=== PATIENT | female | born 1995 | race Caucasian/White ===

== ENCOUNTER 2017-07-25 14:19 | Emergency (ER) | payer OTHER, SELFPAY ==
--- NOTE | 2017-07-25 17:33 | ER ---
Nurse's Notes [facility] Name: Brianna Man Age: 22 yrs Sex: Female : 1995 Arrival Date: 07/25/2017 Time: 14:23 Bed Waiting Private MD: Diagnosis: Presentation: 07/25 14:41 Presenting complaint: Patient states: last month i had 3 periods, im on my period right hj now that started , it regular flow but its thick and dark; reports crampy abd pain that radiates to the back;. Transition of care: patient was not received from another setting of care. Onset of symptoms was July 25, 2017. Care prior to arrival: None. 14:41 Method Of Arrival: Ambulatory 14:41 Acuity: VENANCIO 3 17:31 Note pt was called 3x and not available; pt possibly left;. Triage Assessment: 14:44 General: Appears in no apparent distress. uncomfortable, Behavior is calm, cooperative, hj appropriate for age. Pain: Complains of pain in suprapubic area Pain radiates to left low back and right low back. GI: Reports lower abdominal pain. 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 Abd is soft and non tender. Vital Signs: 14:44 BP 120 / 61; Pulse 95; Resp 18; Temp 98.3(TE); Pulse Ox 100% on R/A; Weight 66.22 kg; hj Height 5 ft. 0 in. (152.40 cm); Pain 0/10; 14:44 Body Mass Index 28.51 (66.22 kg, 152.40 cm) ED Course: 14:23 Patient arrived in ED. mr 14:43 Triage completed. hj 14:44 Arm band placed on left wrist. hj 15:01 Urine collected: clean catch specimen, clear. mh5 17:27 Ruchi Lopez FNP-C is PHCP. snw 17:27 Ying Flores MD is Attending Physician. snw Administered Medications: No medications were administered Outcome: 17:32 Patient left the ED. Signatures: Ruchi Lopez, [employer] CONSULTANT-Csnw Cris Jain Henry, RN RN Cris Holley [facility] Corrections: (The following items were deleted from the chart) 14:47 14:44 Pulse 95bpm; Resp 18bpm; Pulse Ox 100% RA; Temp 98.3F Temporal; 66.22 kg; Height hj 5 ft. 0 in.; BMI: 28.5; hj
--- NOTE | 2017-07-25 17:33 | EDPHYS ---
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 0 in. (152.40 cm); Pain 0/10; 14:44 Body Mass Index 28.51 (66.22 kg, 152.40 cm) hj MDM: 17:31 ED course: pt left from lobby prior to being called to a room, prior to being seen per snw this provider. 07/25 15:05 Order name: Urine Dipstick--Ancillary (enter results) ms 07/25 15:05 Order name: Urine --Ancillary (enter results) ms Administered Medications: No medications were administered Disposition: 18:37 Co-signature as Attending Physician, Ying Flores MD. ma2 Disposition: 07/25/17 17:32 Patient left the facility before being seen by provider. - Patient left due to unknown. Signatures: Dispatcher [employer] EDRuchi Cleary FNP-C FNP-Audraw Luis Zavala, RN RN Ying Flores MD MD ma2
[2017-07-25 18:34] LABS: Urine Blood 2+ (NEG); Urine Glucose NEGATIVE (NEG); Urine Protein NEGATIVE (NEG); Urine pH 6.5 (5.0-7.0)
== END 2017-07-25 17:32 | disposition left against medical advice (07) ==
LOC: ER 14:19
DX: Z53.21 Procedure and treatment not carried out due to patient leaving prior to being seen by health care provider (principal)
CPT/HCPCS: 81003; 81025; 99282

== ENCOUNTER 2017-11-04 17:23 | Emergency (ER) | payer SELFPAY ==
[2017-11-04] MEDS ORDERED: NA CHLORIDE 0.9% 0 ML ONE (18:01)
[2017-11-04 18:08] LABS: Absolute Monocytes 0.5 K/uL (0.1-1.3); Absolute Neutrophil 5.7 K/uL (1.8-8.0); Basophils % 0.5 % (0-1.3); Eosinophils % 0.6 % (0-4.4); Hematocrit 39.7 % (36.0-45.0); Lymphocytes % 24.1 % (15.3-44.8); MCH 27.7 pg (27.0-35.0); MCV 85.8 fL (80-100); Monocytes % 5.6 % (3.3-12.3); RBC Red Blood Cell Count 4.63 M/uL (3.86-4.86)
[2017-11-04 18:30] LABS: BUN Blood Urea Nitrogen 10 mg/dL (7-18); Bicarbonate 30 mmol/L (21-32); Glucose Level 91 mg/dL (74-106); Potassium 3.6 mmol/L (3.5-5.1); Sodium Level 141 mmol/L (136-145)
[2017-11-04 18:32] LABS: HCG, Quantitative < 1 mIU/mL (1-3)
--- NOTE | 2017-11-04 18:54 | EDPHYS ---
Physician Documentation [facility] Name: Brianna Man Age: 22 yrs Sex: Female : 1995 Arrival Date: 11/04/2017 Time: 17:26 Bed 15 Private MD: ED Physician Paul Ly HPI: 11/04 18:11 This 22 yrs old Female presents to ER via Ambulatory with complaints of gemma Vaginal Bleeding, + Preg <12wks, Abdominal Cramping. 18:11 The patient presents to the emergency department with vaginal bleeding, that is light. gemma The estimated gestational age is 5 weeks. course: care: none. Previous pregnancies: the patient has never been . The patient has not experienced similar symptoms in the past. 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 - Social history:: Smoking status: Patient/guardian denies using tobacco, Patient/guardian denies using alcohol. - Ebola Screening: : Patient negative for fever greater than or equal to 101.5 degrees Fahrenheit, and additional compatible Ebola Virus Disease symptoms Patient denies exposure to infectious person Patient denies travel to an Ebola-affected area in the 21 days before illness onset. - Family history:: not pertinent. ROS: 18:11 Constitutional: Negative for fever, chills, and weight loss, Eyes: Negative for injury, gemma pain, redness, and discharge, ENT: Negative for injury, pain, and discharge, Neck: Negative for injury, pain, and swelling, Cardiovascular: Negative for chest pain, palpitations, and edema, Respiratory: Negative for shortness of breath, cough, wheezing, and pleuritic chest pain, Abdomen/GI: Negative for abdominal pain, nausea, vomiting, diarrhea, and constipation, Back: Negative for injury and pain, MS/Extremity: Negative for injury and deformity, Skin: Negative for injury, rash, and discoloration, Neuro: Negative for headache, weakness, numbness, tingling, and seizure, Psych: Negative for depression, anxiety, suicide ideation, homicidal ideation, and hallucinations, Allergy/Immunology: Negative for hives, rash, and allergies, Endocrine: Negative for neck swelling, polydipsia, polyuria, polyphagia, and marked weight changes, Hematologic/Lymphatic: Negative for swollen nodes, abnormal bleeding, and unusual bruising. 18:11 : Positive for pelvic pain, vaginal bleeding. Exam: 18:11 Constitutional: This is a well developed, well nourished patient who is awake, alert, gemma and in no acute distress. Head/Face: Normocephalic, atraumatic. Eyes: Pupils equal round and reactive to light, extra-ocular motions intact. Lids and lashes normal. Conjunctiva and sclera are non-icteric and not injected. Cornea within normal limits. Periorbital areas with no swelling, redness, or edema. ENT: Nares patent. No nasal discharge, no septal abnormalities noted. Tympanic membranes are normal and external auditory canals are clear. Oropharynx with no redness, swelling, or masses, exudates, or evidence of obstruction, uvula midline. Mucous membranes moist. Neck: Trachea midline, no thyromegaly or masses palpated, and no cervical lymphadenopathy. Supple, full range of motion without nuchal rigidity, or vertebral point tenderness. No Meningismus. Chest/axilla: Normal chest wall appearance and motion. Nontender with no deformity. No lesions are appreciated. Cardiovascular: Regular rate and rhythm with a normal S1 and S2. No gallops, murmurs, or rubs. Normal PMI, no JVD. No pulse deficits. Respiratory: Lungs have equal breath sounds bilaterally, clear to auscultation and percussion. No rales, rhonchi or wheezes noted. No increased work of breathing, no retractions or nasal flaring. Abdomen/GI: Soft, non-tender, with normal bowel sounds. No distension or tympany. No guarding or rebound. No evidence of tenderness throughout. Back: No spinal tenderness. No costovertebral tenderness. Full range of motion. Female : Normal external genitalia. Skin: Warm, dry with normal turgor. Normal color with no rashes, no lesions, and no evidence of cellulitis. MS/ Extremity: Pulses equal, no cyanosis. Neurovascular intact. Full, normal range of motion. Neuro: Awake and alert, GCS 15, oriented to person, place, time, and situation. Cranial nerves II-XII grossly intact. Motor strength 5/5 in all extremities. Sensory grossly intact. Cerebellar exam normal. Normal gait. Psych: Awake, alert, with orientation to person, place and time. Behavior, mood, and affect are within normal limits. Vital Signs: 17:42 BP 125 / 83; Pulse 82; Resp 18; Temp 98.2(O); Pulse Ox 98% on R/A; Weight 70.31 kg; hj Height 5 ft. 0 in. (152.40 cm); Pain 7/10; 18:43 BP 110 / 66; Pulse 80; Resp 18; Pulse Ox 100% on R/A; hj 19:00 BP 105 / 65; Pulse 65; Resp 18 S; Pulse Ox 99% on R/A; ea 20:57 BP 109 / 76; Pulse 78; Resp 18; Pulse Ox 99% on R/A; Pain 0/10; ea 21:40 BP 110 / 70; Pulse 70; Resp 18; Temp 98(O); Pulse Ox 99% on R/A; Pain 0/10; ea 17:42 Body Mass Index 30.27 (70.31 kg, 152.40 cm) MDM: 17:44 Patient medically screened. [facility] 18:12 Data reviewed: vital signs, nurses notes, lab test result(s), radiologic studies, gemma ultrasound. 11/04 17:45 Order name: Quantitative Hcg; Complete Time: 18:52 [facility] 11/04 17:45 Order name: Abo/rh Typing; Complete Time: 19:29 [facility] 11/04 17:45 Order name: Basic Metabolic Panel; Complete Time: 18:52 [facility] 11/04 17:45 Order name: CBC with Diff; Complete Time: 18:52 [facility] 11/04 17:45 Order name: Urine Culture [facility] 11/04 19:22 Order name: ABO/RH no charge; Complete Time: 19:29 [facility] 11/04 17:45 Order name: Urine Test (obtain specimen); Complete Time: 18:45 [facility] 11/04 17:45 Order name: IV Saline Lock; Complete Time: 17:58 [facility] 11/04 17:45 Order name: Labs collected and sent; Complete Time: 17:58 [facility] 11/04 19:24 Order name: Transvaginal Study Probe [facility] 11/04 19:37 Order name: Urine Dipstick--Ancillary (enter results) [facility] 11/04 19:37 Order name: Urine --Ancillary (enter results) [facility] 11/04 17:45 Order name: NPO; Complete Time: 17:47 [facility] 11/04 17:45 Order name: Urine Dipstick-Ancillary (obtain specimen); Complete Time: 18:45 [facility] Administered Medications: 17:45 Drug: NS 0.9% 1000 ml Route: IV; Rate: 1 bolus; Site: right antecubital; 20:50 Follow up: Response: No adverse reaction; IV Status: Completed infusion; IV Intake: ea 1000ml Point of Care Testing: Urine : 19:00 hCG Reading: Negative; ea Disposition: 11/04/17 18:53 Discharged to Home. Impression: Dysmenorrhea, unspecified - not . - Condition is Stable. - Discharge Instructions: Dysmenorrhea, Dysmenorrhea, [id number]. - Medication Reconciliation Form, Thank You Letter, Antibiotic Education, Prescription Opioid Use form. - Follow up: Private Physician; When: 2 - 3 days; Reason: Recheck today's complaints, Continuance of care, Re-evaluation by your physician. - Problem is new. - Symptoms have improved. Signatures: Dispatcher [employer] [facility] Paul Ly MD MD cha Joaquin, Henry, RN Bela Dominguez RN RN ea Corrections: (The following items were deleted from the chart) 19:24 17:46 Transvaginal Ob+US.RAD.BRZ ordered. [facility] 21:41 18:53 11/04/2017 18:53 Discharged to Home. Impression: Dysmenorrhea, unspecified - not ea . Condition is Stable. Forms are Medication Reconciliation Form, Thank You Letter, Antibiotic Education, Prescription Opioid Use. Follow up: Private Physician; When: 2 - 3 days; Reason: Recheck today's complaints, Continuance of care, Re-evaluation by your physician. Problem is new. Symptoms have improved. gemma
--- NOTE | 2017-11-04 18:54 | ER ---
Nurse's Notes [facility] Name: Brianna Man Age: 22 yrs Sex: Female : 1995 Arrival Date: 11/04/2017 Time: 17:26 Bed 15 Private MD: Diagnosis: Dysmenorrhea, unspecified-not Presentation: 11/04 17:38 Presenting complaint: Patient states: LMP- 09/11/17; was spotting and having abd cramps hj since yesterday, pain of 7/10; still spotting today; reports nausea, denies vomiting; denies fever and chills;. Transition of care: patient was not received from another setting of care. Onset of symptoms was November 03, 2017. Risk Assessment: Do you want to hurt yourself or someone else? Patient reports no desire to harm self or others. Initial Sepsis Screen: Does the patient meet any 2 criteria? No. Patient's initial sepsis screen is negative. Does the patient have a suspected source of infection? No. Patient's initial sepsis screen is negative. Care prior to arrival: None. 17:38 Method Of Arrival: Ambulatory 17:38 Acuity: VENANCIO 3 Triage Assessment: 17:41 General: Appears in no apparent distress. uncomfortable, Behavior is calm, cooperative, hj appropriate for age. Pain: Complains of pain in abdomen. EENT: No signs and/or symptoms were reported regarding the EENT system. Neuro: Level of Consciousness is awake, alert, obeys commands, Oriented to person, place, time, situation, Appropriate for age. Cardiovascular: Capillary refill < 3 seconds Patient's skin is warm and dry. Respiratory: Airway is patent Respiratory effort is even, unlabored, Respiratory pattern is regular, symmetrical. GI: Abdomen is non-distended, Bowel sounds present X 4 quads. Reports lower abdominal pain, upper abdominal pain, cramping. : Reports vaginal bleeding that is with clots, spotty. Derm: No signs and/or symptoms reported regarding the dermatologic system. Musculoskeletal: No signs and/or symptoms reported regarding the musculoskeletal system. 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 - Social history:: Smoking status: Patient/guardian denies using tobacco, Patient/guardian denies using alcohol. - Ebola Screening: : Patient negative for fever greater than or equal to 101.5 degrees Fahrenheit, and additional compatible Ebola Virus Disease symptoms Patient denies exposure to infectious person Patient denies travel to an Ebola-affected area in the 21 days before illness onset. - Family history:: not pertinent. Screenin:41 Abuse screen: Denies threats or abuse. Denies injuries from another. Nutritional hj screening: No deficits noted. Tuberculosis screening: No symptoms or risk factors identified. Fall Risk None identified. Assessment: 17:44 Obstetrical Assessment: General assessment: awake and alert, skin warm and dry, Patient hj reports nausea, abdominal cramping. 18:42 Reassessment: awaiting results and POC;. hj 19:00 General: Appears in no apparent distress. Behavior is calm, cooperative, appropriate ea for age. Pain: Denies pain. Neuro: Level of Consciousness is awake, alert, obeys commands, Oriented to person, place, time, situation. Cardiovascular: Patient's skin is warm and dry. Respiratory: Airway is patent Respiratory effort is even, unlabored, Respiratory pattern is regular, symmetrical. GI: Abdomen is non-distended, Bowel sounds present X 4 quads. : Reports vaginal bleeding that is spotty. EENT: No signs and/or symptoms were reported regarding the EENT system. Derm: Skin is pink, warm \T\ dry. Musculoskeletal: No signs and/or symptoms reported regarding the musculoskeletal system. 19:03 Reassessment: PT taken to ultra sound. ea 20:20 Reassessment: Patient and/or family updated on plan of care and expected duration. Pain ea level reassessed. Patient is alert, oriented x 3, equal unlabored respirations, skin warm/dry/pink. awaiting on ultrasound results. Patient denies pain at this time. 21:09 Reassessment: Patient and/or family updated on plan of care and expected duration. Pain ea level reassessed. Patient is alert, oriented x 3, equal unlabored respirations, skin warm/dry/pink. Awaiting on ultrasound results. 21:19 Reassessment: Contacted radiologist regarding u/s results, states he will read at this aa1 time and submit report as soon as possible. 21:39 Reassessment: Patient and/or family updated on plan of care and expected duration. Pain ea level reassessed. Patient is alert, oriented x 3, equal unlabored respirations, skin warm/dry/pink. Discharge instructions given to patient, verbalized the understanding of instruciton. Vital Signs: 17:42 BP 125 / 83; Pulse 82; Resp 18; Temp 98.2(O); Pulse Ox 98% on R/A; Weight 70.31 kg; hj Height 5 ft. 0 in. (152.40 cm); Pain 7/10; 18:43 BP 110 / 66; Pulse 80; Resp 18; Pulse Ox 100% on R/A; hj 19:00 BP 105 / 65; Pulse 65; Resp 18 S; Pulse Ox 99% on R/A; ea 20:57 BP 109 / 76; Pulse 78; Resp 18; Pulse Ox 99% on R/A; Pain 0/10; ea 21:40 BP 110 / 70; Pulse 70; Resp 18; Temp 98(O); Pulse Ox 99% on R/A; Pain 0/10; ea 17:42 Body Mass Index 30.27 (70.31 kg, 152.40 cm) Vitals: 17:43 Heart Tones unavailable to appreciate given the LMP. ED Course: 17:26 Patient arrived in ED. rg4 17:38 Luis Zavala, REGINA is Primary Nurse. 17:40 Triage completed. 17:42 Arm band placed on right wrist. 17:43 Patient has correct armband on for positive identification. Bed in low position. Call light in reach. Side rails up X 1. 17:44 Paul Ly MD is Attending Physician. [facility] 17:58 Initial lab(s) drawn, by me, sent to lab. T\T\S collected, blood band applied to patient. Inserted saline lock: 22 gauge in right antecubital area, using aseptic technique. Blood collected. 18:46 Warm blanket given. Pulse ox on. NIBP on. mh5 18:46 Urine collected: clean catch specimen, clear. 5 19:25 Transvaginal Study Probe In Process Unspecified. EDMS 19:25 Ultrasound completed. Patient tolerated well. Patient moved back from ultrasound. lc3 21:39 No provider procedures requiring assistance completed. IV discontinued, intact, ea bleeding controlled, No redness/swelling at site. Pressure dressing applied. Administered Medications: 17:45 Drug: NS 0.9% 1000 ml Route: IV; Rate: 1 bolus; Site: right antecubital; 20:50 Follow up: Response: No adverse reaction; IV Status: Completed infusion; IV Intake: ea 1000ml Point of Care Testing: Urine : 19:00 hCG Reading: Negative; ea Intake: 20:50 IV: 1000ml; Total: 1000ml. ea Outcome: 18:53 Discharge ordered by . gemma 21:39 Discharged to home ambulatory. ea 21:39 Condition: good 21:39 Discharge instructions given to patient, Instructed on discharge instructions, follow up and referral plans. Demonstrated understanding of instructions, follow-up care. 21:41 Patient left the ED. ea Signatures: Dispatcher [employer] EDMS Kavya Renee, RN RN aa1 Paul Ly MD MD cha Joaquin, Henry, RN RN Shon Mckeon Rubi rg4 Martinez, Maria [facility] Bela Gonzales RN RN ea
[2017-11-04] MEDS ORDERED: NA CHLORIDE 0.9% 1,000 ML ONE (20:38)
--- NOTE | 2017-11-04 21:25 | RAD REPORT ---
EXAM DESCRIPTION: US - Transvaginal Study Probe - 11/04/2017 7:24 pm CLINICAL HISTORY: Abdominal pain, cramping, vaginal bleeding, Preliminary findings provided at the time of the study. COMPARISON: None. TECHNIQUE: Endovaginal sonography was performed. FINDINGS: No intrauterine gestational sac or sac remnant identifiable. Endometrium is 8 mm in maximu m thickness with no discrete mass, polyp or hemorrhagic collection identifiable. No myometrial mass i dentified. Trace amount of fluid in the cul-de-sac is well within physiologic limits. Uterus is 6.3 x 3.1 x 3.9 cm. Right ovary is 3.0 x 1.9 x 2.2 cm. Left ovary is 2.5 x 2.3 x 1.9 cm. Doppler evaluation shows a rosemarie l blood flow pattern within the ovarian stroma. No adnexal abnormality. IMPRESSION: Pelvic ultrasound shows no significant or suspicious finding. Specifically, no intrauter ine gestation or gestational sac remnant.
[2017-11-04 21:54] LABS: Urine Blood 1+ (NEG); Urine Glucose NEGATIVE (NEG); Urine Protein NEGATIVE (NEG); Urine Specific Gravity 1.015 (1.005-1.030)
== END 2017-11-04 21:41 | disposition home or self-care (01) ==
LOC: ER 17:23
DX: N94.6 Dysmenorrhea, unspecified (principal)
CPT/HCPCS: 36415; 76830; 80048; 81003; 81025; 84702; 85025; 86900; 86901; 87086; 87088; 96360; 96361; 99285; J7030

== ENCOUNTER 2020-03-08 09:43 | Emergency (ER) | payer SELFPAY ==
[2020-03-08 10:21] LABS: Urine Blood TRACE (NEG); Urine Glucose NEGATIVE (NEG); Urine Protein NEGATIVE (NEG); Urine Specific Gravity 1.025 (1.005-1.030)
[2020-03-08 10:31] LABS: Absolute Lymphocytes (CBC) 1.9 K/uL (0.7-4.9); Basophils % 0.7 % (0-1.3); Hematocrit 41.4 % (36.0-45.0); Lymphocytes % 20.9 % (15.3-44.8); MPV 8.4 fL (7.6-11.3); RBC Red Blood Cell Count 4.98 M/uL (3.86-4.86)
[2020-03-08] MEDS ORDERED: DICYCLOMINE HCL 20 MG/2 ML AMP IM ONE (10:31)
[2020-03-08] MEDS ORDERED: NA CHLORIDE 0.9% 1,000 ML ONE (10:31)
[2020-03-08] MEDS ORDERED: ONDANSETRON 4 MG/2 ML VIAL ONE (10:31)
[2020-03-08 10:32] LABS: Protime INR 0.97
[2020-03-08 10:55] LABS: ALT/SGPT 20 U/L (12-78); AST/SGOT 11 U/L (15-37); Albumin 4.3 g/dL (3.4-5.0); Alkaline Phosphatase 83 U/L (45-117); BUN Blood Urea Nitrogen 12 mg/dL (7-18); Bicarbonate 26 mmol/L (21-32); Bilirubin Direct < 0.1 mg/dL (0-0.2); Bilirubin Total 0.3 mg/dL (0.2-1.0); Glucose Level 98 mg/dL (74-106); Lipase 101 U/L (73-393); Potassium 3.8 mmol/L (3.5-5.1); Protein, Total 8.6 g/dL (6.4-8.2); Sodium Level 142 mmol/L (136-145)
--- OUTSIDE RECORDS SUMMARY | 2020-03-08 10:58 | XMS REPORT | Continuity of Care Document ---
:1995 Author Organization [facility] t Address [address] [place] [address] Care Team Providers Name Role Phone Larry Guy Attending Clinician Wayne Hollingsworth Attending Clinician Visit, Nurse Attending Clinician Unavailable Problems This patient has no known problems. Allergies, Adverse Reactions, Alerts This patient has no known allergies or adverse reactions. Medications This patient has no known medications. Procedures This patient has no known procedures. 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 [id number] [facility] [id number] MATERNAL [id number] & CHILD [address] [place] [id number] - [place] 2019-07-13 2019-07-13 Office SONI Oswald [id number] 10:22:20 10:39:48 Visit Linda Black STATION MECHANIC APPRENTICE [id number] [facility] [id number] MATERNAL [id number] & CHILD [address] [facility] 2019-07-13 2019-07-13 Nurse Visit, [facility] [id number] 09:23:47 09:33:41 Visit Tello STATION MECHANIC APPRENTICE [id number] Nurse [facility] [id number] MATERNAL [id number] & CHILD [address] [facility] Results This patient has no known results.
[2020-03-08 11:07] LABS: Urine Bacteria >50 /HPF (<20); Urine Culture Reflex Order REFLEXED; Urine RBC <5 /HPF (NONE SEEN)
--- NOTE | 2020-03-08 11:18 | RAD REPORT ---
EXAM DESCRIPTION: CT - Abdomen Pelvis W Contrast - 03/08/2020 10:45 am CLINICAL HISTORY: Abdominal pain COMPARISON: none. TECHNIQUE: Computed axial tomography of the abdomen pelvis was obtained. 100 cc Isovue-300 was admin istered intravenously. Oral contrast was not requested which limits evaluation of bowel. All CT scans are performed using dose optimization technique as appropriate and may include automated exposure control or mA/KV adjustment according to patient size. FINDINGS: Cholecystectomy. The liver, spleen, pancreas, and adrenals appear unremarkable. A 15 millimeter low to intermediate density mass right kidney. 18 millimeter low to intermediate dens ity mass left kidney There is no evidence of diverticulitis. Normal appendix The wall of portions of the transverse colon appear mildly thickened Trace amount of free fluid. Small umbilical hernia IMPRESSION: The wall of portions of the transverse colon appear mildly thickened which may indicate a mild colitis Bilateral low to intermediate density renal masses. These may represent benign complex cysts. Cystic neoplasm can have this appearance but is considered less likely. It is recommended that the patient have a renal ultrasound in 3 months for re-evaluation.
--- NOTE | 2020-03-08 11:41 | ER ---
Nurse's Notes [facility] Name: Brianna Man Age: 24 yrs Sex: Female : 1995 Arrival Date: 03/08/2020 Time: 09:45 Bed 17 Private MD: Diagnosis: Other and unspecified noninfective gastroenteritis and colitis Presentation: 03/08 09:56 Chief complaint: Patient states: shes having a crohns flare up for past two weeks, pain ll2 and nausea were too much today for her to deal with at home. she has a hx of pcos and crohns. pain in the lower pelvic region, denies vomiting, says the pain sometimes intensifies and radiates to her back. denies frequent urination or pain while voiding. Coronavirus screen: Client denies travel out of the [place] in the last 14 days. At this time, the client does not indicate any symptoms associated with coronavirus-19. Ebola Screen: Patient negative for fever greater than or equal to 101.5 degrees Fahrenheit, and additional compatible Ebola Virus Disease symptoms. Initial Sepsis Screen: Does the patient meet any 2 criteria? No. Patient's initial sepsis screen is negative. Does the patient have a suspected source of infection? No. Patient's initial sepsis screen is negative. Risk Assessment: Do you want to hurt yourself or someone else? Patient reports no desire to harm self or others. Onset of symptoms was February 23, 2020. 09:56 Method Of Arrival: Ambulatory ll2 09:56 Acuity: VENANCIO 3 ll2 YARD ASSOCIATE: 10:04 LMP N/A - control method ll2 Historical: - Allergies: 10:01 Latex, Natural Rubber; ll2 - Home Meds: 10:01 None [Active]; ll2 - PMHx: 10:01 crohns disease; PCOS; ll2 - PSHx: 10:01 None; ll2 - Immunization history:: Adult Immunizations up to date. - Social history:: Smoking status: unknown. Screenin:05 Abuse screen: Denies threats or abuse. Nutritional screening: No deficits noted. ll2 Tuberculosis screening: No symptoms or risk factors identified. Fall Risk None identified. Assessment: 10:01 General: Appears in no apparent distress. Behavior is calm, cooperative, appropriate ll2 for age. Pain: Complains of pain in right lower quadrant and left lower quadrant Pain radiates to low back area. Neuro: Level of Consciousness is awake, alert, obeys commands, Oriented to person, place, time, situation. Cardiovascular: Capillary refill < 3 seconds Patient's skin is warm and dry. Respiratory: Airway is patent Respiratory effort is even, unlabored, Respiratory pattern is regular, symmetrical. GI: Reports nausea, Patient currently denies vomiting. : Denies burning with urination, inability to void, pain urinary frequency, urgency. EENT: No signs and/or symptoms were reported regarding the EENT system. Derm: Skin is intact, is healthy with good turgor, Skin is dry, Skin is pink, warm \T\ dry. Skin temperature is warm. Musculoskeletal: Circulation, motion, and sensation intact. Range of motion: intact in all extremities. 11:07 Reassessment: Patient and/or family updated on plan of care and expected duration. Pain ll2 level reassessed. Patient is alert, oriented x 3, equal unlabored respirations, skin warm/dry/pink. Vital Signs: 09:56 BP 118 / 65; Pulse 95; Resp 16; Temp 98.3; Pulse Ox 99% on R/A; Pain 6/10; ll2 10:04 BP 118 / 65; Pulse 95; Resp 16; Temp 98.2; Pulse Ox 99% on R/A; ll2 11:07 BP 103 / 59; Pulse 72; Resp 16; Pulse Ox 100% on R/A; ll2 ED Course: 09:45 Patient arrived in ED. ds1 09:47 Anup Benavides, RN is Primary Nurse. em 09:48 Paul Hernandez PA is PHCP. cp 09:48 Joss Mcgrath MD is Attending Physician. cp 10:00 Triage completed. ll2 10:05 Patient has correct armband on for positive identification. Placed in gown. Bed in low ll2 position. Call light in reach. Side rails up X 1. Pulse ox on. NIBP on. 10:28 Initial lab(s) drawn, by me, sent to lab. Inserted saline lock: 20 gauge in right ll2 antecubital area, using aseptic technique. Blood collected. 10:45 CT Abd/Pelvis - IV Contrast Only In Process Unspecified. EDMS 11:37 Asif Scanlon MD is Referral Physician. cp 11:44 Arm band placed on right wrist. ll2 11:50 No provider procedures requiring assistance completed. IV discontinued, intact, ll2 bleeding controlled, No redness/swelling at site. Pressure dressing applied. Administered Medications: 10:27 Drug: Zofran (Ondansetron) 4 mg Route: IVP; Site: right antecubital; ll2 11:52 Follow up: Response: No adverse reaction ll2 10:27 Drug: Bentyl 20 mg Route: IM; Site: left deltoid; ll2 11:51 Follow up: Response: No adverse reaction ll2 10:27 Drug: NS 0.9% 500 ml Route: IV; Rate: bolus; Site: right antecubital; ll2 11:40 Drug: SOLU-Medrol 60 mg Route: IVP; Site: right antecubital; em 11:51 Follow up: Response: No adverse reaction ll2 Outcome: 11:40 Discharge ordered by MD. cp 11:50 Discharged to home ambulatory. ll2 11:50 Condition: stable 11:50 Discharge instructions given to patient, Instructed on discharge instructions, follow up and referral plans. medication usage, Demonstrated understanding of instructions, follow-up care, medications, Prescriptions given X 5 11:51 Patient left the ED. ll2 Signatures: Dispatcher [employer] Anup Orta, RN RN Bita Escamilla ds1 Paul Hernandez PA PA cp Linscombe, Lacie, RN RN ll2
--- NOTE | 2020-03-08 11:41 | EDPHYS ---
Physician Documentation [facility] Name: Brianna Man Age: 24 yrs Sex: Female : 1995 Arrival Date: 03/08/2020 Time: 09:45 Bed 17 Private MD: ED Physician Joss Mcgrath HPI: 03/08 10:05 This 24 yrs old Female presents to ER via Ambulatory with complaints of cp Weakness, Nausea. 10:05 The patient presents with abdominal pain mid abdomen. cp 10:05 Onset: The symptoms/episode began/occurred 2 week(s) ago. cp 10:05 Associated signs and symptoms: Pertinent positives: diarrhea, nausea, general weakness. cp Patient reports history of Crohn's disease and complains of flare up for past 2 weeks. Patient denies blood in stool and reports running out of prescribed meds for past 2 days. 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 - Social history:: Smoking status: unknown. ROS: 10:10 Constitutional: Negative for body aches, chills, fever, poor PO intake. cp 10:10 Eyes: Negative for injury, pain, redness, and discharge. cp 10:10 ENT: Negative for drainage from ear(s), ear pain, sore throat, difficulty swallowing, difficulty handling secretions. 10:10 Cardiovascular: Negative for chest pain, palpitations. 10:10 Respiratory: Negative for cough, shortness of breath, wheezing. 10:10 Abdomen/GI: Positive for abdominal pain, nausea, diarrhea, Negative for constipation, anorexia, black/tarry stool, rectal bleeding. 10:10 Back: Negative for radiated pain. 10:10 Skin: Negative for rash. 10:10 Neuro: Positive for general weakness, Negative for altered mental status, dizziness, headache. 10:10 All other systems are negative. Exam: 10:20 Constitutional: The patient appears in no acute distress, alert, awake, non-toxic, well cp developed, well nourished. 10:20 Head/Face: Normocephalic, atraumatic. cp 10:20 Eyes: Periorbital structures: appear normal, Conjunctiva: normal, no exudate, no injection, Sclera: no appreciated abnormality, Lids and lashes: appear normal, bilaterally. 10:20 ENT: External ear(s): are unremarkable, Nose: is normal, Mouth: Lips: moist, Oral mucosa: moist, Posterior pharynx: is normal, airway is patent, no erythema, no exudate. 10:20 Chest/axilla: Inspection: normal, Palpation: is normal, no crepitus, no tenderness. 10:20 Cardiovascular: Rate: normal, Rhythm: regular. 10:20 Respiratory: the patient does not display signs of respiratory distress, Respirations: normal, no use of accessory muscles, labored breathing, is not present, Breath sounds: are clear throughout, no decreased breath sounds, no stridor, no wheezing. 10:20 Abdomen/GI: Inspection: abdomen appears normal, Bowel sounds: active, all quadrants, Palpation: soft, in all quadrants, mild abdominal tenderness, in all quadrants, rebound tenderness, is not appreciated, voluntary guarding, is not appreciated, involuntary guarding, is not appreciated. 10:20 Back: pain, is absent, ROM is normal. 10:20 Skin: no rash present. 10:20 Neuro: Orientation: to person, place \T\ time. Mentation: is normal. Vital Signs: 09:56 BP 118 / 65; Pulse 95; Resp 16; Temp 98.3; Pulse Ox 99% on R/A; Pain 6/10; ll2 10:04 BP 118 / 65; Pulse 95; Resp 16; Temp 98.2; Pulse Ox 99% on R/A; ll2 11:07 BP 103 / 59; Pulse 72; Resp 16; Pulse Ox 100% on R/A; ll2 MDM: 09:53 Patient medically screened. cp 10:00 Differential diagnosis: gastritis, non-specific abd pain, Pelvic Inflammatory Disease, cp Ureterolithiasis, urinary tract infection, colitis. 11:40 Data reviewed: vital signs, nurses notes, lab test result(s), radiologic studies, CT cp scan. 11:40 Counseling: I had a detailed discussion with the patient and/or guardian regarding: the cp historical points, exam findings, and any diagnostic results supporting the discharge/admit diagnosis, lab results, radiology results. Special discussion: Based on the patient's Hx, exam, and Dx evaluation, there is no indication for emergent surgery or inpatient Tx. It is understood by the patient/guardian that if the Sx's persist or worsen they need to return immediately for re-evaluation. 03/08 09:59 Order name: Basic Metabolic Panel; Complete Time: 11:21 cp 03/08 11:21 Interpretation: Normal except: CL 109; GFR 75. cp 03/08 09:59 Order name: CBC with Diff; Complete Time: 11:21 cp 03/08 11:21 Interpretation: Normal except: RBC 4.98. cp 03/08 09:59 Order name: Hepatic Function; Complete Time: 11:21 cp 03/08 11:22 Interpretation: Normal except: AST 11; TP 8.6; GLOB 4.3; A/G 1.0. cp 03/08 09:59 Order name: Lipase; Complete Time: 11:21 cp 03/08 09:59 Order name: PT-INR; Complete Time: 11:21 cp 03/08 09:59 Order name: Urine Microscopic Only; Complete Time: 11:21 cp 03/08 11:21 Interpretation: Normal except: UBACT >50. cp 03/08 10:14 Order name: Urine Dipstick--Ancillary (enter results); Complete Time: 10:34 eb 03/08 10:34 Interpretation: Normal except: UBLD TRACE. cp 03/08 10:14 Order name: Urine --Ancillary (enter results); Complete Time: 10:34 eb 03/08 10:21 Order name: CT Abd/Pelvis - IV Contrast Only; Complete Time: 11:21 cp 03/08 11:23 Interpretation: Report reviewed. 03/08 11:08 Order name: Urine Culture EDMS 03/08 09:59 Order name: Urine Dipstick-Ancillary (obtain specimen); Complete Time: 11:42 cp 03/08 09:59 Order name: Urine Test (obtain specimen); Complete Time: 11:42 cp Administered Medications: 10:27 Drug: Zofran (Ondansetron) 4 mg Route: IVP; Site: right antecubital; ll2 11:52 Follow up: Response: No adverse reaction ll2 10:27 Drug: Bentyl 20 mg Route: IM; Site: left deltoid; ll2 11:51 Follow up: Response: No adverse reaction ll2 10:27 Drug: NS 0.9% 500 ml Route: IV; Rate: bolus; Site: right antecubital; ll2 11:40 Drug: SOLU-Medrol 60 mg Route: IVP; Site: right antecubital; em 11:51 Follow up: Response: No adverse reaction ll2 Disposition: 03/08/20 11:40 Discharged to Home. Impression: Other and unspecified noninfective gastroenteritis and colitis. - Condition is Stable. - Discharge Instructions: Colitis. - Prescriptions for Bentyl 20 mg Oral Tablet - take 2 tablets by ORAL route every 6 hours As needed; 30 tablet. Zofran 4 mg Oral Tablet - take 1 tablet by ORAL route every 12 hours As needed; 20 tablet. Cipro 500 mg Oral Tablet - take 1 tablet by ORAL route every 12 hours for 7 days; 14 tablet. Metronidazole 500 mg Oral Tablet - take 1 tablet by ORAL route every 8 hours for 7 days; 21 tablet. Medrol (Doug) 4 mg Oral Tablets, Dose Pack - take 1 tablet by ORAL route as directed - follow package instructions; 1 packet. - Medication Reconciliation Form, Thank You Letter, Antibiotic Education, Prescription Opioid Use, Work release form form. - Follow up: Asif Scanlon MD; When: 2 - 3 days; Reason: Recheck today's complaints. - Problem is an acute exacerbation. - Symptoms have improved. Addendum: 03/09/2020 15:51 Co-signature as Attending Physician, Joss Mcgrath MD I agree with the assessment and k dr plan of care. Signatures: Dispatcher [employer] Joss Fink MD MD [facility] Anup Benavides RN RN em Paul Hernandez PA PA cp Sana Cardenas, RN RN ll2 Corrections: (The following items were deleted from the chart) 03/08 11:51 11:40 03/08/2020 11:40 Discharged to Home. Impression: Other and unspecified ll2 noninfective gastroenteritis and colitis. Condition is Stable. Forms are Medication Reconciliation Form, Thank You Letter, Antibiotic Education, Prescription Opioid Use. Follow up: Asif Scanlon; When: 2 - 3 days; Reason: Recheck today's complaints. Problem is an acute exacerbation. Symptoms have improved. cp
[2020-03-08] MEDS ORDERED: METHYLPREDNISOLONE 125 MG INJ ONE (11:52)
[2020-03-08 12:27] VITALS: TEMP 98.2
[2020-03-08 12:32] VITALS: BP 103/59; O2SAT 100
== END 2020-03-08 11:51 | disposition home or self-care (01) ==
LOC: ER 09:43
DX: K52.89 Other specified noninfective gastroenteritis and colitis (principal); Z91.040 Latex allergy status; Z91.048 Other nonmedicinal substance allergy status
CPT/HCPCS: 36415; 74177; 80048; 80076; 81003; 81015; 81025; 82565; 83690; 85025; 85610; 87086; 87088; 96372; 96374; 96375; 99284; J0500; J2405; J2930; J7030; Q9967

== ENCOUNTER 2020-06-05 14:23 | Emergency (ER) | payer OTHER, SELFPAY ==
--- OUTSIDE RECORDS SUMMARY | 2020-06-05 14:26 | XMS REPORT | Continuity of Care Document ---
:1995 Author Organization [facility] t Address [address] [place] [address] Care Team Providers Name Role Phone Larry [...] Department ID 2019-11-23 2019-11-23 Refill SONI Fox [id number] 00:00:00 00:00:00 Rachel Juarez SURFACE [employer] [id number] [facility] [id number] MATERNAL [id number] & CHILD [address] [place] [address] - [place] 2019-07-13 2019-07-13 Office SONI Oswald [id number] 10:22:20 10:39:48 Visit Linda Black [employer]FACE [employer]ATH[employer] [id number] REGIONAL [id number] MATERNAL [id number] & CHILD [address] [facility] 2019-07-13 2019-07-13 Nurse Visit, [facility] [id number] 09:23:47 09:33:41 Visit Tello SURFACE [employer]ATH[employer]PAR[employer] [id number] Nurse [facility] [id number] MATERNAL [id number] & CHILD 107 [facility] Results This patient has no known results.
[2020-06-05 16:27] LABS: Absolute Lymphocytes (CBC) 2.2 K/uL (0.7-4.9); Basophils % 0.6 % (0-1.3); Hematocrit 40.2 % (36.0-45.0); Lymphocytes % 22.7 % (15.3-44.8); MPV 8.2 fL (7.6-11.3)
[2020-06-05] MEDS ORDERED: ONDANSETRON 4 MG/2 ML VIAL ONE (16:37)
[2020-06-05 16:51] LABS: ALT/SGPT 17 U/L (12-78); AST/SGOT 13 U/L (15-37); Albumin 4.3 g/dL (3.4-5.0); Alkaline Phosphatase 81 U/L (45-117); BUN Blood Urea Nitrogen 9 mg/dL (7-18); Bicarbonate 27 mmol/L (21-32); Bilirubin Direct < 0.1 mg/dL (0-0.2); Bilirubin Total 0.3 mg/dL (0.2-1.0); Glucose Level 77 mg/dL (74-106); Lipase 62 U/L (73-393); Protein, Total 8.2 g/dL (6.4-8.2); Sodium Level 140 mmol/L (136-145)
--- NOTE | 2020-06-05 17:31 | RAD REPORT ---
EXAM DESCRIPTION: CT - Abdomen Pelvis W Contrast - 06/05/2020 5:08 pm CLINICAL HISTORY: Abdominal pain COMPARISON: 02/2020 TECHNIQUE: Computed axial tomography of the abdomen pelvis was obtained. 100 cc Isovue-300 was admin istered intravenously. Oral contrast was not requested which limits evaluation of bowel. All CT scans are performed using dose optimization technique as appropriate and may include automated exposure control or mA/KV adjustment according to patient size. FINDINGS: The liver, spleen, pancreas, and adrenals appear unremarkable. Small renal cysts There is no evidence of diverticulitis. . Small umbilical hernia. Cholecystectomy IMPRESSION: No acute abnormality is displayed.
[2020-06-05 17:32] LABS: Urine Blood NEGATIVE (NEG); Urine Glucose NEGATIVE (NEG); Urine Protein NEGATIVE (NEG); Urine Specific Gravity >1.030 (1.005-1.030); Urine pH 5.5 (5.0-7.0)
[2020-06-05] MEDS ORDERED: DICYCLOMINE HCL 10 MG CAP ONE (18:38)
[2020-06-05] MEDS ORDERED: NA CHLORIDE 0.9% 1,000 ML ONE (18:38)
--- NOTE | 2020-06-05 18:49 | EDPHYS ---
Physician Documentation [facility] Name: Brianna Man Age: 25 yrs Sex: Female : 1995 Arrival Date: 06/05/2020 Time: 14:33 Bed 14 Private MD: [facility] ED Physician Paul Ly HPI: 06/05 16:10 This 25 yrs old Female presents to ER via Ambulatory with complaints of cp Abdominal Pain, Nausea/Vomiting. 16:10 The patient presents with abdominal pain in the periumbilical area. cp 16:10 Onset: The symptoms/episode began/occurred this morning. The symptoms do not radiate. cp Associated signs and symptoms: Pertinent positives: nausea and vomiting, diarrhea, Pertinent negatives: blood in stools, chest pain, constipation, vomiting blood. The symptoms are described as waxing/waning. Severity of pain: in the emergency department the pain has improved mildly. Historical: - Allergies: 15:33 Latex, Natural Rubber; ss - PMHx: 15:33 crohns disease; PCOS; ss - PSHx: 15:33 Cholecystectomy; ss - Immunization history:: Adult Immunizations up to date. - Social history:: Smoking status: Patient reports the use of cigarette tobacco products, smokes one-half pack cigarettes per day. ROS: 16:20 Constitutional: Negative for body aches, chills, fever. cp 16:20 Eyes: Negative for injury, pain, redness, and discharge. cp 16:20 ENT: Negative for ear pain, sore throat, difficulty swallowing, difficulty handling secretions. 16:20 Cardiovascular: Negative for chest pain, palpitations. 16:20 Respiratory: Negative for cough, shortness of breath, wheezing. 16:20 Abdomen/GI: Positive for abdominal pain, nausea, vomiting, diarrhea, Negative for constipation, hematemesis, black/tarry stool. 16:20 Back: Negative for radiated pain. 16:20 : Negative for urinary symptoms, vaginal bleeding, vaginal discharge. 16:20 Neuro: Negative for altered mental status, headache, weakness. 16:20 All other systems are negative. Exam: 16:25 Constitutional: The patient appears in no acute distress, alert, awake, non-toxic, well cp developed, well nourished. 16:25 Head/Face: Normocephalic, atraumatic. cp 16:25 Eyes: Periorbital structures: appear normal, Conjunctiva: normal, no exudate, no injection. 16:25 ENT: External ear(s): are unremarkable, Nose: is normal, Mouth: Lips: moist, Oral mucosa: moist, Posterior pharynx: Airway: no evidence of obstruction, patent. 16:25 Chest/axilla: Inspection: normal, Palpation: is normal, no crepitus, no tenderness. 16:25 Cardiovascular: Rate: normal, Rhythm: regular. 16:25 Respiratory: the patient does not display signs of respiratory distress, Respirations: normal, no use of accessory muscles, no retractions, labored breathing, is not present, Breath sounds: are clear throughout, no decreased breath sounds, no stridor, no wheezing. 16:25 Abdomen/GI: Inspection: abdomen appears normal, Bowel sounds: active, all quadrants, Palpation: soft, in all quadrants, moderate abdominal tenderness, in the umbilical area, rebound tenderness, is not appreciated, voluntary guarding, is not appreciated, involuntary guarding, is not appreciated. 16:25 Back: CVA tenderness, is absent. Vital Signs: 15:32 BP 103 / 67; Pulse 69; Resp 15; Temp 97.9(TE); Pulse Ox 99% on R/A; Weight 71.67 kg; ss Height 5 ft. 0 in. (152.40 cm); Pain 5/10; 16:55 BP 93 / 59; Pulse 83; Resp 18; Pulse Ox 99% on R/A; ph 18:29 BP 118 / 86; Pulse 64; Resp 18; Pulse Ox 100% on R/A; ph 15:32 Body Mass Index 30.86 (71.67 kg, 152.40 cm) ss MDM: 15:54 Patient medically screened. cp 17:00 Differential diagnosis: appendicitis, bowel obstruction, non-specific abd pain, cp pancreatitis, Ureterolithiasis, urinary tract infection, colitis. 18:47 Data reviewed: vital signs, nurses notes, lab test result(s), radiologic studies, CT cp scan. 18:47 Counseling: I had a detailed discussion with the patient and/or guardian regarding: the cp historical points, exam findings, and any diagnostic results supporting the discharge/admit diagnosis, lab results, radiology results, to return to the emergency department if symptoms worsen or persist or if there are any questions or concerns that arise at home. Response to treatment: the patient's symptoms have markedly improved after treatment, and as a result, I will. Special discussion: Based on the patient's Hx, exam, and Dx evaluation, there is no indication for emergent surgery or inpatient Tx. It is understood by the patient/guardian that if the Sx's persist or worsen they need to return immediately for re-evaluation. 06/05 16:03 Order name: Basic Metabolic Panel; Complete Time: 17:48 cp 06/05 17:48 Interpretation: Normal except: CL 109; GFR 85. cp 06/05 16:03 Order name: CBC with Diff; Complete Time: 17:48 cp 06/05 16:03 Order name: Hepatic Function; Complete Time: 17:48 cp 06/05 16:03 Order name: Lipase; Complete Time: 17:48 cp 06/05 16:03 Order name: COVID-19 : Document "Date of Symptom Onset" if Symptomatic. cp 06/05 16:28 Order name: Urine Dipstick--Ancillary (enter results); Complete Time: 17:48 bd 06/05 16:03 Order name: IV Saline Lock; Complete Time: 16:21 cp 06/05 16:03 Order name: Labs collected and sent; Complete Time: 16:21 cp 06/05 16:03 Order name: Urine Dipstick-Ancillary (obtain specimen); Complete Time: 16:22 cp 06/05 16:23 Order name: CT Abd/Pelvis - IV Contrast Only; Complete Time: 17:48 cp 06/05 16:28 Order name: Urine --Ancillary (enter results); Complete Time: 17:48 bd 06/05 16:03 Order name: Urine Test (obtain specimen); Complete Time: 16:22 cp 06/05 18:05 Order name: PO challenge; Complete Time: 18:14 cp Administered Medications: 16:30 Drug: Zofran (Ondansetron) 4 mg Route: IVP; Site: right antecubital; ph 18:28 Follow up: Response: No adverse reaction ph 18:27 Drug: Bentyl 20 mg Route: PO; ph 18:29 Follow up: Response: No adverse reaction ph 18:28 Drug: NS 0.9% 1000 ml Route: IV; Rate: 1 bolus; Site: right antecubital; ph 19:23 Follow up: Response: No adverse reaction; IV Status: Completed infusion; IV Intake: ph 1000ml Disposition: 06/05/20 18:48 Discharged to Home. Impression: Nausea and vomiting, Unspecified abdominal pain. - Condition is Stable. - Discharge Instructions: Abdominal Pain, Adult, Nausea and Vomiting, Adult. - Prescriptions for Bentyl 20 mg Oral Tablet - take 2 tablet by ORAL route every 6 hours As needed; 40 tablet. Zofran 4 mg Oral Tablet - take 1 tablet by ORAL route every 12 hours As needed; 20 tablet. - Work release form, Medication Reconciliation Form, Thank You Letter, Antibiotic Education, Prescription Opioid Use form. - Follow up: Private Physician; When: 1 - 2 days; Reason: Recheck today's complaints. - Problem is new. - Symptoms have improved. Addendum: 06/07/2020 05:40 Co-signature as Attending Physician, Paul Ly MD I agree with the assessment and c glaser plan of care. Signatures: Dispatcher [employer] EDOR Paul Ly MD MD cha Smirch, Shelby RN RN Floridalma Kent RN RN Paul Hernandez, PHYLICIA PA cp Corrections: (The following items were deleted from the chart) 06/05 19:24 18:48 06/05/2020 18:48 Discharged to Home. Impression: Nausea and vomiting; Unspecified ph abdominal pain. Condition is Stable. Forms are Medication Reconciliation Form, Thank You Letter, Antibiotic Education, Prescription Opioid Use. Follow up: Private Physician; When: 1 - 2 days; Reason: Recheck today's complaints. Problem is new. Symptoms have improved. cp
--- NOTE | 2020-06-05 18:49 | ER ---
Nurse's Notes [facility] Name: Brianna Man Age: 25 yrs Sex: Female : 1995 Arrival Date: 06/05/2020 Time: 14:33 Bed 14 Private MD: Dieudonne Iniguez Diagnosis: Nausea and vomiting;Unspecified abdominal pain Presentation: 06/05 15:32 Chief complaint: Patient states: abd pain and vomiting that began today. Coronavirus ss screen: Client denies travel out of the [place] in the last 14 days. Ebola Screen: Patient denies exposure to infectious person. Patient denies travel to an Ebola-affected area in the 21 days before illness onset. Initial Sepsis Screen: Does the patient meet any 2 criteria? No. Patient's initial sepsis screen is negative. Does the patient have a suspected source of infection? No. Patient's initial sepsis screen is negative. Risk Assessment: Do you want to hurt yourself or someone else? Patient reports no desire to harm self or others. Onset of symptoms was June 05, 2020. 15:32 Method Of Arrival: Ambulatory ss 15:32 Acuity: VENANCIO 3 ss Historical: - Allergies: 15:33 Latex, Natural Rubber; ss - PMHx: 15:33 crohns disease; PCOS; ss - PSHx: 15:33 Cholecystectomy; ss - Immunization history:: Adult Immunizations up to date. - Social history:: Smoking status: Patient reports the use of cigarette tobacco products, smokes one-half pack cigarettes per day. Screenin:53 Abuse screen: Denies threats or abuse. Denies injuries from another. Nutritional ph screening: No deficits noted. Tuberculosis screening: No symptoms or risk factors identified. Fall Risk None identified. Assessment: 16:53 General: Appears in no apparent distress. comfortable, well groomed, Behavior is calm, ph cooperative, appropriate for age, Denies fever, feeling ill. Pain: Complains of pain in umbilical area. Neuro: Level of Consciousness is awake, alert, obeys commands, Oriented to person, place, time, situation. Cardiovascular: Capillary refill < 3 seconds in bilateral fingers Patient's skin is warm and dry. Respiratory: Airway is patent Respiratory effort is even, unlabored. GI: Abdomen is non-distended, Reports lower abdominal pain, upper abdominal pain, diarrhea, nausea, vomiting. Derm: Skin is intact, is healthy with good turgor, Skin is pink, warm \T\ dry. 17:45 Reassessment: Patient appears in no apparent distress at this time. Patient and/or ph family updated on plan of care and expected duration. Pain level reassessed. Patient is alert, oriented x 3, equal unlabored respirations, skin warm/dry/pink. 18:49 Reassessment: Patient appears in no apparent distress at this time. Patient and/or ph family updated on plan of care and expected duration. Pain level reassessed. Patient is alert, oriented x 3, equal unlabored respirations, skin warm/dry/pink. D/C pending completion of IV fluids. Vital Signs: 15:32 BP 103 / 67; Pulse 69; Resp 15; Temp 97.9(TE); Pulse Ox 99% on R/A; Weight 71.67 kg; ss Height 5 ft. 0 in. (152.40 cm); Pain 5/10; 16:55 BP 93 / 59; Pulse 83; Resp 18; Pulse Ox 99% on R/A; ph 18:29 BP 118 / 86; Pulse 64; Resp 18; Pulse Ox 100% on R/A; ph 15:32 Body Mass Index 30.86 (71.67 kg, 152.40 cm) ED Course: 14:33 Patient arrived in ED. ag5 14:33 Dieudonne Iniguez DO is Private Physician. ag5 15:33 Triage completed. ss 15:33 Arm band placed on right wrist. ss 15:48 [facility]. cp 15:48 Paul Ly MD is Attending Physician. cp 16:00 Urine collected: clean catch specimen, cloudy. dh3 16:07 Floridalma Kent, REGINA is Primary Nurse. ph 16:15 Initial lab(s) drawn, by me, sent to lab. Inserted saline lock: 20 gauge in right dh3 antecubital area, using aseptic technique. Blood collected. 16:53 Patient has correct armband on for positive identification. Bed in low position. Call ph light in reach. Side rails up X 1. Pulse ox on. NIBP on. Door closed. Noise minimized. Warm blanket given. 17:08 CT Abd/Pelvis - IV Contrast Only In Process Unspecified. EDMS 18:32 No provider procedures requiring assistance completed. ph Administered Medications: 16:30 Drug: Zofran (Ondansetron) 4 mg Route: IVP; Site: right antecubital; ph 18:28 Follow up: Response: No adverse reaction ph 18:27 Drug: Bentyl 20 mg Route: PO; ph 18:29 Follow up: Response: No adverse reaction ph 18:28 Drug: NS 0.9% 1000 ml Route: IV; Rate: 1 bolus; Site: right antecubital; ph 19:23 Follow up: Response: No adverse reaction; IV Status: Completed infusion; IV Intake: ph 1000ml Intake: 19:23 IV: 1000ml; Total: 1000ml. ph Outcome: 18:48 Discharge ordered by MD. cp 19:24 Discharged to home ambulatory. ph 19:24 Condition: good 19:24 Discharge instructions given to patient, Instructed on discharge instructions, follow up and referral plans. medication usage, Demonstrated understanding of instructions, follow-up care, medications, Prescriptions given X 2. 19:24 Patient left the ED. ph Signatures: Dispatcher [facility] Rena Leblanc RN RN Floridalma Kent RN RN ph Paul Hernandez, Alisha To cp 3 Rupali Kuhn [facility]
[2020-06-05 19:35] VITALS: TEMP 97.9
[2020-06-05 19:37] VITALS: BP 118/86; O2SAT 100
== END 2020-06-05 19:24 | disposition home or self-care (01) ==
LOC: ER 14:23
DX: R11.2 Nausea with vomiting, unspecified (principal); Z53.8 Procedure and treatment not carried out for other reasons; F17.210 Nicotine dependence, cigarettes, uncomplicated; Z91.040 Latex allergy status; Z91.048 Other nonmedicinal substance allergy status
CPT/HCPCS: 36415; 74177; 80048; 80076; 81003; 81025; 83690; 85025; 96361; 96374; 99284; J2405; J7030; Q9967

== ENCOUNTER 2020-07-05 11:08 | Emergency (ER) | payer OTHER, SELFPAY ==
--- OUTSIDE RECORDS SUMMARY | 2020-07-05 11:11 | XMS REPORT | Continuity of Care Document ---
:1995 Author Organization [facility] t Address [address] [place] [address] Care Team Providers Name Role Phone Larry [...] Department ID 2019-11-23 2019-11-23 Refill SONI Fox [id number] 00:00:00 00:00:00 Rachel Juarez VP SOFTWARE ENGINEERING [id number] [facility] [id number] MATERNAL [phone] & CHILD [address] [place] [id number] - [place] 2019-07-13 2019-07-13 Office SONI Oswald [id number] 10:22:20 10:39:48 Visit Linda Black VP SOFTWARE ENGINEERING [id number] REGIONAL [id number] MATERNAL [id number] & CHILD [address] [facility] 2019-07-13 2019-07-13 Nurse Visit, [facility] [id number] 09:23:47 09:33:41 Visit Tello VP SOFTWARE ENGINEERING [id number] Nurse [facility] [id number] MATERNAL [phone] & CHILD [address] [facility] Results This patient has no known results.
[2020-07-05 12:17] LABS: Absolute Lymphocytes (CBC) 2.5 K/uL (0.7-4.9); Basophils % 0.7 % (0-1.3); Hematocrit 36.8 % (36.0-45.0); Lymphocytes % 27.3 % (15.3-44.8); RBC Red Blood Cell Count 4.33 M/uL (3.86-4.86)
[2020-07-05] MEDS ORDERED: PROMETHAZINE INJ 25 MG/ML AMP ONE (12:23)
[2020-07-05] MEDS ORDERED: METHYLPREDNISOLONE 125 MG INJ ONE (12:23)
[2020-07-05 12:24] LABS: BUN Blood Urea Nitrogen 6 mg/dL (7-18); Bicarbonate 25 mmol/L (21-32); Glucose Level 90 mg/dL (74-106); Potassium 3.9 mmol/L (3.5-5.1); Sodium Level 141 mmol/L (136-145)
[2020-07-05] MEDS ORDERED: KETOROLAC 30 MG/ML INJ ONE (12:24)
[2020-07-05] MEDS ORDERED: NA CHLORIDE 0.9% 1,000 ML ONE (12:24)
--- NOTE | 2020-07-05 13:19 | EDPHYS ---
Physician Documentation [facility] Name: Brianna Man Age: 25 yrs Sex: Female : 1995 Arrival Date: 07/05/2020 Time: 11:11 Bed 25 Private MD: Hira [facility] ED Physician Joss Mcgrath HPI: 07/05 20:25 This 25 yrs old Female presents to ER via Ambulatory with complaints of gi kb flare up, Abdominal Pain. 20:25 The patient presents with abdominal pain in the lower abdomen. Onset: The kb symptoms/episode began/occurred 3 day(s) ago. The symptoms do not radiate. Associated signs and symptoms: Pertinent positives: nausea, vomiting, and diarrhea, Pertinent negatives: fever. The symptoms are described as constant. Modifying factors: The symptoms are alleviated by nothing, the symptoms are aggravated by nothing. Severity of pain: At its worst the pain was mild in the emergency department the pain is unchanged. The patient has experienced similar episodes in the past. The patient has not recently seen a physician. Pt reports n/v/d and lower abd pain for 3 days. States it feels like a normal crohn's flare up. Called her GI, but didn't have the money to go see him. 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 - Social history:: Smoking status: . ROS: 20:24 Constitutional: Negative for fever, chills, and weight loss, Cardiovascular: Negative kb for chest pain, palpitations, and edema, Respiratory: Negative for shortness of breath, cough, wheezing, and pleuritic chest pain, Back: Negative for injury and pain, MS/Extremity: Negative for injury and deformity, Skin: Negative for injury, rash, and discoloration, Neuro: Negative for headache, weakness, numbness, tingling, and seizure. 20:24 Abdomen/GI: Positive for abdominal pain, nausea, vomiting, and diarrhea. Exam: 20:24 Constitutional: This is a well developed, well nourished patient who is awake, alert, kb and in no acute distress. Head/Face: Normocephalic, atraumatic. Chest/axilla: Normal chest wall appearance and motion. Nontender with no deformity. No lesions are appreciated. Cardiovascular: Regular rate and rhythm with a normal S1 and S2. No gallops, murmurs, or rubs. Normal PMI, no JVD. No pulse deficits. Respiratory: Lungs have equal breath sounds bilaterally, clear to auscultation and percussion. No rales, rhonchi or wheezes noted. No increased work of breathing, no retractions or nasal flaring. Skin: Warm, dry with normal turgor. Normal color with no rashes, no lesions, and no evidence of cellulitis. MS/ Extremity: Pulses equal, no cyanosis. Neurovascular intact. Full, normal range of motion. 20:24 Abdomen/GI: Inspection: abdomen appears normal, Bowel sounds: normal, in all quadrants, Palpation: soft, in all quadrants, mild abdominal tenderness, in the right lower quadrant and left lower quadrant. 20:24 Neuro: Orientation: is normal, Mentation: is normal, Motor: is normal, Sensation: is normal, Gait: is steady. Vital Signs: 11:27 BP 97 / 63; Pulse 73; Resp 17; Temp 97.8(TE); Pulse Ox 100% on R/A; Weight 71.67 kg tw2 (R); Height 5 ft. 0 in. (152.40 cm) (R); Pain 7/10; 12:27 BP 97 / 73; Pulse 65; Resp 16 S; Pulse Ox 100% on R/A; ca1 13:30 BP 103 / 73; Pulse 71; Resp 16 S; Pulse Ox 100% on R/A; ca1 11:27 Body Mass Index 30.86 (71.67 kg, 152.40 cm) tw2 MDM: 11:33 Patient medically screened. kb 15:46 Data reviewed: vital signs, nurses notes. Data interpreted: Pulse oximetry: on room air kb is 100 %. Interpretation: normal. 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 07/05 11:37 Order name: Basic Metabolic Panel; Complete Time: 12:31 kb 07/05 11:37 Order name: CBC with Diff; Complete Time: 12:22 kb 07/05 11:37 Order name: IV Saline Lock; Complete Time: 12:03 kb 07/05 11:37 Order name: Labs collected and sent; Complete Time: 12:03 kb Administered Medications: 12:05 Drug: NS 0.9% 1000 ml Route: IV; Rate: 1000 ml; Site: left antecubital; ca1 12:07 Drug: SOLU-Medrol 125 mg Route: IVP; Site: left antecubital; ca1 12:10 Drug: TORadol - Ketorolac 15 mg Route: IVP; Site: left antecubital; ca1 12:13 Drug: Phenergan 12.5 mg Route: IVP; Site: left antecubital; ca1 Disposition: 07/05/20 13:18 Discharged to Home. Impression: Lower abdominal pain, unspecified, Nausea and vomiting, Diarrhea, unspecified. - Condition is Stable. - Discharge Instructions: Nausea and Vomiting, Adult, Siod-mk-Ssgv, Abdominal Pain, Adult, Emed-eu-Fazh, Diarrhea, Adult, Otze-qc-Eebk. - Prescriptions for Bentyl 20 mg Oral Tablet - take 1 tablet by ORAL route every 6 hours As needed; 20 tablet. Prednisone 20 mg Oral Tablet - take 1 tablet by ORAL route once daily for 5 days; 5 tablet. promethazine 25 mg Oral Tablet - take 1 tablet by ORAL route every 8 hours As needed; 20 tablet. - Medication Reconciliation Form, Thank You Letter, Antibiotic Education, Prescription Opioid Use, Work release form form. - Follow up: Emergency Department; When: As needed; Reason: Worsening of condition. Follow up: Private Physician; When: 2 - 3 days; Reason: Recheck today's complaints, Continuance of care, Re-evaluation by your physician. Addendum: 07/09/2020 05:04 Co-signature as Attending Physician, Joss Mcgrath MD I agree with the assessment and k dr plan of care. Signatures: Dispatcher [employer] EDMS LuisOlamide, CUP SETTER LOCKSTITCH-C CUP SETTER LOCKSTITCH-Ckb Joss Mcgrath MD MD [facility] Tamara Salcedo RN RN aa5 Patricia Ziegler, RN RN tw2 Lisbeth Allen RN RN ca1 Corrections: (The following items were deleted from the chart) 07/05 13:49 13:18 07/05/2020 13:18 Discharged to Home. Impression: Lower abdominal pain, aa5 unspecified; Nausea and vomiting; Diarrhea, unspecified. Condition is Stable. Forms are Medication Reconciliation Form, Thank You Letter, Antibiotic Education, Prescription Opioid Use. Follow up: Emergency Department; When: As needed; Reason: Worsening of condition. Follow up: Private Physician; When: 2 - 3 days; Reason: Recheck today's complaints, Continuance of care, Re-evaluation by your physician. kb
--- NOTE | 2020-07-05 13:19 | ER ---
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 palacio office told me to come here, i didn't have the money for his office today so they sent me here. Coronavirus screen: At this time, the client does not indicate any symptoms associated with coronavirus-19. Ebola Screen: Patient denies travel to an Ebola-affected area in the 21 days before illness onset. Initial Sepsis Screen: Does the patient meet any 2 criteria? No. Patient's initial sepsis screen is negative. Does the patient have a suspected source of infection? No. Patient's initial sepsis screen is negative. Risk Assessment: Do you want to hurt yourself or someone else? Patient reports no desire to harm self or others. Onset of symptoms was July 05, 2020. 11:27 Method Of Arrival: Ambulatory tw2 11:27 Acuity: VENANCIO 3 tw2 Triage Assessment: 11:30 General: Appears in no apparent distress. uncomfortable, Behavior is calm, cooperative, tw2 appropriate for age. Pain: Complains of pain in left lower quadrant. GI: Reports cramping, diarrhea, nausea. 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 - Social history:: Smoking status: . Screenin:35 Abuse screen: Denies threats or abuse. Denies injuries from another. Nutritional ca1 screening: No deficits noted. Tuberculosis screening: No symptoms or risk factors identified. Fall Risk IV access (20 points). Total Jurado Fall Scale indicates No Risk (0-24 pts). Assessment: 11:35 General: Appears in no apparent distress. comfortable, Behavior is calm, cooperative, ca1 appropriate for age. Pain: Complains of pain in abdomen Pain radiates to back Pain currently is 9 out of 10 on a pain scale. Pain began 2-3 days ago. Neuro: Level of Consciousness is awake, alert, obeys commands, Oriented to person, place, time, situation. Cardiovascular: Heart tones S1 S2 present Capillary refill < 3 seconds Patient's skin is warm and dry. Respiratory: Airway is patent Respiratory effort is even, unlabored, Respiratory pattern is regular, symmetrical, Breath sounds are clear bilaterally. GI: Abdomen is round non-distended, Bowel sounds present X 4 quads. Abd is soft X 4 quads Abdomen is tender to palpation in left lower quadrant. GI: Reports diarrhea, nausea, vomiting. : EENT: No signs and/or symptoms were reported regarding the EENT system. Derm: Skin is intact, is healthy with good turgor, Skin is pink, warm \T\ dry. Musculoskeletal: Circulation, motion, and sensation intact. Capillary refill < 3 seconds. 12:29 Reassessment: Patient appears in no apparent distress at this time. Patient and/or ca1 family updated on plan of care and expected duration. Pain level reassessed. Patient is alert, oriented x 3, equal unlabored respirations, skin warm/dry/pink. 13:30 Reassessment: Patient appears in no apparent distress at this time. Patient is alert, ca1 oriented x 3, equal unlabored respirations, skin warm/dry/pink. Vital Signs: 11:27 BP 97 / 63; Pulse 73; Resp 17; Temp 97.8(TE); Pulse Ox 100% on R/A; Weight 71.67 kg tw2 (R); Height 5 ft. 0 in. (152.40 cm) (R); Pain 7/10; 12:27 BP 97 / 73; Pulse 65; Resp 16 S; Pulse Ox 100% on R/A; ca1 13:30 BP 103 / 73; Pulse 71; Resp 16 S; Pulse Ox 100% on R/A; ca1 11:27 Body Mass Index 30.86 (71.67 kg, 152.40 cm) tw2 ED Course: 11:11 Patient arrived in ED. am2 11:12 Dieudonne Iniguez DO is Private Physician. am2 11:22 Olamide Smith FNP-C is [facility]. kb 11:22 Joss Mcgrath MD is Attending Physician. kb 11:29 Triage completed. tw2 11:31 Arm band placed on. tw2 11:35 Lisbeth Allen RN is Primary Nurse. ca1 11:35 Patient has correct armband on for positive identification. Bed in low position. Call ca1 light in reach. Side rails up X 1. Pulse ox on. NIBP on. Warm blanket given. 12:03 Initial lab(s) drawn, by al, sent to lab. Inserted saline lock: 20 gauge in left ca1 antecubital area, using aseptic technique. Blood collected. 13:47 No provider procedures requiring assistance completed. IV discontinued, intact, aa5 bleeding controlled, No redness/swelling at site. Pressure dressing applied. Administered Medications: 12:05 Drug: NS 0.9% 1000 ml Route: IV; Rate: 1000 ml; Site: left antecubital; ca1 12:07 Drug: SOLU-Medrol 125 mg Route: IVP; Site: left antecubital; ca1 12:10 Drug: TORadol - Ketorolac 15 mg Route: IVP; Site: left antecubital; ca1 12:13 Drug: Phenergan 12.5 mg Route: IVP; Site: left antecubital; ca1 Outcome: 13:18 Discharge ordered by . kb 13:48 Discharged to home ambulatory. aa5 13:48 Condition: stable 13:48 Discharge instructions given to patient, Instructed on discharge instructions, follow up and referral plans. medication usage, Demonstrated understanding of instructions, follow-up care, medications, Prescriptions given X 3. 13:49 Patient left the ED. aa5 Signatures: Olamide Smith FNP-C FNP-Ckb Calderon, Audri, RN RN aa5 Patricia Ziegler RN RN tw2 Lillian Mcclelland am2 Acob, Lisbeth, RN RN ca1
[2020-07-05 14:13] VITALS: TEMP 97.8; O2SAT 100
[2020-07-05 14:16] VITALS: BP 103/73
== END 2020-07-05 13:49 | disposition home or self-care (01) ==
LOC: ER 11:08
DX: R11.2 Nausea with vomiting, unspecified (principal); R19.7 Diarrhea, unspecified; Z91.040 Latex allergy status; Z91.048 Other nonmedicinal substance allergy status
CPT/HCPCS: 36415; 80048; 85025; 96374; 96375; 99284; J2550; J2930; J7030

== ENCOUNTER 2022-03-26 08:56 | Emergency (ER) | payer OTHER ==
[2022-03-26 10:12] LABS: Urine Blood 1+ (Negative); Urine Glucose Negative (Negative); Urine Protein Negative (Negative)
[2022-03-26 10:17] LABS: Urine Bacteria <20 /HPF (<20); Urine Mucus Slight /HPF (None Seen); Urine RBC <5 /HPF (None Seen)
[2022-03-26 10:18] LABS: Absolute Lymphocytes (CBC) 1.5 K/uL (0.7-4.9); Hematocrit 39.5 % (36.0-45.0); MCV 83.9 fL (80-100); MPV 7.3 fL (7.6-11.3); RBC Red Blood Cell Count 4.71 M/uL (3.86-4.86)
[2022-03-26 10:25] LABS: Albumin 3.8 g/dL (3.4-5.0); Bilirubin Total 0.3 mg/dL (0.2-1.0); Potassium 4.4 mmol/L (3.5-5.1); Protein, Total 8.1 g/dL (6.4-8.2)
[2022-03-26] MEDS ORDERED: ONDANSETRON 4 MG/2 ML VIAL ONE (10:33)
[2022-03-26] MEDS ORDERED: MORPHINE 2 MG/ML SYR ONE (10:33)
--- NOTE | 2022-03-26 10:55 | RAD REPORT ---
EXAM DESCRIPTION: CT - Abdomen Pelvis W Contrast - 03/26/2022 10:33 am CLINICAL HISTORY: Abdominal pain COMPARISON: 2020 TECHNIQUE: Computed axial tomography of the abdomen pelvis was obtained. 100 cc Isovue-300 was admin istered intravenously. Oral contrast was not requested which limits evaluation of bowel and appendix All CT scans are performed using dose optimization technique as appropriate and may include automated exposure control or mA/KV adjustment according to patient size. FINDINGS: Cholecystectomy. Liver, spleen, pancreas and adrenals unremarkable. Small renal cysts. Kidneys demonstrate mildly inhomogeneous density. There is no evidence of diverticulitis. A normal appendix No adnexal mass. Small umbilical hernia IMPRESSION: Mildly inhomogeneous density involves the kidneys. This is nonspecific. It may indicate inflammation and should be correlated clinically and with appropriate lab values
--- NOTE | 2022-03-26 11:00 | RAD REPORT ---
EXAM DESCRIPTION: Steffanie Single View03/26/2022 10:47 am CLINICAL HISTORY: Abdominal pain COMPARISON: none FINDINGS: The lungs appear clear of acute infiltrate. The heart is normal size IMPRESSION: No acute abnormalities displayed
[2022-03-26] MEDS ORDERED: KETOROLAC 30 MG/ML INJ ONE (12:53)
--- NOTE | 2022-03-26 13:05 | ER ---
Nurse's Notes [facility] Name: Brianna Weems Age: 26 yrs Sex: Female : 1995 Arrival Date: 03/26/2022 Time: 09:02 Bed 25 Private MD: Asif Scanlon H; Patel, Mitesh Diagnosis: Upper abdominal pain, unspecified;Dorsalgia, unspecified Presentation: 03/26 09:40 Chief complaint: Patient states: Upper abdominal pain, feels like squeezing, since last jl7 night. Coronavirus screen: Vaccine status: Patient reports receiving the 2nd dose of the covid vaccine. At this time, the client does not indicate any symptoms associated with coronavirus-19. Ebola Screen: No symptoms or risks identified at this time. Initial Sepsis Screen: Does the patient meet any 2 criteria? No. Patient's initial sepsis screen is negative. Does the patient have a suspected source of infection? No. Patient's initial sepsis screen is negative. Risk Assessment: Do you want to hurt yourself or someone else? Patient reports no desire to harm self or others. Onset of symptoms was March 25, 2022. 09:40 Method Of Arrival: Ambulatory 7 09:40 Acuity: VENANCIO 3 jl7 Triage Assessment: 09:41 General: Appears in no apparent distress. uncomfortable, Behavior is calm, cooperative, jl7 appropriate for age. Pain: Complains of pain in diaphragm Pain currently is 5 out of 10 on a pain scale. at worst was 9 out of 10 on a pain scale. GI: Reports upper abdominal pain. 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 - Social history:: Smoking status: Patient/guardian denies using tobacco. Screenin:59 Abuse screen: Denies threats or abuse. Nutritional screening: No deficits noted. On. ap3 Tuberculosis screening: No symptoms or risk factors identified. Fall Risk None identified. Assessment: 10:58 Reassessment: Patient and/or family updated on plan of care and expected duration. Pain ap3 level reassessed. Patient is alert, oriented x 3, equal unlabored respirations, skin warm/dry/pink. General: Appears in no apparent distress. Behavior is calm, cooperative. Pain: Complains of pain in diaphragm. Neuro: Level of Consciousness is awake, alert, obeys commands, Oriented to person, place, time, situation. Cardiovascular: Patient's skin is warm and dry. Respiratory: Airway is patent Respiratory effort is even, unlabored. 10:59 GI: Bowel sounds present X 4 quads. Abd is soft. ap3 Vital Signs: 09:40 BP 135 / 66; Pulse 72; Resp 17; Temp 98.4; Pulse Ox 99% on R/A; Weight 77.11 kg; Height jl7 5 ft. 0 in. (152.40 cm); Pain 5/10; 11:20 BP 102 / 64; Pulse 62; Pulse Ox 99% on R/A; ap3 12:28 BP 109 / 82; Pulse 65; Pulse Ox 99% on R/A; ap3 13:02 BP 106 / 65; Pulse 82; Resp 20; Pulse Ox 100% ; kb3 09:40 Body Mass Index 33.20 (77.11 kg, 152.40 cm) jl7 ED Course: 09:02 Patient arrived in ED. as 09:02 Dieudonne Iniguez DO is Private Physician. as 09:02 Asif Scanlon MD is Private Physician. as 09:04 Paul Hernandez PA is [facility]. cp 09:04 Paul Ly MD is Attending Physician. cp 09:41 Triage completed. jl7 09:41 Arm band placed on right wrist. jl7 10:12 Initial lab(s) drawn, by tx, sent to lab. Urine collected: clean catch specimen, clear. jw7 Inserted saline lock: 20 gauge in right antecubital area, using aseptic technique. Blood collected. 10:33 Lillian Abrams, REGINA is Primary Nurse. ap3 10:35 CT Abd/Pelvis - IV Contrast Only In Process Unspecified. EDMS 10:49 XRAY Chest (1 view) In Process Unspecified. EDMS 10:59 Patient has correct armband on for positive identification. Call light in reach. Side ap3 rails up X 1. Adult w/ patient. Pulse ox on. NIBP on. Door closed. Noise minimized. 13:32 No provider procedures requiring assistance completed. IV discontinued, intact, ap3 bleeding controlled, No redness/swelling at site. Pressure dressing applied. Administered Medications: 10:46 Drug: Zofran (Ondansetron) 4 mg Route: IVP; Site: right antecubital; ap3 12:00 Follow up: Response: No adverse reaction; Pain is decreased kb3 13:33 Follow up: Response: No adverse reaction ap3 10:46 Drug: morphine 2 mg Route: IVP; Infused Over: 4 mins; Site: right antecubital; ap3 12:00 Follow up: Response: No adverse reaction; Pain is decreased kb3 13:33 Follow up: Response: Pain is decreased ap3 12:56 Drug: Ketorolac 15 mg Route: IVP; Site: right antecubital; kb3 13:33 Follow up: Response: Pain is decreased ap3 Medication: 10:59 VIS not applicable for this client. ap3 Outcome: 13:04 Discharge ordered by . veronica 13:33 Discharged to home ambulatory, with family. ap3 13:33 Condition: good 13:33 Discharge instructions given to patient, Instructed on discharge instructions, follow up and referral plans. medication usage, Demonstrated understanding of instructions, follow-up care, medications, Prescriptions given X 2. 13:38 Patient left the ED. ap3 Signatures: Dispatcher [employer] EDMS Celine Holley Corey, PA PA cp Leal, Jahala, RN RN jl7 Lillian Abrams RN RN ap3 Merle Fletcher7 Tereza Xavier, RN RN kb3 Corrections: (The following items were deleted from the chart) 09:44 09:41 Home Meds: promethazine 12.5 mg Oral tab 1 tab 3 times per day; jlCatherine jl7
--- NOTE | 2022-03-26 13:05 | EDPHYS ---
Physician Documentation [facility] Name: Brianna Weems Age: 26 yrs Sex: Female : 1995 Arrival Date: 03/26/2022 Time: 09:02 Bed 25 Private MD: Asif Scanlon H; Patel, Mitesh ED Physician Paul Ly HPI: 03/26 09:20 This 26 yrs old Female presents to ER via Unassigned with complaints of Abdominal Pain, cp Back Pain. 09:20 The patient presents with abdominal pain in the upper abdomen. Onset: The cp symptoms/episode began/occurred last night, about 2200. The symptoms radiate to both flanks. Associated signs and symptoms: Pertinent positives: nausea and vomiting. The symptoms are described as squeezing. 09:20 Severity of pain: in the emergency department the pain is unchanged despite home cp interventions. 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 - Social history:: Smoking status: Patient/guardian denies using tobacco. ROS: 09:25 Constitutional: Negative for body aches, chills, fever, poor PO intake. cp 09:25 Eyes: Negative for injury, pain, redness, and discharge. cp 09:25 ENT: Negative for drainage from ear(s), ear pain, sore throat, difficulty swallowing, difficulty handling secretions. 09:25 Cardiovascular: Negative for chest pain, edema, palpitations. 09:25 Respiratory: Negative for cough, shortness of breath, wheezing. 09:25 Abdomen/GI: Positive for abdominal pain, nausea, vomiting, of the upper abdomen, Negative for diarrhea, constipation. 09:25 Back: Positive for radiating to bilateral flank and to mid back, Negative for injury or acute deformity. 09:25 : Negative for urinary symptoms. 09:25 Neuro: Negative for altered mental status, dizziness, headache, numbness, weakness. 09:25 All other systems are negative. Exam: 09:30 Constitutional: The patient appears in no acute distress, alert, awake, non-toxic, well cp developed, well nourished, overweight 09:30 Head/Face: Normocephalic, atraumatic. cp 09:30 Eyes: Periorbital structures: appear normal, Conjunctiva: normal, no exudate, no injection, Sclera: no appreciated abnormality, Lids and lashes: appear normal, bilaterally. 09:30 ENT: External ear(s): are unremarkable, Nose: is normal, Mouth: is normal, Posterior pharynx: is normal, airway is patent, no erythema, no exudate. 09:30 Chest/axilla: Inspection: normal, Palpation: is normal, no crepitus, no tenderness. 09:30 Cardiovascular: Rate: normal, Rhythm: regular. 09:30 Respiratory: the patient does not display signs of respiratory distress, Respirations: normal, no use of accessory muscles, no retractions, labored breathing, is not present, Breath sounds: are clear throughout, no decreased breath sounds, no stridor, no wheezing. 09:30 Abdomen/GI: Inspection: abdomen appears normal, Bowel sounds: active, all quadrants, Palpation: soft, in all quadrants, mild abdominal tenderness, in the epigastric area, right upper quadrant and left upper quadrant, rebound tenderness, is not appreciated, involuntary guarding, is not appreciated. 09:30 Back: pain, that is mild, of the mid back area, ROM is normal. Vital Signs: 09:40 BP 135 / 66; Pulse 72; Resp 17; Temp 98.4; Pulse Ox 99% on R/A; Weight 77.11 kg; Height jl7 5 ft. 0 in. (152.40 cm); Pain 5/10; 11:20 BP 102 / 64; Pulse 62; Pulse Ox 99% on R/A; ap3 12:28 BP 109 / 82; Pulse 65; Pulse Ox 99% on R/A; ap3 13:02 BP 106 / 65; Pulse 82; Resp 20; Pulse Ox 100% ; kb3 09:40 Body Mass Index 33.20 (77.11 kg, 152.40 cm) jl7 MDM: 09:49 Patient medically screened. gemma 10:00 Differential diagnosis: appendicitis, bowel obstruction, gastroesophageal reflux cp disease, GI Bleed, non-specific abd pain, pancreatitis, Peptic Ulcer Disease, Perf. Duodenal Ulcer, Perf. Gastric Ulcer, Pyelonephritis. 13:04 Data reviewed: vital signs, nurses notes, lab test result(s), radiologic studies, I cp have discussed the patient's presentation/case with the attending Emergency Department Physician; and as a result, I will discharge patient. 13:04 Counseling: I had a detailed discussion with the patient and/or guardian regarding: the cp historical points, exam findings, and any diagnostic results supporting the discharge/admit diagnosis, lab results, radiology results, to return to the emergency department if symptoms worsen or persist or if there are any questions or concerns that arise at home. Response to treatment: the patient's symptoms have markedly improved after treatment, and as a result, I will discharge patient. 03/26 09:20 Order name: CBC with Diff; Complete Time: 12:40 03/26 09:20 Order name: CMP; Complete Time: 12:40 03/26 09:20 Order name: Lipase; Complete Time: 12:40 03/26 09:20 Order name: Urine Microscopic Only; Complete Time: 12:40 03/26 10:12 Order name: Urine Dipstick-Ancillary; Complete Time: 12:40 EDMS 03/26 12:41 Interpretation: Reviewed. 03/26 10:13 Order name: Urine --Ancillary (enter results) 03/26 09:20 Order name: IV Saline Lock; Complete Time: 10:30 03/26 09:20 Order name: Labs collected and sent; Complete Time: 10:30 03/26 09:20 Order name: Urine Dipstick-Ancillary (obtain specimen); Complete Time: 10:30 03/26 10:03 Order name: XRAY Chest (1 view); Complete Time: 12:40 03/26 12:40 Interpretation: Report review. 03/26 10:05 Order name: CT Abd/Pelvis - IV Contrast Only; Complete Time: 12:40 03/26 09:20 Order name: Urine Test (obtain specimen); Complete Time: 10:30 03/26 12:42 Order name: PO challenge; Complete Time: 13:01 cp Administered Medications: 10:46 Drug: Zofran (Ondansetron) 4 mg Route: IVP; Site: right antecubital; ap3 12:00 Follow up: Response: No adverse reaction; Pain is decreased kb3 13:33 Follow up: Response: No adverse reaction ap3 10:46 Drug: morphine 2 mg Route: IVP; Infused Over: 4 mins; Site: right antecubital; ap3 12:00 Follow up: Response: No adverse reaction; Pain is decreased kb3 13:33 Follow up: Response: Pain is decreased ap3 12:56 Drug: Ketorolac 15 mg Route: IVP; Site: right antecubital; kb3 13:33 Follow up: Response: Pain is decreased ap3 Disposition: 03/27 09:32 Co-signature as Attending Physician, Paul Ly MD I agree with the assessment and gemma plan of care. Disposition Summary: 03/26/22 13:04 Discharge Ordered Location: Home cp Problem: new cp Symptoms: have improved cp Condition: Stable cp Diagnosis - Upper abdominal pain, unspecified cp - Dorsalgia, unspecified cp Followup: cp - With: Private Physician - When: 2 - 3 days - Reason: Recheck today's complaints Discharge Instructions: - Discharge Summary Sheet cp - Abdominal Pain, Adult cp - Acute Back Pain, Adult cp Forms: - Medication Reconciliation Form cp - Thank You Letter cp - Antibiotic Education cp - Prescription Opioid Use cp - Family Work Release ap3 Prescriptions: - Protonix 40 mg Oral Tablet - take 1 tablet by ORAL route once daily; 30 tablet; Refills: 0, Product cp Selection Permitted - Zofran 4 mg Oral Tablet - take 1 tablet by ORAL route every 12 hours As needed; 20 tablet; Refills: 0, cp Product Selection Permitted Signatures: Dispatcher [employer] Paul Antoine MD MD cha Page, Corey, PA PA cp Leal, Jahala RN RN jl7 Lillian Abrams RN RN ap3 Tereza Xavier, RN RN kb3 Corrections: (The following items were deleted from the chart) 03/26 09:44 09:41 Home Meds: promethazine 12.5 mg Oral tab 1 tab 3 times per day; jl7 jl7
[2022-03-26 13:53] VITALS: TEMP 98.4
[2022-03-26 14:05] VITALS: BP 106/65; O2SAT 100
== END 2022-03-26 13:38 | disposition home or self-care (01) ==
LOC: ER 08:56
DX: R10.10 Upper abdominal pain, unspecified (principal); M54.9 Dorsalgia, unspecified; E03.9 Hypothyroidism, unspecified; Z91.040 Latex allergy status; Z91.048 Other nonmedicinal substance allergy status
CPT/HCPCS: 85025; 36415; 81025; 83690; 80053; 74177; 71045; 96375; 96374; 99284; Q9967; J2270; J2405; 81003; 81015

== ENCOUNTER 2022-05-17 16:28 | Emergency (ER) | payer OTHER ==
--- OUTSIDE RECORDS SUMMARY | 2022-05-17 16:32 | XMS REPORT | Continuity of Care Document ---
:1995 Author Organization [facility] t Address [address] [place] [address] Care Team Providers Name Role Phone KASIA SURAJ Coffman Primary Care Physician Unavailable MARGOT HAMILTON Attending Clinician Unavailable LILLIAN MONTANA Attending Clinician Unavailable Lillian Montana MD Attending Clinician Unknown, Attending Attending Clinician Unavailable Gina Schafer RN Attending Clinician Unavailable Linda Brian Attending Clinician Britt Gonsalez Attending Clinician BRITT CARUSO Attending Clinician Unavailable Doctor Unassigned, [place] Attending Clinician Unavailable Chanel Parham RN Attending Clinician Unavailable THELMA BUENO Attending Clinician Unavailable Thelma Phillips Attending Clinician Yennifer Aleman Attending Clinician PHILOMENA FOX Attending Clinician Unavailable CECE ACEVEDO Attending Clinician Unavailable Suraj COMMUNITY HEALTH EDUCATOR, Cece Rodriguez Attending Clinician Akinsipe WHCNP, Philomena Juarez Attending Clinician [phone] 94 Rosa TAPIA, Keri Attending Clinician Unavailable Dalila Almeida PA-C Attending Clinician VISHAL LINDSAY Attending Clinician Unavailable Vishal Lindsay MD Attending Clinician RANDY LONG Attending Clinician Unavailable Randy Long DO Attending Clinician Flor Jaffe Attending Clinician Vin Correa DO Attending Clinician Darek RICOPLinda Attending Clinician [facility] Attending Clinician Unavailable CECE ACEVEDO Admitting Clinician Unavailable RANDY LONG Admitting Clinician Unavailable Payers Payer Name Policy Type Policy Number Effective Date Expiration Date [facility] [id number] 2019 CHOICE MEDICAID 00:00:00 [facility] [id number] 2021 00:00:00 [facility] [id number] 2020 PREFERRED GENERIC 00:00:00 Problems Condition Condition Condition Status Onset Resolution Last Treating Co mments Source Name Details Category Date Date Treatment Clinician Date Irregular Irregular Disease Active Uni vers menstrual menstrual 9-15 ity of cycle cycle 00:00: [place] 00 Medical Branch 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 ity of intraepith [place]ep[place] 00 Medical lesion on lesion on Bran ch cytologic cytologic smear of smear of cervix cervix (LGSIL) (LGSIL) Class 2 Class 2 Disease Active Univers obesity obesity 9-15 ity of due to due to 00:00: [place] excess excess 00 Medical calories calories Branch with body with body mass index mass index (BMI) of (BMI) of 37.0 to 37.0 to 37.9 in 37.9 in adult, adult, unspecifie unspecifie d whether d whether serious serious comorbidit comorbidit y present y present Acne Acne Disease Active Univers 3-19 ity of 00:00: [place] 00 Medical Branch Dysmenorrh Dysmenorrh Disease Active U latricia ea ea 330 ity of 00:00: [place] 00 Medical Branch Screen for Screen for Disease Active U shiriners STD STD 30 ity of (sexually (sexually 00:[place] transmit[place] transmitte 00 Me dical d disease) d disease) Br anch Contracept Contracept Disease Active Overview : Univers cha cha 05-29 Formattin ity of management management 00:00: g of this note Medical might be Branch different from the original. ICD10 Diagnosis Term Tafe Lecturer Utility BMI BMI Disease Active Overview: Univer s 37.0-37.9, 37.0-37.9, 05-29 Formattin ity of adult adult 00:00: g of this note Medical might be Branch different from the original. ICD10 Diagnosis Term Tafe Lecturer Utility Screening Screening Disease Active 2013-05 Uni vers examinatio examinatio 05-24 it y of n for STD n for STD 00[place] ([place] ([place]ually 00 Medi michelle transmitte transmitte Br anch d disease) d disease) Allergies, Adverse Reactions, Alerts Allergy Allergy Status Severity Reaction(s) Onset Inactive Treating Comm ents Source Name Type Date Date Clinician Codeine Propensi Active Shortness of 2019-0 U nivers ty to Breath 1-30 ity of adverse 00:00: [place] reaction 00 Medical s Branch CODEINE DRUG Active SOB Univers INGREDI 30 ity of 00:00: [place] 00 Medical Branch Bee Propensi Active Anaphylaxis 2013-05 Uni vers Sting / ty to 13 ity of Venom adverse 00:00: [place] reaction 00 Medical s Branch Latex Propensi Active Swelling 2013-05 Univer s ty to -13 ity of adverse 00:00: [place] reaction 00 Medical s Branch BEE DRUG Active Anaphylaxis 2013-05 Unive rs STING / INGREDI 05-23 ity of VENOM 00:00: [place] 00 Medical Branch LATEX DRUG Active Swelling 2013-05 Univers INGREDI 05-23 ity of 00:00: [place] 00 Medical Branch Social History Social Habit Start Date Stop Date Quantity Comments Source History [facility] o f Alcohol Frequency [facility] edical Branch History [facility] o f Alcohol Std Drinks [place] Medical [facility] History [facility] hospital o f Alcohol Binge [facility] al Branch Exposure to 2022-04-13 2022-04-23 Not sure University of SARS-CoV-2 (event) 00:00:00 10:59:00 [facility] Tobacco use and 2022-04-23 2022-04-23 Smokeless Universit y of exposure 00:00:00 00:00:00 tobacco non-user [facility] dical Branch Cigarettes smoked 2022-04-23 2022-04-23 Univers ity of current (pack per 00:00:00 00:00:00 [place] [facility] ) - Reported Branch Alcohol intake 2022-04-23 2022-04-23 0 /d University of 00:00:00 00:00:00 [facility] History of tobacco 2017-05-26 Cigarette Smoker University of use 00:00:00 [facility] Alcohol Comment 2015-08-08 2015-08-08 socially Universit y of 00:00:00 00:00:00 [facility] Sex [birth year] At [birth year] Universit y of 00:00:00 00:00:00 [facility] Smoking Status Start Date Stop Date Source Ex-smoker 2022-04-23 00:00:00 2022-04-23 [facility] Medications Ordered Filled Start Stop Current Ordering Indication Dosage Frequency Signature Comments Components Source Medication Medication Date Date Medication? Clinician (SIG) Name Name proMETHazin 2021-05 Yes [id number] 25mg Take 1 Univers e 25 mg 2-14 tablet by ity of tablet 00:00: mouth [place] 00 every 4 Medical (four) Branch hours as needed for Nausea and Vomiting (N/V). proMETHazin 2021-05 Yes [id number] 25mg Take 1 Univers e 25 mg 2-14 tablet by ity of tablet 00:00: mouth [place] 00 every 4 Medical (four) Branch hours as needed for Nausea and Vomiting (N/V). proMETHazin 2021-05 Yes [id number] 25mg Take 1 Univers e 25 mg 2-14 tablet by ity of tablet 00:00: mouth [place] 00 every 4 Medical (four) Branch hours as needed for Nausea and Vomiting (N/V). metFORMIN 2022-0 Yes [id number] 500mg Take 1 U nivers 500 mg 9-29 tablet by ity of tablet 00:00: mouth in [address] morning Bally and 1 tablet in the evening. Take with meals. metFORMIN 2-0 Yes [id number] 500mg Take 1 U nivers 500 mg 9-29 tablet by ity of tablet 00:00: mouth in [place] [address] [facility] morning Bally and 1 tablet in the evening. Take with meals. metFORMIN 2-0 Yes [id number] 500mg Take 1 U nivers 500 mg 9-29 tablet by ity of tablet 00:00: mouth in [address] morning Bally and 1 tablet in the evening. Take with meals. metFORMIN 2-0 Yes [id number] 500mg Take 1 U nivers 500 mg 9-29 tablet by ity of tablet 00:00: mouth in [address] morning Bally and 1 tablet in the evening. Take with meals. metFORMIN 2021-0 Yes [id number] 500mg Take 1 U nivers 500 mg 9-29 tablet by ity of tablet 00:00: mouth in [address] and 1 tablet in the evening. Take with meals. metFORMIN 2021-0 Yes [id number] 500mg Take 1 U nivers 500 mg 9-29 tablet by ity of tablet 00:00: mouth in [address] morning Bally and 1 tablet in the evening. Take with meals. proMETHazin 2021-0 Yes Univer s e 25 mg 6-14 ity of tablet 00:00: [place] [address] [facility] proMETHazin 2-0 Yes Univer s e 25 mg 6-14 ity of tablet 00:00: [place] [address] [facility] proMETHazin 2-0 Yes Univer s e 25 mg 6-14 ity of tablet 00:00: [place] [address] [facility] proMETHazin 2-0 Yes Univer s e 25 mg 6-14 ity of tablet 00:00: [place] [address] [facility] proMETHazin 2-0 Yes Univer s e 25 mg 6-14 ity of tablet 00:00: [place] [address] [facility] proMETHazin 2021-0 2022- No Unive rs e 25 mg 6-14 12-14 ity of tablet 00:00: 00:00 [place] 00 :[address] [facility] eflornithin 2021-0 Yes Apply thin Univers e 13.9 % 6-06 layer to ity of cream 00:00: affected [place] 00 areas of Medical face and Branch areas under the chin twice daily, at least 8 hours apart. eflornithin Yes Apply thin Univers e 13.9 % 6-06 layer to ity of cream 00:00: affected [place] 00 areas of Medical face and Branch areas under the chin twice daily, at least 8 hours apart. eflornithin Yes Apply thin Univers e 13.9 % 6-06 layer to ity of cream 00:00: affected [place] 00 areas of Medical face and Branch areas under the chin twice daily, at least 8 hours apart. eflornithin Yes Apply thin Univers e 13.9 % 6-06 layer to ity of cream 00:00: affected [place] 00 areas of Medical face and Branch areas under the chin twice daily, at least 8 hours apart. eflornithin Yes Apply thin Univers e 13.9 % 6-06 layer to ity of cream 00:00: affected [place] 00 areas of Medical face and Branch areas under the chin twice daily, at least 8 hours apart. eflornithin Yes Apply thin Univers e 13.9 % 6-06 layer to ity of cream 00:00: affected [place] 00 areas of Medical face and Branch areas under the chin twice daily, at least 8 hours apart. eflornithin 2021- No Apply thin Univers e 13.9 % 6-06 12-14 layer to ity of cream 00:00: 00:00 affected [place] 00 :00 areas of Medical face and Branch areas under the chin twice daily, at least 8 hours apart. SPRINTEC 2021- No Univers 0.25-35 10-14 09-15 ity of mg-mcg per 00:00: 00:00 [place] tablet 00 :00 Medical Branch SPRINTEC 2021- No Univers 0.25-35 10-14 09-15 ity of mg-mcg per 00:00: 00:00 [place] tablet 00 :00 Medical Branch famotidine Yes Univers 20 mg 5-31 ity of tablet 00:00: Medical Branch famotidine Yes Univers 20 mg 5-31 ity of tablet 00:00: Medical Branch famotidine 2021-0 Yes Univers 20 mg 5-31 ity of tablet 00:00: [place] [address] Medical Branch famotidine 2021-0 Yes Univers 20 mg 5-31 ity of tablet 00:00: [place] [address] Medical Branch famotidine 2021-0 Yes Univers 20 mg 5-31 ity of tablet 00:00: [place] [address] Medical Branch famotidine 2021-0 Yes Univers 20 mg 5-31 ity of tablet 00:00: [place] [address] Medical Branch famotidine 2021-0 Yes Univers 20 mg 5-31 ity of tablet 00:00: [place] [address] Medical Branch famotidine 2021-0 Yes Univers 20 mg 5-31 ity of tablet 00:00: [place] [address] Medical Branch Hyoscyamine 2021-0 Yes Univer s Sulfate 5-25 ity of 0.125 mg 00:00: [facility] Medical Branch Hyoscyamine 2021-0 Yes Univer s Sulfate 5-25 ity of 0.125 mg 00:00: [facility] Medical Branch Hyoscyamine 2021-0 Yes Univer s Sulfate 5-25 ity of 0.125 mg 00:00: [facility] Medical Branch Hyoscyamine 2021-0 Yes Univer s Sulfate 5-25 ity of 0.125 mg 00:00: [facility] Medical Branch Hyoscyamine 2021-0 Yes Univer s Sulfate 5-25 ity of 0.125 mg 00:00: [facility] Medical Branch Hyoscyamine 2-0 Yes Univer s Sulfate 5-25 ity of 0.125 mg 00:00: [facility] Medical Branch Hyoscyamine 2021-0 Yes Univer s Sulfate 5-25 ity of 0.125 mg 00:00: [facility] Medical Branch Hyoscyamine 2-0 Yes Univer s Sulfate 5-25 ity of 0.125 mg 00:00: [facility] Medical Branch methscopola 2-0 2- No Unive rs mine 5 mg 5-25 09-15 ity of tablet 00:00: 00:00 [place] 00 :00 Medical Branch methscopola 2-0 2- No Unive rs mine 5 mg 5-25 09-15 ity of tablet 00:00: 00:00 [place] 00 :00 Medical Branch Immunizations Ordered Immunization Filled Date Status Comments Sour ce Name Immunization Name HPV9 2018-09-27 Completed University of 00:00: [facility] Branch HPV9 2018-09-27 Completed University of 00:00: [place] [facility] HPV9 2018-09-27 Completed University of 00:00: [facility] Branch HPV9 2018-09-27 Completed University of 00:00: [place] Medical [facility] HPV9 2018-09-27 Completed University of 00:00: [facility] Branch HPV9 2018-09-27 Completed University of 00:00:00 [facility] Branch HPV9 2018-09-27 Completed University of 00:00:00 [facility] Branch HPV9 2018-09-27 Completed University of 00:00:00 [facility] Branch Influenza Virus 2018-04-13 Completed Universit y of Vaccine Quad .5 mL IM 00:00:00 [place] Medical 6+ MO Branch Influenza Virus 2018-04-13 Completed Universit y of Vaccine Quad .5 mL IM 00:00:00 [place] 6+ MO Branch Influenza Virus 2018-04-13 Completed Universit y of Vaccine Quad .5 mL IM 00:00:00 [place] Medical 6+ MO Branch Influenza Virus 2018-04-13 Completed Universit y of Vaccine Quad .5 mL IM 00:00:00 [place] Medical 6+ MO Branch Influenza Virus 2018-04-13 Completed Universit y of Vaccine Quad .5 mL IM 00:00:00 [place] Medical 6+ MO Branch Influenza Virus 2018-04-13 Completed Universit y of Vaccine Quad .5 mL IM 00:00:00 [place] 6+ MO Branch Influenza Virus 2018-04-13 Completed Universit y of Vaccine Quad .5 mL IM 00:00:00 [place] 6+ MO Branch Influenza Virus 2018-04-13 Completed Universit y of Vaccine Quad .5 mL IM 00:00:00 [place] Medical 6+ MO Branch TDAP (ADACEL) VACCINE 2016-09-08 Completed Uni versity of 00:00:00 [facility] Branch TDAP (ADACEL) VACCINE 2016-09-08 Completed Uni versity of 00:00:00 [facility] Branch TDAP (ADACEL) VACCINE 2016-09-08 Completed Uni versity of 00:00:00 [facility] Branch TDAP (ADACEL) VACCINE 2016-09-08 Completed Uni versity of 00:00:00 [place] [facility] TDAP (ADACEL) VACCINE 2016-09-08 Completed Uni versity of 00:00:00 [place] [facility] TDAP (ADACEL) VACCINE 2016-09-08 Completed Uni versity of 00:00:00 [place] [facility] TDAP (ADACEL) VACCINE 2016-09-08 Completed Uni versity of 00:00:00 [place] [facility] TDAP (ADACEL) VACCINE 2016-09-08 Completed Uni versity of 00:00:00 [facility] Branch HPV9 2015-11-05 Completed University of 00:00:00 [place] [facility] HPV9 2015-11-05 Completed University of 00:00:00 [place] [facility] HPV9 2015-11-05 Completed University of 00:00:00 [place] [facility] HPV9 2015-11-05 Completed University of 00:00:00 [place] [facility] HPV9 2015-11-05 Completed University of 00:00:00 [place] [facility] HPV9 2015-11-05 Completed University of 00:00:00 [place] [facility] HPV9 2015-11-05 Completed University of 00:00:00 [place] [facility] HPV9 2015-11-05 Completed University of 00:00:00 [place] [facility] HPV9 2015-08-08 Completed University of 00:00:00 [place] [facility] HPV9 2015-08-08 Completed University of 00:00:00 [place] [facility] HPV9 2015-08-08 Completed University of 00:00:00 [place] [facility] HPV9 2015-08-08 Completed University of 00:00:00 [place] [facility] HPV9 2015-08-08 Completed University of 00:00:00 [facility] Branch HPV9 2015-08-08 Completed University of 00:00:00 [place] [facility] HPV9 2015-08-08 Completed University of 00:00:00 [place] [facility] HPV9 2015-08-08 Completed University of 00:00:00 [facility] Meningococcal 2014-11-06 Completed University of Oligosaccharide 00:00:00 [place] Med ical (groups A, C, Y and Branc h W-135) conjugate vaccine (MCV4O) Meningococcal 2014-11-06 Completed University of Oligosaccharide 00:00:00 [place] Med ical (groups A, C, Y and Branc h W-135) conjugate vaccine (MCV4O) Meningococcal 2014-11-06 Completed University of Oligosaccharide 00:00:00 [place] Med ical (groups A, C, Y and Branc h W-135) conjugate vaccine (MCV4O) Meningococcal 2014-11-06 Completed University of Oligosaccharide 00:00:00 [place] Med ical (groups A, C, Y and Branc h W-135) conjugate vaccine (MCV4O) Meningococcal 2014-11-06 Completed University of Oligosaccharide 00:00:00 [place] Med ical (groups A, C, Y and Branc h W-135) conjugate vaccine (MCV4O) Meningococcal 2014-11-06 Completed University of Oligosaccharide 00:00:00 [place] Med ical (groups A, C, Y and Branc h W-135) conjugate vaccine (MCV4O) Meningococcal 2014-11-06 Completed University of Oligosaccharide 00:00:00 [place] Med ical (groups A, C, Y and Branc h W-135) conjugate vaccine (MCV4O) Meningococcal 2014-11-06 Completed University of Oligosaccharide 00:00:00 [place] Med ical (groups A, C, Y and Branc h W-135) conjugate vaccine (MCV4O) TDAP (ADACEL) VACCINE 2010-12-09 Completed Uni versity of 00:00:00 [facility] TDAP (ADACEL) VACCINE 2010-12-09 Completed Uni versity of 00:00:00 [facility] Branch TDAP (ADACEL) VACCINE 2010-12-09 Completed Uni versity of 00:00:00 [facility] Branch TDAP (ADACEL) VACCINE 2010-12-09 Completed Uni versity of 00:00:00 [facility] Branch TDAP (ADACEL) VACCINE 2010-12-09 Completed Uni versity of 00:00:00 [facility] Branch TDAP (ADACEL) VACCINE 2010-12-09 Completed Uni versity of 00:00:00 [facility] Branch TDAP (ADACEL) VACCINE 2010-12-09 Completed Uni versity of 00:00:00 [facility] Branch TDAP (ADACEL) VACCINE 2010-12-09 Completed Uni versity of 00:00:00 [facility] Vital Signs Vital Name Observation Time Observation Value Comments Source Systolic blood 2022-04-23 17:05:00 106 mm[Hg] Univer sity of pressure [facility] Diastolic blood 2022-04-23 17:05:00 73 mm[Hg] Unive rsity of pressure [facility] Heart rate 2022-04-23 17:05:00 84 /min Universi ty of [facility] Body temperature 2022-04-23 17:05:00 36.94 Marga Univ ersity of [facility] Respiratory rate 2022-04-23 17:05:00 18 /min Univ ersity of [facility] Body height 2022-04-23 17:05:00 152.4 cm Universi ty of [facility] Body weight 2022-04-23 17:05:00 89.903 kg Universi ty of [facility] BMI 2022-04-23 17:05:00 38.71 kg/m2 Universi ty of [facility] Oxygen saturation in 2022-04-23 17:05:00 98 /min [place] of Arterial blood by [facility] Pulse oximetry Branch Systolic blood 2022-01-23 19:49:00 107 mm[Hg] Univer sit of pressure [facility] Diastolic blood 2022-01-23 19:49:00 64 mm[Hg] Unive [facility] Heart rate 2022-01-23 19:49:00 85 /min Universi ty of [facility] Body temperature 2022-01-23 19:49:00 36.94 [facility]a [facility] Respiratory rate 2022-01-23 19:49:00 20 /min [facility] Body height 2022-01-23 19:49:00 152.4 cm Universi ty of [facility] Body weight 2022-01-23 19:49:00 88.089 kg Universi ty of [facility] BMI 2022-01-23 19:49:00 37.93 kg/m2 Universi ty [facility] Procedures Procedure Date / Time Performing Clinician Source Performed POCT TEST 2022-04-23 00:00:00 [facility] THYROID STIMULATING 2022-01-23 20:41:00 [facility] TESTOSTERONE 2022-01-23 20:41:00 Britt Caruso [facility] FOLLICLE STIMULATING 2022-01-23 20:41:00 Britt Caruso [facility] LUTEINIZING HORMONE 2022-01-23 20:41:00 [facility] GLYCOSYLATED HEMOGLOBIN 2022-01-23 20:41:00 [facility] HIV 1/2 AG-AB WITH 2022-01-23 20:41:00 Britt Caruso sity [facility] PAP SMEAR-LIQUID 2022-01-23 20:41:00 [facility] POCT [facility] 2022-01-23 20:04:00 [facility] Encounters Start End Encounter Admission Attending Care Care Encounter Source Date/Time Date/Time Type Type Clinicians Facility Department ID 2021-03-[address] [facility] [id number] [facility] 2022-04-23 Outpatient R RUBÉN [facility] [id number] Univers 11:00:00 11:38:43 [facility] 2022-04-23 2022-04-23 Urgent Lillian Montana [facility] [id number] Univers 11:00:00 11:20:00 Care Unknown, Attending HEALTH [id number] ity of [place] [id number] [place] as MARK?BLEA [id number] [address] MEDICAL OFFICE [facility] 2022-04-23 2022-04-23 Letter Rubén [facility] [id number] Univers 00:00:00 00:00:00 (Out) [facility] [id number] it y of [place] [id number] [place] as MARK?BLEA [id number] [address] MEDICAL OFFICE [facility] 2022-04-23 2022-04-23 Telephone DALILA Schafer [id number] Univers 00:00:00 00:00:00 Gina CAMPO [id number] ity of [facility] [id number] [place] as [phone] [address] 2022-02-14 2022-02-14 Telephone Kenji OKJO [id number] Univers 00:00:00 00:00:00 Linda Francisco SECURITY SUPERVISOR [id number] i ty of [facility] [id number] [place] as MATERNAL [phone] [facility] ical & CHILD [address] [place] [address] 2022-02-06 2022-02-06 Telephone Zuly [facility] [id number] Univers 00:00:00 00:00:00 Aundreakatarina Hart SECURITY SUPERVISOR [id number] ity of [facility] [id number] [place] as MATERNAL [phone] [facility] & [address] 2022-01-23 2022-01-23 Office Zuly [facility] [id number] Univers 14:45:00 15:42:19 [facility] SECURITY SUPERVISOR [id number] ity of [place] [id number] [place] as MATERNAL [phone] [facility] & CHILD [address] [place] [address] 2022-01-23 2022-01-23 Outpatient R ZULY [facility] [id number] Univers 14:45:00 15:42:19 BRITT watson o [facility] 2022-01-23 2022-01-23 Outpatient R ZULY [facility] [id number] Univers 14:45:00 14:45:00 [facility] 2022-01-23 2022-01-23 Orders Doctor CONNER [id number] Univers 00:00:00 00:00:00 Only Unassigned, ALBER [id number] ity of [place] [facility] [id number] Kal[place] as [phone] [address] 2021-11-03 2021-11-03 Letter DALILA Parham [id number] Univers 00:00:00 00:00:00 (Out) Chanel CAMOP [id number] it y of [facility] [id number] Kal[place] as [phone] [facility] 019 Branch 2021-11-02 2021-11-02 Outpatient R ANGEL, [facility] [id number] Univers 15:40:00 15:55:31 THELMA shirley marks sharon [facility] 2021-11-02 2021-11-02 Urgent Thelma Bueno [facility] [id number] [id number] Univers 15:40:00 15:55:31 [facility] [id number] ity of [place] [id number] [place] as MARK?BLEA [id number] [address] MEDICAL OFFICE BUILDING 2021-11-02 2021-11-02 Orders Doctor DALILA 1.2.840.114 [id number] Univers 00:00:00 00:00:00 Only Unassigned, MARSHALL 350.1.13.10 [facility] 4.2.7.2.686 Kalia as [phone] [facility] [address] 2021-09-24 2021-09-24 Outpatient R AKINSIPE, [facility] [id number] Univers 11:00:00 11:00:00 PHILOMENA herrera [facility] 2021-09-22 2021-09-22 Emergency X [facility] ERT [id number] Univers 20:22:00 22:58:00 CECE watson of [facility] 2021-09-22 2021-09-22 Emergency [facility] [id number] Univers 20:22:00 22:58:00 Cece MOTA 350.1.13.10 ity [facility] 4.2.7.2.686 [facility] [phone] [facility] 084 [address] 2021-06-10 2021-06-10 Outpatient R AKINSIPE, [facility] [id number] Univers 09:00:00 10:01:34 PHILOMENA herrera [facility] 2021-06-10 2021-06-10 Office Akinana paula, [facility] [id number] Univers 09:00:00 10:01:34 Visit Philomena Juarez SECURITY SUPERVISOR 350.1.13.10 ity of [facility] 4.2.7.2.686 Kalia as MATERNAL [phone] [facility] & [address] 2021-06-07 2021-06-07 Telephone Zuly [facility] [id number] Univers 00:00:00 00:00:00 Britt Hart SECURITY SUPERVISOR 350.1.13.10 ity of [facility] 4.2.7.2.686 Kalia as MATERNAL [phone] [facility] & CHILD [address] [place] [address] 2021-05-14 2021-05-14 Telephone DALILA Lee [id number] Univers 00:00:00 00:00:00 Keri CAMPO 350.1.13.10 it y of [facility] 4.2.7.2.686 Kalia as [phone] [address] 2021-05-13 2021-05-13 Outpatient Hailey [place] [facility] [id number] Univers 13:20:00 14:20:26 LILLIAN patelalyx [facility] 2021-05-13 2021-05-13 Urgent Dalila Almeida [facility] 1.2.840.114 [id number] Univers 13:20:00 13:40:00 Jr [place] Lillian [facility] 350.1.13.10 ity [facility] 4.2.7.2.686 Kalia as MARK?BLEA [phone] [address] MEDICAL OFFICE BUILDING 2021-04-17 2021-04-17 Outpatient R ANGÉLICA [facility] [id number] Univers 13:00:00 13:00:00 VISHAL watson [facility] 2021-04-17 2021-04-17 Outpatient Hailey LINDSAY [facility] [id number] Univers 13:00:00 13:00:00 VISHAL shirley [facility] 2021-03-27 2021-03-27 Telephone Angélica [facility] 1.2.840.114 [id number] Univers 00:00:00 00:00:00 Vishal [facility] 350.1.13.10 it y of [place] 4.2.7.2.686 Kalia as MARK?BLEA [phone] Me lawrence MCKEON [address] MEDICAL OFFICE [facility] 2021-03-18 2021-03-18 Outpatient R ANGÉLICA [facility] [id number] Univers 14:30:00 14:42:54 VISHAL alyx [facility] 2021-03-18 2021-03-18 Office [facility] [id number] Univers 14:12:12 14:42:54 Visit Vsihal Richard HEALTH 350.1.13.10 it y of [facility] 4.2.7.2.686 Kalia as MARK?BLEA [phone] [place] lawrence MCKEON [address] [facility] OFFICE [facility] 2021-03-17 2021-03-17 Emergency X SINGER [facility] ERT [id number] Univers 19:20:00 21:01:00 RANDY watson [facility] 2021-03-17 2021-03-17 Emergency [facility] 1.2.661.781 [id number] Univers 19:20:00 21:01:00 Randy MOTA 350.1.13.10 i ty of [place].7.2.686 [place] [phone] [facility] [address] 2021-03-17 2021-03-17 Emergency X [facility] ERT [id number] Univers 19:20:00 21:01:00 RANDY watson [facility] 2021-02-05 2021-02-05 Outpatient R [facility] [id number] Univers 09:00:00 09:00:00 shirley [facility] 2021-02-03 2021-02-03 Urgent [facility] 1.2.840.114 [id number] Univers 10:40:15 11:00:15 Care L[facility] 350.1.13.10 it y of [place] 4.2.7.2.686 Kalia as Mark?Blea [phone] [place] lawrence mckeon [address] [facility] Office [facility] 2021-02-03 2021-02-03 Outpatient R RUBÉN [facility] [id number] Univers 11:00:00 11:00:00 LILLIANTOÑO watson [facility] 2021-01-302021-01-30 Outpatient R ZULY, [facility] [id number] Univers 14:15:00 14:15:00 NADJAA italyx o f [facility] 2021-01-23 2021-01-23 Outpatient R [facility] [id number] Univers 15:30:00 15:30:00 ity of [facility] 2020-12-31 2020-12-31 [facility] [id number] Univers 15:15:00 15:15:00 PHILOMENA ity o f [facility] 2020-12-14 2020-12-14 Outpatient R RUDDY, [facility] [id number] Univers 13:15:00 13:15:00 PHILOMENA ity o f [facility] 2020-11-08 2020-11-08 Telephone [facility] 1.2.840.114 [id number] Univers 00:00:00 00:00:00 Philomena C SECURITY SUPERVISOR 350.1.13.10 ity of [facility] 4.2.7.2.686 Kalia as MATERNAL [phone] [facility] & CHILD [address] [place] [address] 2020-11-03 2020-11-03 [facility] [id number] Univers 00:00:00 00:00:00 Philomena C SECURITY SUPERVISOR 350.1.13.10 ity of [facility] 4.2.7.2.686 Kalia as MATERNAL [phone] [facility] & CHILD [address] [place] [address] 2020-10-30 2020-10-30 Telephone [facility] 1.2.840.114 [id number] Univers 00:00:00 00:00:00 Philomena C SECURITY SUPERVISOR 350.1.13.10 ity of [facility] 4.2.7.2.686 Kalia as MATERNAL [phone] [facility] & CHILD [address] [place] [address] 2020-10-26 2020-10-26 Office [facility] [id number] Univers 14:51:23 16:05:36 Visit Philomena C SECURITY SUPERVISOR 350.1.13.10 ity of [facility] 4.2.7.2.686 Kalia as MATERNAL [phone] Med ical & CHILD [address] [facility] 2020-10-26 2020-10-26 Outpatient R RUDDY [facility] [id number] Univers 14:15:00 14:15:00 PHILOMENA watson o f [facility] 2020-10-26 2020-10-26 Orders Doctor DALILA 1.2.840.114 [id number] Univers 00:00:00 00:00:00 Only Unassigned, ALBER 350.1.13.10 ity of [facility] 4.2.7.2.686 Kalia as [phone] [facility] [address] 2020-09-10 2020-09-10 Emergency [facility] [id number] Univers 15:57:00 17:04:00 Flor Mota 350.1.13.10 i ty of [place].7.2.[place] [id number] [facility] [address] 2020-09-10 2020-09-10 Orders Doctor DALILA 1.2.840.114 [id number] Univers 00:00:00 00:00:00 Only Unassigned, ALBER 350.1.13.10 ity of [facility] 4.2.7.2.686 Kalia as [phone] [facility] [address] 2020-07-31 2020-07-31 Patient Sunny [facility] 1.2.840.114 [id number] Univers 00:00:00 00:00:00 Outreach Vin DESHPANDE 350.1.13.10 i ty of [facility] 4.2.7.2.686 [place] [phone] La dical [address] 2019-11-23 2019-11-23 Refill Ruddy [facility] [id number] 00:00:00 00:00:00 Philomena Juarez SECURITY SUPERVISOR 350.1.13.10 REGIONAL 4.2.7.2.686 MATERNAL [phone] & CHILD 107 [facility] 2019-11-23 2019-11-23 Refill Ruddy [facility] 1.2.409.330 [id number] Univers 00:00:00 00:00:00 Philomena Juarez SECURITY SUPERVISOR 350.1.13.10 ity of [facility] 4.2.7.2.686 Kalia as MATERNAL [phone] [facility] & CHILD [address] [place] [address] 2019-07-21 2019-07-21 Outpatient R [facility] [id number] Univers 10:30:00 10:30:00 ity of [facility] 2019-07-13 2019-07-13 Office [facility] [id number] 10:22:20 10:39:48 Visit Linda Black SECURITY SUPERVISOR 350.1.13.10 REGIONAL 4.2.7.2.686 MATERNAL [phone] & CHILD [address] [place] [address] 2019-07-13 2019-07-13 Office [facility] 1.2.720.592 [id number] [facility] 10:22:20 10:39:48 Visit Linda Black SECURITY SUPERVISOR 350.1.13.10 it y of [facility] 4.2.7.2.686 Aklia as MATERNAL [phone] [facility] ical & CHILD [address] [place] [address] 2019-07-13 2019-07-13 Nurse Visit, [facility] 1.2.840.114 [id number] 09:23:47 09:33:41 Visit Tello SECURITY SUPERVISOR 350.1.13.10 Nurse [facility] 4.2.7.2.686 MATERNAL [id number] & CHILD [address] [place] [address] 2019-07-13 2019-07-13 Nurse Visit, Ang-ch Nurse [facility] 1.2 .840.114 [id number] [facility] 09:23:47 09:33:41 Visit Britt Caruso SECURITY SUPERVISOR 350.1.13.10 ity of [facility] 4.2.7.2.686 Kalia as MATERNAL [phone] [facility] ical & CHILD [address] [place] [address] 2019-07-13 2019-07-13 Outpatient R [facility] [id number] Univers 09:00:00 09:00:00 ity [facility] 2019-07-13 2019-07-13 Orders Doctor CONNER 1.2.840.114 [id number] Univers 00:00:00 00:00:00 Only Unassigned, ALBER 350.1.13.10 ity of [facility] 4.2.7.2.686 Kalia as [phone] [address] 2018-12-20 2019-01-18 Nurse Visit, Tello Nurse [facility] 1.2 .840.114 [id number] [facility] 13:40:21 16:45:28 Visit Philomena Fox SECURITY SUPERVISOR 350.1.13. 10 ity of [facility] 4.2.7.2.686 Kalia as MATERNAL [phone] Med ical & CHILD [address] [place] [address] 2018-12-20 2018-12-20 Orders Doctor DALILA 1.2.840.114 [id number] Univers 00:00:00 00:00:00 Only Unassigned, ALBER 350.1.13.10 ity of [place] [facility] 4.2.7.2.686 Kalia as [phone] [address] Results Test Description Test Time Test Comments Results Result Comments Source POCT TEST 2022-04-23 17:37:00 Test Item Value Reference Range Interpretation Comme nts POCT PREG (test code = 1605) Negative On board controls acceptable with C Line (test code = 3574) Yes POCT PREG LOT # (test code = 3575) POCT PREG TEST DATE (test code = 3576) [facility] 1/2 AG-AB WITH [id number] 07:16:56 Test Item Value Reference Range Interpretation Comments HIV Negative Negative Semi-quantitative (test code = 12810-1) YOSELIN (test code = Non-reactive for HIV-1 YOSELIN) antigen and HIV-1/HIV-2 antibodies. ?No laboratory evidence of HIV infection. ?Repeat in 2-4 weeks if acute HIV infection is suspected. [facility] 1/2 AG-AB WITH [id number] 07:16:56 Test Item Value Reference Range Interpretation Comments HIV Negative Negative Semi-quantitative (test code = 11096-0) YOSELIN (test code = Non-reactive for HIV-1 YOSELIN) antigen and HIV-1/HIV-2 antibodies. ?No laboratory evidence of HIV infection. ?Repeat in 2-4 weeks if acute HIV infection is suspected. [facility] [id number] 06:30:36 Test Item Value Reference Range Interpretation Comments LH (test code = mIU/mL [id number]) YOSELIN (test code = LH Reference Ranges: YOSELIN) Menstrating Female ? ? Follicular phase ? ? 2.1-10.9 mIU/mL ? ? Mid-cycle peak ? ? ? 19.1-103.0 mIU/mL ? ? Luteal phase ? 1.2-12.8 mIU/mL Post-menopausal female ? ?10.8-58.6 mIU/mL Adule Male ?1.2-8.6 mIU/mL [facility] STIMULATING [id number] 06:30:36 Test Item Value Reference Range Interpretation Comments FSH (test code = mIU/mL [id number]) YOSELIN (test code = FSH Reference Ranges YOSELIN) Follicular Phase: ? ? ? 3.8-8.8 mIU/mLMid-cycle Peak: ? 4.5-22.85 mIU/mLLuteal Phase: ? 1.7-5.1 mIU/mLPost-menopause female: ?16.7-113.6 mIU/mLAdult male: ? 1.2-19 mIU/mL [facility] HORM[facility] [id number] 06:30:36 Test Item Value Reference Range Interpretation Comments LH (test code = mIU/mL [id number]) YOSELIN (test code = LH Reference Ranges: YOSELIN) Menstrating Female ? ? Follicular phase ? ? 2.1-10.9 mIU/mL ? ? Mid-cycle peak ? ? ? 19.1-103.0 mIU/mL ? ? Luteal phase ? 1.2-12.8 mIU/mL Post-menopausal female ? ?10.8-58.6 mIU/mL Adule Male ?1.2-8.6 mIU/mL [facility]FO[facility] STIMULATING [id number] 06:30:36 Test Item Value Reference Range Interpretation Comments FSH (test code = mIU/mL [id number]) YOSELIN (test code = FSH Reference Ranges YOSELIN) Follicular Phase: ? ? ? 3.8-8.8 mIU/mLMid-cycle Peak: ? 4.5-22.85 mIU/mLLuteal Phase: ? 1.7-5.1 mIU/mLPost-menopause female: ?16.7-113.6 mIU/mLAdult male: ? 1.2-19 mIU/mL [facility]TEST[facility]ONE2022-09-16 05:00:02 Test Item Value Reference Range Interpretation Comments TESTOST (test code = 31.8 ng/dL - [id number]) YOSELIN (test code = YOSELIN) Normal Ranges Adult Female: ?6-77 ng/dLAdult Male <50 years: ? ?132-813 ng/dLAdult Male >50 years: ? ?72-623 ng/dL Females on Control Pills may have higher results. Obese patients may have lower results. Biotin has been reported to cause a negative bias, interpret results relative to patient's use of biotin. Lab Interpretation (test Normal code = 10409-5) [facility]TEST[facility]2022-09-16 05:00:02 Test Item Value Reference Range Interpretation Comments TESTOST (test code = 31.8 ng/dL [id number]) YOSELIN (test code = YOSELIN) Normal Ranges Adult Female: ?6-77 ng/dLAdult Male <50 years: ? ?132-813 ng/dLAdult Male >50 years: ? ?72-623 ng/dL Females on Control Pills may have higher results. Obese patients may have lower results. Biotin has been reported to cause a negative bias, interpret results relative to patient's use of biotin. Lab Interpretation (test Normal code = 15899-7) [facility] ResourcesTHYROID STIMULATING [id number] 04:58:41 Test Item Value Reference Range Interpretation Comments TSH (test code = See_Comment Biotin has been [id number]) reported to cau se a negative bias, interpret resul ts relative to pat ient's use of biotin. [Automated mess age] The system ustyme generated this result transmitted ref erence range: 0.45 - 4 .70 mIU/L. The refe rence range was not u sed to interpret this result as normal/abnor mal. Lab Interpretation (test Normal code = 61639-5) [facility]IM[facility] [id number] 04:58:41 Test Item Value Reference Range Interpretation Comments TSH (test code = See_Comment Biotin has been [id number]) reported to cau se a negative bias, interpret resul ts relative to pat ient's use of biotin. [Automated mess age] The system ustyme generated this result transmitted ref erence range: 0.45 - 4 .70 mIU/L. The refe rence range was not u sed to interpret this result as normal/abnor mal. Lab Interpretation (test Normal code = 70958-7) [facility] ResourcesGLYCOSYLATED HEMOGLOBIN (A1C)2022-01-24 04:38:59 Test Item Value Reference Range Interpretation Comments HGB A1C (test code = 5.5 % 4-5.7 4548-4) YOSELIN (test code = YOSELIN) Reference RangesNormal: <5.7%Prediabetes: 5.7 - 6.4%Diabetes: > 6.5% Lab Interpretation (test Normal code = 85081-1) [facility] ResourcesGLYCOSYLATED HEMOGLOBIN (A1C)2022-01-24 04:38:59 Test Item Value Reference Range Interpretation Comments HGB A1C (test code = 5.5 % 4-5.7 4548-4) YOSELIN (test code = YOSELIN) Reference RangesNormal: <5.7%Prediabetes: 5.7 - 6.4%Diabetes: > 6.5% Lab Interpretation (test Normal code = 80683-5) [facility] [id number] 20:04:00 Test Item Value Reference Range Interpretation Comments POCT PREG (test code = 1605) Negative On board controls acceptable with C Yes Line (test code = 3574) POCT PREG LOT # (test code = 3575) POCT PREG TEST DATE (test code = 3576) [facility] [id number] 20:04:00 Test Item Value Reference Range Interpretation Comments POCT PREG (test code = 1605) Negative On board controls acceptable with C Yes Line (test code = 3574) POCT PREG LOT # (test code = 3575) POCT PREG TEST DATE (test code = 3576) [facility]
[2022-05-17 17:19] LABS: Urine Blood Negative (Negative); Urine Glucose Negative (Negative); Urine Protein Negative (Negative); Urine Specific Gravity >=1.030 (1.005-1.030)
[2022-05-17 18:15] LABS: Absolute Lymphocytes (CBC) 2.2 K/uL (0.7-4.9); Hematocrit 38.1 % (36.0-45.0); Lymphocytes % 24.9 % (15.3-44.8); MCV 83.5 fL (80-100); MPV 7.2 fL (7.6-11.3); RBC Red Blood Cell Count 4.56 M/uL (3.86-4.86)
[2022-05-17] MEDS ORDERED: METHYLPREDNISOLONE 125 MG INJ ONE (18:49)
[2022-05-17] MEDS ORDERED: KETOROLAC 30 MG/ML INJ ONE (18:50)
[2022-05-17 19:29] LABS: Albumin 3.8 g/dL (3.4-5.0); Bilirubin Total 0.3 mg/dL (0.2-1.0); Potassium 3.6 mmol/L (3.5-5.1); Protein, Total 7.7 g/dL (6.4-8.2)
--- NOTE | 2022-05-17 19:57 | EDPHYS ---
Physician Documentation [facility] Name: Brianna Weems Age: 27 yrs Sex: Female : 1995 Arrival Date: 05/17/2022 Time: 16:30 Bed 19 Private MD: ED Physician Cristian White HPI: 05/18 00:01 This 27 yrs old Female presents to ER via Ambulatory with complaints of crohns flare. kb 00:01 The patient presents with abdominal pain in the left lower quadrant. Onset: The kb symptoms/episode began/occurred 3 day(s) ago. The symptoms do not radiate. Associated signs and symptoms: Pertinent positives: diarrhea, Pertinent negatives: nausea and vomiting. The symptoms are described as constant. Modifying factors: The symptoms are alleviated by nothing, the symptoms are aggravated by nothing. Severity of pain: At its worst the pain was mild moderate in the emergency department the pain is unchanged. The patient has experienced similar episodes in the past. The patient has not recently seen a physician. Patient reports diarrhea and lower abdominal pain that started 3 days ago. Feels like similar Crohn's flareups.. 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 - Social history:: Smoking status: Patient denies any tobacco usage or history of. ROS: 05/18 00:00 Constitutional: Negative for fever, chills, and weight loss. kb Abdomen/GI: Positive for abdominal pain, diarrhea. All other systems are negative. Exam: 00:00 Constitutional: This is a well developed, well nourished patient who is awake, alert, kb and in no acute distress. Head/Face: Normocephalic, atraumatic. ENT: Moist Mucous membranes Cardiovascular: Regular rate and rhythm with a normal S1 and S2. No gallops, murmurs, or rubs. No pulse deficits. Respiratory: Respirations even and unlabored. No increased work of breathing. Talking in full sentences Skin: Warm, dry with normal turgor. Normal color. MS/ Extremity: Pulses equal, no cyanosis. Neurovascular intact. Full, normal range of motion. Neuro: Awake and alert, GCS 15, oriented to person, place, time, and situation. Moves all extremities. Normal gait. Psych: Awake, alert, with orientation to person, place and time. Behavior, mood, and affect are within normal limits. 00:00 Abdomen/GI: Inspection: abdomen appears normal, Bowel sounds: normal, Palpation: soft, in all quadrants, mild abdominal tenderness, in the left lower quadrant. Vital Signs: 05/17 17:06 BP 114 / 74; Pulse 69; Resp 16; Temp 98.2(TE); Pulse Ox 99% on R/A; Weight 77.11 kg; vg1 Height 5 ft. 0 in. (152.40 cm); Pain 4/10; 19:07 BP 105 / 72; Pulse 64; Resp 15; Pulse Ox 99% ; mb9 20:04 BP 111 / 68; Pulse 68; Resp 14; Pulse Ox 100% on R/A; mb9 17:06 Body Mass Index 33.20 (77.11 kg, 152.40 cm) vg1 MDM: 17:16 Patient medically screened. kb 23:58 Data reviewed: vital signs, nurses notes. Data interpreted: Pulse oximetry: on room air kb is 100 %. Interpretation: normal. 23:59 Differential diagnosis: diverticulitis, gastritis, Crohn's. Counseling: I had a kb detailed discussion with the patient and/or guardian regarding: the historical points, exam findings, and any diagnostic results supporting the discharge/admit diagnosis, lab results, the need for outpatient follow up, a family practitioner, a station detective, to return to the emergency department if symptoms worsen or persist or if there are any questions or concerns that arise at home. ED course: I considered the following discharge prescriptions or medication management in the emergency department: Cipro, Flagyl, prednisone prescribed; Diagnostic test considered but not performed: CT scan considered, but patient reports this is similar to previous Crohn's flareups in the past, white blood cell count normal. Patient has had multiple CTs in the past for similar symptoms; History obtained from: Patient. 05/17 17:16 Order name: CBC with Diff; Complete Time: 18:32 kb 05/17 17:16 Order name: CMP; Complete Time: 19:33 kb 05/17 17:16 Order name: Lipase; Complete Time: 19:33 kb 05/17 17:19 Order name: Urine Dipstick-Ancillary; Complete Time: 17:20 EDMS 05/17 17:24 Order name: Urine --Ancillary (enter results) eb 05/17 17:16 Order name: IV Saline Lock; Complete Time: 18:11 kb 05/17 17:16 Order name: Labs collected and sent kb 05/17 17:16 Order name: Urine Dipstick-Ancillary (obtain specimen); Complete Time: 17:18 kb 05/17 17:16 Order name: Urine Test (obtain specimen); Complete Time: 17:18 kb 05/17 18:22 Order name: Labs - recollect needed: recollect blood hemolyzed; Complete Time: 19:07 eb Administered Medications: 19:06 Drug: Ketorolac 15 mg Route: IVP; Site: right hand; mb9 19:54 Follow up: Response: No adverse reaction mb9 19:07 Drug: SOLU-Medrol (methylPrednisoLONE) 125 mg Route: IVP; Site: right hand; mb9 19:54 Follow up: Response: No adverse reaction mb9 Disposition: 05/18 15:07 Co-signature as Attending Physician, Cristian White MD. rn Disposition Summary: 05/17/22 19:57 Discharge Ordered Location: Home kb Condition: Stable kb Diagnosis - Crohn's disease, unspecified, without complications kb Followup: kb - With: Emergency Department - When: As needed - Reason: Worsening of condition Followup: kb - With: Private Physician - When: 2 - 3 days - Reason: Recheck today's complaints, Continuance of care, Re-evaluation by your physician Discharge Instructions: - Discharge Summary Sheet kb - Crohn's Disease kb Forms: - Medication Reconciliation Form kb - Thank You Letter kb - Antibiotic Education kb - Prescription Opioid Use kb - Work release form wm Prescriptions: - Cipro 500 mg Oral Tablet - take 1 tablet by ORAL route every 12 hours for 10 days; 20 tablet; Refills: 0, kb Product Selection Permitted - Flagyl 500 mg Oral Tablet - take 1 tablet by ORAL route every 8 hours for 10 days; 30 tablet; Refills: 0, kb Product Selection Permitted - Prednisone 20 mg Oral Tablet - take 1 tablet by ORAL route once daily for 5 days; 5 tablet; Refills: 0, kb Product Selection Permitted - dicyclomine 20 mg Oral Tablet - take 1 tablet by ORAL route 4 times per day As needed; 20 tablet; Refills: 0, kb Product Selection Permitted Signatures: Dispatcher [employer] Olamide Garcia, PAR[employer] ADJUSTER LEADER-Cristian Howell MD MD rn Yisel [place] RN RN vg1 Yessica Meneses RN RN mb9
--- NOTE | 2022-05-17 19:57 | ER ---
Nurse's Notes [facility] Name: Brianna Weems Age: 27 yrs Sex: Female : 1995 Arrival Date: 05/17/2022 Time: 16:30 Bed 19 Private MD: Diagnosis: Crohn's disease, unspecified, without complications Presentation: 05/17 17:06 Chief complaint: Patient states: "I think my crohns is acting up I've had diarrhea vg1 today about 10 times" states nausea, denies vomiting. Coronavirus screen: Vaccine status: Patient reports receiving the 1st dose of the Covid vaccine. Client denies travel out of the [place] in the last 14 days. Ebola Screen: Patient negative for fever greater than or equal to 101.5 degrees Fahrenheit, and additional compatible Ebola Virus Disease symptoms. Initial Sepsis Screen: Does the patient meet any 2 criteria? No. Patient's initial sepsis screen is negative. Does the patient have a suspected source of infection? No. Patient's initial sepsis screen is negative. Risk Assessment: Do you want to hurt yourself or someone else? Patient reports no desire to harm self or others. Onset of symptoms was May 17, 2022. 17:06 Method Of Arrival: Ambulatory vg1 17:06 Acuity: VENANCIO 3 vg1 Triage Assessment: 17:09 General: Appears in no apparent distress. uncomfortable, Behavior is calm, cooperative. vg1 Pain: Complains of pain in right lower quadrant and left lower quadrant Pain currently is 4 out of 10 on a pain scale. Quality of pain is described as crampy, pinching, Pain began this morning. GI: Abdomen is round non-distended, Reports diarrhea, nausea, Patient currently denies vomiting. 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 - Social history:: Smoking status: Patient denies any tobacco usage or history of. Screenin:45 [facility] ED Fall Risk Assessment (Adult) History of falling in the last 3 months, mb9 including since admission No falls in past 3 months (0 pts) Confusion or Disorientation No (0 pts) Intoxicated or Sedated No (0 pts) Impaired Gait No (0 pts) Mobility Assist Device Used No (0 pt) Altered Elimination No (0 pt) Score/Fall Risk Level 0 - 2 = Low Risk Oriented to surroundings, Maintained a safe environment. Abuse screen: Denies threats or abuse. Nutritional screening: No deficits noted. Tuberculosis screening: No symptoms or risk factors identified. Assessment: 18:09 General: Appears in no apparent distress. comfortable, Behavior is calm, cooperative, mb9 appropriate for age. Pain: Complains of pain in left lower quadrant and right lower quadrant Pain does not radiate. Pain currently is 8 out of 10 on a pain scale. Quality of pain is described as aching, Pain began suddenly, Is intermittent. Neuro: Segal Agitation-Sedation Scale (RASS): 0 - Alert and Calm Level of Consciousness is awake, alert, obeys commands, Oriented to person, place, time, situation, Appropriate for age. Cardiovascular: Heart tones S1 S2 present Rhythm is regular. Respiratory: Airway is patent Respiratory effort is even, unlabored, Respiratory pattern is regular, symmetrical, Breath sounds are clear bilaterally. GI: Abdomen is round non-distended, Bowel sounds present X 4 quads. Abd is soft Abdomen is tender to palpation in right lower quadrant and left lower quadrant Reports lower abdominal pain, diarrhea, nausea. : No signs and/or symptoms were reported regarding the genitourinary system. EENT: No signs and/or symptoms were reported regarding the EENT system. Derm: Skin is pink, warm \\T\\ dry. Musculoskeletal: Capillary refill < 3 seconds, in bilateral fingers. toes. Range of motion: intact in all extremities. 19:07 Reassessment: No changes from previously documented assessment. Neuro: Level of mb9 Consciousness is awake, alert, obeys commands. Cardiovascular: Rhythm is regular. Respiratory: Airway is patent Respiratory effort is even, unlabored, Respiratory pattern is regular, symmetrical. Derm: Skin is pink, warm \\T\\ dry. 20:04 Reassessment: Patient states feeling better. Patient states symptoms have improved. mb9 Neuro: Level of Consciousness is awake, alert, obeys commands, Oriented to person, place, time, situation, Appropriate for age. Respiratory: Airway is patent Respiratory effort is even, unlabored, Respiratory pattern is regular, symmetrical. Derm: Skin is pink, warm \\T\\ dry. Vital Signs: 17:06 BP 114 / 74; Pulse 69; Resp 16; Temp 98.2(TE); Pulse Ox 99% on R/A; Weight 77.11 kg; vg1 Height 5 ft. 0 in. (152.40 cm); Pain 4/10; 19:07 BP 105 / 72; Pulse 64; Resp 15; Pulse Ox 99% ; mb9 20:04 BP 111 / 68; Pulse 68; Resp 14; Pulse Ox 100% on R/A; mb9 17:06 Body Mass Index 33.20 (77.11 kg, 152.40 cm) 1 ED Course: 16:30 Patient arrived in ED. as 16:31 Olamide [facility]C [facility] kb 16:32 Cristian White MD is Attending Physician. kb 17:09 Triage completed. vg1 17:09 Arm band placed on. vg1 17:53 Yessica Meneses, REGINA is Primary Nurse. mb9 18:00 Inserted saline lock: 20 gauge in right hand, using aseptic technique. Blood collected. mb9 18:11 CBC with Diff Sent. mb9 18:11 Lipase Sent. mb9 18:11 CMP Sent. mb9 20:06 No provider procedures requiring assistance completed. IV discontinued, intact, mb9 bleeding controlled, No redness/swelling at site. Pressure dressing applied. Administered Medications: 19:06 Drug: Ketorolac 15 mg Route: IVP; Site: right hand; mb9 19:54 Follow up: Response: No adverse reaction mb9 19:07 Drug: SOLU-Medrol (methylPrednisoLONE) 125 mg Route: IVP; Site: right hand; mb9 19:54 Follow up: Response: No adverse reaction mb9 Medication: 20:05 VIS not applicable for this client. mb9 Outcome: 19:57 Discharge ordered by . kb 20:05 Discharged to home ambulatory. mb9 20:05 Condition: stable 20:05 Discharge instructions given to patient, Instructed on discharge instructions, Demonstrated understanding of instructions, follow-up care, medications, Prescriptions given X 4. 20:06 Patient left the ED. mb9 Signatures: Olamide Smith FNP-C FNP-Celine Raza Victoria, RN RN vg1 Yessica Meneses, RN RN mb9
[2022-05-17 20:16] VITALS: TEMP 98.2
[2022-05-17 20:31] VITALS: BP 111/68; O2SAT 100
== END 2022-05-17 20:06 | disposition home or self-care (01) ==
LOC: ER 16:28
DX: K50.90 Crohn's disease, unspecified, without complications (principal); Z91.040 Latex allergy status
CPT/HCPCS: 85025; 36415; 81025; 81003; 83690; 80053; 96375; 96374; 99284; J2930

== ENCOUNTER 2023-04-16 08:11 | Emergency (ER) | payer OTHER ==
--- OUTSIDE RECORDS SUMMARY | 2023-04-16 08:20 | XMS REPORT | Continuity of Care Document ---
Author Name Unknown Address [address] [facility] [address] [place] [address] [facility] thconnect Address [address] [facility] [place] [address] Care Team Providers Care Embedded Systems Designer Name Role Phone KENYA FORTUNE MARCUS Primary Care Physician UnaGERALDINE Bal Attending Clinician Unavailable SHARLENE RODGERS Attending Clinician Unavailab Simmons Attending Clinician Unavailable DAVID CISNEROS Attending Clinician UnavailSAVANNA Judd Attending Clinician UnavailDALILA Wilcox Attending Clinician Unavailable Dalila Almeida PA-C Attending Clinician [phone] Unknown, Attending Attending Clinician UnavailLILLIAN Hernandez Attending Clinician Unavailable Lillian Montana MD Attending Clinician [phone] Thea Sherwood MD Attending Clinician [phone] DIANA GARCIA Attending Clinician Unavailable Diana Garcia PA-C Attending Clinician [phone] Doctor Unassigned, [place] Attending Clinician U dotailable KSENIA ANDREA Attending Clinician Unavailable Ksenia Andrea MD Attending Clinician [phone] Pgy3 Attending Clinician Unavailable Provider, [facility] Attending Clinician Unavailable Ruddy WHCNPhilomena Ramirez Attending Clinician + Savanna Rob CNM Attending Clinician [phone] Lab, Ang-Rmchp Attending Clinician Unavailable PHILOMENA FOX Attending Clinician Unavail able Parviz TAPIA, Geraldine Richard Attending Clinician Unav shyla Shay MD, Joss Fields Attending Clinician [phone] Lab, Ang - Db Attending Clinician Unavailable JOSS SHAY Attending Clinician Unavailankita palm Provider, Ang-Rmch[facility] Temp Attending Clinician Yumi vailable JAMES SANTIZO Attending Clinician Unavailable James Georges Attending Clinician [phone] EbKhadra Anguiano Attending Clinician [phone] KHADRA COX Attending Clinician Unavailable Gilmar TAPIA, Gina Azul Attending Clinician Unavaila David Lai Attending Clinician Britt Gonsalez Attending Clinician + [phone] BRITT CARUSO Attending Clinician Unavailab duncan Parham RN, Chanel Azul Attending Clinician Unavailab THELMA Ray Attending Clinician Unavailab Thelma Hurst Attending Clinician [phone] Yennifer Aleman Attending Clinician [phone] CECE ACEVEDO Attending Clinician Unavailable Cece Acevedo NP Attending Clinician [phone] Keri Lee RN Attending Clinician Unavailable VISHAL LINDSAY Attending Clinician UnavailVishal Cabrera MD Attending Clinician [phone] Gerber Armijo Attending Clinician [phone] RANDY LOWERY Attending Clinician Unavailable Randy Lowery DO Attending Clinician [phone] Flor Jaffe Attending Clinician [phone] Vin Correa DO Attending Clinician [phone] David Hollingsworth Attending Clinician [phone] Visit, [facility] Nurse Attending Clinician Unava ilje West_Hilary Admitting Clinician Unavailable KSENIA ANDREA Admitting Clinician Unavailable SAVANNA ROB Admitting Clinician UnavailCECE Saravia Admitting Clinician Unavailable RANDY LOWERY Admitting Clinician Unavailable Payers Payer Name Policy Type Policy Number Effective Date Expirati on Date Source [employer] MEDICAID [id number] 2019 00:00:00 [facility] [id number] 2023 00:00:00 [place] [id number] 2023 00:00:00 [facility] (O) [id number] [facility] [id number] 2021 00:00:00 [employer] PREFERRED GENERIC [id number] 2020 00:00:00 Problems Condition Name Condition Details Condition Category Status Onset Date Resolution Date Last Treatment Date Treating Clinician Comments Source PCOS (polycysti c ovarian syndrome) PCOS (polycysti c ovarian syndrome) Disease Active 09-03 00:00: 00 Overview: Formattin g of this note might be different from the original. 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) Disease Active 01-23 00:00: 00 [facility] Class 2 obesity due to excess calories with body mass index (BMI) of 37.0 to 37.9 in adult, unspecifie d whether serious comorbidit y present Class 2 obesity due to excess calories with body mass index (BMI) of 37.0 to 37.9 in adult, unspecifie d whether serious comorbidit y present Disease Active 01-23 00:00: 00 [facility] Acne Acne Disease Active 07-27 00:00: 00 [facility] Dysmenorrh ea Dysmenorrh ea Disease Active 08-07 00:00: 00 [facility] Screen for STD (sexually transmitte d disease) Screen for STD (sexually transmitte d disease) Disease Active 08-07 00:00: 00 [facility] Contracept cha management Contracept cha management Disease Active 05-29 00:00: 00 Overview: Formattin g of this note might be different from the original. ICD10 Diagnosis Term Hand Cell Tuber Utility [facility] BMI 37.0-37.9, adult BMI 37.0-37.9, adult Disease Active 05-29 00:00: 00 Overview: Formattin g of this note might be different from the original. ICD10 Diagnosis Term Hand Cell Tuber Utility [facility] Screening examinatio n for STD (sexually transmitte d disease) Screening examinatio n for STD (sexually transmitte d disease) Disease Active 2013-05 00:00: 00 [facility] Allergies, Adverse Reactions, Alerts Allergy Name Allergy Type Status Severity Reaction(s) Onset Date Inactive Date Treating Clinician Comments Source Codeine Propensi ty to adverse reaction s Active Shortness of Breath 06-09 00:00: 00 [facility] CODEINE DRUG INGREDI Active SOB 06-09 00:00: 00 [facility] Bee Sting / Venom Propensi ty to adverse reaction s Active Anaphylaxis 2013-05 00:00: 00 [facility] Latex Propensi ty to adverse reaction s Active Swelling 2013-05 00:00: 00 [facility] BEE STING / VENOM DRUG INGREDI Active Anaphylaxis 2013-05 00:00: 00 [facility] LATEX DRUG INGREDI Active Swelling 2013-05 00:00: 00 [facility] Social History Social Habit Start Date Stop Date Quantity Comments Source Gender identity [facility] Sexual orientation U [facility] History SDOH Alcohol Frequency [facility] History SDOH Alcohol Std Drinks [facility] History SDOH Alcohol Binge [facility] Alcohol intake 2023-03-19 00:00:00 2023-03-19 00:00:00 0 /d [facility] Exposure to SARS-CoV-2 (event) 2022-10-27 00:00:00 2022-11-06 16:48:00 Not sure [facility] Tobacco use and exposure 2022-04-23 00:00:00 2022-04-23 00:00:00 Smokeless tobacco non-user [facility] Cigarettes smoked current (pack per day) - Reported 2022-04-23 00:00:00 2022-04-23 00:00:00 [facility] History of Social function 2022-01-23 00:00:00 2022-01-23 00:00:00 [facility] History of tobacco use 2017-05-26 00:00:00 Cigarette Smoker [facility] Alcohol Comment 2015-08-08 00:00:00 2015-08-08 00:00:00 socially [facility] Sex Assigned At 1995 00:00:00 1995 00:00:00 [facility] Smoking Status Start Date Stop Date Source Ex-smoker 2022-04-23 00:00:00 2022-04-23 00:00:[address] [facility] Medications Ordered Medication Name Filled Medication Name Start Date Stop Date Current Medication? Ordering Clinician Indication Dosage Frequency Signature (SIG) Comments Components Source NaCl 0.9% (NS) bolus infusion 1,000 mL 2022-05 00:00: 00 03-31 02:13 :00 No 1000mL at 999 mL/hr, 1,000 mL, IV Infusion, ONCE, 1 dose, On Thu03/30/23 at 1800, [facility] metoclopram hunter HCl (REGLAN) injection 10 mg 2022-05 23:15: 00 03-31 00:22 :00 No 10mg 10 mg, Slow IV Push, ONCE, 1 dose, On Thu03/30/23 at 1715, [facility] metoclopram hunter HCl 10 mg tablet 2022-05 00:00: 00 Yes [id number] 10mg Take 1 tablet by mouth every 8 (eight) hours. [facility] lidocaine 2% viscous (LIDOCAINE VISCOUS) 2 % solution 2022-05 00:00: 00 Yes [id number] 1mL Take 1 mL by mouth every 4 (four) hours as needed for Oral mucosal pain (apply 1ml to affected areas PRN). [facility] lidocaine 2% viscous (LIDOCAINE VISCOUS) 2 % solution 2022-05 00:00: 00 Yes [id number] 1mL Take 1 mL by mouth every 4 (four) hours as needed for Oral mucosal pain (apply 1ml to affected areas PRN). [facility] lidocaine 2% viscous (LIDOCAINE VISCOUS) 2 % solution 2022-05 00:00: 00 Yes [id number] 1mL Take 1 mL by mouth every 4 (four) hours as needed for Oral mucosal pain (apply 1ml to affected areas PRN). [facility] letrozole 2.5 mg tablet 02-06 00:00: 00 Yes [id number] 2.5mg Take 1 tablet by mouth daily Following progestin- induced withdrawal bleed, take 2.5mg daily during days 3 through 7 of cycle [facility] letrozole 2.5 mg tablet 02-06 00:00: 00 Yes [id number] 2.5mg Take 1 tablet by mouth daily Following progestin- induced withdrawal bleed, take 2.5mg daily during days 3 through 7 of cycle [facility] letrozole 2.5 mg tablet 02-06 00:00: 00 Yes [id number] 2.5mg Take 1 tablet by mouth daily Following progestin- induced withdrawal bleed, take 2.5mg daily during days 3 through 7 of cycle [facility] letrozole 2.5 mg tablet 02-06 00:00: 00 Yes [id number] 2.5mg Take 1 tablet by mouth daily Following progestin- induced withdrawal bleed, take 2.5mg daily during days 3 through 7 of cycle [facility] letrozole 2.5 mg tablet 02-06 00:00: 00 Yes [id number] 2.5mg Take 1 tablet by mouth daily Following progestin- induced withdrawal bleed, take 2.5mg daily during days 3 through 7 of cycle [facility] bromphenira mine-pseudo ephedrine-D M (BROMFED DM) 2-30-10 mg/5 mL syrup 8 00:00: 00 Yes [id number] 5mL Take 5 mL by mouth 3 (three) times daily as needed for Cough or Cold symptoms. [facility] cetirizine 10 mg tablet 01-07 00:00: 00 Yes [id number] 10mg Take 1 tablet by mouth in the morning. [facility] letrozole 2.5 mg tablet 01-07 00:00: 00 Yes [id number] 2.5mg Take 1 tablet by mouth daily Following progestin- induced withdrawal bleed, take 2.5mg daily during days 3 through 7 of cycle [facility] bromphenira mine-pseudo ephedrine-D M (BROMFED DM) 2-30-10 mg/5 mL syrup 01-07 00:00: 00 Yes [id number] 5mL Take 5 mL by mouth 3 (three) times daily as needed for Cough or Cold symptoms. [facility] cetirizine 10 mg tablet 01-07 00:00: 00 Yes [id number] 10mg Take 1 tablet by mouth in the morning. [facility] bromphenira mine-pseudo ephedrine-D M (BROMFED DM) 2-30-10 mg/5 mL syrup 01-07 00:00: 00 Yes [id number] 5mL Take 5 mL by mouth 3 (three) times daily as needed for Cough or Cold symptoms. [facility] cetirizine 10 mg tablet 01-07 00:00: 00 Yes [id number] 10mg Take 1 tablet by mouth in the morning. [facility] bromphenira mine-pseudo ephedrine-D M (BROMFED DM) 2-30-10 mg/5 mL syrup 01-07 00:00: 00 Yes [id number] 5mL Take 5 mL by mouth 3 (three) times daily as needed for Cough or Cold symptoms. [facility] cetirizine 10 mg tablet 01-07 00:00: 00 Yes [id number] 10mg Take 1 tablet by mouth in the morning. [facility] bromphenira mine-pseudo ephedrine-D M (BROMFED DM) 2-30-10 mg/5 mL syrup 01-07 00:00: 00 Yes [id number] 5mL Take 5 mL by mouth 3 (three) times daily as needed for Cough or Cold symptoms. [facility] cetirizine 10 mg tablet 01-07 00:00: 00 Yes [id number] 10mg Take 1 tablet by mouth in the morning. [facility] bromphenira mine-pseudo ephedrine-D M (BROMFED DM) 2-30-10 mg/5 mL syrup 01-07 00:00: 00 Yes [id number] 5mL Take 5 mL by mouth 3 (three) times daily as needed for Cough or Cold symptoms. [facility] cetirizine 10 mg tablet 01-07 00:00: 00 Yes [id number] 10mg Take 1 tablet by mouth in the morning. [facility] letrozole 2.5 mg tablet 01-07 00:00: 00 02-04 00:00 :00 No [id number] 2.5mg Take 1 tablet by mouth daily Following progestin- induced withdrawal bleed, take 2.5mg daily during days 3 through 7 of cycle [facility] medroxyPROG ESTERone (PROVERA) 10 mg tablet 8-04 00:00: 00 12-23 04:59 :00 No [id number] 10mg Take 1 tablet by mouth in the morning for 10 days. [facility] medroxyPROG ESTERone (PROVERA) 10 mg tablet 8-04 00:00: 00 12-23 04:59 :00 No [id number] 10mg Take 1 tablet by mouth in the morning for 10 days. [facility] medroxyPROG ESTERone (PROVERA) 10 mg tablet 8-04 00:00: 00 12-23 04:59 :00 No [id number] 10mg Take 1 tablet by mouth in the morning for 10 days. [facility] medroxyPROG ESTERone (PROVERA) 10 mg tablet 8-04 00:00: 00 12-23 04:59 :00 No [id number] 10mg Take 1 tablet by mouth in the morning for 10 days. [facility] letrozole 2.5 mg tablet 0 8-04 00:00: 00 12-18 04:59 :00 No [id number] 2.5mg Take 1 tablet by mouth daily Following progestin- induced withdrawal bleed, take 2.5mg daily during days 3 through 7 of cycle [facility] letrozole 2.5 mg tablet 0 8-04 00:00: 00 12-18 04:59 :00 No [id number] 2.5mg Take 1 tablet by mouth daily Following progestin- induced withdrawal bleed, take 2.5mg daily during days 3 through 7 of cycle [facility] letrozole 2.5 mg tablet 8-04 00:00: 00 12-18 04:59 :00 No [id number] 2.5mg Take 1 tablet by mouth daily Following progestin- induced withdrawal bleed, take 2.5mg daily during days 3 through 7 of cycle [facility] letrozole 2.5 mg tablet 2022- 8-04 00:00: 00 12-18 04:59 :00 No [id number] 2.5mg Take 1 tablet by mouth daily Following progestin- induced withdrawal bleed, take 2.5mg daily during days 3 through 7 of cycle [facility] ketorolac (TORADOL) injection 30 mg 12-02 19:00: 00 12-02 18:09 :00 No [id number] 30mg [facility] ondansetron (ZOFRAN-ODT ) disintegrat ing tablet 8 mg 12-02 19:00: 00 12-02 18:08 :00 No [id number] 8mg [facility] ondansetron (ZOFRAN-ODT ) disintegrat ing tablet 8 mg 12-02 19:00: 00 12-02 18:08 :00 No [id number] 8mg 8 mg, Oral, ONCE, 1 dose, On Thu12/02/22 at 1400, Routine [facility] ketorolac (TORADOL) injection 30 mg 12-02 19:00: 00 12-02 18:09 :00 No [id number] 30mg 30 mg, Intramuscu lar, ONCE, 1 dose, On Thu12/02/22 at 1400, Routine [facility] ondansetron 4 mg disintegrat ing tablet 12-02 00:00: 00 Yes [id number] 4mg Take 1 tablet by mouth every 8 (eight) hours as needed for Nausea and Vomiting (N/V). [facility] ondansetron 4 mg disintegrat ing tablet 12-02 00:00: 00 Yes [id number] 4mg Take 1 tablet by mouth every 8 (eight) hours as needed for Nausea and Vomiting (N/V). [facility] ondansetron 4 mg disintegrat ing tablet 12-02 00:00: 00 12-16 00:00 :00 No [id number] 4mg Take 1 tablet by mouth every 8 (eight) hours as needed for Nausea and Vomiting (N/V). [facility] ondansetron 4 mg disintegrat ing tablet 12-02 00:00: 12-16 00:00 :00 No [id number] 4mg Take 1 tablet by mouth every 8 (eight) hours as needed for Nausea and Vomiting (N/V). [facility] ondansetron 4 mg disintegrat ing tablet 12-02 00:00: 00 12-16 00:00 :00 No [id number] 4mg Take 1 tablet by mouth every 8 (eight) hours as needed for Nausea and Vomiting (N/V). [facility] ondansetron 4 mg disintegrat ing tablet 12-02 00:00: 00 12-16 00:00 :00 No [id number] 4mg Take 1 tablet by mouth every 8 (eight) hours as needed for Nausea and Vomiting (N/V). [facility] metformin ER 500 mg 24 hr tablet 11-10 00:00: 00 Yes [id number] 500mg Take 1 tablet by mouth daily with breakfast. [facility] metformin ER 500 mg 24 hr tablet 11-10 00:00: 00 Yes [id number] 500mg Take 1 tablet by mouth daily with breakfast. [facility] metformin ER 500 mg 24 hr tablet 11-10 00:00: 00 Yes [id number] 500mg Take 1 tablet by mouth daily with breakfast. [facility] metformin ER 500 mg 24 hr tablet 11-10 00:00: 00 Yes [id number] 500mg Take 1 tablet by mouth daily with breakfast. [facility] metformin ER 500 mg 24 hr tablet 11-10 00:00: 00 Yes [id number] 500mg Take 1 tablet by mouth daily with breakfast. [facility] metformin ER 500 mg 24 hr tablet 11-10 00:00: 00 Yes [id number] 500mg Take 1 tablet by mouth daily with breakfast. [facility] metformin ER 500 mg 24 hr tablet 11-10 00:00: 00 Yes [id number] 500mg Take 1 tablet by mouth daily with breakfast. [facility] metformin ER 500 mg 24 hr tablet 11-10 00:00: 00 Yes [id number] 500mg Take 1 tablet by mouth daily with breakfast. [facility] metformin ER 500 mg 24 hr tablet 11-10 00:00: 00 Yes [id number] 500mg Take 1 tablet by mouth daily with breakfast. [facility] metformin ER 500 mg 24 hr tablet 0 11-10 00:00: 00 Yes [id number] 500mg Take 1 tablet by mouth daily with breakfast. [facility] metformin ER 500 mg 24 hr tablet 0 11-10 00:00: 00 Yes [id number] 500mg Take 1 tablet by mouth daily with breakfast. [facility] metformin ER 500 mg 24 hr tablet 0 11-10 00:00: 00 Yes [id number] 500mg Take 1 tablet by mouth daily with breakfast. [facility] metformin ER 500 mg 24 hr tablet 0 11-10 00:00: 00 Yes [id number] 500mg Take 1 tablet by mouth daily with breakfast. [facility] metformin ER 500 mg 24 hr tablet 11-10 00:00: 00 Yes [id number] 500mg Take 1 tablet by mouth daily with breakfast. [facility] metformin ER 500 mg 24 hr tablet 11-10 00:00: 00 Yes [id number] 500mg Take 1 tablet by mouth daily with breakfast. [facility] metformin ER 500 mg 24 hr tablet 11-10 00:00: 00 Yes [id number] 500mg Take 1 tablet by mouth daily with breakfast. [facility] metformin ER 500 mg 24 hr tablet 11-10 00:00: 00 Yes [id number] 500mg Take 1 tablet by mouth daily with breakfast. [facility] medroxyPROG ESTERone (PROVERA) 10 mg tablet 11-05 00:00: 00 11-16 04:59 :00 No [id number] 10mg Take 1 tablet by mouth in the morning for 10 days. [facility] medroxyPROG ESTERone (PROVERA) 10 mg tablet 11-05 00:00: 00 11-16 04:59 :00 No [id number] 10mg Take 1 tablet by mouth in the morning for 10 days. [facility] medroxyPROG ESTERone (PROVERA) 10 mg tablet 11-05 00:00: 00 11-16 04:59 :00 No [id number] 10mg Take 1 tablet by mouth in the morning for 10 days. [facility] medroxyPROG ESTERone (PROVERA) 10 mg tablet 11-05 00:00: 00 11-16 04:59 :00 No [id number] 10mg Take 1 tablet by mouth in the morning for 10 days. [facility] ibuprofen 600 mg tablet 09-15 00:00: 00 Yes [id number] 600mg Take 1 tablet by mouth every 6 (six) hours as needed for Pain (scale 1-3) or Pain (scale 4-6). [facility] cyclobenzap rine 5 mg tablet 09-15 00:00: 00 Yes [id number] 5mg Take 1 tablet by mouth at bedtime. [facility] lidocaine-k inesiology tape (LIDOPURE PATCH) 5 % Cmpk 2022-0 09-15 00:00: 00 Yes [id number] 1{patch } Apply 1 Patch to area(s) in the morning. [facility] methylPREDN ISolone (MEDROL, AKANKSHA,) 4 mg tablets 09-15 00:00: 00 Yes [id number] Take by mouth SEE-INSTRU CTIONS. follow package directions [facility] ibuprofen 600 mg tablet 09-15 00:00: 00 Yes [id number] 600mg Take 1 tablet by mouth every 6 (six) hours as needed for Pain (scale 1-3) or Pain (scale 4-6). [facility] cyclobenzap rine 5 mg tablet 09-15 00:00: 00 Yes [id number] 5mg Take 1 tablet by mouth at bedtime. [facility] lidocaine-k inesiology tape (LIDOPURE PATCH) 5 % Cmpk 2022-0 08 00:00: 00 Yes [id number] 1{patch } Apply 1 Patch to area(s) in the morning. [facility] methylPREDN ISolone (MEDROL, AKANKSHA,) 4 mg tablets 3-0 -08 00:00: 00 Yes [id number] Take by mouth SEE-INSTRU CTIONS. follow package directions [facility] ibuprofen 600 mg tablet 3-0 5-08 00:00: 00 Yes [id number] 600mg Take 1 tablet by mouth every 6 (six) hours as needed for Pain (scale 1-3) or Pain (scale 4-6). [facility] cyclobenzap rine 5 mg tablet 2022-0 5-08 00:00: 00 Yes [id number] 5mg Take 1 tablet by mouth at bedtime. [facility] lidocaine-k inesiology tape (LIDOPURE PATCH) 5 % Cmpk 3-0 -08 00:00: 00 Yes [id number] 1{patch } Apply 1 Patch to area(s) in the morning. [facility] methylPREDN ISolone (MEDROL, AKANKSHA,) 4 mg tablets 2022-0 -08 00:00: 00 Yes [id number] Take by mouth SEE-INSTRU CTIONS. follow package directions [facility] ibuprofen 600 mg tablet 2022-0 08 00:00: 00 Yes [id number] 600mg Take 1 tablet by mouth every 6 (six) hours as needed for Pain (scale 1-3) or Pain (scale 4-6). [facility] cyclobenzap rine 5 mg tablet 2022-0 -08 00:00: 00 Yes [id number] 5mg Take 1 tablet by mouth at bedtime. [facility] lidocaine-k inesiology tape (LIDOPURE PATCH) 5 % Cmpk 3-0 -08 00:00: 00 Yes [id number] 1{patch } Apply 1 Patch to area(s) in the morning. [facility] methylPREDN ISolone (MEDROL, AKANKSHA,) 4 mg tablets 3-0 5-08 00:00: 00 Yes [id number] Take by mouth SEE-INSTRU CTIONS. follow package directions [facility] ibuprofen 600 mg tablet 3-0 5-08 00:00: 00 Yes [id number] 600mg Take 1 tablet by mouth every 6 (six) hours as needed for Pain (scale 1-3) or Pain (scale 4-6). [facility] cyclobenzap rine 5 mg tablet 2022-0 -08 00:00: 00 Yes [id number] 5mg Take 1 tablet by mouth at bedtime. [facility] lidocaine-k inesiology tape (LIDOPURE PATCH) 5 % Cmpk 3-0 08 00:00: 00 Yes [id number] 1{patch } Apply 1 Patch to area(s) in the morning. [facility] methylPREDN ISolone (MEDROL, AKANKSHA,) 4 mg tablets 2022-0 08 00:00: 00 Yes [id number] Take by mouth SEE-INSTRU CTIONS. follow package directions [facility] ibuprofen 600 mg tablet 2022-0 -08 00:00: 00 Yes [id number] 600mg Take 1 tablet by mouth every 6 (six) hours as needed for Pain (scale 1-3) or Pain (scale 4-6). [facility] cyclobenzap rine 5 mg tablet 2022-0 08 00:00: 00 Yes [id number] 5mg Take 1 tablet by mouth at bedtime. [facility] lidocaine-k inesiology tape (LIDOPURE PATCH) 5 % Cmpk 3-0 08 00:00: 00 Yes [id number] 1{patch } Apply 1 Patch to area(s) in the morning. [facility] methylPREDN ISolone (MEDROL, AKANKSHA,) 4 mg tablets 3-0 08 00:00: 00 Yes [id number] Take by mouth SEE-INSTRU CTIONS. follow package directions [facility] ibuprofen 600 mg tablet 3-0 -08 00:00: 00 Yes [id number] 600mg Take 1 tablet by mouth every 6 (six) hours as needed for Pain (scale 1-3) or Pain (scale 4-6). [facility] cyclobenzap rine 5 mg tablet 3-0 -08 00:00: 00 Yes [id number] 5mg Take 1 tablet by mouth at bedtime. [facility] lidocaine-k inesiology tape (LIDOPURE PATCH) 5 % Cmpk 3-0 -08 00:00: 00 Yes [id number] 1{patch } Apply 1 Patch to area(s) in the morning. [facility] methylPREDN ISolone (MEDROL, AKANKSHA,) 4 mg tablets 2022-0 08 00:00: 00 Yes [id number] Take by mouth SEE-INSTRU CTIONS. follow package directions [facility] ibuprofen 600 mg tablet 2022-0 -08 00:00: 00 Yes [id number] 600mg Take 1 tablet by mouth every 6 (six) hours as needed for Pain (scale 1-3) or Pain (scale 4-6). [facility] cyclobenzap rine 5 mg tablet 2022-0 -08 00:00: 00 Yes [id number] 5mg Take 1 tablet by mouth at bedtime. [facility] lidocaine-k inesiology tape (LIDOPURE PATCH) 5 % Cmpk 2022-0 08 00:00: 00 Yes [id number] 1{patch } Apply 1 Patch to area(s) in the morning. [facility] methylPREDN ISolone (MEDROL, AKANKSHA,) 4 mg tablets 2022-0 08 00:00: 00 Yes [id number] Take by mouth SEE-INSTRU CTIONS. follow package directions [facility] ibuprofen 600 mg tablet 2022-0 08 00:00: 00 Yes [id number] 600mg Take 1 tablet by mouth every 6 (six) hours as needed for Pain (scale 1-3) or Pain (scale 4-6). [facility] cyclobenzap rine 5 mg tablet 2022-0 5-08 00:00: 00 Yes [id number] 5mg Take 1 tablet by mouth at bedtime. [facility] lidocaine-k inesiology tape (LIDOPURE PATCH) 5 % Cmpk 3-0 5-08 00:00: 00 Yes [id number] 1{patch } Apply 1 Patch to area(s) in the morning. [facility] methylPREDN ISolone (MEDROL, AKANKSHA,) 4 mg tablets 2022-0 08 00:00: 00 Yes [id number] Take by mouth SEE-INSTRU CTIONS. follow package directions [facility] cyclobenzap rine 5 mg tablet 2022-0 08 00:00: 00 Yes [id number] 5mg Take 1 tablet by mouth at bedtime. [facility] lidocaine-k inesiology tape (LIDOPURE PATCH) 5 % Cmpk 2022-0 08 00:00: 00 Yes [id number] 1{patch } Apply 1 Patch to area(s) in the morning. [facility] methylPREDN ISolone (MEDROL, AKANKSHA,) 4 mg tablets 2022-0 09-15 00:00: 00 Yes [id number] Take by mouth SEE-INSTRU CTIONS. follow package directions [facility] cyclobenzap rine 5 mg tablet 2022-0 08 00:00: 00 Yes [id number] 5mg Take 1 tablet by mouth at bedtime. [facility] lidocaine-k inesiology tape (LIDOPURE PATCH) 5 % Cmpk 2022-0 08 00:00: 00 Yes [id number] 1{patch } Apply 1 Patch to area(s) in the morning. [facility] methylPREDN ISolone (MEDROL, AKANKSHA,) 4 mg tablets 2022-0 08 00:00: 00 Yes [id number] Take by mouth SEE-INSTRU CTIONS. follow package directions [facility] cyclobenzap rine 5 mg tablet 2022-0 08 00:00: 00 12-16 00:00 :00 No [id number] 5mg Take 1 tablet by mouth at bedtime. [facility] lidocaine-k inesiology tape (LIDOPURE PATCH) 5 % Cmpk 2022-0 08 00:00: 00 12-16 00:00 :00 No [id number] 1{patch } Apply 1 Patch to area(s) in the morning. [facility] methylPREDN ISolone (MEDROL, AKANKSHA,) 4 mg tablets 2022-0 5-08 00:00: 00 12-16 00:00 :00 No [id number] Take by mouth SEE-INSTRU CTIONS. follow package directions [facility] cyclobenzap rine 5 mg tablet 09-15 00:00: 00 12-16 00:00 :00 No [id number] 5mg Take 1 tablet by mouth at bedtime. [facility] lidocaine-k inesiology tape (LIDOPURE PATCH) 5 % Cmpk 09-15 00:00: 00 12-16 00:00 :00 No [id number] 1{patch } Apply 1 Patch to area(s) in the morning. [facility] methylPREDN ISolone (MEDROL, AKANKSHA,) 4 mg tablets 09-15 00:00: 00 12-16 00:00 :00 No [id number] Take by mouth SEE-INSTRU CTIONS. follow package directions [facility] cyclobenzap rine 5 mg tablet 09-15 00:00: 00 12-16 00:00 :00 No [id number] 5mg Take 1 tablet by mouth at bedtime. [facility] lidocaine-k inesiology tape (LIDOPURE PATCH) 5 % Cmpk 09-15 00:00: 00 12-16 00:00 :00 No [id number] 1{patch } Apply 1 Patch to area(s) in the morning. [facility] methylPREDN ISolone (MEDROL, AKANKSHA,) 4 mg tablets 09-15 00:00: 00 12-16 00:00 :00 No [id number] Take by mouth SEE-INSTRU CTIONS. follow package directions [facility] cyclobenzap rine 5 mg tablet 09-15 00:00: 00 12-16 00:00 :00 No [id number] 5mg Take 1 tablet by mouth at bedtime. [facility] lidocaine-k inesiology tape (LIDOPURE PATCH) 5 % Cmpk 09-15 00:00: 00 12-16 00:00 :00 No [id number] 1{patch } Apply 1 Patch to area(s) in the morning. [facility] methylPREDN ISolone (MEDROL, AKANKSHA,) 4 mg tablets 09-15 00:00: 00 12-16 00:00 :00 No [id number] Take by mouth SEE-INSTRU CTIONS. follow package directions [facility] ibuprofen 600 mg tablet 09-15 00:00: 00 12-02 00:00 :00 No [id number] 600mg Take 1 tablet by mouth every 6 (six) hours as needed for Pain (scale 1-3) or Pain (scale 4-6). [facility] metformin ER 500 mg 24 hr tablet 09-03 00:00: 00 Yes [id number] 500mg Take 1 tablet by mouth daily with breakfast. [facility] metformin ER 500 mg 24 hr tablet 09-03 00:00: 00 Yes [id number] 500mg Take 1 tablet by mouth daily with breakfast. [facility] metformin ER 500 mg 24 hr tablet 09-03 00:00: 00 Yes [id number] 500mg Take 1 tablet by mouth daily with breakfast. [facility] metformin ER 500 mg 24 hr tablet 09-03 00:00: 00 Yes [id number] 500mg Take 1 tablet by mouth daily with breakfast. [facility] metformin ER 500 mg 24 hr tablet 09-03 00:00: 00 Yes [id number] 500mg Take 1 tablet by mouth daily with breakfast. [facility] metformin ER 500 mg 24 hr tablet 09-03 00:00: 00 Yes [id number] 500mg Take 1 tablet by mouth daily with breakfast. [facility] metformin ER 500 mg 24 hr tablet 09-03 00:00: 00 Yes [id number] 500mg Take 1 tablet by mouth daily with breakfast. [facility] metformin ER 500 mg 24 hr tablet 09-03 00:00: 00 Yes [id number] 500mg Take 1 tablet by mouth daily with breakfast. [facility] metformin ER 500 mg 24 hr tablet 09-03 00:00: 00 Yes [id number] 500mg Take 1 tablet by mouth daily with breakfast. [facility] metformin ER 500 mg 24 hr tablet 09-03 00:00: 00 11-10 00:00 :00 No [id number] 500mg Take 1 tablet by mouth daily with breakfast. [facility] metformin ER 500 mg 24 hr tablet 09-03 00:00: 00 11-10 00:00 :00 No [id number] 500mg Take 1 tablet by mouth daily with breakfast. [facility] levothyroxi ne 75 mcg tablet 08-27 00:00: 00 Yes [id number] 75ug Take 1 tablet by mouth every morning. [facility] levothyroxi ne 75 mcg tablet 08-27 00:00: 00 Yes [id number] 75ug Take 1 tablet by mouth every morning. [facility] levothyroxi ne 75 mcg tablet 08-27 00:00: 00 Yes [id number] 75ug Take 1 tablet by mouth every morning. [facility] levothyroxi ne 75 mcg tablet 08-27 00:00: 00 Yes [id number] 75ug Take 1 tablet by mouth every morning. [facility] levothyroxi ne 75 mcg tablet 08-27 00:00: 00 Yes [id number] 75ug Take 1 tablet by mouth every morning. [facility] levothyroxi ne 75 mcg tablet 08-27 00:00: 00 Yes [id number] 75ug Take 1 tablet by mouth every morning. [facility] levothyroxi ne 75 mcg tablet 0 08-27 00:00: 00 Yes [id number] 75ug Take 1 tablet by mouth every morning. [facility] levothyroxi ne 75 mcg tablet 08-27 00:00: 00 Yes [id number] 75ug Take 1 tablet by mouth every morning. [facility] levothyroxi ne 75 mcg tablet 08-27 00:00: 00 Yes [id number] 75ug Take 1 tablet by mouth every morning. [facility] levothyroxi ne 75 mcg tablet 2022-0 08-27 00:00: 00 Yes [id number] 75ug Take 1 tablet by mouth every morning. [facility] levothyroxi ne 75 mcg tablet 2022-0 08-27 00:00: 00 Yes [id number] 75ug Take 1 tablet by mouth every morning. [facility] levothyroxi ne 75 mcg tablet 2022-0 08-27 00:00: 00 Yes [id number] 75ug Take 1 tablet by mouth every morning. [facility] levothyroxi ne 75 mcg tablet 2022-0 08-27 00:00: 00 Yes [id number] 75ug Take 1 tablet by mouth every morning. [facility] levothyroxi ne 75 mcg tablet 2022-0 08-27 00:00: 00 Yes [id number] 75ug Take 1 tablet by mouth every morning. [facility] levothyroxi ne 75 mcg tablet 0 08-27 00:00: 00 Yes [id number] 75ug Take 1 tablet by mouth every morning. [facility] levothyroxi ne 75 mcg tablet 2022-0 08-27 00:00: 00 Yes [id number] 75ug Take 1 tablet by mouth every morning. [facility] levothyroxi ne 75 mcg tablet 0 08-27 00:00: 00 Yes [id number] 75ug Take 1 tablet by mouth every morning. [facility] levothyroxi ne 75 mcg tablet 0 08-27 00:00: 00 Yes [id number] 75ug Take 1 tablet by mouth every morning. [facility] levothyroxi ne 75 mcg tablet 2022-0 19 00:00: 00 Yes [id number] 75ug Take 1 tablet by mouth every morning. [facility] levothyroxi ne 75 mcg tablet 2022-0 08-27 00:00: 00 Yes [id number] 75ug Take 1 tablet by mouth every morning. [facility] levothyroxi ne 75 mcg tablet 2022-0 19 00:00: 00 Yes [id number] 75ug Take 1 tablet by mouth every morning. [facility] levothyroxi ne 75 mcg tablet 0 08-27 00:00: 00 Yes [id number] 75ug Take 1 tablet by mouth every morning. [facility] levothyroxi ne 75 mcg tablet 0 08-27 00:00: 00 Yes [id number] 75ug Take 1 tablet by mouth every morning. [facility] levothyroxi ne 75 mcg tablet 2022-0 08-27 00:00: 00 Yes [id number] 75ug Take 1 tablet by mouth every morning. [facility] levothyroxi ne 75 mcg tablet 0 08-27 00:00: 00 Yes [id number] 75ug Take 1 tablet by mouth every morning. [facility] levothyroxi ne 75 mcg tablet 0 08-27 00:00: 00 Yes [id number] 75ug Take 1 tablet by mouth every morning. [facility] levothyroxi ne 75 mcg tablet 0 08-27 00:00: 00 Yes [id number] 75ug Take 1 tablet by mouth every morning. [facility] levothyroxi ne 75 mcg tablet 0 08-27 00:00: 00 Yes [id number] 75ug Take 1 tablet by mouth every morning. [facility] levothyroxi ne 75 mcg tablet 0 08-27 00:00: 00 Yes [id number] 75ug Take 1 tablet by mouth every morning. [facility] levothyroxi ne 75 mcg tablet 0 08-27 00:00: 00 Yes [id number] 75ug Take 1 tablet by mouth every morning. [facility] levothyroxi ne 75 mcg tablet 0 08-27 00:00: 00 Yes [id number] 75ug Take 1 tablet by mouth every morning. [facility] levothyroxi ne 75 mcg tablet 2022-0 08-27 00:00: 00 Yes [id number] 75ug Take 1 tablet by mouth every morning. [facility] levothyroxi ne 75 mcg tablet 2022-0 08-27 00:00: 00 Yes [id number] 75ug Take 1 tablet by mouth every morning. [facility] levothyroxi ne 75 mcg tablet 3-0 4-19 00:00: 00 Yes [id number] 75ug Take 1 tablet by mouth every morning. [facility] % gel 2023-0 3-16 00:00: 00 Yes [id number] Apply to area(s) daily. [facility] % gel 2023-0 3-16 00:00: 00 Yes [id number] Apply to area(s) daily. [facility] clindamycin 1 % gel 2023-0 3-16 00:00: 00 Yes [id number] Apply to area(s) daily. [facility] % gel 2023-0 3-16 00:00: 00 Yes [id number] Apply to area(s) daily. [facility] clindamycin 1 % gel 2023-0 3-16 00:00: 00 Yes [id number] Apply to area(s) daily. [facility] clindamycin 1 % gel 2023-0 3-16 00:00: 00 Yes [id number] Apply to area(s) daily. [facility] % gel 2023-0 3-16 00:00: 00 Yes [id number] Apply to area(s) daily. [facility] clindamycin 1 % gel 2023-0 3-16 00:00: 00 Yes [id number] Apply to area(s) daily. [facility] clindamycin 1 % gel 2023-0 3-16 00:00: 00 Yes [id number] Apply to area(s) daily. [facility] clindamycin 1 % gel 2023-0 3-16 00:00: 00 Yes [id number] Apply to area(s) daily. [facility] clindamycin 1 % gel 2023-0 3-16 00:00: 00 Yes [id number] Apply to area(s) daily. [facility] clindamycin 1 % gel 2023-0 3-16 00:00: 00 Yes [id number] Apply to area(s) daily. [facility] clindamycin 1 % gel 2023-0 3-16 00:00: 00 Yes [id number] Apply to area(s) daily. [facility] clindamycin 1 % gel 2023-0 3-16 00:00: 00 Yes [id number] Apply to area(s) daily. [facility] clindamycin 1 % gel 2023-0 3-16 00:00: 00 Yes [id number] Apply to area(s) daily. [facility] clindamycin 1 % gel 2023-0 3-16 00:00: 00 Yes [id number] Apply to area(s) daily. [facility] clindamycin 1 % gel 2023-0 3-16 00:00: 00 Yes [id number] Apply to area(s) daily. [facility] clindamycin 1 % gel 2023-0 3-16 00:00: 00 Yes [id number] Apply to area(s) daily. [facility] clindamycin 1 % gel 2023-0 3-16 00:00: 00 Yes [id number] Apply to area(s) daily. [facility] clindamycin 1 % gel 2023-0 3-16 00:00: 00 Yes [id number] Apply to area(s) daily. [facility] clindamycin 1 % gel 2023-0 3-16 00:00: 00 Yes [id number] Apply to area(s) daily. [facility] clindamycin 1 % gel 2023-0 3-16 00:00: 00 Yes [id number] Apply to area(s) daily. [facility] clindamycin 1 % gel 2023-0 3-16 00:00: 00 Yes [id number] Apply to area(s) daily. [facility] clindamycin 1 % gel 2023-0 3-16 00:00: 00 Yes [id number] Apply to area(s) daily. [facility] clindamycin 1 % gel 2023-0 3-16 00:00: 00 Yes [id number] Apply to area(s) daily. [facility] clindamycin 1 % gel 2023-0 3-16 00:00: 00 Yes [id number] Apply to area(s) daily. [facility] clindamycin 1 % gel 2023-0 3-16 00:00: 00 Yes [id number] Apply to area(s) daily. [facility] clindamycin 1 % gel 2023-0 3-16 00:00: 00 Yes [id number] Apply to area(s) daily. [facility] clindamycin 1 % gel 2023-0 3-16 00:00: 00 Yes [id number] Apply to area(s) daily. [facility] clindamycin 1 % gel 2023-0 3-16 00:00: 00 Yes [id number] Apply to area(s) daily. [facility] clindamycin 1 % gel 2023-0 3-16 00:00: 00 Yes [id number] Apply to area(s) daily. [facility] clindamycin 1 % gel 2023-0 3-16 00:00: 00 Yes [id number] Apply to area(s) daily. [facility] clindamycin 1 % gel 2023-0 3-16 00:00: 00 Yes [id number] Apply to area(s) daily. [facility] clindamycin 1 % gel 2023-0 3-16 00:00: 00 Yes [id number] Apply to area(s) daily. [facility] clindamycin 1 % gel 2023-0 3-16 00:00: 00 Yes [id number] Apply to area(s) daily. [facility] clindamycin 1 % gel 2023-0 3-16 00:00: 00 Yes [id number] Apply to area(s) daily. [facility] clindamycin 1 % gel 2023-0 3-16 00:00: 00 Yes [id number] Apply to area(s) daily. [facility] clindamycin 1 % gel 2023-0 3-16 00:00: 00 Yes [id number] Apply to area(s) daily. [facility] clindamycin 1 % gel 2023-0 3-16 00:00: 00 Yes [id number] Apply to area(s) daily. [facility] clindamycin 1 % gel 2023-0 3-16 00:00: 00 Yes [id number] Apply to area(s) daily. [facility] predniSONE 20 mg tablet 2022-0 131 00:00: 00 06-16 05:59 :00 No [id number] 40mg Take 2 tablets by mouth in the morning for 5 days. [facility] predniSONE 20 mg tablet 2022-0 06-10 00:00: 00 06-16 05:59 :00 No [id number] 40mg Take 2 tablets by mouth in the morning for 5 days. [facility] levothyroxi ne 50 mcg tablet 2022-0 26 00:00: 00 Yes TAKE ONE (1) TABLET(S) BY MOUTH ONCE A DAY IN THE MORNING. [facility] levothyroxi ne 50 mcg tablet 2022-0 06-05 00:00: 00 Yes TAKE ONE (1) TABLET(S) BY MOUTH ONCE A DAY IN THE MORNING. [facility] levothyroxi ne 50 mcg tablet 2022-0 06-05 00:00: 00 Yes TAKE ONE (1) TABLET(S) BY MOUTH ONCE A DAY IN THE MORNING. [facility] levothyroxi ne 50 mcg tablet 3-0 06-05 00:00: 00 Yes TAKE ONE (1) TABLET(S) BY MOUTH ONCE A DAY IN THE MORNING. [facility] levothyroxi ne 50 mcg tablet 3-0 26 00:00: 00 Yes TAKE ONE (1) TABLET(S) BY MOUTH ONCE A DAY IN THE MORNING. [facility] levothyroxi ne 50 mcg tablet 3-0 26 00:00: 00 Yes TAKE ONE (1) TABLET(S) BY MOUTH ONCE A DAY IN THE MORNING. [facility] levothyroxi ne 50 mcg tablet 3-0 26 00:00: 00 Yes TAKE ONE (1) TABLET(S) BY MOUTH ONCE A DAY IN THE MORNING. [facility] levothyroxi ne 50 mcg tablet 3-0 -26 00:00: 00 Yes TAKE ONE (1) TABLET(S) BY MOUTH ONCE A DAY IN THE MORNING. [facility] levothyroxi ne 50 mcg tablet 2022-0 06-05 00:00: 00 Yes TAKE ONE (1) TABLET(S) BY MOUTH ONCE A DAY IN THE MORNING. [facility] levothyroxi ne 50 mcg tablet 2022-0 06-05 00:00: 00 Yes TAKE ONE (1) TABLET(S) BY MOUTH ONCE A DAY IN THE MORNING. [facility] levothyroxi ne 50 mcg tablet 2022-0 06-05 00:00: 00 08-27 00:00 :00 No TAKE ONE (1) TABLET(S) BY MOUTH ONCE A DAY IN THE MORNING. [facility] levothyroxi ne 50 mcg tablet 2022-0 06-05 00:00: 00 08-27 00:00 :00 No TAKE ONE (1) TABLET(S) BY MOUTH ONCE A DAY IN THE MORNING. [facility] levothyroxi ne 50 mcg tablet 2022-0 06-05 00:00: 00 08-27 00:00 :00 No TAKE ONE (1) TABLET(S) BY MOUTH ONCE A DAY IN THE MORNING. [facility] levothyroxi ne 50 mcg tablet 0 06-05 00:00: 00 08-27 00:00 :00 No TAKE ONE (1) TABLET(S) BY MOUTH ONCE A DAY IN THE MORNING. [facility] levothyroxi ne 50 mcg tablet 2022-0 06-05 00:00: 00 08-27 00:00 :00 No TAKE ONE (1) TABLET(S) BY MOUTH ONCE A DAY IN THE MORNING. [facility] levothyroxi ne 50 mcg tablet 2022-0 06-05 00:00: 00 08-27 00:00 :00 No TAKE ONE (1) TABLET(S) BY MOUTH ONCE A DAY IN THE MORNING. [facility] ciprofloxac in HCl 500 mg tablet 05-18 00:00: 00 Yes TAKE ONE (1) TABLET(S) BY MOUTH EVERY TWELVE HOURS FOR 10 DAYS. [facility] dicyclomine 20 mg tablet 05-18 00:00: 00 Yes TAKE ONE (1) TABLET(S) BY MOUTH FOUR TIMES A DAY NEEDED. [facility] metroNIDAZO LE 500 mg tablet 2022-0 05-18 00:00: 00 Yes TAKE ONE (1) TABLET(S) BY MOUTH EVERY EIGHT HOURS FOR 10 DAYS. [facility] predniSONE 20 mg tablet 2022-0 05-18 00:00: 00 Yes 20mg Take 20 mg by mouth in the morning. [facility] ciprofloxac in HCl 500 mg tablet 2022-0 05-18 00:00: 00 Yes TAKE ONE (1) TABLET(S) BY MOUTH EVERY TWELVE HOURS FOR 10 DAYS. [facility] dicyclomine 20 mg tablet 2022-0 05-18 00:00: 00 Yes TAKE ONE (1) TABLET(S) BY MOUTH FOUR TIMES A DAY NEEDED. [facility] metroNIDAZO LE 500 mg tablet 2022-0 05-18 00:00: 00 Yes TAKE ONE (1) TABLET(S) BY MOUTH EVERY EIGHT HOURS FOR 10 DAYS. [facility] predniSONE 20 mg tablet 2022-0 05-18 00:00: 00 Yes 20mg Take 20 mg by mouth in the morning. [facility] metroNIDAZO LE 500 mg tablet 2022-0 05-18 00:00: 00 Yes TAKE ONE (1) TABLET(S) BY MOUTH EVERY EIGHT HOURS FOR 10 DAYS. [facility] predniSONE 20 mg tablet 3-0 05-18 00:00: 00 Yes 20mg Take 20 mg by mouth in the morning. [facility] metroNIDAZO LE 500 mg tablet 2022-0 05-18 00:00: 00 Yes TAKE ONE (1) TABLET(S) BY MOUTH EVERY EIGHT HOURS FOR 10 DAYS. [facility] predniSONE 20 mg tablet 3-0 05-18 00:00: 00 Yes 20mg Take 20 mg by mouth in the morning. [facility] metroNIDAZO LE 500 mg tablet 3-0 05-18 00:00: 00 Yes TAKE ONE (1) TABLET(S) BY MOUTH EVERY EIGHT HOURS FOR 10 DAYS. [facility] predniSONE 20 mg tablet 3-0 05-18 00:00: 00 Yes 20mg Take 20 mg by mouth in the morning. [facility] metroNIDAZO LE 500 mg tablet 3-0 1-08 00:00: 00 Yes TAKE ONE (1) TABLET(S) BY MOUTH EVERY EIGHT HOURS FOR 10 DAYS. [facility] predniSONE 20 mg tablet 3-0 1-08 00:00: 00 Yes 20mg Take 20 mg by mouth in the morning. [facility] metroNIDAZO LE 500 mg tablet 2022-0 1-08 00:00: 00 07-24 00:00 :00 No TAKE ONE (1) TABLET(S) BY MOUTH EVERY EIGHT HOURS FOR 10 DAYS. [facility] predniSONE 20 mg tablet 2022-0 1-08 00:00: 00 07-24 00:00 :00 No 20mg Take 20 mg by mouth in the morning. [facility] metroNIDAZO LE 500 mg tablet 2022-0 1-08 00:00: 00 07-24 00:00 :00 No TAKE ONE (1) TABLET(S) BY MOUTH EVERY EIGHT HOURS FOR 10 DAYS. [facility] predniSONE 20 mg tablet 2022-0 1-08 00:00: 00 07-24 00:00 :00 No 20mg Take 20 mg by mouth in the morning. [facility] ciprofloxac in HCl 500 mg tablet 3-0 1-08 00:00: 00 06-27 00:00 :00 No TAKE ONE (1) TABLET(S) BY MOUTH EVERY TWELVE HOURS FOR 10 DAYS. [facility] dicyclomine 20 mg tablet 3-0 1-08 00:00: 00 06-27 00:00 :00 No TAKE ONE (1) TABLET(S) BY MOUTH FOUR TIMES A DAY NEEDED. [facility] ciprofloxac in HCl 500 mg tablet 3-0 1-08 00:00: 00 06-27 00:00 :00 No TAKE ONE (1) TABLET(S) BY MOUTH EVERY TWELVE HOURS FOR 10 DAYS. [facility] dicyclomine 20 mg tablet 3-0 1-08 00:00: 00 06-27 00:00 :00 No TAKE ONE (1) TABLET(S) BY MOUTH FOUR TIMES A DAY NEEDED. [facility] proMETHazin e 25 mg tablet 2021-05 00:00: 00 Yes [id number] 25mg Take 1 tablet by mouth every 4 (four) hours as needed for Nausea and Vomiting (N/V). [facility] proMETHazin e 25 mg tablet 2021-05 00:00: 00 Yes [id number] 25mg Take 1 tablet by mouth every 4 (four) hours as needed for Nausea and Vomiting (N/V). [facility] proMETHazin e 25 mg tablet 2021-05 00:00: 00 Yes [id number] 25mg Take 1 tablet by mouth every 4 (four) hours as needed for Nausea and Vomiting (N/V). [facility] proMETHazin e 25 mg tablet 2021-05 00:00: 00 Yes [id number] 25mg Take 1 tablet by mouth every 4 (four) hours as needed for Nausea and Vomiting (N/V). [facility] proMETHazin e 25 mg tablet 2021-05 00:00: 00 Yes [id number] 25mg Take 1 tablet by mouth every 4 (four) hours as needed for Nausea and Vomiting (N/V). [facility] proMETHazin e 25 mg tablet 2021-05 00:00: 00 06-27 00:00 :00 No [id number] 25mg Take 1 tablet by mouth every 4 (four) hours as needed for Nausea and Vomiting (N/V). [facility] proMETHazin e 25 mg tablet 2021-05 00:00: 00 06-27 00:00 :00 No [id number] 25mg Take 1 tablet by mouth every 4 (four) hours as needed for Nausea and Vomiting (N/V). [facility] methscopola mine 5 mg tablet 2021-05 00:00: 00 Yes [facility] methscopola mine 5 mg tablet 2021-05 00:00: 00 Yes [facility] methscopola mine 5 mg tablet 2021-05 00:00: 00 Yes [facility] methscopola mine 5 mg tablet 2021-05 00:00: 00 Yes [facility] methscopola mine 5 mg tablet 2021-05 00:00: 00 Yes [facility] methscopola mine 5 mg tablet 2021-05 00:00: 00 Yes [facility] methscopola mine 5 mg tablet 2021-05 00:00: 00 07-24 00:00 :00 No [facility] methscopola mine 5 mg tablet 2021-05 00:00: 00 07-24 00:00 :00 No [facility] medroxyPROG ESTERone 10 mg tablet 2021-05 00:00: 00 Yes [facility] medroxyPROG ESTERone 10 mg tablet 2021-05 00:00: 00 Yes [facility] medroxyPROG ESTERone 10 mg tablet 2021-05 00:00: 00 Yes [facility] medroxyPROG ESTERone 10 mg tablet 2021-05 00:00: 00 Yes [facility] medroxyPROG ESTERone 10 mg tablet 2021-05 00:00: 00 Yes [facility] medroxyPROG ESTERone 10 mg tablet 2021-05 00:00: 00 Yes [facility] medroxyPROG ESTERone 10 mg tablet 2021-05 00:00: 00 07-24 00:00 :00 No [facility] medroxyPROG ESTERone 10 mg tablet 2021-05 00:00: 00 07-24 00:00 :00 No [facility] metFORMIN 500 mg tablet 02-06 00:00: 00 Yes [id number] 500mg Take 1 tablet by mouth in the morning and 1 tablet in the evening. Take with meals. [facility] metFORMIN 500 mg tablet 29 00:00: 00 Yes [id number] 500mg Take 1 tablet by mouth in the morning and 1 tablet in the evening. Take with meals. [facility] metFORMIN 500 mg tablet 2-0 02-06 00:00: 00 Yes [id number] 500mg Take 1 tablet by mouth in the morning and 1 tablet in the evening. Take with meals. [facility] metFORMIN 500 mg tablet 2-0 02-06 00:00: 00 Yes [id number] 500mg Take 1 tablet by mouth in the morning and 1 tablet in the evening. Take with meals. [facility] metFORMIN 500 mg tablet 2-0 02-06 00:00: 00 Yes [id number] 500mg Take 1 tablet by mouth in the morning and 1 tablet in the evening. Take with meals. [facility] metFORMIN 500 mg tablet 2-0 02-06 00:00: 00 Yes [id number] 500mg Take 1 tablet by mouth in the morning and 1 tablet in the evening. Take with meals. [facility] metFORMIN 500 mg tablet 2021-0 02-06 00:00: 00 Yes [id number] 500mg Take 1 tablet by mouth in the morning and 1 tablet in the evening. Take with meals. [facility] metFORMIN 500 mg tablet 2-0 02-06 00:00: 00 Yes [id number] 500mg Take 1 tablet by mouth in the morning and 1 tablet in the evening. Take with meals. [facility] metFORMIN 500 mg tablet 2-0 02-06 00:00: 00 Yes [id number] 500mg Take 1 tablet by mouth in the morning and 1 tablet in the evening. Take with meals. [facility] metFORMIN 500 mg tablet 2-0 02-06 00:00: 00 Yes [id number] 500mg Take 1 tablet by mouth in the morning and 1 tablet in the evening. Take with meals. [facility] metFORMIN 500 mg tablet 2-0 02-06 00:00: 00 Yes [id number] 500mg Take 1 tablet by mouth in the morning and 1 tablet in the evening. Take with meals. [facility] metFORMIN 500 mg tablet 2-0 02-06 00:00: 00 Yes [id number] 500mg Take 1 tablet by mouth in the morning and 1 tablet in the evening. Take with meals. [facility] metFORMIN 500 mg tablet 2-0 29 00:00: 00 Yes [id number] 500mg Take 1 tablet by mouth in the morning and 1 tablet in the evening. Take with meals. [facility] metFORMIN 500 mg tablet 2-0 02-06 00:00: 00 Yes [id number] 500mg Take 1 tablet by mouth in the morning and 1 tablet in the evening. Take with meals. [facility] metFORMIN 500 mg tablet 2-0 02-06 00:00: 00 Yes [id number] 500mg Take 1 tablet by mouth in the morning and 1 tablet in the evening. Take with meals. [facility] metFORMIN 500 mg tablet 2-0 02-06 00:00: 00 Yes [id number] 500mg Take 1 tablet by mouth in the morning and 1 tablet in the evening. Take with meals. [facility] metFORMIN 500 mg tablet 2-0 02-06 00:00: 00 Yes [id number] 500mg Take 1 tablet by mouth in the morning and 1 tablet in the evening. Take with meals. [facility] metFORMIN 500 mg tablet 2-0 29 00:00: 00 Yes [id number] 500mg Take 1 tablet by mouth in the morning and 1 tablet in the evening. Take with meals. [facility] metFORMIN 500 mg tablet 2-0 02-06 00:00: 00 Yes [id number] 500mg Take 1 tablet by mouth in the morning and 1 tablet in the evening. Take with meals. [facility] metFORMIN 500 mg tablet 2-0 29 00:00: 00 Yes [id number] 500mg Take 1 tablet by mouth in the morning and 1 tablet in the evening. Take with meals. [facility] metFORMIN 500 mg tablet 2-0 29 00:00: 00 Yes [id number] 500mg Take 1 tablet by mouth in the morning and 1 tablet in the evening. Take with meals. [facility] metFORMIN 500 mg tablet 2-0 02-06 00:00: 00 20209-03 00:00 :00 No [id number] 500mg Take 1 tablet by mouth in the morning and 1 tablet in the evening. Take with meals. [facility] 2021-0 9-29 00:00: 00 09-03 00:00 :00 No [id number] 500mg Take 1 tablet by mouth in the morning and 1 tablet in the evening. Take with meals. [facility] metFORMIN 500 mg tablet 2-0 9-29 00:00: 00 09-03 00:00 :00 No [id number] 500mg Take 1 tablet by mouth in the morning and 1 tablet in the evening. Take with meals. [facility] proMETHazin e 25 mg tablet 2-0 6-14 00:00: 00 Yes [facility] proMETHazin e 25 mg tablet 2-0 6-14 00:00: 00 Yes [facility] proMETHazin e 25 mg tablet 2-0 6-14 00:00: 00 Yes [facility] proMETHazin e 25 mg tablet 2-0 6-14 00:00: 00 Yes [facility] proMETHazin e 25 mg tablet 2-0 6-14 00:00: 00 Yes [facility] proMETHazin e 25 mg tablet 2-0 6-14 00:00: 00 12-14 00:00 :00 No [facility] proMETHazin e 25 mg tablet 2-0 6-14 00:00: 00 12-14 00:00 :00 No [facility] eflornithin e 13.9 % cream 2021-0 06 00:00: 00 Yes Apply thin layer to affected areas of face and areas under the chin twice daily, at least 8 hours apart. [facility] eflornithin e 13.9 % cream 2021-0 06 00:00: 00 Yes Apply thin layer to affected areas of face and areas under the chin twice daily, at least 8 hours apart. [facility] eflornithin e 13.9 % cream 2021-0 06 00:00: 00 Yes Apply thin layer to affected areas of face and areas under the chin twice daily, at least 8 hours apart. [facility] eflornithin e 13.9 % cream 10-14 00:00: 00 Yes Apply thin layer to affected areas of face and areas under the chin twice daily, at least 8 hours apart. [facility] norgestimat e-ethinyl estradioL 0.25-35 mg-mcg per tablet 10-14 00:00: 00 Yes 1{tbl} Take 1 tablet by mouth. [facility] norgestimat e-ethinyl estradioL 0.25-35 mg-mcg per tablet 10-14 00:00: 00 Yes 1{tbl} Take 1 tablet by mouth. [facility] norgestimat e-ethinyl estradioL 0.25-35 mg-mcg per tablet 10-14 00:00: 00 Yes 1{tbl} Take 1 tablet by mouth. [facility] norgestimat e-ethinyl estradioL 0.25-35 mg-mcg per tablet 10-14 00:00: 00 Yes 1{tbl} Take 1 tablet by mouth. [facility] norgestimat e-ethinyl estradioL 0.25-35 mg-mcg per tablet 10-14 00:00: 00 Yes 1{tbl} Take 1 tablet by mouth. [facility] norgestimat e-ethinyl estradioL 0.25-35 mg-mcg per tablet 10-14 00:00: 00 Yes 1{tbl} Take 1 tablet by mouth. [facility] eflornithin e 13.9 % cream 10-14 00:00: 00 Yes Apply thin layer to affected areas of face and areas under the chin twice daily, at least 8 hours apart. [facility] eflornithin e 13.9 % cream 10-14 00:00: 00 Yes Apply thin layer to affected areas of face and areas under the chin twice daily, at least 8 hours apart. [facility] norgestimat e-ethinyl estradioL 0.25-35 mg-mcg per tablet 10-14 00:00: 00 07-24 00:00 :00 No 1{tbl} Take 1 tablet by mouth. [facility] norgestimat e-ethinyl estradioL 0.25-35 mg-mcg per tablet 10-14 00:00: 00 07-24 00:00 :00 No 1{tbl} Take 1 tablet by mouth. [facility] eflornithin e 13.9 % cream 10-14 00:00: 00 04-23 00:00 :00 No Apply thin layer to affected areas of face and areas under the chin twice daily, at least 8 hours apart. [facility] eflornithin e 13.9 % cream 10-14 00:00: 00 04-23 00:00 :00 No Apply thin layer to affected areas of face and areas under the chin twice daily, at least 8 hours apart. [facility] SPRINTEC 0.25-35 mg-mcg per tablet 10-14 00:00: 00 01-23 00:00 :00 No [facility] SPRINTEC 0.25-35 mg-mcg per tablet 10-14 00:00: 00 01-23 00:00 :00 No [facility] famotidine 20 mg tablet 0 10-08 00:00: 00 Yes [facility] famotidine 20 mg tablet 0 10-08 00:00: 00 Yes [facility] famotidine 20 mg tablet 0 10-08 00:00: 00 Yes [facility] famotidine 20 mg tablet 0 10-08 00:00: 00 Yes [facility] famotidine 20 mg tablet 0 10-08 00:00: 00 Yes [facility] famotidine 20 mg tablet 0 10-08 00:00: 00 Yes [facility] famotidine 20 mg tablet 0 10-08 00:00: 00 Yes [facility] famotidine 20 mg tablet 0 10-08 00:00: 00 Yes [facility] famotidine 20 mg tablet 0 10-08 00:00: 00 Yes [facility] famotidine 20 mg tablet 2021-0 10-08 00:00: 00 Yes [facility] famotidine 20 mg tablet 0 10-08 00:00: 00 Yes [facility] famotidine 20 mg tablet 2021-0 10-08 00:00: 00 Yes [facility] famotidine 20 mg tablet 2021-0 10-08 00:00: 00 Yes [facility] famotidine 20 mg tablet 2021-0 10-08 00:00: 00 Yes [facility] famotidine 20 mg tablet 0 10-08 00:00: 00 07-24 00:00 :00 No [facility] famotidine 20 mg tablet 2021-0 10-08 00:00: 00 07-24 00:00 :00 No [facility] famotidine 20 mg tablet 2021-0 10-08 00:00: 00 07-24 00:00 :00 No [facility] Hyoscyamine Sulfate 0.125 mg TbDL 2-0 10-02 00:00: 00 Yes [facility] Hyoscyamine Sulfate 0.125 mg TbDL 2-0 25 00:00: 00 Yes [facility] Hyoscyamine Sulfate 0.125 mg TbDL 2-0 -25 00:00: 00 Yes [facility] Hyoscyamine Sulfate 0.125 mg TbDL 2-0 5-25 00:00: 00 Yes [facility] Hyoscyamine Sulfate 0.125 mg TbDL 2-0 5-25 00:00: 00 Yes [facility] Hyoscyamine Sulfate 0.125 mg TbDL 2-0 5-25 00:00: 00 Yes [facility] Hyoscyamine Sulfate 0.125 mg TbDL 2-0 5-25 00:00: 00 Yes [facility] Hyoscyamine Sulfate 0.125 mg TbDL 2022-0 5-25 00:00: 00 Yes [facility] Hyoscyamine Sulfate 0.125 mg TbDL 2-0 5-25 00:00: 00 Yes [facility] Hyoscyamine Sulfate 0.125 mg TbDL 2-0 5-25 00:00: 00 Yes [facility] Hyoscyamine Sulfate 0.125 mg TbDL 2-0 5-25 00:00: 00 Yes [facility] Hyoscyamine Sulfate 0.125 mg TbDL 2-0 5-25 00:00: 00 Yes [facility] Hyoscyamine Sulfate 0.125 mg TbDL 2-0 5-25 00:00: 00 Yes [facility] Hyoscyamine Sulfate 0.125 mg TbDL 2-0 5-25 00:00: 00 Yes [facility] Hyoscyamine Sulfate 0.125 mg TbDL 2-0 5-25 00:00: 00 07-24 00:00 :00 No [facility] Hyoscyamine Sulfate 0.125 mg TbDL 2-0 5-25 00:00: 00 07-24 00:00 :00 No [facility] Hyoscyamine Sulfate 0.125 mg TbDL 2-0 5-25 00:00: 00 07-24 00:00 :00 No [facility] methscopola mine 5 mg tablet 2021-0 5-25 00:00: 00 01-23 00:00 :00 No [facility] methscopola mine 5 mg tablet 2021-0 5-25 00:00: 00 01-23 00:00 :00 No [facility] hydrOXYzine 25 mg tablet 0 06-10 00:00: 00 Yes 25mg Take 25 mg by mouth. [facility] hydrOXYzine 25 mg tablet 2021-0 06-10 00:00: 00 Yes 25mg Take 25 mg by mouth. [facility] hydrOXYzine 25 mg tablet 20206-10 00:00: 00 06-27 00:00 :00 No 25mg Take 25 mg by mouth. [facility] hydrOXYzine 25 mg tablet 06-10 00:00: 00 06-27 00:00 :00 No 25mg Take 25 mg by mouth. [facility] naproxen sodium (ANAPROX DS) 550 mg tablet 2020-05 00:00: 11-02 00:00 :00 No [id number] 550mg Take 1 tablet by mouth 2 (two) times daily with meals. [facility] naproxen sodium (ANAPROX DS) 550 mg tablet 2020-05 00:00: 11-02 00:00 :00 No [id number] 550mg Take 1 tablet by mouth 2 (two) times daily with meals. [facility] naproxen sodium (ANAPROX DS) 550 mg tablet 2020-05 00:00: 00 11-02 00:00 :00 No [id number] 550mg Take 1 tablet by mouth 2 (two) times daily with meals. [facility] azelastine 137 mcg (0.1 %) nasal spray 02-03 00:00: 00 06-10 00:00 :00 No [id number] 1{spray } Use 1 [place] in each nostril 2 (two) times daily. Use in each nostril as directed [facility] fluticasone propionate 50 mcg/actuati on nasal spray 02-03 00:00: 00 06-10 00:00 :00 No [id number] 1{spray } Use 1 [place] in each nostril daily. [facility] naproxen 500 mg tablet 09-10 00:00: 00 02-03 00:00 :00 No [id number] 100 500mg Take 1 tablet by mouth 2 (two) times daily with meals. [facility] VIORELE, 28, 0.15-0.02 mgx21 /0.01 mg x 5 per tablet 2018-05 00:00: 00 06-10 00:00 :00 No TK 1 T PO QD [facility] CONNIE, 28, 0.15-0.02 mgx21 /0.01 mg x 5 per tablet 2018-05 00:00: 00 06-10 00:00 :00 No TK 1 T PO QD [facility] traMADol (ULTRAM) 50 mg tablet 2018-05 00:00: 00 06-10 00:00 :00 No [id number] 50mg Take 1 tablet by mouth every 6 (six) hours as needed for Pain (scale 7-10). [facility] traMADol (ULTRAM) 50 mg tablet 2018-05 00:00: 00 06-10 00:00 :00 No [id number] 50mg Take 1 tablet by mouth every 6 (six) hours as needed for Pain (scale 7-10). [facility] clindamycin 1 % gel 0 09-27 00:00: 00 06-10 00:00 :00 No [id number] Apply to area(s) daily. [facility] clindamycin 1 % gel 09-27 00:00: 00 06-10 00:00 :00 No [id number] Apply to area(s) daily. [facility] Immunizations Ordered Immunization Name Filled Immunization Name Date Status Comments Source HPV9 2018-09-27 00:00:00 Completed [facility] HPV9 2018-09-27 00:00:00 Completed [facility] HPV9 2018-09-27 00:00:00 Completed [facility] HPV9 2018-09-27 00:00:00 Completed [facility] HPV9 2018-09-27 00:00:00 Completed [facility] HPV9 2018-09-27 00:00:00 Completed [facility] HPV9 2018-09-27 00:00:00 Completed [facility] HPV9 2018-09-27 00:00:00 Completed [facility] HPV9 2018-09-27 00:00:00 Completed [facility] HPV9 2018-09-27 00:00:00 Completed [facility] HPV9 2018-09-27 00:00:00 Completed [facility] HPV9 2018-09-27 00:00:00 Completed [facility] HPV9 2018-09-27 00:00:00 Completed [facility] HPV9 2018-09-27 00:00:00 Completed [facility] HPV9 2018-09-27 00:00:00 Completed [facility] HPV9 2018-09-27 00:00:00 Completed [facility] HPV9 2018-09-27 00:00:00 Completed [facility] HPV9 2018-09-27 00:00:00 Completed [facility] HPV9 2018-09-27 00:00:00 Completed [facility] HPV9 2018-09-27 00:00:00 Completed [facility] HPV9 2018-09-27 00:00:00 Completed [facility] HPV9 2018-09-27 00:00:00 Completed [facility] HPV9 2018-09-27 00:00:00 Completed [facility] HPV9 2018-09-27 00:00:00 Completed [facility] HPV9 2018-09-27 00:00:00 Completed [facility] HPV9 2018-09-27 00:00:00 Completed [facility] HPV9 2018-09-27 00:00:00 Completed [facility] HPV9 2018-09-27 00:00:00 Completed [facility] HPV9 2018-09-27 00:00:00 Completed [facility] HPV9 2018-09-27 00:00:00 Completed [facility] HPV9 2018-09-27 00:00:00 Completed [facility] HPV9 2018-09-27 00:00:00 Completed [facility] HPV9 2018-09-27 00:00:00 Completed [facility] HPV9 2018-09-27 00:00:00 Completed [facility] HPV9 2018-09-27 00:00:00 Completed [facility] HPV9 2018-09-27 00:00:00 Completed [facility] HPV9 2018-09-27 00:00:00 Completed [facility] HPV9 2018-09-27 00:00:00 Completed [facility] HPV9 2018-09-27 00:00:00 Completed [facility] HPV9 2018-09-27 00:00:00 Completed [facility] HPV9 2018-09-27 00:00:00 Completed [facility] HPV9 2018-09-27 00:00:00 Completed [facility] HPV9 2018-09-27 00:00:00 Completed [facility] HPV9 2018-09-27 00:00:00 Completed [facility] Influenza Virus Vaccine Quad .5 mL IM 6+ MO 2018-04-13 00:00:00 Completed [facility] Influenza Virus Vaccine Quad .5 mL IM 6+ MO 2018-04-13 00:00:00 Completed [facility] Influenza Virus Vaccine Quad .5 mL IM 6+ MO 2018-04-13 00:00:00 Completed [facility] Influenza Virus Vaccine Quad .5 mL IM 6+ MO 2018-04-13 00:00:00 Completed [facility] Influenza Virus Vaccine Quad .5 mL IM 6+ MO 2018-04-13 00:00:00 Completed [facility] Influenza Virus Vaccine Quad .5 mL IM 6+ MO 2018-04-13 00:00:00 Completed [facility] Influenza Virus Vaccine Quad .5 mL IM 6+ MO 2018-04-13 00:00:00 Completed [facility] Influenza Virus Vaccine Quad .5 mL IM 6+ MO 2018-04-13 00:00:00 Completed [facility] Influenza Virus Vaccine Quad .5 mL IM 6+ MO 2018-04-13 00:00:00 Completed [facility] Influenza Virus Vaccine Quad .5 mL IM 6+ MO 2018-04-13 00:00:00 Completed [facility] Influenza Virus Vaccine Quad .5 mL IM 6+ MO 2018-04-13 00:00:00 Completed [facility] Influenza Virus Vaccine Quad .5 mL IM 6+ MO 2018-04-13 00:00:00 Completed [facility] Influenza Virus Vaccine Quad .5 mL IM 6+ MO 2018-04-13 00:00:00 Completed [facility] Influenza Virus Vaccine Quad .5 mL IM 6+ MO 2018-04-13 00:00:00 Completed [facility] Influenza Virus Vaccine Quad .5 mL IM 6+ MO 2018-04-13 00:00:00 Completed [facility] Influenza Virus Vaccine Quad .5 mL IM 6+ MO 2018-04-13 00:00:00 Completed [facility] Influenza Virus Vaccine Quad .5 mL IM 6+ MO 2018-04-13 00:00:00 Completed [facility] Influenza Virus Vaccine Quad .5 mL IM 6+ MO 2018-04-13 00:00:00 Completed [facility] Influenza Virus Vaccine Quad .5 mL IM 6+ MO 2018-04-13 00:00:00 Completed [facility] Influenza Virus Vaccine Quad .5 mL IM 6+ MO 2018-04-13 00:00:00 Completed [facility] Influenza Virus Vaccine Quad .5 mL IM 6+ MO 2018-04-13 00:00:00 Completed [facility] Influenza Virus Vaccine Quad .5 mL IM 6+ MO 2018-04-13 00:00:00 Completed [facility] Influenza Virus Vaccine Quad .5 mL IM 6+ MO 2018-04-13 00:00:00 Completed [facility] Influenza Virus Vaccine Quad .5 mL IM 6+ MO 2018-04-13 00:00:00 Completed [facility] Influenza Virus Vaccine Quad .5 mL IM 6+ MO 2018-04-13 00:00:00 Completed [facility] Influenza Virus Vaccine Quad .5 mL IM 6+ MO 2018-04-13 00:00:00 Completed [facility] Influenza Virus Vaccine Quad .5 mL IM 6+ MO 2018-04-13 00:00:00 Completed [facility] Influenza Virus Vaccine Quad .5 mL IM 6+ MO 2018-04-13 00:00:00 Completed [facility] Influenza Virus Vaccine Quad .5 mL IM 6+ MO 2018-04-13 00:00:00 Completed [facility] Influenza Virus Vaccine Quad .5 mL IM 6+ MO 2018-04-13 00:00:00 Completed [facility] Influenza Virus Vaccine Quad .5 mL IM 6+ MO 2018-04-13 00:00:00 Completed [facility] Influenza Virus Vaccine Quad .5 mL IM 6+ MO 2018-04-13 00:00:00 Completed [facility] Influenza Virus Vaccine Quad .5 mL IM 6+ MO 2018-04-13 00:00:00 Completed [facility] Influenza Virus Vaccine Quad .5 mL IM 6+ MO 2018-04-13 00:00:00 Completed [facility] Influenza Virus Vaccine Quad .5 mL IM 6+ MO 2018-04-13 00:00:00 Completed [facility] Influenza Virus Vaccine Quad .5 mL IM 6+ MO 2018-04-13 00:00:00 Completed [facility] Influenza Virus Vaccine Quad .5 mL IM 6+ MO 2018-04-13 00:00:00 Completed [facility] Influenza Virus Vaccine Quad .5 mL IM 6+ MO 2018-04-13 00:00:00 Completed [facility] Influenza Virus Vaccine Quad .5 mL IM 6+ MO 2018-04-13 00:00:00 Completed [facility] Influenza Virus Vaccine Quad .5 mL IM 6+ MO 2018-04-13 00:00:00 Completed [facility] Influenza Virus Vaccine Quad .5 mL IM 6+ MO 2018-04-13 00:00:00 Completed [facility] Influenza Virus Vaccine Quad .5 mL IM 6+ MO 2018-04-13 00:00:00 Completed [facility] Influenza Virus Vaccine Quad .5 mL IM 6+ MO 2018-04-13 00:00:00 Completed [facility] Influenza Virus Vaccine Quad .5 mL IM 6+ MO 2018-04-13 00:00:00 Completed [facility] TDAP (ADACEL) VACCINE 2016-09-08 00:00:00 Completed [facility] TDAP (ADACEL) VACCINE 2016-09-08 00:00:00 Completed [facility] TDAP (ADACEL) VACCINE 2016-09-08 00:00:00 Completed [facility] TDAP (ADACEL) VACCINE 2016-09-08 00:00:00 Completed [facility] TDAP (ADACEL) VACCINE 2016-09-08 00:00:00 Completed [facility] TDAP (ADACEL) VACCINE 2016-09-08 00:00:00 Completed [facility] TDAP (ADACEL) VACCINE 2016-09-08 00:00:00 Completed [facility] TDAP (ADACEL) VACCINE 2016-09-08 00:00:00 Completed [facility] TDAP (ADACEL) VACCINE 2016-09-08 00:00:00 Completed [facility] TDAP (ADACEL) VACCINE 2016-09-08 00:00:00 Completed [facility] TDAP (ADACEL) VACCINE 2016-09-08 00:00:00 Completed [facility] TDAP (ADACEL) VACCINE 2016-09-08 00:00:00 Completed [facility] TDAP (ADACEL) VACCINE 2016-09-08 00:00:00 Completed [facility] TDAP (ADACEL) VACCINE 2016-09-08 00:00:00 Completed [facility] TDAP (ADACEL) VACCINE 2016-09-08 00:00:00 Completed [facility] TDAP (ADACEL) VACCINE 2016-09-08 00:00:00 Completed [facility] TDAP (ADACEL) VACCINE 2016-09-08 00:00:00 Completed [facility] TDAP (ADACEL) VACCINE 2016-09-08 00:00:00 Completed [facility] TDAP (ADACEL) VACCINE 2016-09-08 00:00:00 Completed [facility] TDAP (ADACEL) VACCINE 2016-09-08 00:00:00 Completed [facility] TDAP (ADACEL) VACCINE 2016-09-08 00:00:00 Completed [facility] TDAP (ADACEL) VACCINE 2016-09-08 00:00:00 Completed [facility] TDAP (ADACEL) VACCINE 2016-09-08 00:00:00 Completed [facility] TDAP (ADACEL) VACCINE 2016-09-08 00:00:00 Completed [facility] TDAP (ADACEL) VACCINE 2016-09-08 00:00:00 Completed [facility] TDAP (ADACEL) VACCINE 2016-09-08 00:00:00 Completed [facility] TDAP (ADACEL) VACCINE 2016-09-08 00:00:00 Completed [facility] TDAP (ADACEL) VACCINE 2016-09-08 00:00:00 Completed [facility] TDAP (ADACEL) VACCINE 2016-09-08 00:00:00 Completed [facility] TDAP (ADACEL) VACCINE 2016-09-08 00:00:00 Completed [facility] TDAP (ADACEL) VACCINE 2016-09-08 00:00:00 Completed [facility] TDAP (ADACEL) VACCINE 2016-09-08 00:00:00 Completed [facility] TDAP (ADACEL) VACCINE 2016-09-08 00:00:00 Completed [facility] TDAP (ADACEL) VACCINE 2016-09-08 00:00:00 Completed [facility] TDAP (ADACEL) VACCINE 2016-09-08 00:00:00 Completed [facility] TDAP (ADACEL) VACCINE 2016-09-08 00:00:00 Completed [facility] TDAP (ADACEL) VACCINE 2016-09-08 00:00:00 Completed [facility] TDAP (ADACEL) VACCINE 2016-09-08 00:00:00 Completed [facility] TDAP (ADACEL) VACCINE 2016-09-08 00:00:00 Completed [facility] TDAP (ADACEL) VACCINE 2016-09-08 00:00:00 Completed [facility] TDAP (ADACEL) VACCINE 2016-09-08 00:00:00 Completed [facility] TDAP (ADACEL) VACCINE 2016-09-08 00:00:00 Completed [facility] TDAP (ADACEL) VACCINE 2016-09-08 00:00:00 Completed [facility] TDAP (ADACEL) VACCINE 2016-09-08 00:00:00 Completed [facility] HPV9 2015-11-05 00:00:00 Completed [facility] HPV9 2015-11-05 00:00:00 Completed [facility] HPV9 2015-11-05 00:00:00 Completed [facility] HPV9 2015-11-05 00:00:00 Completed [facility] HPV9 2015-11-05 00:00:00 Completed [facility] HPV9 2015-11-05 00:00:00 Completed [facility] HPV9 2015-11-05 00:00:00 Completed [facility] HPV9 2015-11-05 00:00:00 Completed [facility] HPV9 2015-11-05 00:00:00 Completed [facility] HPV9 2015-11-05 00:00:00 Completed [facility] HPV9 2015-11-05 00:00:00 Completed [facility] HPV9 2015-11-05 00:00:00 Completed [facility] HPV9 2015-11-05 00:00:00 Completed [facility] HPV9 2015-11-05 00:00:00 Completed [facility] HPV9 2015-11-05 00:00:00 Completed [facility] HPV9 2015-11-05 00:00:00 Completed [facility] HPV9 2015-11-05 00:00:00 Completed [facility] HPV9 2015-11-05 00:00:00 Completed [facility] HPV9 2015-11-05 00:00:00 Completed [facility] HPV9 2015-11-05 00:00:00 Completed [facility] HPV9 2015-11-05 00:00:00 Completed [facility] HPV9 2015-11-05 00:00:00 Completed [facility] HPV9 2015-11-05 00:00:00 Completed [facility] HPV9 2015-11-05 00:00:00 Completed [facility] HPV9 2015-11-05 00:00:00 Completed [facility] HPV9 2015-11-05 00:00:00 Completed [facility] HPV9 2015-11-05 00:00:00 Completed [facility] HPV9 2015-11-05 00:00:00 Completed [facility] HPV9 2015-11-05 00:00:00 Completed [facility] HPV9 2015-11-05 00:00:00 Completed [facility] HPV9 2015-11-05 00:00:00 Completed [facility] HPV9 2015-11-05 00:00:00 Completed [facility] HPV9 2015-11-05 00:00:00 Completed [facility] HPV9 2015-11-05 00:00:00 Completed [facility] HPV9 2015-11-05 00:00:00 Completed [facility] HPV9 2015-11-05 00:00:00 Completed [facility] HPV9 2015-11-05 00:00:00 Completed [facility] HPV9 2015-11-05 00:00:00 Completed [facility] HPV9 2015-11-05 00:00:00 Completed [facility] HPV9 2015-11-05 00:00:00 Completed [facility] HPV9 2015-11-05 00:00:00 Completed [facility] HPV9 2015-11-05 00:00:00 Completed [facility] HPV9 2015-11-05 00:00:00 Completed [facility] HPV9 2015-11-05 00:00:00 Completed [facility] HPV9 2015-08-08 00:00:00 Completed [facility] HPV9 2015-08-08 00:00:00 Completed [facility] HPV9 2015-08-08 00:00:00 Completed [facility] HPV9 2015-08-08 00:00:00 Completed [facility] HPV9 2015-08-08 00:00:00 Completed [facility] HPV9 2015-08-08 00:00:00 Completed [facility] HPV9 2015-08-08 00:00:00 Completed [facility] HPV9 2015-08-08 00:00:00 Completed [facility] HPV9 2015-08-08 00:00:00 Completed [facility] HPV9 2015-08-08 00:00:00 Completed [facility] HPV9 2015-08-08 00:00:00 Completed [facility] HPV9 2015-08-08 00:00:00 Completed [facility] HPV9 2015-08-08 00:00:00 Completed [facility] HPV9 2015-08-08 00:00:00 Completed [facility] HPV9 2015-08-08 00:00:00 Completed [facility] HPV9 2015-08-08 00:00:00 Completed [facility] HPV9 2015-08-08 00:00:00 Completed [facility] HPV9 2015-08-08 00:00:00 Completed [facility] HPV9 2015-08-08 00:00:00 Completed [facility] HPV9 2015-08-08 00:00:00 Completed [facility] HPV9 2015-08-08 00:00:00 Completed [facility] HPV9 2015-08-08 00:00:00 Completed [facility] HPV9 2015-08-08 00:00:00 Completed [facility] HPV9 2015-08-08 00:00:00 Completed [facility] HPV9 2015-08-08 00:00:00 Completed [facility] HPV9 2015-08-08 00:00:00 Completed [facility] HPV9 2015-08-08 00:00:00 Completed [facility] HPV9 2015-08-08 00:00:00 Completed [facility] HPV9 2015-08-08 00:00:00 Completed [facility] HPV9 2015-08-08 00:00:00 Completed [facility] HPV9 2015-08-08 00:00:00 Completed [facility] HPV9 2015-08-08 00:00:00 Completed [facility] HPV9 2015-08-08 00:00:00 Completed [facility] HPV9 2015-08-08 00:00:00 Completed [facility] HPV9 2015-08-08 00:00:00 Completed [facility] HPV9 2015-08-08 00:00:00 Completed [facility] HPV9 2015-08-08 00:00:00 Completed [facility] HPV9 2015-08-08 00:00:00 Completed [facility] HPV9 2015-08-08 00:00:00 Completed [facility] HPV9 2015-08-08 00:00:00 Completed [facility] HPV9 2015-08-08 00:00:00 Completed [facility] HPV9 2015-08-08 00:00:00 Completed [facility] HPV9 2015-08-08 00:00:00 Completed [facility] HPV9 2015-08-08 00:00:00 Completed [facility] Meningococcal Oligosaccharide (groups A, C, Y and W-135) conjugate vaccine (MCV4O) 2014-11-06 00:00:00 Completed [facility] Meningococcal Oligosaccharide (groups A, C, Y and W-135) conjugate vaccine (MCV4O) 2014-11-06 00:00:00 Completed [facility] Meningococcal Oligosaccharide (groups A, C, Y and W-135) conjugate vaccine (MCV4O) 2014-11-06 00:00:00 Completed [facility] Meningococcal Oligosaccharide (groups A, C, Y and W-135) conjugate vaccine (MCV4O) 2014-11-06 00:00:00 Completed [facility] Meningococcal Oligosaccharide (groups A, C, Y and W-135) conjugate vaccine (MCV4O) 2014-11-06 00:00:00 Completed [facility] Meningococcal Oligosaccharide (groups A, C, Y and W-135) conjugate vaccine (MCV4O) 2014-11-06 00:00:00 Completed [facility] Meningococcal Oligosaccharide (groups A, C, Y and W-135) conjugate vaccine (MCV4O) 2014-11-06 00:00:00 Completed [facility] Meningococcal Oligosaccharide (groups A, C, Y and W-135) conjugate vaccine (MCV4O) 2014-11-06 00:00:00 Completed [facility] Meningococcal Oligosaccharide (groups A, C, Y and W-135) conjugate vaccine (MCV4O) 2014-11-06 00:00:00 Completed [facility] Meningococcal Oligosaccharide (groups A, C, Y and W-135) conjugate vaccine (MCV4O) 2014-11-06 00:00:00 Completed [facility] Meningococcal Oligosaccharide (groups A, C, Y and W-135) conjugate vaccine (MCV4O) 2014-11-06 00:00:00 Completed [facility] Meningococcal Oligosaccharide (groups A, C, Y and W-135) conjugate vaccine (MCV4O) 2014-11-06 00:00:00 Completed [facility] Meningococcal Oligosaccharide (groups A, C, Y and W-135) conjugate vaccine (MCV4O) 2014-11-06 00:00:00 Completed [facility] Meningococcal Oligosaccharide (groups A, C, Y and W-135) conjugate vaccine (MCV4O) 2014-11-06 00:00:00 Completed [facility] Meningococcal Oligosaccharide (groups A, C, Y and W-135) conjugate vaccine (MCV4O) 2014-11-06 00:00:00 Completed [facility] Meningococcal Oligosaccharide (groups A, C, Y and W-135) conjugate vaccine (MCV4O) 2014-11-06 00:00:00 Completed [facility] Meningococcal Oligosaccharide (groups A, C, Y and W-135) conjugate vaccine (MCV4O) 2014-11-06 00:00:00 Completed [facility] Meningococcal Oligosaccharide (groups A, C, Y and W-135) conjugate vaccine (MCV4O) 2014-11-06 00:00:00 Completed [facility] Meningococcal Oligosaccharide (groups A, C, Y and W-135) conjugate vaccine (MCV4O) 2014-11-06 00:00:00 Completed [facility] Meningococcal Oligosaccharide (groups A, C, Y and W-135) conjugate vaccine (MCV4O) 2014-11-06 00:00:00 Completed [facility] Meningococcal Oligosaccharide (groups A, C, Y and W-135) conjugate vaccine (MCV4O) 2014-11-06 00:00:00 Completed [facility] Meningococcal Oligosaccharide (groups A, C, Y and W-135) conjugate vaccine (MCV4O) 2014-11-06 00:00:00 Completed [facility] Meningococcal Oligosaccharide (groups A, C, Y and W-135) conjugate vaccine (MCV4O) 2014-11-06 00:00:00 Completed [facility] Meningococcal Oligosaccharide (groups A, C, Y and W-135) conjugate vaccine (MCV4O) 2014-11-06 00:00:00 Completed [facility] Meningococcal Oligosaccharide (groups A, C, Y and W-135) conjugate vaccine (MCV4O) 2014-11-06 00:00:00 Completed [facility] Meningococcal Oligosaccharide (groups A, C, Y and W-135) conjugate vaccine (MCV4O) 2014-11-06 00:00:00 Completed [facility] Meningococcal Oligosaccharide (groups A, C, Y and W-135) conjugate vaccine (MCV4O) 2014-11-06 00:00:00 Completed [facility] Meningococcal Oligosaccharide (groups A, C, Y and W-135) conjugate vaccine (MCV4O) 2014-11-06 00:00:00 Completed [facility] Meningococcal Oligosaccharide (groups A, C, Y and W-135) conjugate vaccine (MCV4O) 2014-11-06 00:00:00 Completed [facility] Meningococcal Oligosaccharide (groups A, C, Y and W-135) conjugate vaccine (MCV4O) 2014-11-06 00:00:00 Completed [facility] Meningococcal Oligosaccharide (groups A, C, Y and W-135) conjugate vaccine (MCV4O) 2014-11-06 00:00:00 Completed [facility] Meningococcal Oligosaccharide (groups A, C, Y and W-135) conjugate vaccine (MCV4O) 2014-11-06 00:00:00 Completed [facility] Meningococcal Oligosaccharide (groups A, C, Y and W-135) conjugate vaccine (MCV4O) 2014-11-06 00:00:00 Completed [facility] Meningococcal Oligosaccharide (groups A, C, Y and W-135) conjugate vaccine (MCV4O) 2014-11-06 00:00:00 Completed [facility] Meningococcal Oligosaccharide (groups A, C, Y and W-135) conjugate vaccine (MCV4O) 2014-11-06 00:00:00 Completed [facility] Meningococcal Oligosaccharide (groups A, C, Y and W-135) conjugate vaccine (MCV4O) 2014-11-06 00:00:00 Completed [facility] Meningococcal Oligosaccharide (groups A, C, Y and W-135) conjugate vaccine (MCV4O) 2014-11-06 00:00:00 Completed [facility] Meningococcal Oligosaccharide (groups A, C, Y and W-135) conjugate vaccine (MCV4O) 2014-11-06 00:00:00 Completed [facility] Meningococcal Oligosaccharide (groups A, C, Y and W-135) conjugate vaccine (MCV4O) 2014-11-06 00:00:00 Completed [facility] Meningococcal Oligosaccharide (groups A, C, Y and W-135) conjugate vaccine (MCV4O) 2014-11-06 00:00:00 Completed [facility] Meningococcal Oligosaccharide (groups A, C, Y and W-135) conjugate vaccine (MCV4O) 2014-11-06 00:00:00 Completed [facility] Meningococcal Oligosaccharide (groups A, C, Y and W-135) conjugate vaccine (MCV4O) 2014-11-06 00:00:00 Completed [facility] Meningococcal Oligosaccharide (groups A, C, Y and W-135) conjugate vaccine (MCV4O) 2014-11-06 00:00:00 Completed [facility] Meningococcal Oligosaccharide (groups A, C, Y and W-135) conjugate vaccine (MCV4O) 2014-11-06 00:00:00 Completed [facility] TDAP (ADACEL) VACCINE 2010-12-09 00:00:00 Completed [facility] TDAP (ADACEL) VACCINE 2010-12-09 00:00:00 Completed [facility] TDAP (ADACEL) VACCINE 2010-12-09 00:00:00 Completed [facility] TDAP (ADACEL) VACCINE 2010-12-09 00:00:00 Completed [facility] TDAP (ADACEL) VACCINE 2010-12-09 00:00:00 Completed [facility] TDAP (ADACEL) VACCINE 2010-12-09 00:00:00 Completed [facility] TDAP (ADACEL) VACCINE 2010-12-09 00:00:00 Completed [facility] TDAP (ADACEL) VACCINE 2010-12-09 00:00:00 Completed [facility] TDAP (ADACEL) VACCINE 2010-12-09 00:00:00 Completed [facility] TDAP (ADACEL) VACCINE 2010-12-09 00:00:00 Completed [facility] TDAP (ADACEL) VACCINE 2010-12-09 00:00:00 Completed [facility] TDAP (ADACEL) VACCINE 2010-12-09 00:00:00 Completed [facility] TDAP (ADACEL) VACCINE 2010-12-09 00:00:00 Completed [facility] TDAP (ADACEL) VACCINE 2010-12-09 00:00:00 Completed [facility] TDAP (ADACEL) VACCINE 2010-12-09 00:00:00 Completed [facility] TDAP (ADACEL) VACCINE 2010-12-09 00:00:00 Completed [facility] TDAP (ADACEL) VACCINE 2010-12-09 00:00:00 Completed [facility] TDAP (ADACEL) VACCINE 2010-12-09 00:00:00 Completed [facility] TDAP (ADACEL) VACCINE 2010-12-09 00:00:00 Completed [facility] TDAP (ADACEL) VACCINE 2010-12-09 00:00:00 Completed [facility] TDAP (ADACEL) VACCINE 2010-12-09 00:00:00 Completed [facility] TDAP (ADACEL) VACCINE 2010-12-09 00:00:00 Completed [facility] TDAP (ADACEL) VACCINE 2010-12-09 00:00:00 Completed [facility] TDAP (ADACEL) VACCINE 2010-12-09 00:00:00 Completed [facility] TDAP (ADACEL) VACCINE 2010-12-09 00:00:00 Completed [facility] TDAP (ADACEL) VACCINE 2010-12-09 00:00:00 Completed [facility] TDAP (ADACEL) VACCINE 2010-12-09 00:00:00 Completed [facility] TDAP (ADACEL) VACCINE 2010-12-09 00:00:00 Completed [facility] TDAP (ADACEL) VACCINE 2010-12-09 00:00:00 Completed [facility] TDAP (ADACEL) VACCINE 2010-12-09 00:00:00 Completed [facility] TDAP (ADACEL) VACCINE 2010-12-09 00:00:00 Completed [facility] TDAP (ADACEL) VACCINE 2010-12-09 00:00:00 Completed [facility] TDAP (ADACEL) VACCINE 2010-12-09 00:00:00 Completed [facility] TDAP (ADACEL) VACCINE 2010-12-09 00:00:00 Completed [facility] TDAP (ADACEL) VACCINE 2010-12-09 00:00:00 Completed [facility] TDAP (ADACEL) VACCINE 2010-12-09 00:00:00 Completed [facility] TDAP (ADACEL) VACCINE 2010-12-09 00:00:00 Completed [facility] TDAP (ADACEL) VACCINE 2010-12-09 00:00:00 Completed [facility] TDAP (ADACEL) VACCINE 2010-12-09 00:00:00 Completed [facility] TDAP (ADACEL) VACCINE 2010-12-09 00:00:00 Completed [facility] TDAP (ADACEL) VACCINE 2010-12-09 00:00:00 Completed [facility] TDAP (ADACEL) VACCINE 2010-12-09 00:00:00 Completed [facility] TDAP (ADACEL) VACCINE 2010-12-09 00:00:00 Completed [facility] TDAP (ADACEL) VACCINE 2010-12-09 00:00:00 Completed [facility] TDAP (ADACEL) VACCINE Unknown Completed [facility] Meningococcal Oligosaccharide (groups A, C, Y and W-135) conjugate vaccine (MCV4O) Unknown Completed [facility] HPV9 Unknown Completed [facility] HPV9 Unknown Completed [facility] TDAP (ADACEL) VACCINE Unknown Completed [facility] HPV9 Unknown Completed [facility] Influenza Virus Vaccine Quad .5 mL IM 6+ MO (FLUZONE/FLULAVAL/FLU ARIX) Unknown Completed [facility] TDAP (ADACEL) VACCINE Unknown Completed [facility] Meningococcal Oligosaccharide (groups A, C, Y and W-135) conjugate vaccine (MCV4O) Unknown Completed [facility] HPV9 Unknown Completed [facility] HPV9 Unknown Completed [facility] TDAP (ADACEL) VACCINE Unknown Completed [facility] HPV9 Unknown Completed [facility] Influenza Virus Vaccine Quad .5 mL IM 6+ MO (FLUZONE/FLULAVAL/FLU ARIX) Unknown Completed [facility] TDAP (ADACEL) VACCINE Unknown Completed [facility] Meningococcal Oligosaccharide (groups A, C, Y and W-135) conjugate vaccine (MCV4O) Unknown Completed [facility] HPV9 Unknown Completed [facility] HPV9 Unknown Completed [facility] TDAP (ADACEL) VACCINE Unknown Completed [facility] HPV9 Unknown Completed [facility] Influenza Virus Vaccine Quad .5 mL IM 6+ MO (FLUZONE/FLULAVAL/FLU ARIX) Unknown Completed [facility] TDAP (ADACEL) VACCINE Unknown Completed [facility] Meningococcal Oligosaccharide (groups A, C, Y and W-135) conjugate vaccine (MCV4O) Unknown Completed [facility] HPV9 Unknown Completed [facility] HPV9 Unknown Completed [facility] TDAP (ADACEL) VACCINE Unknown Completed [facility] HPV9 Unknown Completed [facility] Influenza Virus Vaccine Quad .5 mL IM 6+ MO (FLUZONE/FLULAVAL/FLU ARIX) Unknown Completed [facility] TDAP (ADACEL) VACCINE Unknown Completed [facility] Meningococcal Oligosaccharide (groups A, C, Y and W-135) conjugate vaccine (MCV4O) Unknown Completed [facility] HPV9 Unknown Completed [facility] HPV9 Unknown Completed [facility] TDAP (ADACEL) VACCINE Unknown Completed [facility] HPV9 Unknown Completed [facility] Influenza Virus Vaccine Quad .5 mL IM 6+ MO (FLUZONE/FLULAVAL/FLU ARIX) Unknown Completed [facility] TDAP (ADACEL) VACCINE Unknown Completed [facility] Meningococcal Oligosaccharide (groups A, C, Y and W-135) conjugate vaccine (MCV4O) Unknown Completed [facility] HPV9 Unknown Completed [facility] HPV9 Unknown Completed [facility] TDAP (ADACEL) VACCINE Unknown Completed [facility] HPV9 Unknown Completed [facility] Influenza Virus Vaccine Quad .5 mL IM 6+ MO (FLUZONE/FLULAVAL/FLU ARIX) Unknown Completed [facility] TDAP (ADACEL) VACCINE Unknown Completed [facility] Meningococcal Oligosaccharide (groups A, C, Y and W-135) conjugate vaccine (MCV4O) Unknown Completed [facility] HPV9 Unknown Completed [facility] HPV9 Unknown Completed [facility] TDAP (ADACEL) VACCINE Unknown Completed [facility] HPV9 Unknown Completed [facility] Influenza Virus Vaccine Quad .5 mL IM 6+ MO (FLUZONE/FLULAVAL/FLU ARIX) Unknown Completed [facility] TDAP (ADACEL) VACCINE Unknown Completed [facility] Meningococcal Oligosaccharide (groups A, C, Y and W-135) conjugate vaccine (MCV4O) Unknown Completed [facility] HPV9 Unknown Completed [facility] HPV9 Unknown Completed [facility] TDAP (ADACEL) VACCINE Unknown Completed [facility] HPV9 Unknown Completed [facility] Influenza Virus Vaccine Quad .5 mL IM 6+ MO (FLUZONE/FLULAVAL/FLU ARIX) Unknown Completed [facility] TDAP (ADACEL) VACCINE Unknown Completed [facility] Meningococcal Oligosaccharide (groups A, C, Y and W-135) conjugate vaccine (MCV4O) Unknown Completed [facility] HPV9 Unknown Completed [facility] HPV9 Unknown Completed [facility] TDAP (ADACEL) VACCINE Unknown Completed [facility] HPV9 Unknown Completed [facility] Influenza Virus Vaccine Quad .5 mL IM 6+ MO (FLUZONE/FLULAVAL/FLU ARIX) Unknown Completed [facility] TDAP (ADACEL) VACCINE Unknown Completed [facility] Meningococcal Oligosaccharide (groups A, C, Y and W-135) conjugate vaccine (MCV4O) Unknown Completed [facility] HPV9 Unknown Completed [facility] HPV9 Unknown Completed [facility] TDAP (ADACEL) VACCINE Unknown Completed [facility] HPV9 Unknown Completed [facility] Influenza Virus Vaccine Quad .5 mL IM 6+ MO (FLUZONE/FLULAVAL/FLU ARIX) Unknown Completed [facility] TDAP (ADACEL) VACCINE Unknown Completed [facility] Meningococcal Oligosaccharide (groups A, C, Y and W-135) conjugate vaccine (MCV4O) Unknown Completed [facility] HPV9 Unknown Completed [facility] HPV9 Unknown Completed [facility] TDAP (ADACEL) VACCINE Unknown Completed [facility] HPV9 Unknown Completed [facility] Influenza Virus Vaccine Quad .5 mL IM 6+ MO (FLUZONE/FLULAVAL/FLU ARIX) Unknown Completed [facility] TDAP (ADACEL) VACCINE Unknown Completed [facility] Meningococcal Oligosaccharide (groups A, C, Y and W-135) conjugate vaccine (MCV4O) Unknown Completed [facility] HPV9 Unknown Completed [facility] HPV9 Unknown Completed [facility] TDAP (ADACEL) VACCINE Unknown Completed [facility] HPV9 Unknown Completed [facility] Influenza Virus Vaccine Quad .5 mL IM 6+ MO (FLUZONE/FLULAVAL/FLU ARIX) Unknown Completed [facility] TDAP (ADACEL) VACCINE Unknown Completed [facility] Meningococcal Oligosaccharide (groups A, C, Y and W-135) conjugate vaccine (MCV4O) Unknown Completed [facility] HPV9 Unknown Completed [facility] HPV9 Unknown Completed [facility] TDAP (ADACEL) VACCINE Unknown Completed [facility] HPV9 Unknown Completed [facility] Influenza Virus Vaccine Quad .5 mL IM 6+ MO (FLUZONE/FLULAVAL/FLU ARIX) Unknown Completed [facility] TDAP (ADACEL) VACCINE Unknown Completed [facility] Meningococcal Oligosaccharide (groups A, C, Y and W-135) conjugate vaccine (MCV4O) Unknown Completed [facility] HPV9 Unknown Completed [facility] HPV9 Unknown Completed [facility] TDAP (ADACEL) VACCINE Unknown [facility] [facility] HPV9 Unknown Completed [facility] Influenza Virus Vaccine Quad .5 mL IM 6+ MO (FLUZONE/FLULAVAL/FLU ARIX) Unknown Completed [facility] TDAP (ADACEL) VACCINE Unknown Completed [facility] Meningococcal Oligosaccharide (groups A, C, Y and W-135) conjugate vaccine (MCV4O) Unknown Completed [facility] HPV9 Unknown Completed [facility] HPV9 Unknown Completed [facility] TDAP (ADACEL) VACCINE Unknown Completed [facility] HPV9 Unknown Completed [facility] Influenza Virus Vaccine Quad .5 mL IM 6+ MO (FLUZONE/FLULAVAL/FLU ARIX) Unknown Completed [facility] TDAP (ADACEL) VACCINE Unknown Completed [facility] Meningococcal Oligosaccharide (groups A, C, Y and W-135) conjugate vaccine (MCV4O) Unknown Completed [facility] HPV9 Unknown Completed [facility] HPV9 Unknown Completed [facility] TDAP (ADACEL) VACCINE Unknown Completed [facility] HPV9 Unknown Completed [facility] Influenza Virus Vaccine Quad .5 mL IM 6+ MO (FLUZONE/FLULAVAL/FLU ARIX) Unknown Completed [facility] TDAP (ADACEL) VACCINE Unknown Completed [facility] Meningococcal Oligosaccharide (groups A, C, Y and W-135) conjugate vaccine (MCV4O) Unknown Completed [facility] HPV9 Unknown Completed [facility] HPV9 Unknown Completed [facility] TDAP (ADACEL) VACCINE Unknown Completed [facility] HPV9 Unknown Completed [facility] Influenza Virus Vaccine Quad .5 mL IM 6+ MO (FLUZONE/FLULAVAL/FLU ARIX) Unknown Completed [facility] TDAP (ADACEL) VACCINE Unknown Completed [facility] Meningococcal Oligosaccharide (groups A, C, Y and W-135) conjugate vaccine (MCV4O) Unknown Completed [facility] HPV9 Unknown Completed [facility] HPV9 Unknown Completed [facility] TDAP (ADACEL) VACCINE Unknown Completed [facility] HPV9 Unknown Completed [facility] Influenza Virus Vaccine Quad .5 mL IM 6+ MO (FLUZONE/FLULAVAL/FLU ARIX) Unknown Completed [facility] Vital Signs Vital Name Observation Time Observation Value Comments S ource Systolic blood pressure 2023-03-31 02:17:00 122 mm[Hg] [facility] Diastolic blood pressure 2023-03-31 02:17:00 78 mm[Hg] [facility] Heart rate 2023-03-31 02:17:00 87 /min [facility] Body temperature 2023-03-31 02:17:00 37.11 Marga [facility] Respiratory rate 2023-03-31 02:17:00 18 /min [facility] Oxygen saturation in Arterial blood by Pulse oximetry 2023-03-31 02:17:00 99 /min [facility] Body height 2023-03-30 23:12:00 152.4 cm [facility] Body weight 2023-03-30 23:12:00 90.719 kg [facility] BMI 2023-03-30 23:12:00 39.06 kg/m2 [facility] Systolic blood pressure 2023-03-19 21:09:00 105 mm[Hg] [facility] Diastolic blood pressure 2023-03-19 21:09:00 75 mm[Hg] [facility] Heart rate 2023-03-19 21:09:00 90 /min [facility] Body temperature 2023-03-19 21:09:00 36.67 Marga [facility] Respiratory rate 2023-03-19 21:09:00 16 /min [facility] Body height 2023-03-19 21:09:00 152.4 cm [facility] Body weight 2023-03-19 21:09:00 92.897 kg [facility] BMI 2023-03-19 21:09:00 40.00 kg/m2 [facility] Oxygen saturation in Arterial blood by Pulse oximetry 2023-03-19 21:09:00 98 /min [facility] Systolic blood pressure 2023-03-09 21:06:00 119 mm[Hg] [facility] Diastolic blood pressure 2023-03-09 21:06:00 79 mm[Hg] [facility] Heart rate 2023-03-09 21:06:00 79 /min [facility] Body temperature 2023-03-09 21:06:00 37.06 Marga [facility] Respiratory rate 2023-03-09 21:06:00 18 /min [facility] Body height 2023-03-09 21:06:00 152.4 cm [facility] Body weight 2023-03-09 21:06:00 93.078 kg [facility] BMI 2023-03-09 21:06:00 40.08 kg/m2 [facility] Oxygen saturation in Arterial blood by Pulse oximetry 2023-03-09 21:06:00 97 /min [facility] Systolic blood pressure 2023-01-07 16:25:00 111 mm[Hg] [facility] Diastolic blood pressure 2023-01-07 16:25:00 78 mm[Hg] [facility] Heart rate 2023-01-07 16:25:00 90 /min [facility] Body temperature 2023-01-07 16:25:00 37.11 Marga [facility] Respiratory rate 2023-01-07 16:25:00 16 /min [facility] Body weight 2023-01-07 16:25:00 92.806 kg [facility] BMI 2023-01-07 16:25:00 39.96 kg/m2 [facility] Oxygen saturation in Arterial blood by Pulse oximetry 2023-01-07 16:25:00 99 /min [facility] Systolic blood pressure 2022-12-11 14:50:00 126 mm[Hg] [facility] Diastolic blood pressure 2022-12-11 14:50:00 81 mm[Hg] [facility] Heart rate 2022-12-11 14:50:00 84 /min [facility] Body temperature 2022-12-11 14:50:00 36.94 Marga [facility] Respiratory rate 2022-12-11 14:50:00 18 /min [facility] Body height 2022-12-11 14:50:00 152.4 cm [facility] Body weight 2022-12-11 14:50:00 90.538 kg [facility] BMI 2022-12-11 14:50:00 38.98 kg/m2 [facility] Oxygen saturation in Arterial blood by Pulse oximetry 2022-12-11 14:50:00 98 /min [facility] Systolic blood pressure 2022-12-02 17:49:00 122 mm[Hg] [facility] Diastolic blood pressure 2022-12-02 17:49:00 86 mm[Hg] [facility] Heart rate 2022-12-02 17:49:00 76 /min [facility] Body temperature 2022-12-02 17:49:00 36.5 Marga [facility] Respiratory rate 2022-12-02 17:49:00 18 /min [facility] Body height 2022-12-02 17:49:00 152.4 cm [facility] Body weight 2022-12-02 17:49:00 91.627 kg [facility] BMI 2022-12-02 17:49:00 39.45 kg/m2 [facility] Oxygen saturation in Arterial blood by Pulse oximetry 2022-12-02 17:49:00 97 /min [facility] Systolic blood pressure 2022-09-15 19:46:00 114 mm[Hg] [facility] Diastolic blood pressure 2022-09-15 19:46:00 77 mm[Hg] [facility] Heart rate 2022-09-15 19:46:00 82 /min [facility] Body temperature 2022-09-15 19:46:00 36.61 Marga [facility] Respiratory rate 2022-09-15 19:46:00 18 /min [facility] Body weight 2022-09-15 19:46:00 88.814 kg [facility] BMI 2022-09-15 19:46:00 38.24 kg/m2 [facility] Oxygen saturation in Arterial blood by Pulse oximetry 2022-09-15 19:46:00 98 /min [facility] Systolic blood pressure 2022-08-22 19:05:00 122 mm[Hg] [facility] Diastolic blood pressure 2022-08-22 19:05:00 83 mm[Hg] [facility] Heart rate 2022-08-22 19:05:00 76 /min [facility] Body weight 2022-08-22 19:05:00 90.583 kg [facility] BMI 2022-08-22 19:05:00 39.00 kg/m2 [facility] Oxygen saturation in Arterial blood by Pulse oximetry 2022-08-22 19:05:00 97 /min [facility] Systolic blood pressure 2022-07-24 19:59:00 106 mm[Hg] [facility] Diastolic blood pressure 2022-07-24 19:59:00 68 mm[Hg] [facility] Heart rate 2022-07-24 19:59:00 75 /min [facility] Body temperature 2022-07-24 19:59:00 36.72 Marga [facility] Respiratory rate 2022-07-24 19:59:00 18 /min [facility] Body height 2022-07-24 19:59:00 152.4 cm [facility] Body weight 2022-07-24 19:59:00 91.082 kg [facility] BMI 2022-07-24 19:59:00 39.22 kg/m2 [facility] Systolic blood pressure 2022-06-27 20:39:00 112 mm[Hg] [facility] Diastolic blood pressure 2022-06-27 20:39:00 81 mm[Hg] [facility] Heart rate 2022-06-27 20:39:00 77 /min [facility] Body temperature 2022-06-27 20:39:00 36.72 Marga [facility] Respiratory rate 2022-06-27 20:39:00 18 /min [facility] Body height 2022-06-27 20:39:00 152.4 cm [facility] Body weight 2022-06-27 20:39:00 91.627 kg [facility] BMI 2022-06-27 20:39:00 39.45 kg/m2 [facility] Oxygen saturation in Arterial blood by Pulse oximetry 2022-06-27 20:39:00 100 /min [facility] Systolic blood pressure 2022-06-10 19:22:00 118 mm[Hg] [facility] Diastolic blood pressure 2022-06-10 19:22:00 83 mm[Hg] [facility] Heart rate 2022-06-10 19:22:00 79 /min [facility] Body temperature 2022-06-10 19:22:00 37.22 Marga [facility] Respiratory rate 2022-06-10 19:22:00 16 /min [facility] Body height 2022-06-10 19:22:00 152.4 cm [facility] Body weight 2022-06-10 19:22:00 91.037 kg [facility] BMI 2022-06-10 19:22:00 39.20 kg/m2 [facility] Oxygen saturation in Arterial blood by Pulse oximetry 2022-06-10 19:22:00 97 /min [facility] Systolic blood pressure 2022-04-23 17:05:00 106 mm[Hg] [facility] Diastolic blood pressure 2022-04-23 17:05:00 73 mm[Hg] [facility] Heart rate 2022-04-23 17:05:00 84 /min [facility] Body temperature 2022-04-23 17:05:00 36.94 Marga [facility] Respiratory rate 2022-04-23 17:05:00 18 /min [facility] Body height 2022-04-23 17:05:00 152.4 cm [facility] Body weight 2022-04-23 17:05:00 89.903 kg [facility] BMI 2022-04-23 17:05:00 38.71 kg/m2 [facility] Oxygen saturation in Arterial blood by Pulse oximetry 2022-04-23 17:05:00 98 /min [facility] Systolic blood pressure 2022-01-23 19:49:00 107 mm[Hg] [facility] Diastolic blood pressure 2022-01-23 19:49:00 64 mm[Hg] [facility] Heart rate 2022-01-23 19:49:00 85 /min [facility] Body temperature 2022-01-23 19:49:00 36.94 Marga [facility] Respiratory rate 2022-01-23 19:49:00 20 /min [facility] Body height 2022-01-23 19:49:00 152.4 cm [facility] Body weight 2022-01-23 19:49:00 88.089 kg [facility] BMI 2022-01-23 19:49:00 37.93 kg/m2 [facility] Procedures Procedure Date / Time Performed Performing Clinician Source THYROID STIMULATING HORMONE 2023-03-31 00:22:00 Sharlene Rodgers [facility] COMP. METABOLIC PANEL (49409) 2023-03-31 00:22:00 Sharlene Rodgers [facility] TOTAL BETA HCG ASSAY 2023-03-31 00:22:00 Sharlene Rodgers [facility] CBC WITH DIFF 2023-03-31 00:22:00 Sharlene Rodgers [facility] URINALYSIS 2023-03-31 00:22:00 Sharlene Rodgers [facility] CONSENT/REFUSAL FOR DIAGNOSI S AND TREATMENT 2023-03-30 22:45:33 Doctor Unassigned, Oktaha [facility] POCT MOLECULAR FLU 2023-03-19 21:19:00 Unknown, Attending [facility] POCT MOLECULAR STREP 2023-01-07 16:23:00 Unknown, Attending [facility] POCT SARS-COV-2 ANTIGEN (BIN AX NOW) 2022-12-02 18:26:00 Lillian Montana [facility] CORTISOL AM 2022-08-26 14:04:00 Joss Shay [facility] FREE T4 2022-08-26 14:04:00 Joss Shay [facility] THYROID STIMULATING HORMONE 2022-08-26 14:04:00 Joss Shay [facility] FOLLICLE STIMULATING HORMONE 2022-08-26 14:04:00 Joss Shay [facility] LUTEINIZING HORMONE SERUM 2022-08-26 14:04:00 Joss Shay [facility] DEHYDROEPIANDROSTERONE SULFATE 2022-08-09 8 14:04:00 Joss Shay [facility] GLYCOSYLATED HEMOGLOBIN (A1C) 2022-08-26 14:04:00 Joss Shay [facility] FREE T3 2022-08-26 14:04:00 Joss Shay [facility] PATIENT FINANCIAL POLICY 2022-07-24 19:43:32 Doctor Unassigned, Oktaha [facility] POCT MOLECULAR STREP 2022-06-27 20:44:00 Unknown, Attending [facility] POCT TEST 2022-04-23 00:00:00 Lillian Montana [facility] THYROID STIMULATING HORMONE 2022-01-23 20:41:00 Britt Caruso [facility] TESTOSTERONE 2022-01-23 20:41:00 Britt Caruso [facility] FOLLICLE STIMULATING HORMONE 2022-01-23 20:41:00 Britt Caruso [facility] LUTEINIZING HORMONE SERUM 2022-01-23 20:41:00 Britt Caruso [facility] GLYCOSYLATED HEMOGLOBIN (A1C) 2022-01-23 20:41:00 Britt Caruso [facility] HIV 1/2 AG-AB WITH REFLEX 2022-01-23 20:41:00 Britt Caruso [facility] PAP SMEAR-LIQUID BASED-CP 2022-01-23 20:41:00 Britt Caruso [facility] POCT TEST 2022-01-23 20:04:00 Britt Caruso [facility] Encounters Start Date/Time End Date/Time Encounter Type Admission Type Attending Clinicians Care Facility Care Department Encounter ID Source 2021-03-10 16:49:15 Emergency [facility] [id number] [facility] 2023-03-30 17:17:00 2023-03-30 20:47:00 Emergency X SHARLENE RODGERS [facility] ERT [id number] [facility] 2023-03-30 17:17:00 2023-03-30 20:47:00 Emergency Sharlene Rodgers [facility] 1.2.840.114 350.1.13.10 4.2.7.2.686 [id number] [facility] 2023-03-28 00:00:00 2023-03-28 00:00:00 Outpatient Rutledge_L MMG [id number] [facility] 2023-03-24 09:00:00 2023-03-24 09:00:00 Outpatient R SAVANNA ROB [facility] [id number] [facility] 2023-03-24 00:00:00 2023-03-24 00:00:00 Outpatient Rutledge_L MMG [id number] [facility] 2023-03-19 14:40:00 2023-03-19 15:44:43 Outpatient R DALILA ALMEIDA [facility] [id number] [facility] 2023-03-19 14:40:00 2023-03-19 15:00:00 Urgent Care Dalila Almeida Unknown, Attending [facility] 1.2.840.114 350.1.13.10 4.2.7.2.686 [id number] [facility] 2023-03-13 10:00:00 2023-03-13 10:00:00 Outpatient R [facility] [id number] [facility] 2023-03-09 16:00:00 2023-03-09 16:20:46 Outpatient R LILLIAN MONTANA [facility] [id number] [facility] 2023-03-09 16:00:00 2023-03-09 16:20:00 Urgent Care RubénLillian Unknown, Attending [facility] 1.2.840.114 350.1.13.10 4.2.7.2.686 [id number] [facility] 2023-02-06 00:00:00 2023-02-06 00:00:00 [facility] 1..840.114 350.1.13.10 4.2.7.2.686 [id number] [facility] 2023-02-04 00:00:00 2023-02-04 00:00:00 [facility] 1..840.114 350.1.13.10 4.2.7.2.686 [id number] [facility] 2023-01-07 11:00:00 2023-01-07 11:35:29 Outpatient R DIANA GARCIA [facility] [id number] [facility] 2023-01-07 11:00:00 2023-01-07 11:35:29 Urgent Care Diana Garcia Unknown, Attending [facility] 1.84.114 350.1.13.10 4.2.7.2.686 [id number] [facility] 2023-01-06 00:00:00 2023-01-06 00:00:00 Thea Her [facility] 1..114 350.1.13.10 4.2.7.2.686 [id number] [facility] 2022-12-23 00:00:00 2022-12-23 00:00:00 Patient Secure Msg Doctor Unassigned, Oktaha [facility] 1.114 350.1.13.10 4.2.7.2.686 [id number] [facility] 2022-12-22 12:18:34 2022-12-22 23:59:00 Outpatient R KSENIA ANDREA [facility] [id number] [facility] 2022-12-22 12:18:34 2022-12-22 23:59:00 Hospital Encounter Ksenia Andrea [facility] 1..114 350.1.13.10 4.2.7.2.686 [id number] [facility] 2022-12-11 10:00:00 2022-12-11 11:08:09 Outpatient R KSENIA ANDREA [facility] [id number] [facility] 2022-12-11 10:00:00 2022-12-11 11:08:09 Office Visit Pgy3 Ksenia Andrea [facility] 1..114 350.1.13.10 4.2.7.2.686 [id number] [facility] 2022-12-02 12:40:00 2022-12-02 13:31:05 Outpatient LILLIAN GARCIA [facility] [id number] [facility] 2022-12-02 12:40:00 2022-12-02 13:31:05 Urgent Care Lillian [place] Unknown, Attending [facility] 1.2840.114 350.1.13.10 4.2.7.2.686 [id number] [facility] 2022-12-02 00:00:00 2022-12-02 00:00:00 Letter (Out) Provider, Augie Dennis [facility] 1.2840.114 350.1.13.10 4.2.7.2.686 [id number] [facility] 2022-11-26 00:00:00 2022-11-26 00:00:00 Patient Secure MsPhilomena Babb [facility] PUBLIC EMPLOYMENT MEDIATOR [facility] & CHILD [facility] 1.840.114 350.1.13.10 4.2.7.2.686 [id number] [facility] 2022-11-10 00:00:00 2022-11-10 00:00:00 Case Management Savanna Rob [facility] PUBLIC EMPL[facility]MENT [facility] 1.2.840.114 350.1.13.10 4.2.7.2.686 [id number] [facility] 2022-11-07 08:15:00 2022-11-07 08:30:00 Integration Project Manager Visit Lab, Augie-RmchPhilomena Gutierrez [facility] PUBLIC EMPLOYMENT [facility] 1.840.114 350.1.13.10 4.2.7.2.686 [id number] [facility] 2022-11-07 08:15:00 2022-11-07 08:15:00 Outpatient R PHILOMENA FOX [facility] [id number] [facility] 2022-11-06 00:00:00 2022-11-06 00:00:00 Telephone Parviz Geraldine L MICHELLWayne [facility] 1.0.114 350.1.13.10 4.2.7.2.686 [id number] [facility] 2022-11-05 00:00:00 2022-11-05 00:00:00 Case Management Savanna Rob [facility] PUBLIC EMPLOYMENT MEDIATOR [facility] MATERNAL & CHILD [facility] 1.840.114 350.1.13.10 4.2.7.2.686 [id number] [facility] 2022-11-04 00:00:00 2022-11-04 00:00:00 Patient Secure Msg Joss Shay [facility] 1..114 350.1.13.10 4.2.7.2.686 [id number] [facility] 2022-10-30 00:00:00 2022-10-30 00:00:00 Patient Secure Msg Philomena Fox [facility] PUBLIC EMPLOYMENT MEDIATOR [facility] CHILD [facility] 1.0.114 350.1.13.10 4.2.7.2.686 [id number] [facility] 2022-10-14 00:00:00 2022-10-14 00:00:00 Telephone Pgy3 [facility] 1.0.114 350.1.13.10 4.2.7.2.686 [id number] [facility] 2022-10-07 00:00:00 2022-10-07 00:00:00 Case Management Savanna Rob [facility] PUBLIC EMPLOYMENT MEDIATOR [facility] & CHILD [facility] 1.840.114 350.1.13.10 4.2.7.2.686 [id number] [facility] 2022-10-05 00:00:00 2022-10-05 00:00:00 Patient Secure Msg Philomena Fox [facility] PUBLIC EMPLOYMENT MEDIATOR [facility] 1.0.114 350.1.13.10 4.2.7.2.686 [id number] [facility] 2022-09-15 14:40:00 2022-09-15 15:03:03 Outpatient R LILLIAN MONTANA [facility] [id number] [facility] 2022-09-15 14:40:00 2022-09-15 15:00:00 Urgent Care Lillian [place] Unknown, Attending [facility] 1.114 350.1.13.10 4.2.7.2.686 [id number] [facility] 2022-09-15 00:00:00 2022-09-15 00:00:00 Letter (Out) Lillian Montana [facility] 1.114 350.1.13.10 4.2.7.2.686 [id number] [facility] 2022-09-09 07:45:00 2022-09-09 07:45:00 Outpatient R PHILOMENA FOX [facility] [id number] [facility] 2022-09-03 00:00:00 2022-09-03 00:00:00 Case Management Savanna Rob [facility] PUBLIC EMPLOYMENT MEDIATOR [facility] CHILD [facility] 1..114 350.1.13.10 4.2.7.2.686 [id number] [facility] 2022-09-03 00:00:00 2022-09-03 00:00:00 Patient Secure Msg Philomena Fox [facility] PUBLIC EMPLOYMENT MEDIATOR [facility] CHILD [facility] 1..114 350.1.13.10 4.2.7.2.686 [id number] [facility] 2022-08-27 14:33:09 2022-08-27 23:59:00 Outpatient R SAVANNA ROB [facility] [id number] [facility] 2022-08-27 14:33:09 2022-08-27 23:59:00 Hospital Encounter Savanna Rob A [facility] 1.840.114 350.1.13.10 4.2.7.2.686 [id number] [facility] 2022-08-27 00:00:00 2022-08-27 00:00:00 Patient Secure jane Shay Joss [facility] 1.840.114 350.1.13.10 4.2.7.2.686 [id number] [facility] 2022-08-26 08:45:00 2022-08-26 08:48:12 Integration Project Manager Visit Lab, Augie Shay [facility] 1.840.114 350.1.13.10 4.2.7.2.686 [id number] [facility] 2022-08-26 08:45:00 2022-08-26 08:45:00 Outpatient R JOSS SHAY [facility] [id number] [facility] 2022-08-22 14:00:00 2022-08-22 14:40:11 Outpatient R JOSS SHAY [facility] [id number] [facility] 2022-08-22 14:00:00 2022-08-22 14:40:11 Office Visit Joss Shay [facility] 1.840.114 350.1.13.10 4.2.7.2.686 [id number] [facility] 2022-07-24 15:00:00 2022-07-24 15:29:56 Outpatient R SAVANNA ROB [facility] [id number] [facility] 2022-07-24 15:00:00 2022-07-24 15:29:56 Office Visit Provider, Savanna Rocha [facility] PUBLIC EMPLOYMENT MEDIATOR [facility] MATER[facility] & [facility] 1.114 350.1.13.10 4.2.7.2.686 [id number] [facility] 2022-07-24 00:00:00 2022-07-24 00:00:00 Orders Only Doctor Unassigned, Ok[place]ha [facility] 1..114 350.1.13.10 4.2.7.2.686 [id number] [id number] [facility] 2022-06-27 14:40:00 2022-06-27 15:00:51 Outpatient R JAMES SANTIZO [facility] [id number] [facility] 2022-06-27 14:40:00 2022-06-27 15:00:51 Urgent Care James Santizo Unknown, Attending [facility] 1.840.114 350.1.13.10 4.2.7.2.686 [id number] 370 [id number] [facility] 2022-06-27 00:00:00 2022-06-27 00:00:00 Letter (Out) Provider, Augie Db [facility] 1.84.114 350.1.13.10 4.2.7.2.686 [id number] 370 [id number] [facility] 2022-06-10 14:00:00 2022-06-10 14:20:00 Urgent Care Khadra Cox Unknown, Attending [facility] 1.840.114 350.1.13.10 4.2.7.2.686 [id number] 370 [id number] [facility] 2022-06-10 14:00:00 2022-06-10 14:00:00 Outpatient R KHADRA COX [facility] [id number] [facility] 2022-06-10 00:00:00 2022-06-10 00:00:00 Letter (Out) Brooke [facility] 1.840.114 350.1.13.10 4.2.7.2.686 [id number] 370 [id number] [facility] 2022-06-10 00:00:00 2022-06-10 00:00:00 Patient Secure Msg Philomena Fox [facility] PUBLIC EMPLOYMENT MEDIATOR [facility] 1.84.114 350.1.13.10 4.2.7.2.686 [id number] [facility] 2022-04-23 11:00:00 2022-04-23 11:38:43 Outpatient R LILLIAN MONTANA [facility] [id number] [facility] 2022-04-23 11:00:00 2022-04-23 11:20:00 Urgent Care Lillian Montana Unknown, Attending [facility] MED[facility] OFFICE BUILDING 1.840.114 350.1.13.10 4.2.7.2.686 [id number] 370 [id number] [facility] 2022-04-23 00:00:00 2022-04-23 00:00:00 Letter (Out) Lillian Montana [facility] MEDICAL OFFICE BUILDING 1.840.114 350.1.13.10 4.2.7.2.686 [id number] 370 [id number] [facility] 2022-04-23 00:00:00 2022-04-23 00:00:00 Telephone Gina Schafer [facility] 1.2.840.114 350.1.13.10 4.2.7.2.686 [id number] [facility] 2022-02-14 00:00:00 2022-02-14 00:00:00 Telephone David Phillip [facility] PUBLIC EMPLOYMENT MEDIATOR [facility] & CHILD [facility] 1.2.840.114 350.1.13.10 4.2.7.2.686 [id number] 107 [id number] [facility] 2022-02-06 00:00:00 2022-02-06 00:00:00 Telephone Britt Caruso [facility] PUBLIC EMPLOYMENT MEDIATOR [facility] & CHILD [facility] 1.2.840.114 350.1.13.10 4.2.7.2.686 [id number] 107 [id number] [facility] 2022-01-29 00:00:00 2022-01-29 00:00:00 Patient Secure Msg Britt Caruso [facility] PUBLIC EMPLOYMENT MEDIATOR [facility] & CHILD [facility] 1.2.840.114 350.1.13.10 4.2.7.2.686 [id number] 107 [id number] [facility] 2022-01-23 14:45:00 2022-01-23 15:42:19 Office Visit Britt Caruso [facility] PUBLIC EMPLOYMENT MEDIATOR [facility] & CHILD [facility] 1.2.840.114 350.1.13.10 4.2.7.2.686 [id number] 107 [id number] [facility] 2022-01-23 14:45:00 2022-01-23 15:42:19 Outpatient BRITT SIDDIQUI [facility] [id number] [facility] 2022-01-23 14:45:00 2022-01-23 14:45:00 Outpatient BRITT SIDDIQUI [facility] [id number] [facility] 2022-01-23 00:00:00 2022-01-23 00:00:00 Orders Only Doctor Unassigned, Oktaha [facility] 1.2.840.114 350.1.13.10 4.2.7.2.686 [id number] [id number] [facility] 2021-11-03 00:00:00 2021-11-03 00:00:00 Letter (Out) PrasadChanel [facility] 1.2.840.114 350.1.13.10 4.2.7.2.686 [id number] [facility] 2021-11-02 15:40:00 2021-11-02 15:55:31 Outpatient R THELMA ORTIZ [facility] [id number] [facility] 2021-11-02 15:40:00 2021-11-02 15:55:31 [facility] 1.2.840.114 350.1.13.10 4.2.7.2.686 [id number] 370 [id number] [facility] 2021-11-02 00:00:00 2021-11-02 00:00:00 Orders Only Doctor Unassigned, Oktaha [facility] 1.2840.114 350.1.13.10 4.2.7.2.686 [id number] [id number] [facility] 2021-09-24 11:00:00 2021-09-24 11:00:00 Outpatient R PHILOMENA FOX [facility] [id number] [facility] 2021-09-22 20:22:00 2021-09-22 22:58:00 Emergency X CECE ACEVEDO [facility] ERT [id number] [facility] 2021-09-22 20:22:00 2021-09-22 22:58:00 Emergency Cece Acevedo [facility] 1.2.840.114 350.1.13.10 4.2.7.2.686 [id number] [facility] 2021-06-10 09:00:00 2021-06-10 10:01:34 Outpatient R PHILOMENA FOX [facility] [id number] [facility] 2021-06-10 09:00:00 2021-06-10 10:01:34 Office Visit Philomena Fox [facility] PUBLIC EMPLOYMENT MEDIATOR [facility] MATERNAL & CHILD [facility] 1.2.840.114 350.1.13.10 4.2.7.2.686 [id number] 107 [id number] [facility] 2021-06-07 00:00:00 2021-06-07 00:00:00 Patient Secure Msg Philomena Fox [facility] PUBLIC EMPLOYMENT MEDIATOR [facility] & CHILD [facility] 1.2.840.114 350.1.13.10 4.2.7.2.686 [id number] 107 [id number] [facility] 2021-06-07 00:00:00 2021-06-07 00:00:00 Telephone Britt Caruso [facility] PUBLIC EMPLOYMENT MEDIATOR [facility] & CHILD [facility] 1.2.840.114 350.1.13.10 4.2.7.2.686 [id number] 107 [id number] [facility] 2021-05-14 00:00:00 2021-05-14 00:00:00 Telephone Keri Lee [facility] 1.2.840.114 350.1.13.10 4.2.7.2.686 [id number] [facility] 2021-05-13 13:20:00 2021-05-13 14:20:26 Outpatient R LILLIAN MONTANA [facility] [id number] [facility] 2021-05-13 13:20:00 2021-05-13 13:40:00 Urgent Care Dalila Almeida Amanda [facility] 1.2.840.114 350.1.13.10 4.2.7.2.686 [id number] 370 [id number] [facility] 2021-04-17 13:00:00 2021-04-17 13:00:00 Outpatient R ANGÉLICA VISHAL [facility] [id number] [facility] 2021-04-17 13:00:00 2021-04-17 13:00:00 Outpatient R LINDSAY VISHAL [facility] [id number] [facility] 2021-04-08 00:00:00 2021-04-08 00:00:00 Patient Secure Msg Philomena Fox [facility] PUBLIC EMPLOYMENT MEDIATOR [facility] MATERNAL & CHILD [facility] 1..840.114 350.1.13.10 4.2.7.2.686 [id number] 107 [id number] [facility] 2021-03-27 00:00:00 2021-03-27 00:00:00 Telephone LindsayVishal [facility] MED[facility] OFFICE BUILDING 1..840.114 350.1.13.10 4.2.7.2.686 [id number] [facility] 2021-03-22 00:00:00 2021-03-22 00:00:00 Patient Secure Msg Gerber Roldan [facility] MEDICAL OFFICE BUILDING 1..840.114 350.1.13.10 4.2.7.2.686 [id number] 198 [id number] [facility] 2021-03-18 14:30:00 2021-03-18 14:42:54 Outpatient R VISHAL LINDSAY [facility] [id number] [facility] 2021-03-18 14:12:12 2021-03-18 14:42:54 Office Visit Vishal Lindsay [facility] MEDICAL OFFICE BUILDING 1.2.840.114 350.1.13.10 4.2.7.2.686 [id number] [facility] 2021-03-17 19:20:00 2021-03-17 21:01:00 Emergency X RANDY LOWERY [facility] ERT [id number] [facility] 2021-03-17 19:20:00 2021-03-17 21:01:00 Emergency Randy Lowery [facility] 1.2.840.114 350.1.13.10 4.2.7.2.686 [id number] [facility] 2021-03-17 19:20:00 2021-03-17 21:01:00 Emergency X RANDY LOWERY [facility] ERT [id number] [facility] 2021-02-05 09:00:00 2021-02-05 09:00:00 Outpatient R [facility] [id number] [facility] 2021-02-03 10:40:15 2021-02-03 11:00:15 Urgent Care Lillian Montana [facility] 1.2.840.114 350.1.13.10 4.2.7.2.686 [id number] [facility] 2021-02-03 11:00:00 2021-02-03 11:00:00 Outpatient R LILLIAN MONTANA [facility] [id number] [facility] 2021-01-30 14:15:00 2021-01-30 14:15:00 Outpatient R BRITT CARUSO [facility] [id number] [facility] 2021-01-23 15:30:00 2021-01-23 15:30:00 Outpatient R [facility] [id number] [facility] 2020-12-31 15:15:00 2020-12-31 15:15:00 Outpatient R PHILOMENA FOX [facility] [id number] [facility] 2020-12-14 13:15:00 2020-12-14 13:15:00 Outpatient R PHILOMENA FOX [facility] [id number] [facility] 2020-12-11 00:00:00 2020-12-11 00:00:00 Patient Secure Msg Philomena Fox [facility] PUBLIC EMPLOYMENT MEDIATOR [facility] & CHILD [facility] 1.2.840.114 350.1.13.10 4.2.7.2.686 [id number] 107 [id number] [facility] 2020-11-08 00:00:00 2020-11-08 00:00:00 Telephone Philomena Fox [facility] PUBLIC EMPLOYMENT MEDIATOR [facility] CHILD [facility] 1.2.840.114 350.1.13.10 4.2.7.2.686 [id number] 107 [id number] [facility] 2020-11-05 00:00:00 2020-11-05 00:00:00 Patient Secure Msg Philomena Fox [facility] PUBLIC EMPLOYMENT MEDIATOR [facility] CHILD [facility] 1.2.840.114 350.1.13.10 4.2.7.2.686 [id number] 107 [id number] [facility] 2020-11-03 00:00:00 2020-11-03 00:00:00 Refill Philomena Fox [facility] PUBLIC EMPLOYMENT MEDIATOR [facility] & CHILD [facility] 1.2.840.114 350.1.13.10 4.2.7.2.686 [id number] 107 [id number] [facility] 2020-10-30 00:00:00 2020-10-30 00:00:00 Patient Secure Msg Philomena Fox [facility] PUBLIC EMPLOYMENT MEDIATOR [facility] CHILD [facility] 1.2.840.114 350.1.13.10 4.2.7.2.686 [id number] 107 [id number] [facility] 2020-10-30 00:00:00 2020-10-30 00:00:00 Telephone SajimonikaPhilomena yang [facility] PUBLIC EMPLOYMENT MEDIATOR [facility] MATERNAL & CHILD [facility] 1.2.840.114 350.1.13.10 4.2.7.2.686 [id number] 107 [id number] [facility] 2020-10-26 14:51:23 2020-10-26 16:05:36 Office Visit Sajimonikacelia Philomena Juarez [facility] PUBLIC EMPLOYMENT MEDIATOR [facility] & CHILD [facility] 1.2.840.114 350.1.13.10 4.2.7.2.686 [id number] 107 [id number] [facility] 2020-10-26 14:15:00 2020-10-26 14:15:00 Outpatient R PHILOMENA FOX [facility] [id number] [facility] 2020-10-26 00:00:00 2020-10-26 00:00:00 Orders Only Doctor Unassigned, Oktaha [facility] 1.2.840.114 350.1.13.10 4.2.7.2.686 [id number] [facility] 2020-09-10 15:57:00 2020-09-10 17:04:00 Emergency Flor Monroy [facility] 1.2.840.114 350.1.13.10 4.2.7.2.686 [id number] [facility] 2020-09-10 00:00:00 2020-09-10 00:00:00 Orders Only Doctor Unassigned, Oktaha [facility] 1.2.840.114 350.1.13.10 4.2.7.2.686 [id number] [facility] 2020-07-31 00:00:00 2020-07-31 00:00:00 Patient Outreach Vin Correa [facility] 1.2.840.114 350.1.13.10 4.2.7.2.686 [id number] [facility] 2019-11-23 00:00:00 2019-11-23 00:00:00 Refill Philomena Fox [facility] PUBLIC EMPLOYMENT MEDIATOR [facility] & CHILD [facility] 1.2.840.114 350.1.13.10 4.2.7.2.686 [id number] 107 [id number] [facility] 2019-11-23 00:00:00 2019-11-23 00:00:00 Refill Philomena Fox [facility] PUBLIC EMPLOYMENT MEDIATOR [facility] CHILD [facility] 1.2.840.114 350.1.13.10 4.2.7.2.686 [id number] 107 [id number] 2019-07-21 10:30:00 2019-07-21 10:30:00 Outpatient R [facility] [id number] [facility] 2019-07-13 10:22:20 2019-07-13 10:39:48 Office Visit David Cisneros [facility] PUBLIC EMPLOYMENT MEDIATOR [facility] & CHILD [facility] 1.2.840.114 350.1.13.10 4.2.7.2.686 [id number] 107 [id number] [facility] 2019-07-13 10:22:20 2019-07-13 10:39:48 Office Visit David Cisneros [facility] PUBLIC EMPLOYMENT MEDIATOR [facility] & CHILD [facility] 1.2.840.114 350.1.13.10 4.2.7.2.686 [id number] 107 [id number] 2019-07-13 09:23:47 2019-07-13 09:33:41 Nurse Visit Visit, Tello Nurse Britt Caruso [facility] PUBLIC EMPLOYMENT MEDIATOR [facility] & CHILD [facility] 1.2.840.114 350.1.13.10 4.2.7.2.686 [id number] 107 [id number] [facility] 2019-07-13 09:23:47 2019-07-13 09:33:41 Nurse Visit Visit, Tello Nurse [facility] PUBLIC EMPLOYMENT MEDIATOR [facility] CHILD [facility] 1.2.840.114 350.1.13.10 4.2.7.2.686 [id number] 107 [id number] 2019-07-13 09:00:00 2019-07-13 09:00:00 Outpatient R [facility] [id number] [facility] 2019-07-13 00:00:00 2019-07-13 00:00:00 Orders Only Doctor Unassigned, Oktaha [facility] 1.2840.114 350.1.13.10 4.2.7.2.686 [id number] [facility] 2018-12-20 13:40:21 2019-01-18 16:45:28 Nurse Visit Visit, [facility] Nurse Philomena Fox [facility] 1.2.840.114 350.1.13.10 4.2.7.2.686 [id number] 107 [id number] [facility] 2018-12-20 00:00:00 2018-12-20 00:00:00 Orders Only Doctor Unassigned, Oktaha [facility] 1.2840.114 350.1.13.10 4.2.7.2.686 [id number] [facility] Results Test Description Test Time Test Comments Results Result Co mments Source [facility] [id number] 01:58:44 * Test Item Value Reference Range Interpretation Comme nts TSH (test code = 2252043366) 2.42 See_Comment [Automated messa ge] The system which generated this result transmitted reference range: 0.45 - 4.70 mIU/L. The reference range was not used to interpret this result as normal/abnormal. Lab Interpretation (test code = 90424-9) Normal [facility]. METABOLIC PANEL (88955)2023-03-31 01:28:00* Test Item Value Reference Range Interpretation Comme nts NA (test code = 2219716558) 139 mmol/L 135-145 K (test code = 7575409552) 3.7 mmol/L 3.5-5.0 CL (test code = 9719033987) 108 mmol/L 98-108 CO2 TOTAL (test code = 5200015860) 19 mmol/L 23-31 L AGAP (test code = 7119713616) 12 2-16 BUN (test code = 9125204801) 8 mg/dL 7-23 GLUCOSE (test code = 3757039850) 79 mg/dL 70-110 CREATININE (test code = 4984270871) 0.70 mg/dL 0.50-1.04 TOTAL BILI (test code = 1237937352) 0.4 mg/dL 0.1-1.1 CALCIUM (test code = 0033519902) 9.3 mg/dL 8.6-10.6 T PROTEIN (test code = 5523396500) 7.8 g/dL 6.3-8.2 ALBUMIN (test code = 5645872494) 4.4 g/dL 3.5-5.0 ALK PHOS (test code = 9535785027) 71 U/L 34-122 ALTv (test code = 1742-6) 23 U/L 5-35 AST(SGOT) (test code = 8906137792) 25 U/L 13-40 eGFR (test code = 81460-9) 121.7 mL/min/1.73m2 CKD-EPI eGFR (2020). Assuming creatinine has been stable day-to-day for at least three months, the eGFR indicates Category G1 (>= 90 mL/min/1.73 m2) Lab Interpretation (test code = 86425-8) Abnormal [facility] WITH [id number] 00:51:13* Test Item Value Reference Range Interpretation Comme nts WBC (test code = 6690-2) 14.45 See_Comment H [Automated Envia Láa ge] The system which generated this result transmitted reference range: 4.30 - 11.10 10*3/?L. The reference range was not used to interpret this result as normal/abnormal. RBC (test code = 789-8) 4.56 See_Comment [Automated messa ge] The system which generated this result transmitted reference range: 3.93 - 5.25 10*6/?L. The reference range was not used to interpret this result as normal/abnormal. HGB (test code = 718-7) 12.7 g/dL 11.6-15.0 HCT (test code = 4544-3) 38.8 % 35.7-45.2 MCV (test code = 787-2) 85.1 fL 80.6-95.5 MCH (test code = 785-6) 27.9 pg 25.9-32.8 MCHC (test code = 786-4) 32.7 g/dL 31.6-35.1 RDW-SD (test code = 48512-5) 42.5 fL 39.0-49.9 RDW-CV (test code = 788-0) 13.6 % 12.0-15.5 PLT (test code = 777-3) 449 See_Comment H [Automated messa ge] The system which generated this result transmitted reference range: 166 - 358 10*3/?L. The reference range was not used to interpret this result as normal/abnormal. MPV (test code = 47843-9) 9.4 fL 9.5-12.9 L NRBC/100 WBC (test code = 9277452627) 0.0 See_Comment [Automated [employer] ssage] The system which generated this result transmitted reference range: 0.0 - 10.0 /100 WBCs. The reference range was not used to interpret this result as normal/abnormal. NRBC x10^3 (test code = 8669290908) See_Comment [Automated messa ge] The system which generated this result transmitted reference range: 10*3/?L. The reference range was not used to interpret this result as normal/abnormal. GRAN MAT (NEUT) % (test code = 770-8) 67.8 % IMM GRAN % (test code = 1855001484) 0.60 % LYMPH % (test code = 736-9) 25.7 % MONO % (test code = 5905-5) 4.8 % EOS % (test code = 713-8) 0.6 % BASO % (test code = 706-2) 0.5 % GRAN MAT x10^3(ANC) (test code = 9253453982) 9.79 10*3/uL 1.88-7.09 H IMM GRAN x10^3 (test code = 7408500414) 0.08 10*3/uL 0.00-0.06 H LYMPH x10^3 (test code = 731-0) 3.72 10*3/uL 1.32-3.29 H MONO x10^3 (test code = 742-7) 0.70 10*3/uL 0.33-0.92 EOS x10^3 (test code = 711-2) 0.09 10*3/uL 0.03-0.39 BASO x10^3 (test code = 704-7) 0.07 10*3/uL 0.01-0.07 Lab Interpretation (test code = 67854-5) Abnormal [facility] MOLECULAR [id number] 21:31:10* Test Item Value Reference Range Interpretation Comme nts POCT Molecular FluA (test co de = 67005-5) Negative Negative POCT Molecular FluB (test co de = 29589-0) Negative Negative Lab Interpretation (test cod e = 65839-6) Normal [facility] MOLECULAR [id number] 16:30:52* Test Item Value Reference Range Interpretation Comme nts POCT Molecular Strep (test c ode = 73798-4) Negative Negative Lab Interpretation (test cod e = 67703-3) Normal [facility] SARS-COV-2 ANTIGEN (BINAX NOW)2022-12-02 18:26:00* Test Item Value Reference Range Interpretation Comme [facility] POCT SARS-COV-2 ANTIGEN (charmaine t code = 33663-0) Not Detected Not Detected On board controls acceptable with C Line (test code = 3574) Yes [facility] HospitalGLYCOSYLATED HEMOGLOBIN (A1C)2022-08-26 23:54:50* Test Item Value Reference Range Interpretation Comme [facility] HGB A1C (test code = 4548-4) 5.2 % 4.0-5.7 YOSELIN (test code = YOSELIN) Reference RangesNormal: <5.7%Prediabetes: 5.7 - 6.4%Diabetes: > 6.5% Lab Interpretation (test code = 92863-2) Normal [facility] HospitalCORTISOL [id number] 21:51:34* Test Item Value Reference Range Interpretation Comme nts RANDY AM (test code = 2876635679) 9.7 ug/dL 4.5-23.0 YOSELIN (test code = YOSELIN) Biotin has been reported to cause a positive bias, interpret results relative to patient's use of biotin. Lab Interpretation (test code = 44217-1) Normal [facility] HospitalDEHYDROEPIANDROSTERONE [id number] 21:34:46* Test Item Value Reference Range Interpretation Comme nts DHEA-S (test code = 9805726951) 956.3 ng/mL YOSELIN (test code = YOSELIN) Normal Ranges for DHEA SO4 Prepubertal: ? ? 50-995 ng/mLAdult: ? 650-3400 ng/mL Adult levels may decrease with age after age 50. ? Decreased level may be seen in term pregnancies. ? Pubertal is based on physical examination. ? [facility] HospitalFOLLICLE STIMULATING [id number] 21:34:45* Test Item Value Reference Range Interpretation Comme [facility] FSH (test code = 9418638827) 6.03 mIU/mL YOSELIN (test code = YOSELIN) FSH Reference Ranges Follicular Phase: ? ? ? 3.8-8.8 mIU/mLMid-cycle Peak: ? 4.5-22.85 mIU/mLLuteal Phase: ? 1.7-5.1 mIU/mLPost-menopause female: ?16.7-113.6 mIU/mLAdult male: ? 1.2-19 mIU/mL [facility] HospitalLUTEINIZING HORMONE [id number] 21:34:45* Test Item Value Reference Range Interpretation Comme [facility] LH (test code = 1966897340) 9.18 mIU/mL YOSELIN (test code = YOSELIN) LH Reference Ranges: Menstrating Female ? ? Follicular phase ? ? 2.1-10.9 mIU/mL ? ? Mid-cycle peak ? ? ? 19.1-103.0 mIU/mL ? ? Luteal phase ? 1.2-12.8 mIU/mL Post-menopausal female ? ?10.8-58.6 mIU/mL Adule Male ?1.2-8.6 mIU/mL [facility] HospitalTHYROID STIMULATING [id number] 20:16:56 * Test Item Value Reference Range Interpretation Comme nts TSH (test code = 3695971051) 6.45 See_Comment H [Automated messa ge] The system which generated this result transmitted reference range: 0.45 - 4.70 mIU/L. The reference range was not used to interpret this result as normal/abnormal. Lab Interpretation (test code = 66795-6) Abnormal [facility]4 [id number] 20:03:11* Test Item Value Reference Range Interpretation Comme nts FREE T4 (test code = 6617548397) 1.21 See_Comment [Automated messa ge] The system which generated this result transmitted reference range: 0.78 - 2.20 ng/dL:. The reference range was not used to interpret this result as normal/abnormal. Lab Interpretation (test code = 52405-2) Normal [facility] [id number] 20:02:55* Test Item Value Reference Range Interpretation Comme nts FREE T3 (test code = 4525408230) 3.95 pg/mL 2.77-5.27 Lab Interpretation (test cod e = 58592-4) Normal [facility] MOLECULAR [id number] 20:52:21* Test Item Value Reference Range Interpretation Comme nts POCT Molecular Strep (test c ode = 73919-4) Negative Negative Lab Interpretation (test cod e = 95062-2) Normal [facility] MOLECULAR [id number] 20:52:21* Test Item Value Reference Range Interpretation Comme nts POCT Molecular Strep (test c ode = 81879-6) Negative Negative Lab Interpretation (test cod e = 46854-9) Normal [facility] [id number] 17:37:00* Test Item Value Reference Range Interpretation Comme nts POCT PREG (test code = 1605) Negative On board controls acceptable with C Line (test code = 3574) Yes POCT PREG LOT # (test code = 3575) POCT PREG TEST DATE ( test code = 3576) [facility] [id number] 07:16:56* Test Item Value Reference Range Interpretation Comme nts HIV Semi-quantitative (test code = 30811-1) Negative Negative YOSELIN (test code = YOSELIN) Non-reactive for HIV-1 antigen and HIV-1/HIV-2 antibodies. ?No laboratory evidence of HIV infection. ?Repeat in 2-4 weeks if acute HIV infection is suspected. [facility] WITH [id number] 07:16:56* Test Item Value Reference Range Interpretation Comme nts HIV Semi-quantitative (test code = 37115-8) Negative Negative YOSELIN (test code = YOSELIN) Non-reactive for HIV-1 antigen and HIV-1/HIV-2 antibodies. ?No laboratory evidence of HIV infection. ?Repeat in 2-4 weeks if acute HIV infection is suspected. [facility] HospitalLUTEINIZING HORMONE [id number] 06:30:36* Test Item Value Reference Range Interpretation Comme [facility] LH (test code = 5969969316) mIU/mL YOSELIN (test code = YOSELIN) LH Reference Ranges: Menstrating Female ? ? Follicular phase ? ? 2.1-10.9 mIU/mL ? ? Mid-cycle peak ? ? ? 19.1-103.0 mIU/mL ? ? Luteal phase ? 1.2-12.8 mIU/mL Post-menopausal female ? ?10.8-58.6 mIU/mL Adule Male ?1.2-8.6 mIU/mL [facility] [id number] 06:30:36* Test Item Value Reference Range Interpretation Comme [facility] FSH (test code = 9144927223) mIU/mL YOSELIN (test code = YOSELIN) FSH Reference Ranges Follicular Phase: ? ? ? 3.8-8.8 mIU/mLMid-cycle Peak: ? 4.5-22.85 mIU/mLLuteal Phase: ? 1.7-5.1 mIU/mLPost-menopause female: ?16.7-113.6 mIU/mLAdult male: ? 1.2-19 mIU/mL [facility] [id number] 06:30:36* Test Item Value Reference Range Interpretation Comme [facility] LH (test code = 7659608971) mIU/mL YOSELIN (test code = YOSELIN) LH Reference Ranges: Menstrating Female ? ? Follicular phase ? ? 2.1-10.9 mIU/mL ? ? Mid-cycle peak ? ? ? 19.1-103.0 mIU/mL ? ? Luteal phase ? 1.2-12.8 mIU/mL Post-menopausal female ? ?10.8-58.6 mIU/mL Adule Male ?1.2-8.6 mIU/mL [facility] [id number] 06:30:36* Test Item Value Reference Range Interpretation Comme nts FSH (test code = 1928106460) mIU/mL YOSELIN (test code = YOSELIN) FSH Reference Ranges Follicular Phase: ? ? ? 3.8-8.8 mIU/mLMid-cycle Peak: ? 4.5-22.85 mIU/mLLuteal Phase: ? 1.7-5.1 mIU/mLPost-menopause female: ?16.7-113.6 mIU/mLAdult male: ? 1.2-19 mIU/mL [facility]TESTOST[facility]ONE2022-09-16 05:00:02* Test Item Value Reference Range Interpretation Comme nts TESTOST (test code = 6985449830) 31.8 ng/dL 6- YOSELIN (test code = YOSELIN) Normal Ranges Adul t Female: ?6-77 ng/dLAdult Male <50 years: ? ?132-813 ng/dLAdult Male >50 years: ? ?72-623 ng/dL Females on Control Pills may have higher results. Obese patients may have lower results. Biotin has been reported to cause a negative bias, interpret results relative to patient's use of biotin. Lab Interpretation (test code = 13285-5) Normal [facility]2022-09-16 05:00:02* Test Item Value Reference Range Interpretation Comme nts TESTOST (test code = 3826956191) 31.8 ng/dL 6- YOSELIN (test code = YOSELIN) Normal Ranges Adul t Female: ?6-77 ng/dLAdult Male <50 years: ? ?132-813 ng/dLAdult Male >50 years: ? ?72-623 ng/dL Females on Control Pills may have higher results. Obese patients may have lower results. Biotin has been reported to cause a negative bias, interpret results relative to patient's use of biotin. Lab Interpretation (test code = 89207-7) Normal [facility] HospitalTHYROID STIMULATING [id number] 04:58:41 * Test Item Value Reference Range Interpretation Comme nts TSH (test code = 8794770023) See_Comment Biotin has been reported to cause a negative bias, interpret results relative to patient's use of biotin. [Automated message] The system which generated this result transmitted reference range: 0.45 - 4.70 mIU/L. The reference range was not used to interpret this result as normal/abnormal. Lab Interpretation (test code = 22989-6) Normal [facility] HospitalTHYROID STIMULATING [id number] 04:58:41 * Test Item Value Reference Range Interpretation Comme nts TSH (test code = 2422050279) See_Comment Biotin has been reported to cause a negative bias, interpret results relative to patient's use of biotin. [Automated message] The system which generated this result transmitted reference range: 0.45 - 4.70 mIU/L. The reference range was not used to interpret this result as normal/abnormal. Lab Interpretation (test code = 73549-2) Normal [facility] HospitalGLYCOSYLATED HEMOGLOBIN (A1C)2022-01-24 04:38:59* Test Item Value Reference Range Interpretation Comme nts HGB A1C (test code = 4548-4) 5.5 % 4-5.7 YOSELIN (test code = YOSELIN) Reference RangesNormal: <5.7%Prediabetes: 5.7 - 6.4%Diabetes: > 6.5% Lab Interpretation (test code = 17735-7) Normal [facility] HospitalGLYCOSYLATED HEMOGLOBIN (A1C)2022-01-24 04:38:59* Test Item Value Reference Range Interpretation Comme nts HGB A1C (test code = 4548-4) 5.5 % 4-5.7 YOSELIN (test code = YOSELIN) Reference RangesNormal: <5.7%Prediabetes: 5.7 - 6.4%Diabetes: > 6.5% Lab Interpretation (test code = 97439-9) Normal [facility] HospitalPOCT [id number] 20:04:00* Test Item Value Reference Range Interpretation Comme nts POCT PREG (test code = 1605) Negative On board controls acceptable with C Line (test code = 3574) Yes POCT PREG LOT # (test code = 3575) POCT PREG TEST DATE ( test code = 3576) [facility] HospitalPO[facility] [id number] 20:04:00* Test Item Value Reference Range Interpretation Comme nts POCT PREG (test code = 1605) Negative On board controls acceptable with C Line (test code = 3574) Yes POCT PREG LOT # (test code = 3575) POCT PREG TEST DATE ( test code = 3576) [facility]
[2023-04-16 09:18] LABS: Specific Gravity 1.017 (1.005-1.030); Urine Bacteria None Seen /HPF (<20); Urine Bilirubin NEGATIVE (Negative); Urine Blood Negative (Negative); Urine Clarity Extremely Turbid (Clear); Urine Color Yellow (Yellow); Urine Glucose NEGATIVE (Negative); Urine Protein NEGATIVE (Negative); Urine RBC <5 /HPF (None Seen); Urine Urobilinogen Normal (Normal)
[2023-04-16 09:18] LABS: Absolute Lymphocytes (CBC) 2.5 K/uL (0.7-4.9); Hematocrit 38.1 % (36.0-45.0); Lymphocytes % 21.7 % (15.3-44.8); MCV 84.2 fL (80-100); MPV 7.6 fL (7.6-11.3); Platelets 429 thou/uL (152-406); RBC Red Blood Cell Count 4.52 M/uL (3.86-4.86)
[2023-04-16 09:19] LABS: Albumin 3.7 g/dL (3.4-5.0); Bilirubin Total 0.5 mg/dL (0.2-1.0); Potassium 3.9 mEq/L (3.5-5.1); Protein, Total 7.7 g/dL (6.4-8.2)
--- NOTE | 2023-04-16 10:15 | ER ---
Nurse's Notes [facility] Name: Brianna Weems Age: 27 yrs Sex: Female : 1995 Arrival Date: 04/16/2023 Time: 08:11 Bed 15 Private MD: Diagnosis: Mild hyperemesis gravidarum Presentation: 04/16 08:33 Chief complaint: Patient states: is 7 weeks and has had over 24 hours of not iw being able to hold anything down, she was advised by her OB to be seen in ER for fluids. Coronavirus screen: At this time, the client does not indicate any symptoms associated with coronavirus-19. Ebola Screen: Patient negative for fever greater than or equal to 101.5 degrees Fahrenheit, and additional compatible Ebola Virus Disease symptoms Patient denies exposure to infectious person. Patient denies travel to an Ebola-affected area in the 21 days before illness onset. No symptoms or risks identified at this time. Initial Sepsis Screen: Does the patient meet any 2 criteria? No. Patient's initial sepsis screen is negative. Does the patient have a suspected source of infection? No. Patient's initial sepsis screen is negative. Risk Assessment: Do you want to hurt yourself or someone else? Patient reports no desire to harm self or others. Onset of symptoms was May 05, 2023. 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 - Social history:: Smoking status: Patient denies any tobacco usage or history of. Screenin:40 [facility] ED Fall Risk Assessment (Adult) Score/Fall Risk Level 0 - 2 = Low Risk. Abuse eh3 screen: Denies threats or abuse. Denies injuries from another. Nutritional screening: No deficits noted. Tuberculosis screening: No symptoms or risk factors identified. Assessment: 08:40 General: Appears in no apparent distress. comfortable, Behavior is calm, cooperative, eh3 appropriate for age. Pain: Denies pain. Neuro: Level of Consciousness is awake, alert, obeys commands, Oriented to person, place, time, situation. Cardiovascular: Capillary refill < 3 seconds Patient's skin is warm and dry. Respiratory: Airway is patent Respiratory effort is even, unlabored, Respiratory pattern is regular, symmetrical. GI: Abdomen is round non-distended, Reports intolerance of fluids, intolerance of food, nausea, vomiting. : Urine is cloudy. Derm: Skin is pink, warm \T\ dry. Musculoskeletal: Circulation, motion, and sensation intact. 09:30 Reassessment: Patient appears in no apparent distress at this time. Patient and/or eh3 family updated on plan of care and expected duration. Pain level reassessed. Patient is alert, oriented x 3, equal unlabored respirations, skin warm/dry/pink. 10:30 Reassessment: Patient appears in no apparent distress at this time. Patient and/or eh3 family updated on plan of care and expected duration. Pain level reassessed. Patient is alert, oriented x 3, equal unlabored respirations, skin warm/dry/pink. Vital Signs: 08:33 BP 121 / 78; Pulse 94; Resp 16; Temp 98.8; Pulse Ox 100% on R/A; Weight 90.72 kg; iw Height 5 ft. 0 in. ; 09:30 BP 90 / 49; Pulse 71; Resp 18; Pulse Ox 100% on R/A; eh3 10:30 BP 103 / 76; Pulse 81; Resp 18; Pulse Ox 100% on R/A; eh3 08:33 Body Mass Index 39.06 (90.72 kg, 152.4 cm) iw ED Course: 08:13 Patient arrived in ED. mr 08:34 Triage completed. iw 08:34 Arm band placed on. iw 08:39 Nuno Iniguez MD is Attending Physician. sp3 08:40 Patient has correct armband on for positive identification. Bed in low position. Call eh3 light in reach. Side rails up X2. Provided Education on: use of call arias. Pulse ox on. NIBP on. 08:41 Diane Kent, REGINA is Primary Nurse. eh3 08:54 Inserted saline lock: 22 gauge in right forearm, using aseptic technique. Blood ds4 collected. 10:43 No provider procedures requiring assistance completed. IV discontinued, intact, eh3 bleeding controlled, No redness/swelling at site. Pressure dressing applied. Administered Medications: 09:00 Drug: NS 0.9% IV 1000 ml IV at 1 bolus Per protocol; 1000 mL bolus Route: IV; Rate: 1 eh3 bolus; Site: right antecubital; 10:00 Follow up: IV Status: Completed infusion; IV Intake: 1000ml eh3 09:00 Drug: Ondansetron IVP 4 mg IVP once; over 2 minutes Route: IVP; Site: right antecubital;3 09:30 Follow up: Response: No adverse reaction; Nausea is decreased eh3 Medication: 10:43 VIS not applicable for this client. eh3 Intake: 10:00 IV: 1000ml; Total: 1000ml. 3 Outcome: 10:15 Discharge ordered by . sp3 10:49 Discharged to home ambulatory, 3 10:49 Condition: stable 10:49 Discharge instructions given to Instructed on discharge instructions, follow up and referral plans. medication usage, Demonstrated understanding of instructions, follow-up care, medications, Prescriptions given X 1, 11:00 Patient left the ED. 3 Signatures: Yessica Jain, Reg Reg mr Nina Oswald, RN RN Ramon Carroll ds4 Nuno Iniguez MD MD sp3 Diane Kent RN RN 3
--- NOTE | 2023-04-16 10:15 | EDPHYS ---
Physician Documentation [facility] Name: Brianna Weems Age: 27 yrs Sex: Female : 1995 Arrival Date: 04/16/2023 Time: 08:11 Bed 15 Private MD: ED Physician Nuno Iniguez HPI: 04/16 08:47 This 27 yrs old Female presents to ER via Ambulatory with complaints of 7wks , sp3 Vomiting. 08:47 27-year-old female with history of Crohn's, hypothyroidism, PCOS now presents to the ED sp3 at 7 weeks based on LMP G1, referred by her content publisher in [place] for IV fluids and antiemetics secondary to emesis that has been occurring for the past 24 hours without blood or mucus. Patient denies any abdominal pain, vaginal bleeding or discharge or any other concerning symptoms. Patient also reports mild diarrhea which she states she has had in the past secondary to her inflammatory bowel. Patient is not on any current antiemetics.. 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 - Social history:: Smoking status: Patient denies any tobacco usage or history of. ROS: 08:48 Constitutional: Negative for fever, chills, and weight loss, Eyes: Negative for injury, sp3 pain, redness, and discharge, ENT: Negative for injury, pain, and discharge, Neck: Negative for injury, pain, and swelling, Cardiovascular: Negative for chest pain, palpitations, and edema, Respiratory: Negative for shortness of breath, cough, wheezing, and pleuritic chest pain, Back: Negative for injury and pain, MS/Extremity: Negative for injury and deformity, Skin: Negative for injury, rash, and discoloration, Neuro: Negative for headache, weakness, numbness, tingling, and seizure, Psych: Negative for depression, anxiety, suicide ideation, homicidal ideation, and hallucinations, Allergy/Immunology: Negative for hives, rash, and allergies, Endocrine: Negative for neck swelling, polydipsia, polyuria, polyphagia, and marked weight changes, Hematologic/Lymphatic: Negative for swollen nodes, abnormal bleeding, and unusual bruising, 08:48 All other systems are negative, Exam: 08:49 Constitutional: This is a well developed, well nourished patient who is awake, alert, sp3 and in no acute distress. Head/Face: Normocephalic, atraumatic. Eyes: Pupils equal round and reactive to light, extra-ocular motions intact. Lids and lashes normal. Conjunctiva and sclera are non-icteric and not injected. Cornea within normal limits. Periorbital areas with no swelling, redness, or edema. ENT: Nares patent. No nasal discharge, no septal abnormalities noted. External auditory canals are clear. Oropharynx with no redness, swelling, or masses, exudates, or evidence of obstruction, uvula midline. Mucous membranes moist. Neck: Trachea midline, no thyromegaly or masses palpated, and no cervical lymphadenopathy. Supple, full range of motion without nuchal rigidity, or vertebral point tenderness. No Meningismus. Chest/axilla: Normal chest wall appearance and motion. Nontender with no deformity. No lesions are appreciated. Cardiovascular: Regular rate and rhythm with a normal S1 and S2. No gallops, murmurs, or rubs. Normal PMI, no JVD. No pulse deficits. Respiratory: Lungs have equal breath sounds bilaterally, clear to auscultation and percussion. No rales, rhonchi or wheezes noted. No increased work of breathing, no retractions or nasal flaring. Abdomen/GI: Soft, non-tender, with normal bowel sounds. No distension or tympany. No guarding or rebound. No evidence of tenderness throughout. Back: No spinal tenderness. No costovertebral tenderness. Full range of motion. Skin: Warm, dry with normal turgor. Normal color with no rashes, no lesions, and no evidence of cellulitis. MS/ Extremity: Pulses equal, no cyanosis. Neurovascular intact. Full, normal range of motion. Neuro: Awake and alert, GCS 15, oriented to person, place, time, and situation. Cranial nerves II-XII grossly intact. Motor strength 5/5 in all extremities. Sensory grossly intact. Cerebellar exam normal. Normal gait. Psych: Awake, alert, with orientation to person, place and time. Behavior, mood, and affect are within normal limits. Vital Signs: 08:33 BP 121 / 78; Pulse 94; Resp 16; Temp 98.8; Pulse Ox 100% on R/A; Weight 90.72 kg; iw Height 5 ft. 0 in. ; 09:30 BP 90 / 49; Pulse 71; Resp 18; Pulse Ox 100% on R/A; eh3 10:30 BP 103 / 76; Pulse 81; Resp 18; Pulse Ox 100% on R/A; eh3 08:33 Body Mass Index 39.06 (90.72 kg, 152.4 cm) iw MDM: 08:41 Patient medically screened. sp3 08:49 Data reviewed: vital signs, nurses notes, lab test result(s). ED course: 27-year-old s, at 7 weeks for hyperemesis gravidarum. I am not highly suspicious for viral syndrome, surgical pathology, infectious pathology, surgical abdomen or any other critical or concerning pathology at this time. We will obtain laboratory values and administer ondansetron IV and normal saline. Patient feels better I will discharge her home on Zofran ODT and she can follow back up with her content publisher.. 10:14 ED course: Laboratory values within normal limits and patient is much improved. We will sp3 safely discharged home on ondansetron and follow-up with her OB.. 04/16 08:40 Order name: CBC with Diff; Complete Time: 10:09 sp3 04/16 08:40 Order name: CMP; Complete Time: 10: sp3 04/16 08:40 Order name: Lipase; Complete Time: 10: 3 04/16 09:00 Order name: Urinalysis w/ reflexes; Complete Time: 10: 3 04/16 08:40 Order name: IV Saline Lock; Complete Time: 08:54 3 04/16 08:40 Order name: Labs collected and sent; Complete Time: 08:54 3 Administered Medications: 09:00 Drug: NS 0.9% IV 1000 ml IV at 1 bolus Per protocol; 1000 mL bolus Route: IV; Rate: 1 eh3 bolus; Site: right antecubital; 10:00 Follow up: IV Status: Completed infusion; IV Intake: 1000ml 3 09:00 Drug: Ondansetron IVP 4 mg IVP once; over 2 minutes Route: IVP; Site: right antecubital;eh3 09:30 Follow up: Response: No adverse reaction; Nausea is decreased eh3 Disposition Summary: 04/16/23 10:15 Discharge Ordered Notes: Location: Home sp3 Condition: Stable sp3 Diagnosis - Mild hyperemesis gravidarum sp3 Followup: sp3 - With: Private Physician - When: Upon discharge from the Emergency Department - Reason: Continuance of care Discharge Instructions: - Discharge Summary Sheet sp3 - Hyperemesis Gravidarum sp3 Forms: - Medication Reconciliation Form sp3 - Thank You Letter sp3 - Antibiotic Education sp3 - Prescription Opioid Use sp3 - Patient Portal Instructions sp3 - Leadership Thank You Letter sp3 - Work release form eh3 Prescriptions: - Zofran 4 mg Oral tablet - take 1 tablet ORAL route every 12 hours As needed; 20 tablet; Refills: 0, sp3 Product Selection Permitted Signatures: Dispatcher [employer] Nina Nichole RN RN iw Nuno Iniguez MD MD 3 Diane Kent RN RN 3
[2023-04-16 11:19] VITALS: TEMP 98.8; O2SAT 100
[2023-04-16 11:25] VITALS: BP 103/76
== END 2023-04-16 11:00 | disposition home or self-care (01) ==
LOC: ER 08:11
DX: O21.0 Mild hyperemesis gravidarum (principal); Z3A.01 Less than 8 weeks gestation of pregnancy; Z91.040 Latex allergy status
CPT/HCPCS: 36415; 80053; 81001; 83690; 85025; 96361; 96374; 99284

== ENCOUNTER 2023-10-29 18:03 | Emergency (ER) | payer OTHER ==
--- OUTSIDE RECORDS SUMMARY | 2023-10-29 18:15 | XMS REPORT | Continuity of Care Document ---
Author Name Unknown Address [address] [place] [address] [facility] thconnect Address 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 Role Phone Dieudonne Iniguez Primary Care Physician [phone] GERALDINE MOTT Attending Clinician Unavailable SHARLENE RODGERS Attending Clinician Unavailab duncan Isaac Attending Clinician Unavailable DAVID CISNEROS Attending Clinician UnavailSAVANNA Judd Attending Clinician UnavailDALILA Wilcox Attending Clinician Unavailable Dalila Almeida PA-C Attending Clinician [phone] Unknown, Attending Attending Clinician Unavailab LILLIAN Vargas Attending Clinician Unavailable Lillian Montana MD Attending Clinician [phone] Thea Sherwood MD Attending Clinician [phone] DIANA GARCIA Attending Clinician Unavailable Diana Garcia PA-C Attending Clinician [phone] Doctor Unassigned, [place] Attending Clinician U dotailable KSENIA ANDREA Attending Clinician Unavailable Ksenia Andrea MD Attending Clinician [phone] Attending Clinician Unavailable Provider, [facility] Attending Clinician Unavailable Ruddy WHCNPhilomena Ramirez Attending Clinician + Savanna Rob CNM Attending Clinician [phone] Lab, Ang-Rmchp Attending Clinician Unavailable PHILOMENA FOX Attending Clinician Unavail able Parviz TAPIA, Geraldine Richard Attending Clinician Unav shyla Shay MD, Joss Fields Attending Clinician [phone] Lab, Ang - Db Attending Clinician Unavailable JOSS SHAY Attending Clinician Unavailankita palm Provider, Ang-Rmch[facility] Temp Attending Clinician Yumi vailable JAMES SANTIZO Attending Clinician Unavailable James Georges Attending Clinician [phone] EbKhadra Anguiaon Attending Clinician [phone] KHADRA COX Attending Clinician Unavailable Gilmar TAPIA, Gina Azul Attending Clinician Unavaila David Lai Attending Clinician [phone] Britt Gonsalez Attending Clinician [phone] BRITT CARUSO Attending Clinician Unavailab duncan Parham RN, Chanel Azul Attending Clinician Unavailab THELMA Ray Attending Clinician Unavailab Thelma Hurst Attending Clinician [phone] Yennifer Aleman Attending Clinician [phone] CECE ACEVEDO Attending Clinician Unavailable Cece Acevedo NP Attending Clinician [phone] Keri Lee RN Attending Clinician Unavailable VISHAL LINDSAY Attending Clinician UnavailVishal Cabrera MD Attending Clinician [phone] Gerber Armijo Attending Clinician [phone] RANDY LOWERY Attending Clinician Unavailable Randy Lowery DO Attending Clinician [phone] Flor Jaffe Attending Clinician [phone] Vin Correa DO Attending Clinician David Hollingsworth Attending Clinician [phone] Visit, [facility] Nurse Attending Clinician Unava ilje West_Hilary Admitting Clinician Unavailable KSENIA ANDREA Admitting Clinician Unavailable SAVANNA ROB Admitting Clinician UnavailCECE Saravia Admitting Clinician Unavailable RANDY LOWERY Admitting Clinician Unavailable Payers Payer Name Policy Type Policy Number Effective Date Expirati on Date Source [employer] MEDICAID [id number] 2019 00:00:00 [facility] [id number] 2023 00:00:00 [place] [id number] 2023 00:00:00 [facility] (O) [id number] [facility] [id number] 2021 00:00:00 HEALTHSMART PREFERRED GENERIC [id number] 2020 00:00:00 Problems Condition Name Condition Details Condition Category Status Onset Date Resolution Date Last Treatment Date Treating Clinician Comments Source PCOS (polycysti c ovarian syndrome) PCOS (polycysti c ovarian syndrome) Disease Active 09-03 00:00: 00 Overview: Formattin g of this note might be different from the original. 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) Disease Active 01-23 00:00: 00 [facility] Class 2 obesity due to excess calories with body mass index (BMI) of 37.0 to 37.9 in adult, unspecifie d whether serious comorbidit y present Class 2 obesity due to excess calories with body mass index (BMI) of 37.0 to 37.9 in adult, unspecifie d whether serious comorbidit y present Disease Active 01-23 00:00: 00 [facility] Acne Acne Disease Active 07-27 00:00: 00 [facility] Dysmenorrh ea Dysmenorrh ea Disease Active 08-07 00:00: 00 [facility] Screen for STD (sexually transmitte d disease) Screen for STD (sexually transmitte d disease) Disease Active 08-07 00:00: 00 [facility] Contracept cha management Contracept cha management Disease Active 05-29 00:00: 00 Overview: Formattin g of this note might be different from the original. 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 [facility] Screening examinatio n for STD (sexually transmitte d disease) Screening examinatio n for STD (sexually transmitte d disease) Disease Active 2013-05 00:00: 00 [facility] Allergies, Adverse Reactions, Alerts Allergy Name Allergy Type Status Severity Reaction(s) Onset Date Inactive Date Treating Clinician Comments Source Codeine Propensi ty to adverse reaction s Active Shortness of Breath 06-09 00:00: 00 [facility] CODEINE DRUG INGREDI Active SOB 06-09 00:00: 00 [facility] Bee Sting / Venom Propensi ty to adverse reaction s Active Anaphylaxis 2013-05 00:00: 00 [facility] Latex Propensi ty to adverse reaction s Active Swelling 2013-05 00:00: 00 [facility] BEE STING / VENOM DRUG INGREDI Active Anaphylaxis 2013-05 00:00: 00 [facility] LATEX DRUG INGREDI Active Swelling 2013-05 00:00: 00 [facility] Social History Social Habit Start Date Stop Date Quantity Comments Source Gender identity [facility] Sexual orientation U [facility] History SDOH Alcohol Frequency [facility] History SDOH Alcohol Std Drinks [facility] History SDOH Alcohol Binge [facility] Alcohol intake 2022-12-11 00:00:00 2022-12-11 00:00:00 0 /d [facility] Exposure to SARS-CoV-2 (event) 2022-10-27 00:00:00 2022-11-06 16:48:00 Not sure [facility] Tobacco use and exposure 2022-04-23 00:00:00 2022-04-23 00:00:00 Smokeless tobacco non-user [facility] Cigarettes smoked current (pack per day) - Reported 2022-04-23 00:00:00 2022-04-23 00:00:00 [facility] History of Social function 2022-01-23 00:00:00 2022-01-23 00:00:00 [facility] History of tobacco use 2017-05-26 00:00:00 Cigarette Smoker [facility] Alcohol Comment 2015-08-08 00:00:00 2015-08-08 00:00:00 socially [facility] Sex Assigned At 1995 00:00:00 1995 00:00:00 [facility] Smoking Status Start Date Stop Date Source Ex-smoker 2022-04-23 00:00:00 2022-04-23 00:00:00 U [facility] Medications Ordered Medication Name Filled Medication Name Start Date Stop Date Current Medication? Ordering Clinician Indication Dosage Frequency Signature (SIG) Comments Components Source NaCl 0.9% (NS) bolus infusion 1,000 mL 2022-05 00:00: 00 03-31 02:13 :00 No 1000mL at 999 mL/hr, 1,000 mL, IV Infusion, ONCE, 1 dose, On Thu03/30/23 at 1800, [facility] metoclopram hunter HCl (REGLAN) injection 10 mg 2022-05 23:15: 00 03-31 00:22 :00 No 10mg 10 mg, Slow IV Push, ONCE, 1 dose, On Thu03/30/23 at 1715, [facility] metoclopram hunter HCl 10 mg tablet 2022-05 00:00: 00 Yes [id number] 10mg Take 1 tablet by mouth every 8 (eight) hours. [facility] lidocaine 2% viscous (LIDOCAINE VISCOUS) 2 % solution 2022-05 00:00: 00 Yes [id number] 1mL Take 1 mL by mouth every 4 (four) hours as needed for Oral mucosal pain (apply 1ml to affected areas PRN). [facility] letrozole 2.5 mg tablet 02-06 00:00: 00 Yes [id number] 2.5mg Take 1 tablet by mouth daily Following progestin- induced withdrawal bleed, take 2.5mg daily during days 3 through 7 of cycle [facility] bromphenira mine-pseudo ephedrine-D M (BROMFED DM) 2-30-10 mg/5 mL syrup 01-07 00:00: 00 Yes [id number] 5mL Take 5 mL by mouth 3 (three) times daily as needed for Cough or Cold symptoms. [facility] cetirizine 10 mg tablet 01-07 00:00: 00 Yes [id number] 10mg Take 1 tablet by mouth in the morning. [facility] letrozole 2.5 mg tablet 01-07 00:00: 00 Yes [id number] 2.5mg Take 1 tablet by mouth daily Following progestin- induced withdrawal bleed, take 2.5mg daily during days 3 through 7 of cycle [facility] medroxyPROG ESTERone (PROVERA) 10 mg tablet 8 00:00: 12-23 04:59 :00 No [id number] 10mg Take 1 tablet by mouth in the morning for 10 days. [facility] letrozole 2.5 mg tablet 8-04 00:00: 00 12-18 04:59 :00 No [id number] 2.5mg Take 1 tablet by mouth daily Following progestin- induced withdrawal bleed, take 2.5mg daily during days 3 through 7 of cycle [facility] ketorolac (TORADOL) injection 30 mg 12-02 19:00: 00 12-02 18:09 :00 No [id number] 30mg [facility] ondansetron (ZOFRAN-ODT ) disintegrat ing tablet 8 mg 12-02 19:00: 00 12-02 18:08 :00 No [id number] 8mg [facility] ondansetron 4 mg disintegrat ing tablet 12-02 00:00: 00 12-16 00:00 :00 No [id number] 4mg Take 1 tablet by mouth every 8 (eight) hours as needed for Nausea and Vomiting (N/V). [facility] metformin ER 500 mg 24 hr tablet 11-10 00:00: 00 Yes [id number] 500mg Take 1 tablet by mouth daily with breakfast. [facility] medroxyPROG ESTERone (PROVERA) 10 mg tablet 28 00:00: 00 11-16 04:59 :00 No [id number] 10mg Take 1 tablet by mouth in the morning for 10 days. [facility] cyclobenzap rine 5 mg tablet 09-15 00:00: 00 12-16 00:00 :00 No [id number] 5mg Take 1 tablet by mouth at bedtime. [facility] lidocaine-k inesiology tape (LIDOPURE PATCH) 5 % Cmpk 09-15 00:00: 00 12-16 00:00 :00 No [id number] 1{patch } Apply 1 Patch to area(s) in the morning. [facility] methylPREDN ISolone (MEDROL, AKANKSHA,) 4 mg tablets 09-15 00:00: 00 12-16 00:00 :00 No [id number] Take by mouth SEE-INSTRU CTIONS. follow package directions [facility] ibuprofen 600 mg tablet 09-15 00:00: 00 12-02 00:00 :00 No [id number] 600mg Take 1 tablet by mouth every 6 (six) hours as needed for Pain (scale 1-3) or Pain (scale 4-6). [facility] metformin ER 500 mg 24 hr tablet 09-03 00:00: 00 11-10 00:00 :00 No [id number] 500mg Take 1 tablet by mouth daily with breakfast. [facility] levothyroxi ne 75 mcg tablet 08-27 00:00: 00 Yes [id number] 75ug Take 1 tablet by mouth every morning. [facility] clindamycin 1 % gel 07-24 00:00: 00 Yes [id number] Apply to area(s) daily. [facility] predniSONE 20 mg tablet 06-10 00:00: 00 06-16 05:59 :00 No [id number] 40mg Take 2 tablets by mouth in the morning for 5 days. [facility] levothyroxi ne 50 mcg tablet 06-05 00:00: 00 08-27 00:00 :00 No TAKE ONE (1) TABLET(S) BY MOUTH ONCE A DAY IN THE MORNING. [facility] metroNIDAZO LE 500 mg tablet 05-18 00:00: 00 07-24 00:00 :00 No TAKE ONE (1) TABLET(S) BY MOUTH EVERY EIGHT HOURS FOR 10 DAYS. [facility] predniSONE 20 mg tablet 05-18 00:00: 00 07-24 00:00 :00 No 20mg Take 20 mg by mouth in the morning. [facility] ciprofloxac in HCl 500 mg tablet 2023-0 1-08 00:00: 00 06-27 00:00 :00 No TAKE ONE (1) TABLET(S) BY MOUTH EVERY TWELVE HOURS FOR 10 DAYS. [facility] dicyclomine 20 mg tablet 1-08 00:00: 00 06-27 00:00 :00 No TAKE ONE (1) TABLET(S) BY MOUTH FOUR TIMES A DAY NEEDED. [facility] proMETHazin e 25 mg tablet 2021-05 2-14 00:00: 00 06-27 00:00 :00 No [id number] 25mg Take 1 tablet by mouth every 4 (four) hours as needed for Nausea and Vomiting (N/V). [facility] methscopola mine 5 mg tablet 2021-05 1-11 00:00: 00 07-24 00:00 :00 No [facility] medroxyPROG ESTERone 10 mg tablet 2021-05-04 00:00: 00 07-24 00:00 :00 No [facility] metFORMIN 500 mg tablet 9-29 00:00: 00 09-03 00:00 :00 No [id number] 500mg Take 1 tablet by mouth in the morning and 1 tablet in the evening. Take with meals. [facility] proMETHazin e 25 mg tablet 10-22 00:00: 00 04-23 00:00 :00 No [facility] norgestimat e-ethinyl estradioL 0.25-35 mg-mcg per tablet 10-14 00:00: 00 07-24 00:00 :00 No 1{tbl} Take 1 tablet by mouth. [facility] eflornithin e 13.9 % cream 10-14 00:00: 00 04-23 00:00 :00 No Apply thin layer to affected areas of face and areas under the chin twice daily, at least 8 hours apart. [facility] SPRINTEC 0.25-35 mg-mcg per tablet 10-14 00:00: 00 01-23 00:00 :00 No [facility] famotidine 20 mg tablet 10-08 00:00: 00 07-24 00:00 :00 No [facility] Hyoscyamine Sulfate 0.125 mg TbDL 10-02 00:00: 00 07-24 00:00 :00 No [facility] methscopola mine 5 mg tablet 10-02 00:00: 00 01-23 00:00 :00 No [facility] hydrOXYzine 25 mg tablet 06-10 00:00: 00 06-27 00:00 :00 No 25mg Take 25 mg by mouth. [facility] naproxen sodium (ANAPROX DS) 550 mg tablet 2020-05 00:00: 00 11-02 00:00 :00 No [id number] 550mg Take 1 tablet by mouth 2 (two) times daily with meals. [facility] azelastine 137 mcg (0.1 %) nasal spray 02-03 00:00: 00 06-10 00:00 :00 No [id number] 1{spray } Use 1 [place] in each nostril 2 (two) times daily. Use in each nostril as directed [facility] fluticasone propionate 50 mcg/actuati on nasal spray 02-03 00:00: 00 06-10 00:00 :00 No [id number] 1{spray } Use 1 [place] in each nostril daily. [facility] naproxen 500 mg tablet 09-10 00:00: 00 02-03 00:00 :00 No [id number] 100 500mg Take 1 tablet by mouth 2 (two) times daily with meals. [facility] VIORELE, 28, 0.15-0.02 mgx21 /0.01 mg x 5 per tablet 2018-05 00:00: 00 06-10 00:00 :00 No TK 1 T PO QD [facility] traMADol (ULTRAM) 50 mg tablet 2018-05 00:00: 00 06-10 00:00 :00 No [id number] 50mg Take 1 tablet by mouth every 6 (six) hours as needed for Pain (scale 7-10). [facility] clindamycin 1 % gel 09-27 00:00: 00 06-10 00:00 :00 No [id number] Apply to area(s) daily. [facility] Immunizations Ordered Immunization Name Filled Immunization Name Date Status Comments Source HPV9 2018-09-27 00:00:00 Completed [facility] HPV9 2018-09-27 00:00:00 Completed [facility] HPV9 2018-09-27 00:00:00 Completed [facility] HPV9 2018-09-27 00:00:00 Completed [facility] HPV9 2018-09-27 00:00:00 Completed [facility] HPV9 2018-09-27 00:00:00 Completed [facility] HPV9 2018-09-27 00:00:00 Completed [facility] HPV9 2018-09-27 00:00:00 Completed [facility] HPV9 2018-09-27 00:00:00 Completed [facility] HPV9 2018-09-27 00:00:00 Completed [facility] HPV9 2018-09-27 00:00:00 Completed [facility] HPV9 2018-09-27 00:00:00 Completed [facility] HPV9 2018-09-27 00:00:00 Completed [facility] HPV9 2018-09-27 00:00:00 Completed [facility] HPV9 2018-09-27 00:00:00 Completed [facility] HPV9 2018-09-27 00:00:00 Completed [facility] HPV9 2018-09-27 00:00:00 Completed [facility] HPV9 2018-09-27 00:00:00 Completed [facility] HPV9 2018-09-27 00:00:00 Completed [facility] HPV9 2018-09-27 00:00:00 Completed [facility] HPV9 2018-09-27 00:00:00 Completed [facility] HPV9 2018-09-27 00:00:00 Completed [facility] HPV9 2018-09-27 00:00:00 Completed [facility] HPV9 2018-09-27 00:00:00 Completed [facility] HPV9 2018-09-27 00:00:00 Completed [facility] HPV9 2018-09-27 00:00:00 Completed [facility] HPV9 2018-09-27 00:00:00 Completed [facility] HPV9 2018-09-27 00:00:00 Completed [facility] HPV9 2018-09-27 00:00:00 Completed [facility] HPV9 2018-09-27 00:00:00 Completed [facility] HPV9 2018-09-27 00:00:00 Completed [facility] HPV9 2018-09-27 00:00:00 Completed [facility] HPV9 2018-09-27 00:00:00 Completed [facility] HPV9 2018-09-27 00:00:00 Completed [facility] HPV9 2018-09-27 00:00:00 Completed [facility] HPV9 2018-09-27 00:00:00 Completed [facility] HPV9 2018-09-27 00:00:00 Completed [facility] HPV9 2018-09-27 00:00:00 Completed [facility] HPV9 2018-09-27 00:00:00 Completed [facility] HPV9 2018-09-27 00:00:00 Completed [facility] HPV9 2018-09-27 00:00:00 Completed [facility] HPV9 2018-09-27 00:00:00 Completed [facility] HPV9 2018-09-27 00:00:00 Completed [facility] HPV9 2018-09-27 00:00:00 Completed [facility] Influenza Virus Vaccine Quad .5 mL IM 6+ MO 2018-04-13 00:00:00 Completed [facility] Influenza Virus Vaccine Quad .5 mL IM 6+ MO 2018-04-13 00:00:00 Completed [facility] Influenza Virus Vaccine Quad .5 mL IM 6+ MO 2018-04-13 00:00:00 Completed [facility] Influenza Virus Vaccine Quad .5 mL IM 6+ MO 2018-04-13 00:00:00 Completed [facility] Influenza Virus Vaccine Quad .5 mL IM 6+ MO 2018-04-13 00:00:00 Completed [facility] Influenza Virus Vaccine Quad .5 mL IM 6+ MO 2018-04-13 00:00:00 Completed [facility] Influenza Virus Vaccine Quad .5 mL IM 6+ MO 2018-04-13 00:00:00 Completed [facility] Influenza Virus Vaccine Quad .5 mL IM 6+ MO 2018-04-13 00:00:00 Completed [facility] Influenza Virus Vaccine Quad .5 mL IM 6+ MO 2018-04-13 00:00:00 Completed [facility] Influenza Virus Vaccine Quad .5 mL IM 6+ MO 2018-04-13 00:00:00 Completed [facility] Influenza Virus Vaccine Quad .5 mL IM 6+ MO 2018-04-13 00:00:00 Completed [facility] Influenza Virus Vaccine Quad .5 mL IM 6+ MO 2018-04-13 00:00:00 Completed [facility] Influenza Virus Vaccine Quad .5 mL IM 6+ MO 2018-04-13 00:00:00 Completed [facility] Influenza Virus Vaccine Quad .5 mL IM 6+ MO 2018-04-13 00:00:00 Completed [facility] Influenza Virus Vaccine Quad .5 mL IM 6+ MO 2018-04-13 00:00:00 Completed [facility] Influenza Virus Vaccine Quad .5 mL IM 6+ MO 2018-04-13 00:00:00 Completed [facility] Influenza Virus Vaccine Quad .5 mL IM 6+ MO 2018-04-13 00:00:00 Completed [facility] Influenza Virus Vaccine Quad .5 mL IM 6+ MO 2018-04-13 00:00:00 Completed [facility] Influenza Virus Vaccine Quad .5 mL IM 6+ MO 2018-04-13 00:00:00 Completed [facility] Influenza Virus Vaccine Quad .5 mL IM 6+ MO 2018-04-13 00:00:00 Completed [facility] Influenza Virus Vaccine Quad .5 mL IM 6+ MO 2018-04-13 00:00:00 Completed [facility] Influenza Virus Vaccine Quad .5 mL IM 6+ MO 2018-04-13 00:00:00 Completed [facility] Influenza Virus Vaccine Quad .5 mL IM 6+ MO 2018-04-13 00:00:00 Completed [facility] Influenza Virus Vaccine Quad .5 mL IM 6+ MO 2018-04-13 00:00:00 Completed [facility] Influenza Virus Vaccine Quad .5 mL IM 6+ MO 2018-04-13 00:00:00 Completed [facility] Influenza Virus Vaccine Quad .5 mL IM 6+ MO 2018-04-13 00:00:00 Completed [facility] Influenza Virus Vaccine Quad .5 mL IM 6+ MO 2018-04-13 00:00:00 Completed [facility] Influenza Virus Vaccine Quad .5 mL IM 6+ MO 2018-04-13 00:00:00 Completed [facility] Influenza Virus Vaccine Quad .5 mL IM 6+ MO 2018-04-13 00:00:00 Completed [facility] Influenza Virus Vaccine Quad .5 mL IM 6+ MO 2018-04-13 00:00:00 Completed [facility] Influenza Virus Vaccine Quad .5 mL IM 6+ MO 2018-04-13 00:00:00 Completed [facility] Influenza Virus Vaccine Quad .5 mL IM 6+ MO 2018-04-13 00:00:00 Completed [facility] Influenza Virus Vaccine Quad .5 mL IM 6+ MO 2018-04-13 00:00:00 Completed [facility] Influenza Virus Vaccine Quad .5 mL IM 6+ MO 2018-04-13 00:00:00 Completed [facility] Influenza Virus Vaccine Quad .5 mL IM 6+ MO 2018-04-13 00:00:00 Completed [facility] Influenza Virus Vaccine Quad .5 mL IM 6+ MO 2018-04-13 00:00:00 Completed [facility] Influenza Virus Vaccine Quad .5 mL IM 6+ MO 2018-04-13 00:00:00 Completed [facility] Influenza Virus Vaccine Quad .5 mL IM 6+ MO 2018-04-13 00:00:00 Completed [facility] Influenza Virus Vaccine Quad .5 mL IM 6+ MO 2018-04-13 00:00:00 Completed [facility] Influenza Virus Vaccine Quad .5 mL IM 6+ MO 2018-04-13 00:00:00 Completed [facility] Influenza Virus Vaccine Quad .5 mL IM 6+ MO 2018-04-13 00:00:00 Completed [facility] Influenza Virus Vaccine Quad .5 mL IM 6+ MO 2018-04-13 00:00:00 Completed [facility] Influenza Virus Vaccine Quad .5 mL IM 6+ MO 2018-04-13 00:00:00 Completed [facility] Influenza Virus Vaccine Quad .5 mL IM 6+ MO 2018-04-13 00:00:00 Completed [facility] TDAP (ADACEL) VACCINE 2016-09-08 00:00:00 Completed [facility] TDAP (ADACEL) VACCINE 2016-09-08 00:00:00 Completed [facility] TDAP (ADACEL) VACCINE 2016-09-08 00:00:00 Completed [facility] TDAP (ADACEL) VACCINE 2016-09-08 00:00:00 Completed [facility] TDAP (ADACEL) VACCINE 2016-09-08 00:00:00 Completed [facility] TDAP (ADACEL) VACCINE 2016-09-08 00:00:00 Completed [facility] TDAP (ADACEL) VACCINE 2016-09-08 00:00:00 Completed [facility] TDAP (ADACEL) VACCINE 2016-09-08 00:00:00 Completed [facility] TDAP (ADACEL) VACCINE 2016-09-08 00:00:00 Completed [facility] TDAP (ADACEL) VACCINE 2016-09-08 00:00:00 Completed [facility] TDAP (ADACEL) VACCINE 2016-09-08 00:00:00 Completed [facility] TDAP (ADACEL) VACCINE 2016-09-08 00:00:00 [facility] TDAP (ADACEL) VACCINE 2016-09-08 00:00:00 Completed [facility] TDAP (ADACEL) VACCINE 2016-09-08 00:00:00 [facility] TDAP (ADACEL) VACCINE 2016-09-08 00:00:00 [facility]pleted [facility] TDAP (ADACEL) VACCINE 2016-09-08 00:00:00 Completed [facility] TDAP (ADACEL) VACCINE 2016-09-08 00:00:[address] [facility] TDAP (ADACEL) VACCINE 2016-09-08 00:00:00 Completed [facility] TDAP (ADACEL) VACCINE 2016-09-08 00:00:00 [facility]pleted [facility] TDAP (ADACEL) VACCINE 2016-09-08 00:00:00 Completed [facility] TDAP (ADACEL) VACCINE 2016-09-08 00:00:00 Completed [facility] TDAP (ADACEL) VACCINE 2016-09-08 00:00:00 Completed [facility] TDAP (ADACEL) VACCINE 2016-09-08 00:00:00 Completed [facility] TDAP (ADACEL) VACCINE 2016-09-08 00:00:00 Completed [facility] TDAP (ADACEL) VACCINE 2016-09-08 00:00:00 Completed [facility] TDAP (ADACEL) VACCINE 2016-09-08 00:00:00 Completed [facility] TDAP (ADACEL) VACCINE 2016-09-08 00:00:00 Completed [facility] TDAP (ADACEL) VACCINE 2016-09-08 00:00:00 Completed [facility] TDAP (ADACEL) VACCINE 2016-09-08 00:00:00 Completed [facility] TDAP (ADACEL) VACCINE 2016-09-08 00:00:00 Completed [facility] TDAP (ADACEL) VACCINE 2016-09-08 00:00:00 Completed [facility] TDAP (ADACEL) VACCINE 2016-09-08 00:00:00 Completed [facility] TDAP (ADACEL) VACCINE 2016-09-08 00:00:00 Completed [facility] TDAP (ADACEL) VACCINE 2016-09-08 00:00:00 Completed [facility] TDAP (ADACEL) VACCINE 2016-09-08 00:00:00 Completed [facility] TDAP (ADACEL) VACCINE 2016-09-08 00:00:00 Completed [facility] TDAP (ADACEL) VACCINE 2016-09-08 00:00:00 Completed [facility] TDAP (ADACEL) VACCINE 2016-09-08 00:00:00 Completed [facility] TDAP (ADACEL) VACCINE 2016-09-08 00:00:00 Completed [facility] TDAP (ADACEL) VACCINE 2016-09-08 00:00:00 Completed [facility] TDAP (ADACEL) VACCINE 2016-09-08 00:00:00 Completed [facility] TDAP (ADACEL) VACCINE 2016-09-08 00:00:00 Completed [facility] TDAP (ADACEL) VACCINE 2016-09-08 00:00:00 Completed [facility] TDAP (ADACEL) VACCINE 2016-09-08 00:00:00 Completed [facility] HPV9 2015-11-05 00:00:00 Completed [facility] HPV9 2015-11-05 00:00:00 Completed [facility] HPV9 2015-11-05 00:00:00 Completed [facility] HPV9 2015-11-05 00:00:00 Completed [facility] HPV9 2015-11-05 00:00:00 Completed [facility] HPV9 2015-11-05 00:00:00 Completed [facility] HPV9 2015-11-05 00:00:00 Completed [facility] HPV9 2015-11-05 00:00:00 Completed [facility] HPV9 2015-11-05 00:00:00 Completed [facility] HPV9 2015-11-05 00:00:00 Completed [facility] HPV9 2015-11-05 00:00:00 Completed [facility] HPV9 2015-11-05 00:00:00 Completed [facility] HPV9 2015-11-05 00:00:00 Completed [facility] HPV9 2015-11-05 00:00:00 Completed [facility] HPV9 2015-11-05 00:00:00 Completed [facility] HPV9 2015-11-05 00:00:00 Completed [facility] HPV9 2015-11-05 00:00:00 Completed [facility] HPV9 2015-11-05 00:00:00 Completed [facility] HPV9 2015-11-05 00:00:00 Completed [facility] HPV9 2015-11-05 00:00:00 Completed [facility] HPV9 2015-11-05 00:00:00 Completed [facility] HPV9 2015-11-05 00:00:00 [facility]pleted [facility] HPV9 2015-11-05 00:00:00 Completed [facility] HPV9 2015-11-05 00:00:00 Completed [facility] HPV9 2015-11-05 00:00:00 Completed [facility] HPV9 2015-11-05 00:00:00 Completed [facility] HPV9 2015-11-05 00:00:00 Completed [facility] HPV9 2015-11-05 00:00:00 Completed [facility] HPV9 2015-11-05 00:00:00 Completed [facility] HPV9 2015-11-05 00:00:00 Completed [facility] HPV9 2015-11-05 00:00:00 Completed [facility] HPV9 2015-11-05 00:00:00 Completed [facility] HPV9 2015-11-05 00:00:00 Completed [facility] HPV9 2015-11-05 00:00:00 Completed [facility] HPV9 2015-11-05 00:00:00 Completed [facility] HPV9 2015-11-05 00:00:00 Completed [facility] HPV9 2015-11-05 00:00:00 Completed [facility] HPV9 2015-11-05 00:00:00 Completed [facility] HPV9 2015-11-05 00:00:00 Completed [facility] HPV9 2015-11-05 00:00:00 Completed [facility] HPV9 2015-11-05 00:00:00 Completed [facility] HPV9 2015-11-05 00:00:00 Completed [facility] HPV9 2015-11-05 00:00:00 Completed [facility] HPV9 2015-11-05 00:00:00 Completed [facility] HPV9 2015-08-08 00:00:00 Completed [facility] HPV9 2015-08-08 00:00:00 Completed [facility] HPV9 2015-08-08 00:00:00 Completed [facility] HPV9 2015-08-08 00:00:00 Completed [facility] HPV9 2015-08-08 00:00:00 Completed [facility] HPV9 2015-08-08 00:00:00 Completed [facility] HPV9 2015-08-08 00:00:00 Completed [facility] HPV9 2015-08-08 00:00:00 Completed [facility] HPV9 2015-08-08 00:00:00 Completed [facility] HPV9 2015-08-08 00:00:00 Completed [facility] HPV9 2015-08-08 00:00:00 Completed [facility] HPV9 2015-08-08 00:00:00 Completed [facility] HPV9 2015-08-08 00:00:00 Completed [facility] HPV9 2015-08-08 00:00:00 Completed [facility] HPV9 2015-08-08 00:00:00 Completed [facility] HPV9 2015-08-08 00:00:00 Completed [facility] HPV9 2015-08-08 00:00:00 Completed [facility] HPV9 2015-08-08 00:00:00 Completed [facility] HPV9 2015-08-08 00:00:00 Completed [facility] HPV9 2015-08-08 00:00:00 Completed [facility] HPV9 2015-08-08 00:00:00 Completed [facility] HPV9 2015-08-08 00:00:00 Completed [facility] HPV9 2015-08-08 00:00:00 Completed [facility] HPV9 2015-08-08 00:00:00 Completed [facility] HPV9 2015-08-08 00:00:00 Completed [facility] HPV9 2015-08-08 00:00:00 Completed [facility] HPV9 2015-08-08 00:00:00 Completed [facility] HPV9 2015-08-08 00:00:00 Completed [facility] HPV9 2015-08-08 00:00:00 Completed [facility] HPV9 2015-08-08 00:00:00 Completed [facility] HPV9 2015-08-08 00:00:00 Completed [facility] HPV9 2015-08-08 00:00:00 Completed [facility] HPV9 2015-08-08 00:00:00 Completed [facility] HPV9 2015-08-08 00:00:00 Completed [facility] HPV9 2015-08-08 00:00:00 Completed [facility] HPV9 2015-08-08 00:00:00 Completed [facility] HPV9 2015-08-08 00:00:00 Completed [facility] HPV9 2015-08-08 00:00:00 Completed [facility] HPV9 2015-08-08 00:00:00 Completed [facility] HPV9 2015-08-08 00:00:00 Completed [facility] HPV9 2015-08-08 00:00:00 Completed [facility] HPV9 2015-08-08 00:00:00 Completed [facility] HPV9 2015-08-08 00:00:00 Completed [facility]9 2015-08-08 00:00:00 Completed [facility] Meningococcal Oligosaccharide (groups A, C, Y and W-135) conjugate vaccine (MCV4O) 2014-11-06 00:00:00 Completed [facility] Meningococcal Oligosaccharide (groups A, C, Y and W-135) conjugate vaccine (MCV4O) 2014-11-06 00:00:00 Completed [facility] Meningococcal Oligosaccharide (groups A, C, Y and W-135) conjugate vaccine (MCV4O) 2014-11-06 00:00:00 Completed [facility] Meningococcal Oligosaccharide (groups A, C, Y and W-135) conjugate vaccine (MCV4O) 2014-11-06 00:00:00 Completed [facility] Meningococcal Oligosaccharide (groups A, C, Y and W-135) conjugate vaccine (MCV4O) 2014-11-06 00:00:00 Completed [facility] Meningococcal Oligosaccharide (groups A, C, Y and W-135) conjugate vaccine (MCV4O) 2014-11-06 00:00:00 Completed [facility] Meningococcal Oligosaccharide (groups A, C, Y and W-135) conjugate vaccine (MCV4O) 2014-11-06 00:00:00 Completed [facility] Meningococcal Oligosaccharide (groups A, C, Y and W-135) conjugate vaccine (MCV4O) 2014-11-06 00:00:00 Completed [facility] Meningococcal Oligosaccharide (groups A, C, Y and W-135) conjugate vaccine (MCV4O) 2014-11-06 00:00:00 Completed [facility] Meningococcal Oligosaccharide (groups A, C, Y and W-135) conjugate vaccine (MCV4O) 2014-11-06 00:00:00 Completed [facility] Meningococcal Oligosaccharide (groups A, C, Y and W-135) conjugate vaccine (MCV4O) 2014-11-06 00:00:00 Completed [facility] Meningococcal Oligosaccharide (groups A, C, Y and W-135) conjugate vaccine (MCV4O) 2014-11-06 00:00:00 Completed [facility] Meningococcal Oligosaccharide (groups A, C, Y and W-135) conjugate vaccine (MCV4O) 2014-11-06 00:00:00 Completed [facility] Meningococcal Oligosaccharide (groups A, C, Y and W-135) conjugate vaccine (MCV4O) 2014-11-06 00:00:00 Completed [facility] Meningococcal Oligosaccharide (groups A, C, Y and W-135) conjugate vaccine (MCV4O) 2014-11-06 00:00:00 Completed [facility] Meningococcal Oligosaccharide (groups A, C, Y and W-135) conjugate vaccine (MCV4O) 2014-11-06 00:00:00 Completed [facility] Meningococcal Oligosaccharide (groups A, C, Y and W-135) conjugate vaccine (MCV4O) 2014-11-06 00:00:00 Completed [facility] Meningococcal Oligosaccharide (groups A, C, Y and W-135) conjugate vaccine (MCV4O) 2014-11-06 00:00:00 Completed [facility] Meningococcal Oligosaccharide (groups A, C, Y and W-135) conjugate vaccine (MCV4O) 2014-11-06 00:00:00 Completed [facility] Meningococcal Oligosaccharide (groups A, C, Y and W-135) conjugate vaccine (MCV4O) 2014-11-06 00:00:00 Completed [facility] Meningococcal Oligosaccharide (groups A, C, Y and W-135) conjugate vaccine (MCV4O) 2014-11-06 00:00:00 Completed [facility] Meningococcal Oligosaccharide (groups A, C, Y and W-135) conjugate vaccine (MCV4O) 2014-11-06 00:00:00 Completed [facility] Meningococcal Oligosaccharide (groups A, C, Y and W-135) conjugate vaccine (MCV4O) 2014-11-06 00:00:00 Completed [facility] Meningococcal Oligosaccharide (groups A, C, Y and W-135) conjugate vaccine (MCV4O) 2014-11-06 00:00:00 Completed [facility] Meningococcal Oligosaccharide (groups A, C, Y and W-135) conjugate vaccine (MCV4O) 2014-11-06 00:00:00 Completed [facility] Meningococcal Oligosaccharide (groups A, C, Y and W-135) conjugate vaccine (MCV4O) 2014-11-06 00:00:00 Completed [facility] Meningococcal Oligosaccharide (groups A, C, Y and W-135) conjugate vaccine (MCV4O) 2014-11-06 00:00:00 Completed [facility] Meningococcal Oligosaccharide (groups A, C, Y and W-135) conjugate vaccine (MCV4O) 2014-11-06 00:00:00 Completed [facility] Meningococcal Oligosaccharide (groups A, C, Y and W-135) conjugate vaccine (MCV4O) 2014-11-06 00:00:00 Completed [facility] Meningococcal Oligosaccharide (groups A, C, Y and W-135) conjugate vaccine (MCV4O) 2014-11-06 00:00:00 Completed [facility] Meningococcal Oligosaccharide (groups A, C, Y and W-135) conjugate vaccine (MCV4O) 2014-11-06 00:00:00 Completed [facility] Meningococcal Oligosaccharide (groups A, C, Y and W-135) conjugate vaccine (MCV4O) 2014-11-06 00:00:00 Completed [facility] Meningococcal Oligosaccharide (groups A, C, Y and W-135) conjugate vaccine (MCV4O) 2014-11-06 00:00:00 Completed [facility] Meningococcal Oligosaccharide (groups A, C, Y and W-135) conjugate vaccine (MCV4O) 2014-11-06 00:00:00 Completed [facility] Meningococcal Oligosaccharide (groups A, C, Y and W-135) conjugate vaccine (MCV4O) 2014-11-06 00:00:00 Completed [facility] Meningococcal Oligosaccharide (groups A, C, Y and W-135) conjugate vaccine (MCV4O) 2014-11-06 00:00:00 Completed [facility] Meningococcal Oligosaccharide (groups A, C, Y and W-135) conjugate vaccine (MCV4O) 2014-11-06 00:00:00 Completed [facility] Meningococcal Oligosaccharide (groups A, C, Y and W-135) conjugate vaccine (MCV4O) 2014-11-06 00:00:00 Completed [facility] Meningococcal Oligosaccharide (groups A, C, Y and W-135) conjugate vaccine (MCV4O) 2014-11-06 00:00:00 Completed [facility] Meningococcal Oligosaccharide (groups A, C, Y and W-135) conjugate vaccine (MCV4O) 2014-11-06 00:00:00 Completed [facility] Meningococcal Oligosaccharide (groups A, C, Y and W-135) conjugate vaccine (MCV4O) 2014-11-06 00:00:00 Completed [facility] Meningococcal Oligosaccharide (groups A, C, Y and W-135) conjugate vaccine (MCV4O) 2014-11-06 00:00:00 Completed [facility] Meningococcal Oligosaccharide (groups A, C, Y and W-135) conjugate vaccine (MCV4O) 2014-11-06 00:00:00 Completed [facility] Meningococcal Oligosaccharide (groups A, C, Y and W-135) conjugate vaccine (MCV4O) 2014-11-06 00:00:00 Completed [facility] TDAP (ADACEL) VACCINE 2010-12-09 00:00:00 Completed [facility] TDAP (ADACEL) VACCINE 2010-12-09 00:00:00 Completed [facility] TDAP (ADACEL) VACCINE 2010-12-09 00:00:00 Completed [facility] TDAP (ADACEL) VACCINE 2010-12-09 00:00:00 Completed [facility] TDAP (ADACEL) VACCINE 2010-12-09 00:00:00 Completed [facility] TDAP (ADACEL) VACCINE 2010-12-09 00:00:00 Completed [facility] TDAP (ADACEL) VACCINE 2010-12-09 00:00:00 Completed [facility] TDAP (ADACEL) VACCINE 2010-12-09 00:00:00 Completed [facility] TDAP (ADACEL) VACCINE 2010-12-09 00:00:00 Completed [facility] TDAP (ADACEL) VACCINE 2010-12-09 00:00:00 Completed [facility] TDAP (ADACEL) VACCINE 2010-12-09 00:00:00 Completed [facility] TDAP (ADACEL) VACCINE 2010-12-09 00:00:00 Completed [facility] TDAP (ADACEL) VACCINE 2010-12-09 00:00:00 Completed [facility] TDAP (ADACEL) VACCINE 2010-12-09 00:00:00 Completed [facility] TDAP (ADACEL) VACCINE 2010-12-09 00:00:00 Completed [facility] TDAP (ADACEL) VACCINE 2010-12-09 00:00:00 Completed [facility] TDAP (ADACEL) VACCINE 2010-12-09 00:00:00 Completed [facility] TDAP (ADACEL) VACCINE 2010-12-09 00:00:00 Completed [facility] TDAP (ADACEL) VACCINE 2010-12-09 00:00:00 Completed [facility] TDAP (ADACEL) VACCINE 2010-12-09 00:00:00 Completed [facility] TDAP (ADACEL) VACCINE 2010-12-09 00:00:00 Completed [facility] TDAP (ADACEL) VACCINE 2010-12-09 00:00:00 Completed [facility] TDAP (ADACEL) VACCINE 2010-12-09 00:00:00 Completed [facility] TDAP (ADACEL) VACCINE 2010-12-09 00:00:00 Completed [facility] TDAP (ADACEL) VACCINE 2010-12-09 00:00:00 Completed [facility] TDAP (ADACEL) VACCINE 2010-12-09 00:00:00 Completed [facility] TDAP (ADACEL) VACCINE 2010-12-09 00:00:00 Completed [facility] TDAP (ADACEL) VACCINE 2010-12-09 00:00:00 Completed [facility] TDAP (ADACEL) VACCINE 2010-12-09 00:00:00 Completed [facility] TDAP (ADACEL) VACCINE 2010-12-09 00:00:00 Completed [facility] TDAP (ADACEL) VACCINE 2010-12-09 00:00:00 Completed [facility] TDAP (ADACEL) VACCINE 2010-12-09 00:00:00 Completed [facility] TDAP (ADACEL) VACCINE 2010-12-09 00:00:00 Completed [facility] TDAP (ADACEL) VACCINE 2010-12-09 00:00:00 Completed [facility] TDAP (ADACEL) VACCINE 2010-12-09 00:00:00 Completed [facility] TDAP (ADACEL) VACCINE 2010-12-09 00:00:00 Completed [facility] TDAP (ADACEL) VACCINE 2010-12-09 00:00:00 Completed [facility] TDAP (ADACEL) VACCINE 2010-12-09 00:00:00 Completed [facility] TDAP (ADACEL) VACCINE 2010-12-09 00:00:00 Completed [facility] TDAP (ADACEL) VACCINE 2010-12-09 00:00:00 Completed [facility] TDAP (ADACEL) VACCINE 2010-12-09 00:00:00 Completed [facility] TDAP (ADACEL) VACCINE 2010-12-09 00:00:00 Completed [facility] TDAP (ADACEL) VACCINE 2010-12-09 00:00:00 Completed [facility] TDAP (ADACEL) VACCINE 2010-12-09 00:00:00 Completed [facility] HPV9 Unknown Completed [facility] TDAP (ADACEL) VACCINE Unknown Completed [facility] HPV9 Unknown Completed [facility] Influenza Virus Vaccine Quad .5 mL IM 6+ MO (FLUZONE/FLULAVAL/FLU ARIX) Unknown Completed [facility] TDAP (ADACEL) VACCINE Unknown Completed [facility] Meningococcal Oligosaccharide (groups A, C, Y and W-135) conjugate vaccine (MCV4O) Unknown Completed [facility] HPV9 Unknown Completed [facility] HPV9 Unknown Completed [facility] TDAP (ADACEL) VACCINE Unknown Completed [facility] HPV9 Unknown Completed [facility] Influenza Virus Vaccine Quad .5 mL IM 6+ MO (FLUZONE/FLULAVAL/FLU ARIX) Unknown Completed [facility] TDAP (ADACEL) VACCINE Unknown Completed [facility] Meningococcal Oligosaccharide (groups A, C, Y and W-135) conjugate vaccine (MCV4O) Unknown Completed [facility] HPV9 Unknown Completed [facility] HPV9 Unknown Completed [facility] TDAP (ADACEL) VACCINE Unknown Completed [facility] HPV9 Unknown Completed [facility] Influenza Virus Vaccine Quad .5 mL IM 6+ MO (FLUZONE/FLULAVAL/FLU ARIX) Unknown Completed [facility] TDAP (ADACEL) VACCINE Unknown Completed [facility] Meningococcal Oligosaccharide (groups A, C, Y and W-135) conjugate vaccine (MCV4O) Unknown Completed [facility] HPV9 Unknown Completed [facility] HPV9 Unknown Completed [facility] TDAP (ADACEL) VACCINE Unknown Completed [facility] HPV9 Unknown Completed [facility] Influenza Virus Vaccine Quad .5 mL IM 6+ MO (FLUZONE/FLULAVAL/FLU ARIX) Unknown Completed [facility] TDAP (ADACEL) VACCINE Unknown Completed [facility] Meningococcal Oligosaccharide (groups A, C, Y and W-135) conjugate vaccine (MCV4O) Unknown Completed [facility] HPV9 Unknown Completed [facility] HPV9 Unknown Completed [facility] TDAP (ADACEL) VACCINE Unknown Completed [facility] HPV9 Unknown Completed [facility] Influenza Virus Vaccine Quad .5 mL IM 6+ MO (FLUZONE/FLULAVAL/FLU ARIX) Unknown Completed [facility] TDAP (ADACEL) VACCINE Unknown Completed [facility] Meningococcal Oligosaccharide (groups A, C, Y and W-135) conjugate vaccine (MCV4O) Unknown Completed [facility] HPV9 Unknown Completed [facility] HPV9 Unknown Completed [facility] TDAP (ADACEL) VACCINE Unknown Completed [facility] HPV9 Unknown Completed [facility] Influenza Virus Vaccine Quad .5 mL IM 6+ MO (FLUZONE/FLULAVAL/FLU ARIX) Unknown Completed [facility] TDAP (ADACEL) VACCINE Unknown Completed [facility] Meningococcal Oligosaccharide (groups A, C, Y and W-135) conjugate vaccine (MCV4O) Unknown Completed [facility] HPV9 Unknown Completed [facility] HPV9 Unknown Completed [facility] TDAP (ADACEL) VACCINE Unknown Completed [facility] HPV9 Unknown Completed [facility] Influenza Virus Vaccine Quad .5 mL IM 6+ MO (FLUZONE/FLULAVAL/FLU ARIX) Unknown Completed [facility] TDAP (ADACEL) VACCINE Unknown Completed [facility] Meningococcal Oligosaccharide (groups A, C, Y and W-135) conjugate vaccine (MCV4O) Unknown Completed [facility] HPV9 Unknown Completed [facility] HPV9 Unknown Completed [facility] TDAP (ADACEL) VACCINE Unknown Completed [facility] HPV9 Unknown Completed [facility] Influenza Virus Vaccine Quad .5 mL IM 6+ MO (FLUZONE/FLULAVAL/FLU ARIX) Unknown Completed [facility] TDAP (ADACEL) VACCINE Unknown Completed [facility] Meningococcal Oligosaccharide (groups A, C, Y and W-135) conjugate vaccine (MCV4O) Unknown Completed [facility] HPV9 Unknown Completed [facility] HPV9 Unknown Completed [facility] TDAP (ADACEL) VACCINE Unknown Completed [facility] HPV9 Unknown Completed [facility] Influenza Virus Vaccine Quad .5 mL IM 6+ MO (FLUZONE/FLULAVAL/FLU ARIX) Unknown Completed [facility] TDAP (ADACEL) VACCINE Unknown Completed [facility] Meningococcal Oligosaccharide (groups A, C, Y and W-135) conjugate vaccine (MCV4O) Unknown Completed [facility] HPV9 Unknown Completed [facility] HPV9 Unknown Completed [facility] TDAP (ADACEL) VACCINE Unknown Completed [facility] HPV9 Unknown Completed [facility] Influenza Virus Vaccine Quad .5 mL IM 6+ MO (FLUZONE/FLULAVAL/FLU ARIX) Unknown Completed [facility] TDAP (ADACEL) VACCINE Unknown Completed [facility] Meningococcal Oligosaccharide (groups A, C, Y and W-135) conjugate vaccine (MCV4O) Unknown Completed [facility] HPV9 Unknown Completed [facility] HPV9 Unknown Completed [facility] TDAP (ADACEL) VACCINE Unknown Completed [facility] HPV9 Unknown Completed [facility] Influenza Virus Vaccine Quad .5 mL IM 6+ MO (FLUZONE/FLULAVAL/FLU ARIX) Unknown Completed [facility] TDAP (ADACEL) VACCINE Unknown Completed [facility] Meningococcal Oligosaccharide (groups A, C, Y and W-135) conjugate vaccine (MCV4O) Unknown Completed [facility] HPV9 Unknown Completed [facility] HPV9 Unknown Completed [facility] TDAP (ADACEL) VACCINE Unknown Completed [facility] HPV9 Unknown Completed [facility] Influenza Virus Vaccine Quad .5 mL IM 6+ MO (FLUZONE/FLULAVAL/FLU ARIX) Unknown Completed [facility] TDAP (ADACEL) VACCINE Unknown Completed [facility] Meningococcal Oligosaccharide (groups A, C, Y and W-135) conjugate vaccine (MCV4O) Unknown Completed [facility] HPV9 Unknown Completed [facility] HPV9 Unknown Completed [facility] TDAP (ADACEL) VACCINE Unknown Completed [facility] HPV9 Unknown Completed [facility] Influenza Virus Vaccine Quad .5 mL IM 6+ MO (FLUZONE/FLULAVAL/FLU ARIX) Unknown Completed [facility] TDAP (ADACEL) VACCINE Unknown Completed [facility] Meningococcal Oligosaccharide (groups A, C, Y and W-135) conjugate vaccine (MCV4O) Unknown Completed [facility] HPV9 Unknown Completed [facility] HPV9 Unknown Completed [facility] TDAP (ADACEL) VACCINE Unknown Completed [facility] HPV9 Unknown Completed [facility] Influenza Virus Vaccine Quad .5 mL IM 6+ MO (FLUZONE/FLULAVAL/FLU ARIX) Unknown Completed [facility] TDAP (ADACEL) VACCINE Unknown Completed [facility] Meningococcal Oligosaccharide (groups A, C, Y and W-135) conjugate vaccine (MCV4O) Unknown Completed [facility] HPV9 Unknown Completed [facility] HPV9 Unknown Completed [facility] TDAP (ADACEL) VACCINE Unknown Completed [facility] HPV9 Unknown Completed [facility] Influenza Virus Vaccine Quad .5 mL IM 6+ MO (FLUZONE/FLULAVAL/FLU ARIX) Unknown Completed [facility] TDAP (ADACEL) VACCINE Unknown Completed [facility] Meningococcal Oligosaccharide (groups A, C, Y and W-135) conjugate vaccine (MCV4O) Unknown Completed [facility] HPV9 Unknown Completed [facility] HPV9 Unknown Completed [facility] TDAP (ADACEL) VACCINE Unknown Completed [facility] HPV9 Unknown Completed [facility] Influenza Virus Vaccine Quad .5 mL IM 6+ MO (FLUZONE/FLULAVAL/FLU ARIX) Unknown Completed [facility] TDAP (ADACEL) VACCINE Unknown Completed [facility] Meningococcal Oligosaccharide (groups A, C, Y and W-135) conjugate vaccine (MCV4O) Unknown Completed [facility] HPV9 Unknown Completed [facility] HPV9 Unknown Completed [facility] TDAP (ADACEL) VACCINE Unknown Completed [facility] HPV9 Unknown Completed [facility] Influenza Virus Vaccine Quad .5 mL IM 6+ MO (FLUZONE/FLULAVAL/FLU ARIX) Unknown Completed [facility] TDAP (ADACEL) VACCINE Unknown Completed [facility] Meningococcal Oligosaccharide (groups A, C, Y and W-135) conjugate vaccine (MCV4O) Unknown Completed [facility] HPV9 Unknown Completed [facility] HPV9 Unknown Completed [facility] TDAP (ADACEL) VACCINE Unknown Completed [facility] HPV9 Unknown Completed [facility] Influenza Virus Vaccine Quad .5 mL IM 6+ MO (FLUZONE/FLULAVAL/FLU ARIX) Unknown Completed [facility] TDAP (ADACEL) VACCINE Unknown Completed [facility] Meningococcal Oligosaccharide (groups A, C, Y and W-135) conjugate vaccine (MCV4O) Unknown Completed [facility] HPV9 Unknown Completed [facility] HPV9 Unknown Completed [facility] TDAP (ADACEL) VACCINE Unknown Completed [facility] HPV9 Unknown Completed [facility] Influenza Virus Vaccine Quad .5 mL IM 6+ MO (FLUZONE/FLULAVAL/FLU ARIX) Unknown Completed [facility] TDAP (ADACEL) VACCINE Unknown Completed [facility] Meningococcal Oligosaccharide (groups A, C, Y and W-135) conjugate vaccine (MCV4O) Unknown Completed [facility] HPV9 Unknown Completed [facility] Vital Signs Vital Name Observation Time Observation Value Comments S ource Systolic blood pressure 2023-03-31 02:17:00 122 mm[Hg] [facility] Diastolic blood pressure 2023-03-31 02:17:00 78 mm[Hg] [facility] Heart rate 2023-03-31 02:17:00 87 /min [facility] Body temperature 2023-03-31 02:17:00 37.11 Marga [facility] Respiratory rate 2023-03-31 02:17:00 18 /min [facility] Oxygen saturation in Arterial blood by Pulse oximetry 2023-03-31 02:17:00 99 /min [facility] Body height 2023-03-30 23:12:00 152.4 cm [facility] Body weight 2023-03-30 23:12:00 90.719 kg [facility] BMI 2023-03-30 23:12:00 39.06 kg/m2 [facility] Systolic blood pressure 2023-03-19 21:09:00 105 mm[Hg] [facility] Diastolic blood pressure 2023-03-19 21:09:00 75 mm[Hg] [facility] Heart rate 2023-03-19 21:09:00 90 /min [facility] Body temperature 2023-03-19 21:09:00 36.67 Marga [facility] Respiratory rate 2023-03-19 21:09:00 16 /min [facility] Body height 2023-03-19 21:09:00 152.4 cm [facility] Body weight 2023-03-19 21:09:00 92.897 kg [facility] BMI 2023-03-19 21:09:00 40.00 kg/m2 [facility] Oxygen saturation in Arterial blood by Pulse oximetry 2023-03-19 21:09:00 98 /min [facility] Systolic blood pressure 2023-03-09 21:06:00 119 mm[Hg] [facility] Diastolic blood pressure 2023-03-09 21:06:00 79 mm[Hg] [facility] Heart rate 2023-03-09 21:06:00 79 /min [facility] Body temperature 2023-03-09 21:06:00 37.06 Marga [facility] Respiratory rate 2023-03-09 21:06:00 18 /min [facility] Body height 2023-03-09 21:06:00 152.4 cm [facility] Body weight 2023-03-09 21:06:00 93.078 kg [facility] BMI 2023-03-09 21:06:00 40.08 kg/m2 [facility] Oxygen saturation in Arterial blood by Pulse oximetry 2023-03-09 21:06:00 97 /min [facility] Systolic blood pressure 2023-01-07 16:25:00 111 mm[Hg] [facility] Diastolic blood pressure 2023-01-07 16:25:00 78 mm[Hg] [facility] Heart rate 2023-01-07 16:25:00 90 /min [facility] Body temperature 2023-01-07 16:25:00 37.11 Marga [facility] Respiratory rate 2023-01-07 16:25:00 16 /min [facility] Body weight 2023-01-07 16:25:00 92.806 kg [facility] BMI 2023-01-07 16:25:00 39.96 kg/m2 [facility] Oxygen saturation in Arterial blood by Pulse oximetry 2023-01-07 16:25:00 99 /min [facility] Systolic blood pressure 2022-12-11 14:50:00 126 mm[Hg] [facility] Diastolic blood pressure 2022-12-11 14:50:00 81 mm[Hg] [facility] Heart rate 2022-12-11 14:50:00 84 /min [facility] Body temperature 2022-12-11 14:50:00 36.94 Marga [facility] Respiratory rate 2022-12-11 14:50:00 18 /min [facility] Body height 2022-12-11 14:50:00 152.4 cm [facility] Body weight 2022-12-11 14:50:00 90.538 kg [facility] BMI 2022-12-11 14:50:00 38.98 kg/m2 [facility] Oxygen saturation in Arterial blood by Pulse oximetry 2022-12-11 14:50:00 98 /min [facility] Systolic blood pressure 2022-12-02 17:49:00 122 mm[Hg] [facility] Diastolic blood pressure 2022-12-02 17:49:00 86 mm[Hg] [facility] Heart rate 2022-12-02 17:49:00 76 /min [facility] Body temperature 2022-12-02 17:49:00 36.5 Marga [facility] Respiratory rate 2022-12-02 17:49:00 18 /min [facility] Body height 2022-12-02 17:49:00 152.4 cm [facility] Body weight 2022-12-02 17:49:00 91.627 kg [facility] BMI 2022-12-02 17:49:00 39.45 kg/m2 [facility] Oxygen saturation in Arterial blood by Pulse oximetry 2022-12-02 17:49:00 97 /min [facility] Systolic blood pressure 2022-09-15 19:46:00 114 mm[Hg] [facility] Diastolic blood pressure 2022-09-15 19:46:00 77 mm[Hg] [facility] Heart rate 2022-09-15 19:46:00 82 /min [facility] Body temperature 2022-09-15 19:46:00 36.61 Marga [facility] Respiratory rate 2022-09-15 19:46:00 18 /min [facility] Body weight 2022-09-15 19:46:00 88.814 kg [facility] BMI 2022-09-15 19:46:00 38.24 kg/m2 [facility] Oxygen saturation in Arterial blood by Pulse oximetry 2022-09-15 19:46:00 98 /min [facility] Systolic blood pressure 2022-08-22 19:05:00 122 mm[Hg] [facility] Diastolic blood pressure 2022-08-22 19:05:00 83 mm[Hg] [facility] Heart rate 2022-08-22 19:05:00 76 /min [facility] Body weight 2022-08-22 19:05:00 90.583 kg [facility] BMI 2022-08-22 19:05:00 39.00 kg/m2 [facility] Oxygen saturation in Arterial blood by Pulse oximetry 2022-08-22 19:05:00 97 /min [facility] Systolic blood pressure 2022-07-24 19:59:00 106 mm[Hg] [facility] Diastolic blood pressure 2022-07-24 19:59:00 68 mm[Hg] [facility] Heart rate 2022-07-24 19:59:00 75 /min [facility] Body temperature 2022-07-24 19:59:00 36.72 Marga [facility] Respiratory rate 2022-07-24 19:59:00 18 /min [facility] Body height 2022-07-24 19:59:00 152.4 cm [facility] Body weight 2022-07-24 19:59:00 91.082 kg [facility] BMI 2022-07-24 19:59:00 39.22 kg/m2 [facility] Systolic blood pressure 2022-06-27 20:39:00 112 mm[Hg] [facility] Diastolic blood pressure 2022-06-27 20:39:00 81 mm[Hg] [facility] Heart rate 2022-06-27 20:39:00 77 /min [facility] Body temperature 2022-06-27 20:39:00 36.72 Marga [facility] Respiratory rate 2022-06-27 20:39:00 18 /min [facility] Body height 2022-06-27 20:39:00 152.4 cm [facility] Body weight 2022-06-27 20:39:00 91.627 kg [facility] BMI 2022-06-27 20:39:00 39.45 kg/m2 [facility] Oxygen saturation in Arterial blood by Pulse oximetry 2022-06-27 20:39:00 100 /min [facility] Systolic blood pressure 2022-06-10 19:22:00 118 mm[Hg] [facility] Diastolic blood pressure 2022-06-10 19:22:00 83 mm[Hg] [facility] Heart rate 2022-06-10 19:22:00 79 /min [facility] Body temperature 2022-06-10 19:22:00 37.22 Marga [facility] Respiratory rate 2022-06-10 19:22:00 16 /min [facility] Body height 2022-06-10 19:22:00 152.4 cm [facility] Body weight 2022-06-10 19:22:00 91.037 kg [facility] BMI 2022-06-10 19:22:00 39.20 kg/m2 [facility] Oxygen saturation in Arterial blood by Pulse oximetry 2022-06-10 19:22:00 97 /min [facility] Systolic blood pressure 2022-04-23 17:05:00 106 mm[Hg] [facility] Diastolic blood pressure 2022-04-23 17:05:00 73 mm[Hg] [facility] Heart rate 2022-04-23 17:05:00 84 /min [facility] Body temperature 2022-04-23 17:05:00 36.94 Marga [facility] Respiratory rate 2022-04-23 17:05:00 18 /min [facility] Body height 2022-04-23 17:05:00 152.4 cm [facility] Body weight 2022-04-23 17:05:00 89.903 kg [facility] BMI 2022-04-23 17:05:00 38.71 kg/m2 [facility] Oxygen saturation in Arterial blood by Pulse oximetry 2022-04-23 17:05:00 98 /min [facility] Systolic blood pressure 2022-01-23 19:49:00 107 mm[Hg] [facility] Diastolic blood pressure 2022-01-23 19:49:00 64 mm[Hg] [facility] Heart rate 2022-01-23 19:49:00 85 /min [facility] Body temperature 2022-01-23 19:49:00 36.94 Marga [facility] Respiratory rate 2022-01-23 19:49:00 20 /min [facility] Body height 2022-01-23 19:49:00 152.4 cm [facility] Body weight 2022-01-23 19:49:00 88.089 kg [facility] BMI 2022-01-23 19:49:00 37.93 kg/m2 [facility] Procedures Procedure Date / Time Performed Performing Clinician Source THYROID STIMULATING HORMONE 2023-03-31 00:22:00 Sharlene Rodgers [facility] COMP. METABOLIC PANEL (67874) 2023-03-31 00:22:00 Ana Maria khanh [facility] TOTAL BETA HCG ASSAY 2023-03-31 00:22:00 Sharlene Rodgers [facility] CBC WITH DIFF 2023-03-31 00:22:00 Sharlene Rodgers [facility] URINALYSIS 2023-03-31 00:22:00 Sharlene Rodgers [facility] CONSENT/REFUSAL FOR DIAGNOSI S AND TREATMENT 2023-03-30 22:45:33 Doctor Unassigned, [place] [facility] POCT MOLECULAR FLU 2023-03-19 21:19:00 Unknown, Attending [facility] POCT MOLECULAR STREP 2023-01-07 16:23:00 Unknown, Attending [facility] AUTHORIZATION FOR RELEASE OF PHI 2023-01-02 05:01:00 Doctor Unassigned, [place] [facility] POCT SARS-COV-2 ANTIGEN (BIN AX NOW) 2022-12-02 18:26:00 Lillian Montana [facility] CORTISOL AM 2022-08-26 14:04:00 Joss Shay [facility] FREE T4 2022-08-26 14:04:00 Joss Shay [facility] THYROID STIMULATING HORMONE 2022-08-26 14:04:00 Joss Shay [facility] FOLLICLE STIMULATING HORMONE 2022-08-26 14:04:00 Joss Shay [facility] LUTEINIZING HORMONE SERUM 2022-08-26 14:04:00 Joss Shay [facility] DEHYDROEPIANDROSTERONE SULFATE 2022-08-09 8 14:04:00 Joss Shay [facility] GLYCOSYLATED HEMOGLOBIN (A1C) 2022-08-26 14:04:00 Joss Shay [facility] FREE T3 2022-08-26 14:04:00 Joss Shay [facility] PATIENT FINANCIAL POLICY 2022-07-24 19:43:32 Doctor Unassigned, [place] [facility] POCT MOLECULAR STREP 2022-06-27 20:44:00 Unknown, Attending [facility] POCT TEST 2022-04-23 00:00:00 Lillian Montana [facility] THYROID STIMULATING HORMONE 2022-01-23 20:41:00 Britt Caruso [facility] TESTOSTERONE 2022-01-23 20:41:00 Britt Caruso [facility] FOLLICLE STIMULATING HORMONE 2022-01-23 20:41:00 Britt Caruso [facility] LUTEINIZING HORMONE SERUM 2022-01-23 20:41:00 Britt Caruso [facility] GLYCOSYLATED HEMOGLOBIN (A1C) 2022-01-23 20:41:00 Britt Caruso [facility] HIV 1/2 AG-AB WITH REFLEX 2022-01-23 20:41:00 Britt Caruso [facility] PAP SMEAR-LIQUID BASED-CP 2022-01-23 20:41:00 Britt Caruso [facility] POCT TEST 2022-01-23 20:04:00 Britt Caruso [facility] Encounters Start Date/Time End Date/Time Encounter Type Admission Type Attending [facility] Care Facility Care Department Encounter ID Source 2021-03-10 16:49:15 Emergency [facility] [id number] [facility] 2023-03-30 17:17:00 2023-03-30 20:47:00 Emergency X [facility] [id number] [facility] 2023-03-30 17:17:00 2023-03-30 20:47:00 Emergency Sharlene Rodgers [facility] 1.2.840.114 350.1.13.10 4.2.7.2.686 [id number] [facility] 2023-03-28 00:00:00 2023-03-28 00:00:00 Outpatient Rutledge_L MMG [id number] [facility] 2023-03-28 00:00:00 2023-03-28 00:00:00 Outpatient Rutledge_L MMG [id number] [facility] 2023-03-24 09:00:00 2023-03-24 09:00:00 Outpatient R SAVANNA ROB [facility] [id number] [facility] 2023-03-24 00:00:00 2023-03-24 00:00:00 Outpatient Rutledge_L MMG [id number] [facility] 2023-03-19 14:40:00 2023-03-19 15:44:43 Outpatient DALILA BRUNNER [facility] [id number] [facility] 2023-03-19 14:40:00 2023-03-19 15:00:00 Urgent Care Dalila Almeida Unknown, Attending [facility] 1..840.114 350.1.13.10 4.2.7.2.686 [id number] [facility] 2023-03-13 10:00:00 2023-03-13 10:00:00 Outpatient R [facility] [id number] [facility] 2023-03-09 16:00:00 2023-03-09 16:20:46 Outpatient R LILLIAN MONTANA [facility] [id number] [facility] 2023-03-09 16:00:00 2023-03-09 16:20:00 Urgent Care Lillian Montana Unknown, Attending [facility] 1..840.114 350.1.13.10 4.2.7.2.686 [id number] [facility] 2023-02-06 00:00:00 2023-02-06 00:00:00 [facility]..840.114 350.1.13.10 4.2.7.2.686 [id number] [facility] 2023-02-04 00:00:00 2023-02-04 [facility]00[facility]..840.114 350.1.13.10 4.2.7.2.686 [id number] [facility] 2023-01-07 11:00:00 2023-01-07 11:35:29 Outpatient R DIANA GARCIA [facility] [id number] [facility] 2023-01-07 11:00:00 2023-01-07 11:35:29 Urgent Care Diana Garcia Unknown, Attending [facility] 1.2.840.114 350.1.13.10 4.2.7.2.686 [id number] [facility] 2023-01-06 00:00:00 2023-01-06 00:00:00 Refvladimir Thea Sherwood [facility] 1.0.114 350.1.13.10 4.2.7.2.686 [id number] [facility] 2023-01-02 00:00:00 2023-01-02 00:00:00 Orders Only Doctor Unassigned, [place] [facility] 1.0.114 350.1.13.10 4.2.7.2.686 [id number] [facility] 2022-12-23 00:00:00 2022-12-23 00:00:00 Patient Secure Msg Doctor Unassigned, [place] [facility] 1..114 350.1.13.10 4.2.7.2.686 [id number] [facility] 2022-12-22 12:18:34 2022-12-22 23:59:00 Outpatient R KSENIA ANDREA [facility] [id number] [facility] 2022-12-22 12:18:34 2022-12-22 23:59:00 Hospital Encounter Ksenia Andrea [facility] 1..114 350.1.13.10 4.2.7.2.686 [id number] [facility] 2022-12-11 10:00:00 2022-12-11 11:08:09 Outpatient R KSENIA ANDREA [facility] [id number] [facility] 2022-12-11 10:00:00 2022-12-11 11:08:09 [place] [facility] 1..114 350.1.13.10 4.2.7.2.686 [id number] [facility] 2022-12-02 12:40:00 2022-12-02 13:31:05 Outpatient R LILLIAN MONTANA [facility] [id number] [facility] 2022-12-02 12:40:00 2022-12-02 13:31:05 Urgent Care Lillian Montana Unknown, Attending [facility] 1.2840.114 350.1.13.10 4.2.7.2.686 [id number] [facility] 2022-12-02 00:00:00 2022-12-02 00:00:00 Letter (Out) Provider, Augie Dennis [facility] 1.84.114 350.1.13.10 4.2.7.2.686 [id number] [facility] 2022-11-26 00:00:00 2022-11-26 00:00:00 Patient Secure MsPhilomena Babb [facility] [employer] MANAGER [facility] 1.0.114 350.1.13.10 4.2.7.2.686 [id number] [facility] 2022-11-10 00:00:00 2022-11-10 00:00:00 Case Management Savanna Rob [facility] [employer]PER[employer] MANAGER [facility] CHILD [facility] 1.20.114 350.1.13.10 4.2.7.2.686 [id number] [facility] 2022-11-07 08:15:00 2022-11-07 08:30:00 Reinforcing Bar Setter Visit Lab, Augie-RmchPhilomena Gutierrez [facility] [facility] INTEGRATED [employer]IST[employer] OPERATIONS MANAGER [facility] 1.840.114 350.1.13.10 4.2.7.2.686 [id number] [facility] 2022-11-07 08:15:00 2022-11-07 08:15:00 Outpatient R PHILOMENA FOX [facility] [id number] [facility] 2022-11-06 00:00:00 2022-11-06 00:00:00 Telephone Geraldine Jj SURINDER 1.840.114 350.1.13.10 4.2.7.2.686 [id number] [facility] 2022-11-05 00:00:00 2022-11-05 00:00:00 Case Management Savanna Rob [facility] INTEGRATED LOGISTICS OPERATIONS MANAGER [facility] & CHILD [facility] 1.840.114 350.1.13.10 4.2.7.2.686 [id number] [facility] 2022-11-04 00:00:00 2022-11-04 00:00:00 Patient Secure Msg Joss Shay [facility] 1.84.114 350.1.13.10 4.2.7.2.686 [id number] [facility] 2022-10-30 00:00:00 2022-10-30 00:00:00 Patient Secure Msg Philomena Fox [facility] INTEGRATED LOGISTICS OPERATIONS MANAGER [facility] CHILD [facility] 1.0.114 350.1.13.10 4.2.7.2.686 [id number] [facility] 2022-10-14 00:00:00 2022-10-14 00:00:00 Telephone Pgy3 [facility] 1.0.114 350.1.13.10 4.2.7.2.686 [id number] [facility] 2022-10-07 00:00:00 2022-10-07 00:00:00 Case Management Savanna Rob [facility] INTE[employer]ATED LOGISTICS OPERATIONS MANAGER [facility] CHILD [facility] 1.2840.114 350.1.13.10 4.2.7.2.686 [id number] [facility] 2022-10-05 00:00:00 2022-10-05 00:00:00 Patient Secure Msg Philomena Fox [facility] [employer] [facility]ATIONS [facility] 1.20.114 350.1.13.10 4.2.7.2.686 [id number] 107 [id number] [facility] 2022-09-15 14:40:00 2022-09-15 15:03:03 Outpatient R LILLIAN MONTANA [facility] [id number] [facility] 2022-09-15 14:40:00 2022-09-15 15:00:00 Urgent Care Lillian [place] Unknown, Attending [facility] 1.2840.114 350.1.13.10 4.2.7.2.686 [id number] [facility] 2022-09-15 00:00:00 2022-09-15 00:00:00 Letter (Out) Lillian Montana [facility] 1.2840.114 350.1.13.10 4.2.7.2.686 [id number] [facility] 2022-09-09 07:45:00 2022-09-09 07:45:00 Outpatient R PHILOMENA FOX [facility] [id number] [facility] 2022-09-03 00:00:00 2022-09-03 00:00:00 Case Management Savanna Rob [facility] [employer] OPERATIONS [facility] 1.2840.114 350.1.13.10 4.2.7.2.686 [id number] [facility] 2022-09-03 00:00:00 2022-09-03 00:00:00 Patient Secure Msg Philomena Fox [facility] INTE[employer]ATED [employer] OPERATIONS MANAGER [facility] MATERNAL & CHILD HEALTH [facility] 1.2.840.114 350.1.13.10 4.2.7.2.686 [id number] 107 [id number] [facility] 2022-08-27 14:33:09 2022-08-27 23:59:00 Outpatient SAVANNA LESTER [facility] [id number] [facility] 2022-08-27 14:33:09 2022-08-27 23:59:00 Hospital Encounter Savanna Rob [facility] 1..840.114 350.1.13.10 4.2.7.2.686 [id number] [facility] 2022-08-27 00:00:00 2022-08-27 00:00:00 Patient Secure Msg Joss Shay [facility] 1..840.114 350.1.13.10 4.2.7.2.686 [id number] [facility] 2022-08-26 08:45:00 2022-08-26 08:48:12 Reinforcing Bar Setter Visit Lab, Joss Wick [facility] 1..840.114 350.1.13.10 4.2.7.2.686 [id number] [facility] 2022-08-26 08:45:00 2022-08-26 08:45:00 Outpatient JOSS GRAVES [facility] [id number] [facility] 2022-08-22 14:00:00 2022-08-22 14:40:11 Outpatient JOSS GRAVES [facility] [id number] [facility] 2022-08-22 14:00:00 2022-08-22 14:40:11 Office Visit Joss Shay [facility] 1.114 350.1.13.10 4.2.7.2.686 [id number] [facility] 2022-07-24 15:00:00 2022-07-24 15:29:56 Outpatient SAVANNA LESTER [facility] [id number] [facility] 2022-07-24 15:00:00 2022-07-24 15:29:56 Office Visit Provider, Savanna Rocha [facility] INTE[employer]ATED [employer] OPERATIONS MANAGER [facility] MATER[facility] & [facility]ILD [facility] 1.114 350.1.13.10 4.2.7.2.686 [id number] 107 [id number] [facility] 2022-07-24 00:00:00 2022-07-24 00:00:00 Orders Only Doctor Unassigned, [place] [facility] 1.114 350.1.13.10 4.2.7.2.686 [id number] [facility] 2022-06-27 14:40:00 2022-06-27 15:00:51 Outpatient R JAMES SANTIZO [facility] [id number] [facility] 2022-06-27 14:40:00 2022-06-27 15:00:51 Urgent Care James Santizo Unknown, Attending [facility] 1.114 350.1.13.10 4.2.7.2.686 [id number] 370 [id number] [facility] 2022-06-27 00:00:00 2022-06-27 00:00:00 Letter (Out) Provider, Augie Dennis Urgent Care [facility] 1.114 350.1.13.10 4.2.7.2.686 [id number] [facility] 2022-06-10 14:00:00 2022-06-10 14:20:00 Urgent Care Khadra Cox Unknown, Attending [facility] 1..840.114 350.1.13.10 4.2.7.2.686 [id number] [facility] 2022-06-10 14:00:00 2022-06-10 14:00:00 Outpatient R KHADRA COX [facility] [id number] [facility] 2022-06-10 00:00:00 2022-06-10 00:00:00 Letter (Out) Gonzalez Coxkelsey [facility] 1..840.114 350.1.13.10 4.2.7.2.686 [id number] 370 [id number] [facility] 2022-06-10 00:00:00 2022-06-10 00:00:00 Patient Secure Msg Philomena Fox [facility] INTEGRATED LOGISTICS OPERATIONS MANAGER [facility] 1..840.114 350.1.13.10 4.2.7.2.686 [id number] 107 [id number] [facility] 2022-04-23 11:00:00 2022-04-23 11:38:43 Outpatient R LILLIAN MONTANA [facility] [id number] [facility] 2022-04-23 11:00:00 2022-04-23 11:20:00 Urgent Care Lillian [place], Attending [facility] 1..840.114 350.1.13.10 4.2.7.2.686 [id number] 370 [id number] [facility] 2022-04-23 00:00:00 2022-04-23 00:00:00 Letter (Out) Lillian Montana [facility] 1.2840.114 350.1.13.10 4.2.7.2.686 [id number] [facility] 2022-04-23 00:00:00 2022-04-23 00:00:00 Telephone GilmarMargaritakyniels Azul [facility] 1.2840.114 350.1.13.10 4.2.7.2.686 [id number] [facility] 2022-02-14 00:00:00 2022-02-14 00:00:00 Telephone David Phillip [facility] INTEGRATED LOGISTICS OPERATIONS MANAGER [facility] & CHILD [facility] 1.2.840.114 350.1.13.10 4.2.7.2.686 [id number] 107 [id number] [facility] 2022-02-06 00:00:00 2022-02-06 00:00:00 Telephone Britt Caruso [facility] INTEGRATED LOGISTICS OPERATIONS MANAGER [facility] CHILD [facility] 1.2.840.114 350.1.13.10 4.2.7.2.686 [id number] 107 [id number] [facility] 2022-01-29 00:00:00 2022-01-29 00:00:00 Patient Secure Msg Britt Caruso [facility] INTEGRATED LOGISTICS OPERATIONS MANAGER [facility] & CHILD [facility] 1.2.840.114 350.1.13.10 4.2.7.2.686 [id number] 107 [id number] [facility] 2022-01-23 14:45:00 2022-01-23 15:42:19 Office Visit Britt Caruso [facility] INTEGRATED LOGISTICS OPERATIONS MANAGER [facility] & CHILD [facility] 1.2.840.114 350.1.13.10 4.2.7.2.686 [id number] [facility] 2022-01-23 14:45:00 2022-01-23 15:42:19 [facility] [id number] [facility] 2022-01-23 14:45:00 2022-01-23 14:45:00 [facility] [id number] [facility] 2022-01-23 00:00:00 2022-01-23 00:00:00 Orders Only Doctor Unassigned, [place] [facility] 1.84.114 350.1.13.10 4.2.7.2.686 [id number] [facility] 2021-11-03 00:00:00 2021-11-03 00:00:00 Letter (Out) Chanel Parham [facility] 1.84.114 350.1.13.10 4.2.7.2.686 [id number] [facility] 2021-11-02 15:40:00 2021-11-02 15:55:31 Outpatient R THELMA ORTIZ [facility] [id number] [facility] 2021-11-02 15:40:00 2021-11-02 15:55:31 Urgent Care Thelma Ortiz, [facility] 1.840.114 350.1.13.10 4.2.7.2.686 [id number] [facility] 2021-11-02 00:00:00 2021-11-02 00:00:00 Orders Only Doctor Unassigned, [place] [facility] 1.114 350.1.13.10 4.2.7.2.686 [id number] [facility] 2021-09-24 11:00:00 2021-09-24 11:00:00 Outpatient R PHILOMENA FOX [facility] [id number] [facility] 2021-09-22 20:22:00 2021-09-22 22:58:00 Emergency X CECE ACEVEDO [facility] [id number] [facility] 2021-09-22 20:22:00 2021-09-22 22:58:00 Emergency Cece Acevedo G [facility] 1.2.840.114 350.1.13.10 4.2.7.2.686 [id number] [facility] 2021-06-10 09:00:00 2021-06-10 10:01:34 Outpatient R PHILOMENA FOX [facility] [id number] [facility] 2021-06-10 09:00:00 2021-06-10 10:01:34 Office Visit Philomena Fox [facility] INTE[employer]ATED [employer]ISTICS OPERATIONS MANAGER [facility] & CHILD [facility] 1.2.840.114 350.1.13.10 4.2.7.2.686 [id number] 107 [id number] [facility] 2021-06-07 00:00:00 2021-06-07 00:00:00 Patient Secure Msg Philomena Fox [facility] INTEGRATED LOGISTICS OPERATIONS MANAGER [facility] CHILD [facility] 1.2.840.114 350.1.13.10 4.2.7.2.686 [id number] [facility] 2021-06-07 00:00:00 2021-06-07 00:00:00 Telephone Britt Caruso [facility] INTEGRATED LOGISTICS OPERATIONS MANAGER [facility] & CHILD [facility] 1.2.840.114 350.1.13.10 4.2.7.2.686 [id number] [facility] 2021-05-14 00:00:00 2021-05-14 00:00:00 Telephone Keri Lee [facility] 1.2.840.114 350.1.13.10 4.2.7.2.686 [id number] [facility] 2021-05-13 13:20:00 2021-05-13 14:20:26 Outpatient R RUBÉN LILLIAN [facility] [id number] [facility] 2021-05-13 13:20:00 2021-05-13 13:40:00 Urgent Care Dalila Almeida [facility] 1.840.114 350.1.13.10 4.2.7.2.686 [id number] [facility] 2021-04-17 13:00:00 2021-04-17 13:00:00 Outpatient R VISHAL LINDSAY [facility] [id number] [facility] 2021-04-17 13:00:00 2021-04-17 13:00:00 Outpatient R VISHAL LINDSAY [facility] [id number] [facility] 2021-04-08 00:00:00 2021-04-08 00:00:00 Patient Secure Msg Philomena Fox [facility] INTEGRATED [employer]IST[employer] OPERATIONS MANAGER [facility] MATERNAL & CHILD HEALTH [facility] 1.840.114 350.1.13.10 4.2.7.2.686 [id number] 107 [id number] [facility] 2021-03-27 00:00:00 2021-03-27 00:00:00 Telephone Vishal Lindsay [facility] 1.840.114 350.1.13.10 4.2.7.2.686 [id number] [facility] 2021-03-22 00:00:00 2021-03-22 00:00:00 Patient Secure Msg Gerber Roldan [facility] 1..840.114 350.1.13.10 4.2.7.2.686 [id number] [facility] 2021-03-18 14:30:00 2021-03-18 14:42:54 Outpatient R VISHAL LINDSAY [facility] [id number] [facility] 2021-03-18 14:12:12 2021-03-18 14:42:54 Office Visit Vishal Lindsay [facility] 1.2.840.114 350.1.13.10 4.2.7.2.686 [id number] [facility] 2021-03-17 19:20:00 2021-03-17 21:01:00 Emergency X RANDY LOWERY [facility] [id number] [facility] 2021-03-17 19:20:00 2021-03-17 21:01:00 Emergency Randy Lowery [facility] 1.2.840.114 350.1.13.10 4.2.7.2.686 [id number] [facility] 2021-03-17 19:20:00 2021-03-17 21:01:00 Emergency X RANDY LOWERY [facility] [id number] [facility] 2021-02-05 09:00:00 2021-02-05 09:00:00 Outpatient R [facility] [id number] [facility] 2021-02-03 10:40:15 2021-02-03 11:00:15 Urgent Care Rub[facility] 1.2.840.114 350.1.13.10 4.2.7.2.686 [id number] [facility] 2021-02-03 11:00:00 2021-02-03 11:00:00 Outpatient R RUBÉN LILLIAN [facility] [id number] [facility] 2021-01-30 14:15:00 2021-01-30 14:15:00 Outpatient R BRITT CARUSO [facility] [id number] [facility] 2021-01-23 15:30:00 2021-01-23 15:30:00 Outpatient R [facility] [id number] [facility] 2020-12-31 15:15:00 2020-12-31 15:15:00 Outpatient R PHILOMENA FOX [facility] [id number] [facility] 2020-12-14 13:15:00 2020-12-14 13:15:00 Outpatient R PHILOMENA FOX [facility] [id number] [facility] 2020-12-11 00:00:00 2020-12-11 00:00:00 Patient Secure Msg Yoelana paula Philomena C [facility] INTEGRATED LOGISTICS OPERATIONS MANAGER [facility] & CHILD [facility] 1.2.840.114 350.1.13.10 4.2.7.2.686 [id number] 107 [id number] [facility] 2020-11-08 00:00:00 2020-11-08 00:00:00 Telephone Philomena Fox [facility] INTEGRATED LOGISTICS OPERATIONS MANAGER [facility] & CHILD [facility] 1.2.840.114 350.1.13.10 4.2.7.2.686 [id number] [facility] 2020-11-05 00:00:00 2020-11-05 00:00:00 Patient Secure Msg Simonacelia, Philomena C [facility] INTEGRATED LOGISTICS OPERATIONS MANAGER [facility] 1.2.840.114 350.1.13.10 4.2.7.2.686 [id number] 107 [id number] [facility] 2020-11-03 00:00:00 2020-11-03 00:00:00 Refill Luis Antonio Foxilola C [facility] INTEGRATED LOGISTICS OPERATIONS MANAGER [facility] CHILD [facility] 1.2.840.114 350.1.13.10 4.2.7.2.686 [id number] 107 [id number] [facility] 2020-10-30 00:00:00 2020-10-30 00:00:00 Patient Secure Msg Yoelana paulaPhilomena [facility] INTEGRATED LOGISTICS OPERATIONS MANAGER [facility] MATERNAL & CHILD [facility] 1.2.840.114 350.1.13.10 4.2.7.2.686 [id number] 107 [id number] [facility] 2020-10-30 00:00:00 2020-10-30 00:00:00 Telephone Yoelana paulaPhilomena [facility] INTEGRATED LOGISTICS OPERATIONS MANAGER [facility] & CHILD [facility] 1.2.840.114 350.1.13.10 4.2.7.2.686 [id number] 107 [id number] [facility] 2020-10-26 14:51:23 2020-10-26 16:05:36 Office Visit YoelmonikaPhilomena yang [facility] INTEGRATED LOGISTICS OPERATIONS MANAGER [facility] & CHILD [facility] 1.2840.114 350.1.13.10 4.2.7.2.686 [id number] 107 [id number] [facility] 2020-10-26 14:15:00 2020-10-26 14:15:00 Outpatient R YOELMONIKAPHILOMENA YANG [facility] [id number] [facility] 2020-10-26 00:00:00 2020-10-26 00:00:00 Orders Only Doctor Unassigned, [place] [facility] 1.0.114 350.1.13.10 4.2.7.2.686 [id number] [facility] 2020-09-10 15:57:00 2020-09-10 17:04:00 Emergency Flor Monroy [facility] 1.2840.114 350.1.13.10 4.2.7.2.686 [id number] [facility] 2020-09-10 00:00:00 2020-09-10 00:00:00 Orders Only Doctor Unassigned, [place] [facility] 1.2840.114 350.1.13.10 4.2.7.2.686 [id number] [facility] 2020-07-31 00:00:00 2020-07-31 00:00:00 Patient Outreach Sunny Vin Devyn [facility] 1.2.840.114 350.1.13.10 4.2.7.2.686 [id number] [facility] 2019-11-23 00:00:00 2019-11-23 00:00:00 Refill AkinLuis Antonio gossilola Larry [facility] INTEGRATED LOGISTICS OPERATIONS MANAGER [facility] & CHILD [facility] 1.2.840.114 350.1.13.10 4.2.7.2.686 [id number] 107 [id number] [facility] 2019-11-23 00:00:00 2019-11-23 00:00:00 Refill AkinLuis Antonio gossilola C [facility] INTEGRATED LOGISTICS OPERATIONS MANAGER [facility] & CHILD [facility] 1.2840.114 350.1.13.10 4.2.7.2.686 [id number] 107 [id number] 2019-07-21 10:30:00 2019-07-21 10:30:00 Outpatient R [facility] [id number] [facility] 2019-07-13 10:22:20 2019-07-13 10:39:48 Office Visit David Cisneros [facility] INTEGRATED LOGISTICS OPERATIONS MANAGER [facility] & CHILD [facility] 1.2.840.114 350.1.13.10 4.2.7.2.686 [id number] [facility] 2019-07-13 10:22:20 2019-07-13 10:39:48 Office Visit David Cisneros [facility] INTEGRATED LOGISTICS OPERATIONS MANAGER [facility] & CHILD [facility] 1.2.840.114 350.1.13.10 4.2.7.2.686 [id number] 107 [id number] 2019-07-13 09:23:47 2019-07-13 09:33:41 [facility] Britt Caruso R [facility] INTEGRATED LOGISTICS OPERATIONS MANAGER [facility] & CHILD [facility] 1.2.840.114 350.1.13.10 4.2.7.2.686 [id number] 107 [id number] [facility] 2019-07-13 09:23:47 2019-07-13 09:33:41 Nurse Visit Visit, [place] [facility] INTEGRATED LOGISTICS OPERATIONS MANAGER [facility] & CHILD [facility] 1.2.840.114 350.1.13.10 4.2.7.2.686 [id number] 107 [id number] 2019-07-13 09:00:00 2019-07-13 09:00:00 Outpatient R [facility] [id number] [facility] 2019-07-13 00:00:00 2019-07-13 00:00:00 Orders Only Doctor Unassigned, [place] [facility] 1.2.840.114 350.1.13.10 4.2.7.2.686 [id number] [facility] 2018-12-20 13:40:21 2019-01-18 16:45:28 Nurse Visit Visit, [place] Nurse Philomena Fox [facility] 1.2.840.114 350.1.13.10 4.2.7.2.686 [id number] [facility] 2018-12-20 00:00:00 2018-12-20 00:00:00 Orders Only Doctor Unassigned, [place] [facility] 1.2.840.114 350.1.13.10 4.2.7.2.686 [id number] [facility] Results Test Description Test Time Test Comments Results Result Co mments Source [facility] [id number] 01:58:44 * Test Item Value Reference Range Interpretation Comme nts TSH (test code = 0189940833) 2.42 See_Comment [Automated messa ge] The system which generated this result transmitted reference range: 0.45 - 4.70 mIU/L. The reference range was not used to interpret this result as normal/abnormal. Lab Interpretation (test code = 40536-8) Normal [facility] (69884)2023-03-31 01:28:00* Test Item Value Reference Range Interpretation Comme nts NA (test code = 2093904801) 139 mmol/L 135-145 K (test code = 9990967876) 3.7 mmol/L 3.5-5.0 CL (test code = 9470746868) 108 mmol/L 98-108 CO2 TOTAL (test code = 6829477103) 19 mmol/L 23-31 L AGAP (test code = 0566819201) 12 2-16 BUN (test code = 8985845306) 8 mg/dL 7-23 GLUCOSE (test code = 3738727988) 79 mg/dL 70-110 CREATININE (test code = 5654472395) 0.70 mg/dL 0.50-1.04 TOTAL BILI (test code = 3821134291) 0.4 mg/dL 0.1-1.1 CALCIUM (test code = 8195288098) 9.3 mg/dL 8.6-10.6 T PROTEIN (test code = 4392874084) 7.8 g/dL 6.3-8.2 ALBUMIN (test code = 6852669328) 4.4 g/dL 3.5-5.0 ALK PHOS (test code = 0220782861) 71 U/L 34-122 ALTv (test code = 1742-6) 23 U/L 5-35 AST(SGOT) (test code = 5424416931) 25 U/L 13-40 eGFR (test code = 47438-8) 121.7 mL/min/1.73m2 CKD-EPI eGFR (2020). Assuming creatinine has been stable day-to-day for at least three months, the eGFR indicates Category G1 (>= 90 mL/min/1.73 m2) Lab Interpretation (test code = 46067-8) Abnormal [facility] WITH [id number] 00:51:13* Test Item Value Reference Range Interpretation Comme nts WBC (test code = 6690-2) 14.45 See_Comment H [Automated [employer]] The system which generated this result [...] 32.7 g/dL 31.6-35.1 RDW-SD (test code = 07715-8) 42.5 fL 39.0-49.9 RDW-CV (test code = 788-0) 13.6 % 12.0-15.5 PLT (test code = 777-3) 449 See_Comment H [Automated messa ge] The system which generated this result transmitted reference range: 166 - 358 10*3/?L. The reference range was not used to interpret this result as normal/abnormal. MPV (test code = 10788-2) 9.4 fL 9.5-12.9 L NRBC/100 WBC (test code = 4711515173) 0.0 See_Comment [Automated [employer] ssage] The system which generated this result transmitted reference range: 0.0 - 10.0 /100 WBCs. The reference range was not used to interpret this result as normal/abnormal. NRBC x10^3 (test code = 8879357030) See_Comment [Automated [employer]] The system which generated this result transmitted reference range: 10*3/?L. The reference range was not used to interpret this result as normal/abnormal. GRAN MAT (NEUT) % (test code = 770-8) 67.8 % IMM GRAN % (test code = 1348247308) 0.60 % LYMPH % (test code = 736-9) 25.7 % MONO % (test code = 5905-5) 4.8 % EOS % (test code = 713-8) 0.6 % BASO % (test code = 706-2) 0.5 % GRAN MAT x10^3(ANC) (test code = 3749691212) 9.79 10*3/uL 1.88-7.09 H IMM GRAN x10^3 (test code = 4234712792) 0.08 10*3/uL 0.00-0.06 H LYMPH x10^3 (test code = 731-0) 3.72 10*3/uL 1.32-3.29 H MONO x10^3 (test code = 742-7) 0.70 10*3/uL 0.33-0.92 EOS x10^3 (test code = 711-2) 0.09 10*3/uL 0.03-0.39 BASO x10^3 (test code = 704-7) 0.07 10*3/uL 0.01-0.07 Lab Interpretation (test code = 16033-6) Abnormal [facility] MOLECULAR [id number] 21:31:10* Test Item Value Reference Range Interpretation Comme nts POCT Molecular FluA (test co de = 06436-4) Negative Negative POCT Molecular FluB (test co de = 18637-1) Negative Negative Lab Interpretation (test cod e = 84330-7) Normal [facility] MOLECULAR [id number] 16:30:52* Test Item Value Reference Range Interpretation Comme nts POCT Molecular Strep (test c ode = 22683-5) Negative Negative Lab Interpretation (test cod e = 03984-4) Normal [facility] SARS-COV-2 ANTIGEN (BINAX NOW)2022-12-02 18:26:00* Test Item Value Reference Range Interpretation Comme nts POCT SARS-COV-2 ANTIGEN (charmaine t code = 09176-3) Not Detected Not Detected On board controls acceptable with C Line (test code = 3574) Yes [facility]A1C)2022-08-26 23:54:50* Test Item Value Reference Range Interpretation Comme nts HGB A1C (test code = 4548-4) 5.2 % 4.0-5.7 YOSELIN (test code = YOSELIN) Reference RangesNormal: <5.7%Prediabetes: 5.7 - 6.4%Diabetes: > 6.5% Lab Interpretation (test code = 25273-0) Normal [facility]CORT[facility]OL [id number] 21:51:34* Test Item Value Reference Range Interpretation Comme [facility] RANDY AM (test code = 5502429083) 9.7 ug/dL 4.5-23.0 YOSELIN (test code = YOSELIN) Biotin has been reported to cause a positive bias, interpret results relative to patient's use of biotin. Lab Interpretation (test code = 32119-8) Normal [facility]ressDEHYDROEPIANDROSTERONE [id number] 21:34:46* Test Item Value Reference Range Interpretation Comme [facility] DHEA-S (test code = 5314779107) 956.3 ng/mL YOSELIN (test code = YOSELIN) Normal Ranges for DHEA SO4 Prepubertal: ? ? 50-995 ng/mLAdult: ? 650-3400 ng/mL Adult levels may decrease with age after age 50. ? Decreased level may be seen in term pregnancies. ? Pubertal is based on physical examination. ? [facility]ressFOLLICLE STIMULATING [id number] 21:34:45* Test Item Value Reference Range Interpretation Comme [facility] FSH (test code = 5397334579) 6.03 mIU/mL YOSELIN (test code = YOSELIN) FSH Reference Ranges Follicular Phase: ? ? ? 3.8-8.8 mIU/mLMid-cycle Peak: ? 4.5-22.85 mIU/mLLuteal Phase: ? 1.7-5.1 mIU/mLPost-menopause female: ?16.7-113.6 mIU/mLAdult male: ? 1.2-19 mIU/mL [facility]ressLUTEINIZING HORMONE [id number] 21:34:45* Test Item Value Reference Range Interpretation Comme [facility] LH (test code = 5996522476) 9.18 mIU/mL YOSELIN (test code = YOSELIN) LH Reference Ranges: Menstrating Female ? ? Follicular phase ? ? 2.1-10.9 mIU/mL ? ? Mid-cycle peak ? ? ? 19.1-103.0 mIU/mL ? ? Luteal phase ? 1.2-12.8 mIU/mL Post-menopausal female ? ?10.8-58.6 mIU/mL Adule Male ?1.2-8.6 mIU/mL [facility]ressTHYROID STIMULATING [id number] 20:16:56 * Test Item Value Reference Range Interpretation Comme nts TSH (test code = 1545983202) 6.45 See_Comment H [Automated [employer]] The system which generated this result transmitted reference range: 0.45 - 4.70 mIU/L. The reference range was not used to interpret this result as normal/abnormal. Lab Interpretation (test code = 76856-9) Abnormal [facility] CypressT4 [id number] 20:03:11* Test Item Value Reference Range Interpretation Comme nts FREE T4 (test code = 6205556282) 1.21 See_Comment [Automated [employer]] The system which generated this result transmitted reference range: 0.78 - 2.20 ng/dL:. The reference range was not used to interpret this result as normal/abnormal. Lab Interpretation (test code = 85443-0) Normal [facility] [id number] 20:02:55* Test Item Value Reference Range Interpretation Comme nts FREE T3 (test code = 8405087117) 3.95 pg/mL 2.77-5.27 Lab Interpretation (test cod e = 57414-3) Normal [facility] MOLECULAR [id number] 20:52:21* Test Item Value Reference Range Interpretation Comme nts POCT Molecular Strep (test c ode = 65997-9) Negative Negative Lab Interpretation (test cod e = 38454-5) Normal [facility] MOLECULAR [id number] 20:52:21* Test Item Value Reference Range Interpretation Comme nts POCT Molecular Strep (test c ode = 32842-4) Negative Negative Lab Interpretation (test cod e = 49846-0) Normal [facility] [id number] 17:37:00* Test Item Value Reference Range Interpretation Comme nts POCT PREG (test code = 1605) Negative On board controls acceptable with C Line (test code = 3574) Yes POCT PREG LOT # (test code = 3575) POCT PREG TEST DATE ( test code = 3576) [facility] 1/2 AG-AB WITH [id number] 07:16:56* Test Item Value Reference Range Interpretation Comme nts HIV Semi-quantitative (test code = 21533-0) Negative Negative YOSELIN (test code = YOSELIN) Non-reactive for HIV-1 antigen and HIV-1/HIV-2 antibodies. ?No laboratory evidence of HIV infection. ?Repeat in 2-4 weeks if acute HIV infection is suspected. [facility] 1/2 AG-AB WITH [id number] 07:16:56* Test Item Value Reference Range Interpretation Comme nts HIV Semi-quantitative (test code = 79279-8) Negative Negative YOSELIN (test code = YOSELIN) Non-reactive for HIV-1 antigen and HIV-1/HIV-2 antibodies. ?No laboratory evidence of HIV infection. ?Repeat in 2-4 weeks if acute HIV infection is suspected. [facility]ressLUTEINIZING HORMONE [id number] 06:30:36* Test Item Value Reference Range Interpretation Comme [facility] LH (test code = 3348113161) mIU/mL YOSELIN (test code = YOSELIN) LH Reference Ranges: Menstrating Female ? ? Follicular phase ? ? 2.1-10.9 mIU/mL ? ? Mid-cycle peak ? ? ? 19.1-103.0 mIU/mL ? ? Luteal phase ? 1.2-12.8 mIU/mL Post-menopausal female ? ?10.8-58.6 mIU/mL Adule Male ?1.2-8.6 mIU/mL [facility]ressFOLLICLE STIMULATING [id number] 06:30:36* Test Item Value Reference Range Interpretation Comme [facility] FSH (test code = 1874334298) mIU/mL YOSELIN (test code = YOSELIN) FSH Reference Ranges Follicular Phase: ? ? ? 3.8-8.8 mIU/mLMid-cycle Peak: ? 4.5-22.85 mIU/mLLuteal Phase: ? 1.7-5.1 mIU/mLPost-menopause female: ?16.7-113.6 mIU/mLAdult male: ? 1.2-19 mIU/mL [facility]ressLUTEINIZING HORMONE [id number] 06:30:36* Test Item Value Reference Range Interpretation Comme nts LH (test code = 3199182117) mIU/mL YOSELIN (test code = YOSELIN) LH Reference Ranges: Menstrating Female ? ? Follicular phase ? ? 2.1-10.9 mIU/mL ? ? Mid-cycle peak ? ? ? 19.1-103.0 mIU/mL ? ? Luteal phase ? 1.2-12.8 mIU/mL Post-menopausal female ? ?10.8-58.6 mIU/mL Adule Male ?1.2-8.6 mIU/mL [facility]ressFOLLICLE STIMULATING [id number] 06:30:36* Test Item Value Reference Range Interpretation Comme [facility] FSH (test code = 0026117192) mIU/mL YOSELIN (test code = YOSELIN) FSH Reference Ranges Follicular Phase: ? ? ? 3.8-8.8 mIU/mLMid-cycle Peak: ? 4.5-22.85 mIU/mLLuteal Phase: ? 1.7-5.1 mIU/mLPost-menopause female: ?16.7-113.6 mIU/mLAdult male: ? 1.2-19 mIU/mL [facility] CypressTESTOSTERONE2022-09-16 05:00:02* Test Item Value Reference Range Interpretation Comme nts TESTOST (test code = 1581496587) 31.8 ng/dL 6-77 YOSELIN (test code = YOSELIN) Normal Ranges Adul t Female: ?6-77 ng/dLAdult Male <50 years: ? ?132-813 ng/dLAdult Male >50 years: ? ?72-623 ng/dL Females on Control Pills may have higher results. Obese patients may have lower results. Biotin has been reported to cause a negative bias, interpret results relative to patient's use of biotin. Lab Interpretation (test code = 14564-0) Normal [facility] CypressTESTOSTERONE2022-09-16 05:00:02* Test Item Value Reference Range Interpretation Comme [facility] TESTOST (test code = 4379793604) 31.8 ng/dL 6-77 YOSELIN (test code = YOSELIN) Normal Ranges Adul t Female: ?6-77 ng/dLAdult Male <50 years: ? ?132-813 ng/dLAdult Male >50 years: ? ?72-623 ng/dL Females on Control Pills may have higher results. Obese patients may have lower results. Biotin has been reported to cause a negative bias, interpret results relative to patient's use of biotin. Lab Interpretation (test code = 10335-7) Normal [facility]ressTHYROID STIMULATING [id number] 04:58:41 * Test Item Value Reference Range Interpretation Comme [facility] TSH (test code = 5227532637) See_Comment Biotin has been reported to cause a negative bias, interpret results relative to patient's use of biotin. [Automated message] The system which generated this result transmitted reference range: 0.45 - 4.70 mIU/L. The reference range was not used to interpret this result as normal/abnormal. Lab Interpretation (test code = 09840-5) Normal [facility]ressTHYROID STIMULATING [id number] 04:58:41 * Test Item Value Reference Range Interpretation Comme nts TSH (test code = 9035523113) See_Comment Biotin has been reported to cause a negative bias, interpret results relative to patient's use of biotin. [Automated message] The system which generated this result transmitted reference range: 0.45 - 4.70 mIU/L. The reference range was not used to interpret this result as normal/abnormal. Lab Interpretation (test code = 17647-9) Normal [facility]ressGLYCOSYLATED HEMOGLOBIN (A1C)2022-01-24 04:38:59* Test Item Value Reference Range Interpretation Comme [facility] HGB A1C (test code = 4548-4) 5.5 % 4-5.7 YOSELIN (test code = YOSELIN) Reference RangesNormal: <5.7%Prediabetes: 5.7 - 6.4%Diabetes: > 6.5% Lab Interpretation (test code = 38499-2) Normal [facility]ressGLYCOSYLATED HEMOGLOBIN (A1C)2022-01-24 04:38:59* Test Item Value Reference Range Interpretation Comme [facility] HGB A1C (test code = 4548-4) 5.5 % 4-5.7 YOSELIN (test code = YOSELIN) Reference RangesNormal: <5.7%Prediabetes: 5.7 - 6.4%Diabetes: > 6.5% Lab Interpretation (test code = 93533-6) Normal [facility] [id number] 20:04:00* Test Item Value Reference Range Interpretation Comme [facility] POCT PREG (test code = 1605) Negative On board controls acceptable with C Line (test code = 3574) Yes POCT PREG LOT # (test code = 3575) POCT PREG TEST DATE ( test code = 3576) [facility] [id number] 20:04:00* Test Item Value Reference Range Interpretation Comme [facility] POCT PREG (test code = 1605) Negative On board controls acceptable with C Line (test code = 3574) Yes POCT PREG LOT # (test code = 3575) POCT PREG TEST DATE ( test code = 3576) [facility]
[2023-10-29 19:25] LABS: Hematocrit 25.6 % (36.0-45.0); Hemoglobin 8.7 g/dL (12.0-15.0); MCH 29.6 pg (27.0-35.0); MCHC 34.1 g/dL (32.0-36.0); MCV 86.8 fL (80-100); Platelets 351 thou/uL (152-406); RBC Red Blood Cell Count 2.95 M/uL (3.86-4.86); Red Cell Distribution Width 14.9 % (12.1-15.2)
[2023-10-29 19:26] LABS: Absolute Basophils 0.1 K/uL (0-0.5); Absolute Eosinophils 0.4 K/uL (0-0.5); Absolute Lymphocytes (CBC) 1.8 K/uL (0.7-4.9); Absolute Monocytes 0.5 K/uL (0.1-1.3); Absolute Neutrophil 7.9 K/uL (1.8-8.0); Basophils % 0.8 % (0-1.3); Eosinophils % 4.1 % (0-4.4); Lymphocytes % 16.9 % (15.3-44.8); MPV 8.1 fL (7.6-11.3); Neutrophils % 73.2 % (41.7-73.7); Nucleated Red Blood Cells % 0.3 % (0-0)
[2023-10-29 19:29] LABS: Specific Gravity 1.016 (1.005-1.030); Urine Bacteria <20 /HPF (<20); Urine Bilirubin NEGATIVE (Negative); Urine Blood 3+ (OVER) (Negative); Urine Clarity Extremely Turbid (Clear); Urine Color Light-Brown (Yellow); Urine Crystals Unidentified Few /HPF (None Seen); Urine Culture Reflex Order REFLEXED; Urine Glucose NEGATIVE (Negative); Urine Ketones NEGATIVE (Negative); Urine Microscopic Reflex YN ORDER UMIC; Urine Nitrite NEGATIVE (Negative); Urine Protein 1+ (Negative); Urine RBC >50 /HPF (None Seen); Urine Urobilinogen Normal (Normal); Urine WBC >50 /HPF (<5)
[2023-10-29 19:43] LABS: ALT/SGPT 30 U/L (13-56); AST/SGOT 19 U/L (15-37); Albumin 2.6 g/dL (3.4-5.0); Albumin/Globulin Ratio 0.7 (1.1-1.8); Alkaline Phosphatase 61 U/L (45-117); Anion Gap 9.4 mEq/L (5.0-15.0); BUN Blood Urea Nitrogen 15 mg/dL (7-18); Bicarbonate 25 mEq/L (21-32); Bilirubin Total 0.2 mg/dL (0.2-1.0); Globulin 3.8 g/dL (2.3-3.5); Glomerular Filtration Rate 100 ml/min (=/>90); Glucose Level 99 mg/dL (74-106); Magnesium 1.9 mg/dL (1.6-2.4); Potassium 3.4 mEq/L (3.5-5.1); Protein, Total 6.4 g/dL (6.4-8.2); Sodium Level 144 mEq/L (136-145); Uric Acid 4.9 mg/dL (2.6-6.0)
[2023-10-29 19:47] LABS: Bilirubin Direct < 0.2 mg/dL (0-0.2)
--- NOTE | 2023-10-29 20:43 | RAD REPORT ---
EXAM DESCRIPTION: RAD - Chest Single View - 10/29/2023 8:34 pm CLINICAL HISTORY: SOB Chest pain. COMPARISON: Chest Single View dated 03/26/2022 FINDINGS: Portable technique limits examination quality. Moderate bilateral pulmonary opacities compatible with pulmonary edema. The heart is mildly enlarged in size. No displaced fractures. IMPRESSION: Moderate CHF.
[2023-10-29] MEDS ORDERED: FUROSEMIDE 20 MG/ 2ML VIAL ONE (21:08)
[2023-10-29] MEDS ORDERED: POTASSIUM 25 MEQ EFFERV TAB ONE (21:08)
[2023-10-29] MEDS ORDERED: ALBUMIN HUMAN 25% 100 ML IV ONE (21:08)
[2023-10-29 21:36] LABS: PT Prothrombin Time 11.1 SECONDS (9.4-12.5); Protime INR 1.01
[2023-10-29 21:49] LABS: Troponin High Sensitivity 8.7 pg/mL (<58.9)
--- NOTE | 2023-10-29 22:09 | ER ---
Nurse's Notes [facility] Name: Brianna Weems Age: 28 yrs Sex: Female : 1995 Arrival Date: 10/29/2023 Time: 18:03 Bed 2 Private MD: Diagnosis: Elevated blood-pressure reading, without diagnosis of hypertension;Anemia, unspecified;Edema, unspecified Presentation: 10/28 18:43 Chief complaint: Patient states: Gave on Thursday, here today because of high blood nj1 pressure and swollen feet. Had preclampsia. Woke up with worsening feet swelling and higher blood pressure readings. Coronavirus screen: Vaccine status: Patient reports being unvaccinated. Ebola Screen: Patient denies travel to an Ebola-affected area in the 21 days before illness onset. Initial Sepsis Screen: Does the patient meet any 2 criteria? No. Patient's initial sepsis screen is negative. Does the patient have a suspected source of infection? No. Patient's initial sepsis screen is negative. Risk Assessment: Do you want to hurt yourself or someone else? Patient reports no desire to harm self or others. Onset of symptoms was October 29, 2023. 18:43 Method Of Arrival: Ambulatory banner 18:43 Acuity: VENANCIO 3 nj1 Historical: - Allergies: 18:47 Latex; nj1 - PMHx: 18:47 crohns disease; hiatal hernia; Hypothyroidism; PCOS; nj1 - PSHx: 18:47 Cholecystectomy; nj1 - Immunization history:: Client reports having NOT received the Covid vaccine. - Infectious Disease History:: Denies. - Social history:: Smoking status: Patient denies any tobacco usage or history of. Screenin:15 [facility] ED Fall Risk Assessment (Adult) History of falling in the last 3 months, jb4 including since admission No falls in past 3 months (0 pts) Confusion or Disorientation No (0 pts) Intoxicated or Sedated No (0 pts) Impaired Gait No (0 pts) Mobility Assist Device Used No (0 pt) Altered Elimination No (0 pt) Score/Fall Risk Level 0 - 2 = Low Risk Oriented to surroundings, Maintained a safe environment. Abuse screen: Denies threats or abuse. Nutritional screening: No deficits noted. Tuberculosis screening: No symptoms or risk factors identified. Assessment: 19:15 General: Appears in no apparent distress. comfortable, Behavior is calm, cooperative, jb4 appropriate for age. Pain: Denies pain. Neuro: Level of Consciousness is awake, alert, obeys commands, Oriented to person, place, time, situation. Cardiovascular: Patient's skin is warm and dry. Respiratory: Airway is patent Respiratory effort is even, unlabored, Respiratory pattern is regular, symmetrical. GI: No signs and/or symptoms were reported involving the gastrointestinal system. : No signs and/or symptoms were reported regarding the genitourinary system. EENT: No signs and/or symptoms were reported regarding the EENT system. Derm: Skin is intact, Skin is pink, warm \T\ dry. Musculoskeletal: Circulation, motion, and sensation intact. Range of motion: intact in all extremities. 19:32 Reassessment: Patient appears in no apparent distress at this time. tm6 20:59 Reassessment: Patient appears in no apparent distress at this time. Patient and/or tm6 family updated on plan of care and expected duration. Pain level reassessed. Patient is alert, oriented x 3, equal unlabored respirations, skin warm/dry/pink. 21:51 Reassessment: Patient and/or family updated on plan of care and expected duration. Pain tm6 level reassessed. Patient is alert, oriented x 3, equal unlabored respirations, skin warm/dry/pink. 22:40 Reassessment: No changes from previously documented assessment. tm6 Vital Signs: 18:43 BP 148 / 101; Pulse 77; Resp 18; Temp 97.1(TE); Pulse Ox 100% on R/A; Height 5 ft. 0 nj1 in. ; 19:32 BP 147 / 97; Pulse 88; Pulse Ox 97% on R/A; tm6 20:59 BP 157 / 92; Pulse 99; Resp 20; Pulse Ox 96% on R/A; Pain 0/10; tm6 21:51 BP 160 / 99; Pulse 79; Resp 23; Pulse Ox 96% on R/A; Pain 0/10; tm6 22:39 BP 140 / 93; Pulse 21; Resp 21; Temp 97.3(TE); Pulse Ox 98% on R/A; Pain 0/10; tm6 20:59 Pain Scale: Adult tm6 21:51 Pain Scale: Adult tm6 22:39 Pain Scale: Adult tm6 ED Course: 18:06 Patient arrived in ED. mr 18:07 Paul Hernandez PA is PHCP. cp 18:07 Nuno Iniguez MD is Attending Physician. cp 18:47 Triage completed. nj1 18:47 Arm band placed on right wrist. nj1 19:15 Patient has correct armband on for positive identification. Bed in low position. Call jb4 light in reach. Side rails up X 1. Provided Education on: Plan of care. 19:15 Inserted saline lock: 20 gauge in right antecubital area, using aseptic technique. jb4 Blood collected. 19:18 Magnesium Sent. jb4 19:18 Urinalysis w/ reflexes Sent. jb4 19:18 LFT's Sent. jb4 19:18 BMP Sent. jb4 19:18 CBC with Diff Sent. jb4 19:18 Uric Acid Sent. jb4 19:19 Tray Arteaga, RN is Primary Nurse. jb4 20:14 EKG done, by ED staff, reviewed by Paul WHATLEY. tm6 20:19 Notified Nurse Practitioner and/or Physician Drug Department Worker of bala Hyde [facility] Mary Miller. 20:36 XRAY Chest (1 view) In Process Unspecified. EDMS 21:43 Vic Modi MD is Attending Physician. cp 22:40 No provider procedures requiring assistance completed. IV discontinued, intact, tm6 bleeding controlled, No redness/swelling at site. Pressure dressing applied. Administered Medications: 21:35 Drug: Potassium PO Effervescent Tablet 25 mEq PO once; dissolve in 4 ounces of water or jb4 juice Route: PO; 21:35 Drug: Furosemide IVP 20 mg IVP once; give over 2 minutes Route: IVP; Site: right jb4 antecubital; 21:35 Drug: Albumin IVPB 25 grams 100 ml IVPB once; (Note: Albumin 25% concentration) Volume: jb4 100 ml; Route: IVPB; Site: right antecubital; Medication: 19:15 VIS not applicable for this client. jb4 Outcome: 22:06 Discharge ordered by . cp 22:40 Discharged to home ambulatory, tm6 22:40 Condition: stable 22:40 Discharge instructions given to patient, Instructed on discharge instructions, follow up and referral plans. medication usage, Demonstrated understanding of instructions, follow-up care, medications, Prescriptions given X 1, 22:40 Patient left the ED. tm6 Signatures: Dispatcher [employer] EDMS CristobalYessica, Reg Reg mr Mary, Paul, Tray Ramsay cp, RN RN jb4 Fidelina Eirc RN RN nj1 Sakshi Ahn [facility] Zay Gao RN RN tm6
--- NOTE | 2023-10-29 22:10 | EDPHYS ---
Physician Documentation [facility] Name: Brianna Weems Age: 28 yrs Sex: Female : 1995 Arrival Date: 10/29/2023 Time: 18:03 Bed 2 Private MD: ED Physician Vic Modi HPI: 10/28 18:50 This 28 yrs old Female presents to ER via Ambulatory with complaints of High cp Blood Pressure, Feet Swelling. 18:50 Patient is a 28-year-old female who presents to the emergency department with cp complaints of elevated blood pressure and swelling in her lower legs and feet. Patient reports recently delivering a healthy infant male at 34 weeks gestation this past Thursday. She reports preeclampsia during the and that she checked her blood pressure today and noticed that it was elevated. Patient does complain of some shortness of breath and intermittent chest pain. Patient denies cough, fever and/or sore throat. Patient reports she delivered at [facility] and that she contacted her OB doctor and was told to come to the emergency department for evaluation. Historical: - Allergies: 18:47 Latex; nj1 - PMHx: 18:47 crohns disease; hiatal hernia; Hypothyroidism; PCOS; nj1 - PSHx: 18:47 Cholecystectomy; nj1 - Immunization history:: Client reports having NOT received the Covid vaccine. - Infectious Disease History:: Denies. - Social history:: Smoking status: Patient denies any tobacco usage or history of. ROS: 18:55 Constitutional: Negative for body aches, chills, fever, poor PO intake, cp 18:55 Eyes: Negative for injury, pain, redness, and discharge, cp 18:55 ENT: Negative for drainage from ear(s), ear pain, sore throat, difficulty swallowing, difficulty handling secretions, 18:55 Cardiovascular: Positive for chest pain, edema, Negative for palpitations, 18:55 Respiratory: Positive for shortness of breath, on exertion. Negative for cough, wheezing, 18:55 Abdomen/GI: Negative for abdominal pain, nausea, vomiting, and diarrhea, 18:55 : Negative for urinary symptoms, 18:55 Neuro: Negative for altered mental status, dizziness, headache, numbness, syncope, near syncope, weakness, 18:55 All other systems are negative, Exam: 19:00 Constitutional: The patient appears in no acute distress, alert, awake, cp non-diaphoretic, non-toxic, well developed, well nourished, 19:00 Head/Face: Normocephalic, atraumatic. cp 19:00 Eyes: Periorbital structures: appear normal, Conjunctiva: normal, no exudate, no injection, Sclera: no appreciated abnormality, Lids and lashes: appear normal, bilaterally, 19:00 ENT: External ear(s): are unremarkable, Nose: is normal, Mouth: Lips: moist, Oral mucosa: pink and intact, moist, Posterior pharynx: is normal, airway is patent, no erythema, no exudate, 19:00 Neck: ROM/movement: is normal, is supple, without pain, no range of motions limitations, 19:00 Chest/axilla: Inspection: normal, 19:00 Cardiovascular: Rate: normal, Rhythm: regular, Edema: pedal edema, that is mild, ankle edema, that is mild, JVD: is not appreciated, 19:00 Respiratory: the patient does not display signs of respiratory distress, Respirations: normal, no use of accessory muscles, no retractions, labored breathing, is not present, Breath sounds: are clear throughout, no decreased breath sounds, no stridor, no wheezing, 19:00 Abdomen/GI: Exam negative for discomfort, distension, guarding, Inspection: abdomen appears normal, 19:00 Neuro: Orientation: to person, place \T\ time. Mentation: is normal, Cerebellar function: is grossly normal, Motor: moves all fours, strength is normal, 20:15 ECG was reviewed by the Attending Physician. cp Vital Signs: 18:43 BP 148 / 101; Pulse 77; Resp 18; Temp 97.1(TE); Pulse Ox 100% on R/A; Height 5 ft. 0 nj1 in. ; 19:32 BP 147 / 97; Pulse 88; Pulse Ox 97% on R/A; tm6 20:59 BP 157 / 92; Pulse 99; Resp 20; Pulse Ox 96% on R/A; Pain 0/10; tm6 21:51 BP 160 / 99; Pulse 79; Resp 23; Pulse Ox 96% on R/A; Pain 0/10; tm6 22:39 BP 140 / 93; Pulse 21; Resp 21; Temp 97.3(TE); Pulse Ox 98% on R/A; Pain 0/10; tm6 20:59 Pain Scale: Adult tm6 21:51 Pain Scale: Adult tm6 22:39 Pain Scale: Adult tm6 MDM: 18:48 Patient medically screened. cp 19:15 Differential diagnosis: hypertensive crisis, Malignant HTN, CVA, intracerebral cp hemorrhage, pre-eclampsia, cardiac arrhythmia, chf. 21:59 Data reviewed: vital signs, nurses notes, lab test result(s), EKG, radiologic studies, cp plain films. I considered the following discharge prescriptions or medication management in the emergency department Medications were administered in the Emergency Department. See MAR. ED course: VS noted, discussed results of today's testing and transfer offered for continued treatment. Patient declines transfer at this time and would like to continue to monitor symptoms at home. Patient understands she can return at any time for reevaluation if symptoms worsen. 10/28 18:49 Order name: CBC with Diff; Complete Time: 20:00 10/28 20:00 Interpretation: Normal except: RBC 2.95; HGB 8.7; HCT 25.6. cp 10/28 18:49 Order name: BMP; Complete Time: 20:00 10/28 20:00 Interpretation: Normal except: K 3.4; CL 113; CA 8.1. cp 10/28 18:49 Order name: LFT's; Complete Time: 20:00 cp 10/28 20:00 Interpretation: Normal except: IBILI, CALC 0.0; ALB 2.6; GLOB 3.8; A/G 0.7. 10/28 18:49 Order name: Urinalysis w/ reflexes; Complete Time: 19:31 cp 10/28 19:31 Interpretation: Normal except: [facility] Extremely Turbid; UBLD 3+ (OVER); UPROT 1+; UESTR cp 250; UWBC >50; URBC >50. 10/28 18:49 Order name: Magnesium; Complete Time: 20:00 cp 10/28 18:49 Order name: Uric Acid; Complete Time: 20:00 cp 10/28 19:33 Order name: Urine Culture EDNY 10/28 20:48 Order name: BNP; Complete Time: 21:50 cp 10/28 21:50 Interpretation: NT PRO-BNP 2012; Reviewed. 10/28 20:48 Order name: Troponin HS; Complete Time: 21:50 cp 10/28 20:48 Order name: PT-INR; Complete Time: 21:50 cp 10/28 20:48 Order name: Type And Screen cp 10/28 19:38 Order name: XRAY Chest (1 view); Complete Time: 20:46 cp 10/28 20:47 Interpretation: Report review. cp 10/28 19:38 Order name: EKG; Complete Time: 19:39 cp 10/28 18:49 Order name: IV; Complete Time: 19:18 cp 10/28 19:31 Order name: Blood Pressure Recheck; Complete Time: 19:54 cp 10/28 19:38 Order name: EKG - Nurse/Tech; Complete Time: 20:14 cp EC:15 Rate is 76 beats/min. Rhythm is regular. ID interval is normal. QRS interval is normal. cp QT interval is normal. T waves are Inverted in lead aVR. Interpreted by me. Reviewed by me. Administered Medications: 21:35 Drug: Potassium PO Effervescent Tablet 25 mEq PO once; dissolve in 4 ounces of water or jb4 juice Route: PO; 21:35 Drug: Furosemide IVP 20 mg IVP once; give over 2 minutes Route: IVP; Site: right jb4 antecubital; 21:35 Drug: Albumin IVPB 25 grams 100 ml IVPB once; (Note: Albumin 25% concentration) Volume: jb4 100 ml; Route: IVPB; Site: right antecubital; Disposition: 10/29 04:09 Co-signature as Attending Physician, Vic Modi MD I agree with the assessment sp4 and plan of care. I reviewed the patient's care provided by the Advanced Practice Provider and agree with the diagnosis and treatment plan. Disposition Summary: 10/29/23 22:06 Discharge Ordered Notes: Location: Home cp Problem: new cp Symptoms: have improved cp Condition: Stable cp Diagnosis - Elevated blood-pressure reading, without diagnosis of hypertension cp - Anemia, unspecified cp - Edema, unspecified cp Followup: cp - With: Private Physician - When: 2 - 3 days - Reason: Recheck today's complaints Discharge Instructions: - Discharge Summary Sheet cp - Anemia cp - Edema cp - How to Use Compression Stockings cp - How to Take Your Blood Pressure cp Forms: - Medication Reconciliation Form cp - Antibiotic Education cp - Prescription Opioid Use cp - Patient Portal Instructions cp - Leadership Thank You Letter cp Prescriptions: - Lasix 20 mg Oral Tablet - take 1 tablet ORAL route once daily; 20 tablet; Refills: 0, Product Selection cp Permitted Signatures: Dispatcher [employer] EDMS Paul Hernandez PA PA cp Tray Arteaga, RN RN jb4 Vic Modi MD MD sp4 Fidelina Eric RN RN nj1 Zay Gao RN RN tm6 Corrections: (The following items were deleted from the chart) 10/28 20:48 20:48 PROBNP+C.LAB.BRZ ordered. EDMS EDMS 20:48 20:48 Troponin High Sensitivity+C.LAB.BRZ ordered. EDMS EDMS 20:48 20:48 PROTIME (+INR)+COAG.LAB.BRZ ordered. EDMS EDMS 20:48 20:48 TYPE AND SCREEN+BB.LAB.BRZ ordered. EDNY EDMS 10/29 22:28 04:32 This 28 yrs old Female presents to ER via Ambulatory with complaints of cp High Blood Pressure, Feet Swelling. sp4
[2023-10-30 00:19] VITALS: BP 140/93; TEMP 97.3; O2SAT 98
--- NOTE | 2023-11-01 13:34 | EKG ---
Test Date: 2023-10-29 Test Time: 20:10:59 [employer]: JABIER MEASUREMENT RESULTS: Intervals: Rate: 76 WY: 158 QRSD: 66 QT: 404 QTc: 454 [place]: P: 67 WY: 158 QRS: 94 T: 63 INTERPRETIVE STATEMENTS: Normal sinus rhythm Rightward axis Borderline ECG No previous ECG available for comparison Electronically Signed On 11-01-23 13:28:22 CDT by Nile Pierce
== END 2023-10-29 22:40 | disposition home or self-care (01) ==
LOC: ER 18:03
DX: R03.0 Elevated blood-pressure reading, without diagnosis of hypertension (principal); R60.9 Edema, unspecified; D64.9 Anemia, unspecified; E03.9 Hypothyroidism, unspecified; K50.90 Crohn's disease, unspecified, without complications; Z91.040 Latex allergy status
CPT/HCPCS: 87088; 85025; 81001; 87086; 80048; 36415; 86900; 83735; 86850; 85610; 86901; 80076; 84550; 84484; 83880; 71045; 96375; 96374; 99284; J1940; P9047; 93005